=== PATIENT | male | born 1935 | race Caucasian/White ===

== ENCOUNTER 2016-07-16 10:51 | Inpatient (IN) | payer MEDICARE ==
[~2016-07-16] VITALS: Ht 177.8 cm; Wt 74.4 kg
[2016-07-16] MEDS ORDERED: DOCUSATE SODIUM 100 MG (COLACE) CAP PO PRN (12:00)
[2016-07-16 12:27] VITALS: BP 121/76
--- NOTE | 2016-07-16 13:11 | Physical Therapy Evaluation ---
PT Evaluation-General Medical Diagnosis Admission Date Jul 16, 2016 at 11:33 Medical Diagnosis: CVA Onset Date: Jul 11, 2016 Therapy Diagnosis Therapy Diagnosis: impaired mobility, strength, balance, endurance Referral Physician: Kar Reason for Referral: Evaluation/Treatment Medical History Pertinent Medical History: CAD, GERD, HTN, PVD, Smoking Additional Medical History high cholesterol, TIA, skin CA, CHF, chronic diarrhea, surg (cataract, dental, elbow, femoral bypass, colonoscopy) Current History Patient went to the ER with left arm/leg numbness and weakness Reviewed History: Yes Social History Home: Multilevel Current Living Status: Spouse Entry Into Home: Stairs With Railing PT Steps Into Home: 2 Patient states he does not have to go upstairs. Prior/Core FIM Prior Level of Function Functional [place] Measure 0=Not Assessed/NA 4=Minimal Assistance 1=Total Assistance 5=Supervision or Setup 2=Maximal Assistance 6=Modified [place] 3=Moderate Assistance 7=Complete [place] Bed Mobility: 7 Transfers (B,C,W/C) (FIM): 7 Gait: 7 PT Evaluation-Current Subjective Patient in car pre tx, just got here from [facility], will assist with car transfer. Patient has no complaints of pain. Pt/Family Goals to walk better and be able to take care of himself at home Objective Patient Orientation: Person, Place, Situation ROM/Strength ROM Lower Extremities WNL Strenght Lower Extremities left lower extremity hip flexion 3+/5, knee flexion 4/5, knee extension 4/5, dorsiflexion 4/5 Neuromuscular (Tone, Coordination, Reflexes) Patient has uncoordinated left lower extremity with ambulation, no grossly abnormal tone Sensory Hearing: Functional Sensation Right Lower Extremit: Intact Sensation Left Lower Extremity: Intact Sensation Lower Extremities Patient has intact light touch sensation in left lower extremity but states it is not normal, is dulled. Transfers Functional [place] Measure 0=Not Assessed/NA 4=Minimal Assistance 1=Total Assistance 5=Supervision or Setup 2=Maximal Assistance 6=Modified [place] 3=Moderate Assistance 7=Complete IndependenceIRFPAI Quality Coding Scale 6 Independent with activity with or without an assistive device 5 Patient requires set up or clean up by helper. Patient completes activity by themselves 4 Supervision or touching assist (CGA). [place] provide cues , steadying assist 3 The helper provides less than half the effort to complete the activity 2 The helper provides more than half the effort to complete the activity 1 Dependent. The helper does all the effort to complete an activity 7 Patient refused to complete or attempt activity 9 The patient did not perform the activity before the current illness or injury 88 Not attempted due to Medical conditions or safety concerns Transfers (B, C, W/C) (FIM): 4 Scootin Rollin Roll Left to Right (QC): 4 Supine to/from Sit: 4 Sit to/from Stand: 4 bed t/f WC(FIM only if WC use): 4 Sit to Lying (QC): 3 Lying to Sitting/Side of Bed(Q: 3 Sit to Stand (QC): 3 Chair/Drq-mw-Jbbmv Xfer(QC): 3 Car Transfer (QC): 3 Patient performs bed mobility with SBA except for supine <-> sit which needs min assist, transfers with min assist. Patient needs cues for safety and hand placement, constant cues to push up from arm rest. Patient leans to the left and has a lot of trouble turning to sit to the right. Gait Does the Patient Walk?: Yes Mode of Locomotion: Walk Anticipated Mode of Locomotion: Walk Gait (FIM): 1 Walk 10 feet (QC): 4 Walk 50 ft with 2 Turns(QC): 88 Walk 150 ft (QC): 88 Walking 10ft/uneven surface-QC: 88 Distance: 20'x2 Gait Level of Assist: 4 Gait Persons Needed: 1 Gait Assistive Device: Walker Ion Comments/Gait Description Patient can ambulate 20' with a ion walker with min assist for balance and weight shifting, uncoordinated movement of left leg. Wheelchair Training Does the Pt Use a Wheelchair?: Yes Wheelchair (FIM): 2 Distance: 50' Wheelchair Level of Assist: 5 Wheel 50 ft with 2 turns (QC): 4 Wheel 150 ft (QC): 88 Type of Wheelchair: Manual uses right arm and leg, cues for direction Stairs Stairs (FIM): 1 #of Steps: 1 Level of Assist: 3 1 Step (curb) (QC): 2 4 Steps (QC): 88 12 Steps (QC): 88 Patient can go up and down 1 step using a ion walker with mod assist for balance. Balance Sitting Static: Good Sitting Dynamic: Good Standing Static: Poor Standing Dynamic: Poor Picking up an Object (QC): 88 Assessment/Needs Patient has impaired mobility, strength (left ion), balance, endurance post CVA. 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 He is at high risk for a fall. Rehab Potential: Fair PT Short Term Goals Short Term Goals Time Frame: Jul 23, 2016 Transfers (B,C,W/C) (FIM): 4 Gait (FIM): 2 Gait Distance Comment: 50' Gait Level of Assist: 4 Gait Assistive Device: Cane Large Base Quad PT Brake Tester Goals Snf Goals PT Snf Goals Time Frame: Aug 06, 2016 Transfers (B,C,W/C) (FIM): 5 Sit to Lying (QC): 4 Lying-Sitting on Side/Bed(QC): 4 Sit to Stand (QC): 4 Rollin Roll Left to Right (QC): 4 Chair/Pai-zs-Skzvm Xfer(QC): 4 Car Transfer (QC): 4 Gait (FIM): 4 Distance: 150' Walk 10 feet (QC): 4 Walk 10ft-Uneven Surface(QC): 4 Walk 50ft with 2 Turns (QC): 4 Walk 150 ft (QC): 4 Gait Level of Assist: 4 Gait Assistive Device: Cane Large Base Quad Stairs (FIM): 2 # of Steps: 4 1 Step (curb) (QC): 4 4 Steps (QC): 4 12 Steps (QC): 88 Stairs Level Of Assist: 4 Picking up an Object (QC): 88 PT Plan Problem List Problem List: Activity Tolerance, Functional Strength, Safety, Balance, Gait, Transfer, Bed Mobility Treatment/Plan Treatment Plan: Continue Plan of Care Treatment Plan: Bed Mobility, Education, Functional Activity Pedro, Functional Strength, Group Therapy, Gait, Safety, Therapeutic Exercise, Transfers Treatment Duration: Aug 06, 2016 # of days/week 5-6 Visits Per Week: 10-11 Minutes/Day (M-F): 60-90 Minutes/Day (Sat/Etienne): 15-30 Pt/Family Agrees w/Plan: Yes Safety Risks/Education Patient Education: Gait Training, Transfer Techniques, Steps, Correct Positioning, W/C Management, Safety Issues Teaching Recipient: Patient Teaching Methods: Demonstration, Discussion Response to Teaching: Reinforcement Needed Discharge Recommendations Plan Patient will perform bed mobility and transfer training, balance and endurance training, functional strengthening, stair training, gait training, and education , to improve functional mobility and independence at home. Therapy D/C Recommendations: Home w/ Family Support Time/GCodes Time In: 1125 Time Out: 1225 Total Billed Treatment Time: 60 Total Billed Treatment 1 visit EV 15' GT 20' [facility] 10' FA 15' LATANYA FLYNN PT Jul 16, 2016 13:11
[2016-07-16] MEDS ORDERED: TR1C15 TP (13:25)
[2016-07-16] MEDS ORDERED: BENA20TA2 PO (13:25)
[2016-07-16] MEDS ORDERED: OMEP20TA33 PO (13:25)
[2016-07-16] MEDS ORDERED: ATOR20TA66 PO (13:25)
[2016-07-16] MEDS ORDERED: NIFE60TA64 PO (13:25)
[2016-07-16] MEDS ORDERED: MULT1TAB69 PO (13:25)
[2016-07-16] MEDS ORDERED: ASPI-983 PO (13:25)
[2016-07-16] MEDS ORDERED: DOCU100C37 PO (13:25)
--- NOTE | 2016-07-16 14:14 | Physical Therapy Daily Note ---
PT Daily Note-Current Subjective Patient in recliner pre tx, agrees to PT, patient pleasant and motivated. No complaints of pain. Appearance Patient in wheelchair post tx with OT in therapy gym. Mental Status Patient Orientation: Normal For Age Transfers Functional [place] Measure 0=Not Assessed/NA 4=Minimal Assistance 1=Total Assistance 5=Supervision or Setup 2=Maximal Assistance 6=Modified [place] 3=Moderate Assistance 7=Complete IndependenceIRFPAI Quality Coding Scale 6 Independent with activity with or without an assistive device 5 Patient requires set up or clean up by helper. Patient completes activity by themselves 4 Supervision or touching assist (CGA). [place] provide cues , steadying assist 3 The helper provides less than half the effort to complete the activity 2 The helper provides more than half the effort to complete the activity 1 Dependent. The helper does all the effort to complete an activity 7 Patient refused to complete or attempt activity 9 The patient did not perform the activity before the current illness or injury 88 Not attempted due to Medical conditions or safety concerns Transfers (B, C, W/C) (FIM): 4 Sit to/from Stand: 4 Bed to/from Chair: 4 Cues for safety and hand placement, leans to the left. Gait Training Gait (FIM): 1 Distance: 30'x4 Gait Level of Assist: 4 Gait Persons Needed: 1 Gait Assistive Device: Walker Ion Min assist to help with balance and weight shifting. Treatments transfers, ambulation Assessment Current Status: Fair Progress improved ambulation, endurance PT Short Term Goals Short Term Goals Time Frame: Jul 23, 2016 Transfers (B,C,W/C) (FIM): 4 Gait (FIM): 2 Gait Distance Comment: 50' Gait Level of Assist: 4 Gait Assistive Device: Cane Large Base Quad Wheelchair Distance: 50' PT Meter Record Clerk Goals Meter Record Clerk Goals PT Fdc Goals Time Frame: Aug 06, 2016 Transfers (B,C,W/C) (FIM): 5 Sit to Lying (QC): 4 Lying-Sitting on Side/Bed(QC): 4 Sit to Stand (QC): 4 Rollin Roll Left to Right (QC): 4 Chair/Ykt-xs-Qwuim Xfer(QC): 4 Car Transfer (QC): 4 Gait (FIM): 4 Distance: 150' Walk 10 feet (QC): 4 Walk 10ft-Uneven Surface(QC): 4 Walk 50ft with 2 Turns (QC): 4 Walk 150 ft (QC): 4 Gait Level of Assist: 4 Gait Assistive Device: Cane Large Base Quad Stairs (FIM): 2 # of Steps: 4 1 Step (curb) (QC): 4 4 Steps (QC): 4 12 Steps (QC): 88 Stairs Level Of Assist: 4 Picking up an Object (QC): 88 PT Plan Problem List Problem List: Activity Tolerance, Functional Strength, Safety, Balance, Gait, Transfer, Bed Mobility Treatment/Plan Treatment Plan: Continue Plan of Care Treatment Plan: Bed Mobility, Education, Functional Activity Pedro, Functional Strength, Group Therapy, Gait, Safety, Therapeutic Exercise, Transfers Treatment Duration: Aug 06, 2016 Visits Per Week: 10-11 Minutes/Day (M-F): 60-90 Minutes/Day (Sat/Etienne): 15-30 Safety Risks/Education Patient Education: Gait Training, Transfer Techniques, Correct Positioning, Safety Issues Teaching Recipient: Patient Teaching Methods: Demonstration, Discussion Response to Teaching: Reinforcement Needed Time/GCodes Time In: 1335 Time Out: 1405 Total Billed Treatment Time: 30 Total Billed Treatment 1 visit GT 30' LATANYA FLYNN PT Jul 16, 2016 14:14
--- NOTE | 2016-07-16 14:53 | Occupational Therapy Eval ---
OT Evaluation-General/PLF Medical Diagnosis Admission Date Jul 16, 2016 at 11:33 Medical Diagnosis: CVA Onset Date: Jul 11, 2016 Therapy Diagnosis Therapy Diagnosis: decr self care, decr funct use L UE, weakness, decr funct mobility Precautions Precautions/Isolations: Fall Prevention, Standard Precautions Referral Physician: Kar Referral Reason: Evaluation/Treatment Medical History Pertinent Medical History: CAD, GERD, HTN, PVD, Smoking Additional Medical History high cholesterol, TIA, skin CA, CHF, chronic diarrhea, surg (cataract, dental, elbow, femoral bypass, colonoscopy) Current History Patient went to the ER with left arm/leg numbness and weakness. Admitted from [facility] Reviewed History: Yes Social History Home: Multilevel Current Living Status: Spouse Entry Into Home: Stairs With Railing Steps Into Home: 2 ADL-Prior Level of Function ADL PLOF Comments Pt verbalized that he was able to manage all of his basic self care needs prior to admission. He did all the yard work for himself and for his son and still drove. 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 DME/Equipment: Bath Chair, Shower Hose Shaping Machine Tender, Tub DME/Equipment Comments Shower is upstairs OT Current Status Subjective Pt seen in room, agreeable to OT. Pain reported 0/10 Appearance Alert, cooperative Mental Status/Objective Patient Orientation: Person, Place, Time, Situation Current Glasses/Contacts: Yes Hearing Aids: No Dentures/Partials: Yes (top and bottom) Hand Dominance: Right Upper Extremity ROM R UE grossly WFL. L UE trace to poor- shoulder, trace elbow flex gravity eliminated, trace pron/sup, trace wrist, trace finger flexion Upper Extremity Coordination L impaired Upper Extremity Sensation Pt reported decreased sensation l UE. Also decr finger sensitivity R hand from smoking Upper Extremity Strength R UE grossly 4/5 Pt and reported no visual deficits from stroke. ADL-Treatment Functional [place] Measure 0=Not Assessed/NA 4=Minimal Assistance 1=Total Assistance 5=Supervision or Setup 2=Maximal Assistance 6=Modified [place] 3=Moderate Assistance 7=Complete IndependenceIRFPAI Quality Coding Scale 6 Independent with activity with or without an assistive device 5 Patient requires set up or clean up by helper. Patient completes activity by themselves 4 Supervision or touching assist (CGA). [place] provide cues , steadying assist 3 The helper provides less than half the effort to complete the activity 2 The helper provides more than half the effort to complete the activity 1 Dependent. The helper does all the effort to complete an activity 7 Patient refused to complete or attempt activity 9 The patient did not perform the activity before the current illness or injury 88 Not attempted due to Medical conditions or safety concerns Eating (FIM): 5 (Setup. Able to feed himself with R hand. No choking observed with flaked fish, refried beans or water. pt has full dentures and reported there are many foods he cannot eat without his teeth. ) Eating (QC): 5 Pt did not need to toilet but BSC brought to room. PT reported he transferred better to R side and this information shared with nursing. Pt left up in recliner, eating, present. All needs met. Education OT Patient Education: Modified ADL techniques, Purpose of tx/functional activities, Rehab process, Safety issues Teaching Recipient: Patient, Family Teaching Methods: Discussion Response to Teaching: Verbalize Understanding OT Short Term Goals Short Term Goals Time Frame: Jul 30, 2016 Bathing(FIM): 5 Upper Body Dressing(FIM): 5 Lower Body Dressing(FIM): 5 Toilet/Commode Transfer(FIM): 4 Additional Short Term Goals: 2-Verbalize Understanding, 3-ImproveStrength/Ped[place] 1=Demonstrate adherence to instructed precautions during ADL tasks. 2=Patient will verbalize/demonstrate understanding of assistive devices/ modifications for ADL. 3=Patient will improve strength/tolerance for activity to enable patient to perform ADL's. OT Skilled Nursing Goals Skilled Nursing Goals Time Frame: Aug 13, 2016 Eating (FIM): 6 Eating (QC): 6 Groomin Oral Hygiene (QC): 6 Bathing(FIM): 6 Shower/Bathe Self (QC): 6 Upper Body Dressing(FIM): 6 Upper Body Dressing (QC): 6 Lower Body Dressing(FIM): 6 Lower Body Dressing (QC): 6 On/Off Footwear (QC): 6 Toileting(FIM): 6 Toileting Hygiene (QC): 6 Toilet/Commode Transfer(FIM): 6 Toilet/Commode Transfer (QC): 6 Shower Transfer(FIM): 6 Additional Goals: 2-Verbalize Understanding, 3-ImproveStrength/Ped[place] 1=Demonstrate adherence to instructed precautions during ADL tasks. 2=Patient will verbalize/demonstrate understanding of assistive devices/ modifications for ADL. 3=Patient will improve strength/tolerance for activity to enable patient to perform ADL's. OT Education/Plan Problem List/Assessment Assessment: Decreased Activ Tolerance, Decreased UE Strength, Dependent Transfers, Impaired Funct Balance, Impaired Self-Care Skills, Restricted Funct UE ROM Pt would benefit from skilled OT to increase his independence in basic self care to allo whim to safely return home to love with his and to decrease caregiver burden. Discharge Recommendations Plan/Recommendations: Continue POC Treatment Plan/Plan of Care Treatment,Training & Education: Yes Patient would benefit from OT for education, treatment and training to promote independence in ADL's, mobility, safety and/or upper extremity function for ADL' s. Plan of Care: ADL Retraining, Functional Mobility, Group Exercise/Act as Ind ( education, exercise, activity tolerance, functional use UEs, funct activities), UE Funct Exercise/Act, UE Neuromus Re-Ed/Coord Treatment Duration: Aug 13, 2016 # of days/week 5-6 Visits Per Week: 10-12 Minutes/Day (M-F): 60-90 Minutes/Day (Sat/Etienne): PRN Agreement: Yes Rehab Potential: Fair Time/GCodes Start Time: 12:30 Stop Time: 13:00 Total Time Billed (hr/min): 30 Billed Treatment Time visit, eval high intensity 30 minutes LIZA BARCLAY OT Jul 16, 2016 14:53
--- NOTE | 2016-07-16 15:09 | Occupational Ther Daily Note ---
OT Current Status-Daily Note Subjective Pt finishing up with PT. OT took over care. Pt agreed to therapy. No c/o pain. present during therapy. Mental Status/Objective Patient Orientation: Person, Place, Time, Situation Functional [place] Measure 0=Not Assessed/NA 4=Minimal Assistance 1=Total Assistance 5=Supervision or Setup 2=Maximal Assistance 6=Modified [place] 3=Moderate Assistance 7=Complete [place] ADL-Treatment Functional [place] Measure 0=Not Assessed/NA 4=Minimal Assistance 1=Total Assistance 5=Supervision or Setup 2=Maximal Assistance 6=Modified [place] 3=Moderate Assistance 7=Complete IndependenceIRFPAI Quality Coding Scale 6 Independent with activity with or without an assistive device 5 Patient requires set up or clean up by helper. Patient completes activity by themselves 4 Supervision or touching assist (CGA). [place] provide cues , steadying assist 3 The helper provides less than half the effort to complete the activity 2 The helper provides more than half the effort to complete the activity 1 Dependent. The helper does all the effort to complete an activity 7 Patient refused to complete or attempt activity 9 The patient did not perform the activity before the current illness or injury 88 Not attempted due to Medical conditions or safety concerns Other Treatment Pt transferred from w/c to therapy mat toward R side with mod A, fatigued and did not pivot L foot well. Pt worked on L UE APROM. Pt demonstrated active movement with shldr elevation, shldr ext, bicep flex/ext, wrist flex and finger flex. Pt used compensatory movements to activate muscle groups. Wt bearing with L UE completed with assist to straighten L elbow. Min A to go from supine to sitting then transferred to w/c. Pt maneuvered w/c back to room with cues. Pt requires cues for safety. Pt transferred to L side with mod A. After therapy, pt's and physician in room. Call light/phone in reach. All needs met in room. OT Short Term Goals Short Term Goals Transfers (B,C,W/C) (FIM): 4 1=Demonstrate adherence to instructed precautions during ADL tasks. 2=Patient will verbalize/demonstrate understanding of assistive devices/ modifications for ADL. 3=Patient will improve strength/tolerance for activity to enable patient to perform ADL's. OT Marine Electrician Helper Goals [facility] Goals Eating (FIM): 6 Toileting(FIM): 6 1=Demonstrate adherence to instructed precautions during ADL tasks. 2=Patient will verbalize/demonstrate understanding of assistive devices/ modifications for ADL. 3=Patient will improve strength/tolerance for activity to enable patient to perform ADL's. OT Education/Plan Discharge Recommendations Plan/Recommendations: Continue POC Treatment Plan/Plan of Care Patient would benefit from OT for education, treatment and training to promote independence in ADL's, mobility, safety and/or upper extremity function for ADL' s. Treatment Duration: Aug 13, 2016 # of days/week 5-6 Visits Per Week: 10-12 Minutes/Day (M-F): 60-90 Minutes/Day (Sat/Etienne): PRN Rehab Potential: Fair Time/GCodes Start Time: 14:05 Stop Time: 14:50 Total Time Billed (hr/min): 45 Billed Treatment Time 1 visit-NM 3 (45 min) LIZA ATKINSON Jul 16, 2016 15:09
--- NOTE | 2016-07-16 15:13 | ST Cognitive Linguistic Eval ---
Speech Evaluation-General Medical Diagnosis CVA Onset Date: Jul 11, 2016 Therapy Diagnosis Therapy Diagnosis: Mild Dysarthria Precautions Precautions/Isolations: Fall Prevention, Standard Precautions Referral Referring Physician: Dr. Darren Lakhani Reason for Referral: Evaluation/Treatment Cognitive Evaluation Medical History Pertinent Medical History: CAD, GERD, HTN, PVD, Smoking Reviewed History: Yes Social History Current Living Status: Spouse Speech PLF-Current Status Prior Level of Function The patient denied prior challenges with speech, language, cognition, or swallowing. Subjective The patient was recently admitted to [facility] following a CVA. The patient (and , who was present at bedside) greeted the clinician appropriately and agreed to participate in the cognitive evaluation. The patient denied any difficulties with language or cognition following the CVA, however, the patient's stated he is demonstrating some slight "slurring." Language Eval: Auditory Comprehends Simple Yes/No Ques: Functional Indent/Objects Multiple Mehta: Functional Ident/Pics in Multiple Mehta: Functional Follows 1-Step Commands: Functional Follows Complex Directions: Functional Follows General Conversations: Functional Language Eval: Verbal Language Completes Spontaneous Greeting: Functional Produces Auto, Serial Info: Functional Imitates Simple Words/Phrases: Functional Word Finding: Functional Requests Basic Needs: Functional States Basic Personal Info: Functional Cognitive Patient Orientation The patient is oriented to self, date of , location, month, day of week, date, and year (independently). Objective Cognitive Domain Attention: WNL Memory: Mild Problem Solving: Functional Objective Oral Motor/Speech Production The patient demonstrated a minimal left facial/labial droop with lingual protrusion at midline. Minimal imprecise articulation was noted throughout the evaluation. Impression The patient demonstrated language and cognition grossly within normal limits. The patient is currently receiving a modified diet, therefore, swallowing will be re-evaluated by this facility on the subsequent date. Communication/Social Cognition Comprehension: 5 Expression: 5 Social Interaction: 6 Problem Solvin Memory: 5 Speech Patient Assess Expression of Ideas/Wants: Exhibits (3) Understanding [place] Content: Usually Understands (3) Brief Interview-Mental Status: Yes Repetition of Three Words: Three (3) Temporal Orientation: Year: Correct (3) Temporal Orientation: Month: Accurate within 5 days(2) Temporal Orientation: Day: Correct (1) Recall : Wear to say "Sock": Yes,after cueing (1) Recall : Color: Yes, no cue required (2) Recall : Bed: Yes, no cue required (2) Speech-Plan Treatment Plan Speech Therapy Treatment Plan: Discontinue ST Evaluation, only. Patient will be followed for dysphagia services. Rehab Potential: Fair Safety Risks/Education Teaching Recipient: Patient, Significant Other Teaching Methods: Discussion Response to Teaching: Verbalize Understanding Education Topics Provided: Plan of Care, Results, Recommendations Time Speech Therapy Time In: 14:50 Speech Therapy Time Out: 13:10 Total Billed Time: 20 Billed Treatment Time 1, JOSÉ MIGUEL VALVERDE Jul 16, 2016 15:13
--- NOTE | 2016-07-16 16:45 | HISTORY AND PHYSICAL ---
DATE OF SERVICE: 07/16/2016 CHIEF COMPLAINT: Difficulty walking. HISTORY OF PRESENT ILLNESS: The patient is a 80-year-old male who had been independent, living with his spouse in [place], [place], who presented to ED at [facility] in [place] on 07/11 with complaints of left arm and left leg weakness. CT of the head showed no acute intracranial abnormality. Neurology was consulted. The patient was not felt to be a candidate for TPA. The patient was admitted to [facility] for further evaluation and treatment. MRI of the brain on 07/12 revealed an acute infarct involving the right basal ganglia as well as chronic lacunar infarcts at the basal ganglia. No changes in medications were recommended. The patient was continued on Ecotrin, a statin and his antihypertensive medications. The patient was begun on therapy. It was felt he would be appropriate for inpatient rehabilitation and referred to [facility] inpatient rehabilitation unit.He is on a modified diet for dysphagia PAST MEDICAL HISTORY: Coronary artery disease, skin cancer right ear, congestive heart failure, chronic diarrhea, CVA, TIA, enlarged prostate, GERD, hypertension, hyperlipidemia, peripheral vascular disease, tobaccoism with 25 pack year history. PAST SURGICAL HISTORY: Femoral bypass 1987, elbow surgery, cataract extraction, dental surgery, coloscopy 01/10/2015. RADIOLOGY: Chest x-ray negative on 07/11/2016. An MRA on 07/12 revealed focal high grade stenosis estimated approximately 90% proximal left subclavian artery near the origin of the left vertebral artery. However, normal flow was seen distal to this within the left subclavian artery. ALLERGIES: TETANUS VACCINE AND TOXOID. FAMILY HISTORY: Noncontributory. SOCIAL HISTORY: Retired from [employer] in [place], [place]. 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 REVIEW OF SYSTEMS: A 10-point review of systems significant for left sided weakness, gait imbalance.Also swollowing difficulty MEDICATIONS: ASA 81 mg p.o. daily, Lotensin 20 mg daily, nifedipine 60 mg p.o. daily, multivitamin with minerals 1 tablet p.o. daily, Protonix 40 mg p.o. daily, Lipitor 20 mg p.o. each day at bedtime, Kenalog apply sparingly to affected area b.i.d., Colace 100 mg p.o. b.i.d. p.r.n. constipation. PHYSICAL EXAMINATION: GENERAL: A pleasant, elderly male appearing his stated age, sitting up in chair in no acute distress. His presents with him. VITAL SIGNS: He is afebrile. Pulse is 81 and regular, respirations 18, blood pressure 121/76, O2 sat 97% on room air. HEENT: Vision, speech, hearing grossly intact. No oral lesions noted. NECK: Supple without mass. HEART: Regular rate and rhythm. LUNGS: Clear. ABDOMEN: Soft, nontender, bowel sounds present. EXTREMITIES: No limb edema, no calf tenderness. MUSCULOSKELETAL: The patient has functional passive range of motion in all four extremities. NEUROLOGIC: The patient has a flaccid left upper limb. Strength left lower limb had hip flexion 3+/5, knee flexion 4/5, knee extension 4/5, dorsiflexion 4/5. Strength on the right within functional limits. Sensation grossly intact to touch. Cognition appears grossly intact.Dysphagia FUNCTIONAL STATUS: He is min assist for transfers. Ambulation short distances with a quad cane. He is fair for eating and grooming. He is right hand dominant. He is mod assist for upper body dressing, max assist for lower body dressing. Mod assist for toileting. He is reported to be continent of bowel and bladder. IMPRESSION: 1. Ambulatory dysfunction secondary to right basal ganglia infarct with left hemiparesis, currently on aspirin and statin. 2. Hypertension, controlled with medication. 3. Gastroesophageal reflux disease, on Protonix. 4. Tobaccoism, currently abstaining. 5. Peripheral vascular disease, status post femoral bypass 1987, remote. 6. Dysphagia on modified diet PLAN: The patient will have a comprehensive program of inpatient rehabilitation with goal of maximizing level of functional independence prior to discharge home. The patient will have PT/OT 90 minutes per day each discipline when not being seen by speech therapy, for gait, strengthening, conditioning, balance, ADLs, any patient family caregiver training as necessary, adaptive equipment training as necessary. Speech therapy will do swallow reassessment and treat as indicated 3 to 5 times a week 30 to 45 minutes a day and advance diet as tolerated. Rehabilitation nursing to assist with bowel, bladder, skin care, medication administration. Social service to assist with discharge planning, community reentry. We will consult Dr. Kuhn to assist with medical management. Routine admission labs. Therapy with cardiac and fall precautions. ESTIMATED LENGTH OF STAY: Three weeks. PROGNOSIS: Appears good with goal to discharge home with spouse, modified independent with supervision for ADLs and mobility skills. Patient reports they live in a 2-story home. DIET: Mechanically altered. CODE STATUS: Full code. Job ID: [id number] DocumentID: [id number] Dictated Date: 07/16/2016 15:00:17 Welder [employer]astic Date: 07/16/2016 16:28:17 Dictated By: KHALIDA FUNEZ MD [facility]
[2016-07-16 18:29] VITALS: BP 136/74
[2016-07-16] MEDS: TRIAMCINOLONE 0.1% CR (KENALOG) 15 GM TUBE TOP SCH (21:41)
[2016-07-16] MEDS: ATORVASTATIN 20 MG (LIPITOR) TABLET PO SCH (21:41)
[2016-07-17 05:14] VITALS: BP 149/76
[2016-07-17] MEDS: MULTIVIT W/MINERALS TAB (THERAGRAN M) PO SCH (06:16)
[2016-07-17] MEDS: PANTOPRAZOLE 40 MG (PROTONIX) TAB PO SCH (06:17)
[2016-07-17 06:58] LABS: BASOPHILS % (AUTO) 0 % (0-10); EOSINOPHILS # (AUTO) 0.1 10^3/uL (0.0-0.3); EOSINOPHILS % (AUTO) 2 % (0-10); LYMPHOCYTES # (AUTO) 1.6 X 10^3 (1.0-4.0); LYMPHOCYTES % (AUTO) 21 % (12-44); MEAN CORPUSCULAR HEMOGLOBIN 34 PG (25-34); MEAN CORPUSCULAR HGB CONC 35 G/DL (32-36); MEAN CORPUSCULAR VOLUME 99 FL (80-99); MEAN PLATELET VOLUME 9.6 FL (7.4-10.4); MONOCYTES # (AUTO) 1.1 X 10^3 (0.0-1.0); MONOCYTES % (AUTO) 14 % (0-12); NEUTROPHILS # (AUTO) 4.9 X 10^3 (1.8-7.8); NEUTROPHILS % (AUTO) 63 % (42-75); PLATELET COUNT 232 10^3/uL (130-400); RED BLOOD COUNT 4.29 10^6/uL (4.35-5.85); RED CELL DISTRIBUTION WIDTH 12.9 % (10.0-14.5); WHITE BLOOD COUNT 7.8 10^3/uL (4.3-11.0)
[2016-07-17 07:23] LABS: ALANINE AMINOTRANSFERASE 35 U/L (0-55); ANION GAP 9 MMOL/L (5-14); ASPARTATE AMINO TRANSFERASE 33 U/L (5-34); BILIRUBIN,TOTAL 1.2 MG/DL (0.1-1.0); BLOOD UREA NITROGEN 11 MG/DL (7-18); BUN/CREATININE RATIO 15; CALCIUM 9.2 MG/DL (8.5-10.1); CARBON DIOXIDE 23 MMOL/L (21-32); CHLORIDE 104 MMOL/L (98-107); CREATININE SERUM 0.73 MG/DL (0.60-1.30); GFR ESTIMATED > 60; GLUCOSE 104 MG/DL (70-105); POTASSIUM 3.9 MMOL/L (3.6-5.0); SODIUM 136 MMOL/L (135-145); TOTAL PROTEIN 7.1 G/DL (6.4-8.2)
[2016-07-17] MEDS: BENAZEPRIL 20 MG (LOTENSIN) TAB PO SCH (07:58)
[2016-07-17] MEDS: NIFEdipine ER 60 MG (PROCARDIA XL) TAB PO SCH (07:58)
[2016-07-17] MEDS: ASPIRIN E.C. 81 MG (ECOTRIN) TAB PO SCH (07:58)
[2016-07-17] MEDS: TRIAMCINOLONE 0.1% CR (KENALOG) 15 GM TUBE TOP SCH ×2 (07:59→20:34)
--- NOTE | 2016-07-17 08:39 | Consultation ---
History of Present Illness History of Present Illness Patient Consulted On(lima/time) 07/17/16 08:34 Date of Admission History of Present Illness history of CVA.. Left arm and left leg weakness. CT of head no abnormality. MRI acute infarct. Patient in hospital in [facility]. Patient put on active Viktor, statin and antihypertensive. Patient has CAD, skin cancer, CHF, CVA, TIA, GERD, and hypertension. Surgery femoral, right elbow, cataract, and fractured leg. Family history diabetes a little denies asthma TB heart disease lung disease cancer Allergies and Home Medications Allergies Coded Allergies: Tetanus Vaccines and Toxoid (Verified Allergy, Unknown, 07/16/16) Home Medications Aspirin 81 Mg Tablet.dr, 81 MG PO DAILY, (Reported) Atorvastatin Calcium 20 Mg Tablet, 20 MG PO HS, (Reported) Benazepril HCl 20 Mg Tablet, 20 MG PO DAILY, (Reported) Docusate Sodium 100 Mg Capsule, 100 MG PO BID PRN for CONSTIPATION-1ST LINE, ( Reported) Multivitamin 1 Each Tablet, 1 TAB PO DAILY, (Reported) Nifedipine 60 Mg Tab.er.24, 60 MG PO DAILY, (Reported) Omeprazole Magnesium 20 Mg Tablet.dr, 20 MG PO DAILY, (Reported) Triamcinolone Acet 15 Gm Cr, TP BID, (Reported) Past Dkoilhc-Lqvenf-Hyreqm Hx Patient Social History Smoking Status: Former Smoker Type Used: Cigarettes Recent Foreign Travel: No Contact w/Someone Who Travel: No Recent Infectious Disease Expo: No Immunizations Up To Date Date of Pneumonia Vaccine: June 28, 2015 Genitourinary Genitourinary Disorders: Prostate Problems Gastrointestinal Gastrointestinal Disorders: Gastroesophageal Reflux, Chronic Diarrhea HEENT HEENT Disorders: Cataract Cancer Cancer: Skin Review of Systems-General Time Seen by Provider: 08:39 Constitutional: weakness EENTM: no symptoms reported Respiratory: no symptoms reported Cardiovascular: no symptoms reported Gastrointestinal: no symptoms reported Genitourinary: no symptoms reported Physical Exam-General Problems Physical Exam Vital Signs Vital Sign - Last 12Hours 07/16/16 12:27 Temp 98.8 Pulse 81 Resp 18 B/P (MAP) 121/76 Pulse Ox 97 Capillary Refill : General Appearance: WD/WN, no apparent distress Eyes: Bilateral Eye Normal Inspection HEENT: normal ENT inspection Neck: non-tender, full range of motion Respiratory: chest non-tender, lungs clear, normal breath sounds, no respiratory distress, no accessory muscle use Cardiovascular: regular rate, rhythm, no murmur Gastrointestinal: non tender, soft Assessment/Plan Assessment/Plan Admission Diagnosis/Plan CVA on left. Hypertension. GERD. TIA history. CHF history Clinical Quality Measures DVT/VTE Risk/Contraindication: Risk Factor Score Per Nursin RFS Level Per Nursing on Admit: 4+=Very High DORA MOCK DO Jul 17, 2016 08:38
--- NOTE | 2016-07-17 08:56 | Occupational Ther Daily Note ---
OT Current Status-Daily Note Subjective Pt alert, sitting EOB finishing breakfast. assisted in setting up breakfast. Pt agreed to therapy. No c/o pain at this time. Mental Status/Objective Patient Orientation: Person, Place, Time, Situation Functional [place] Measure 0=Not Assessed/NA 4=Minimal Assistance 1=Total Assistance 5=Supervision or Setup 2=Maximal Assistance 6=Modified [place] 3=Moderate Assistance 7=Complete [place] ADL-Treatment Functional [place] Measure 0=Not Assessed/NA 4=Minimal Assistance 1=Total Assistance 5=Supervision or Setup 2=Maximal Assistance 6=Modified [place] 3=Moderate Assistance 7=Complete IndependenceIRFPAI Quality Coding Scale 6 Independent with activity with or without an assistive device 5 Patient requires set up or clean up by helper. Patient completes activity by themselves 4 Supervision or touching assist (CGA). [place] provide cues , steadying assist 3 The helper provides less than half the effort to complete the activity 2 The helper provides more than half the effort to complete the activity 1 Dependent. The helper does all the effort to complete an activity 7 Patient refused to complete or attempt activity 9 The patient did not perform the activity before the current illness or injury 88 Not attempted due to Medical conditions or safety concerns Eating (FIM): 5 ( sets up pt for feeding. Pt then uses regular utensil to feed self.) Eating (QC): 5 ( sets up pt for feeding. Pt then uses regular utensil to feed self.) Grooming (FIM): 3 (Pt is able to use electric razor to shave self. Set up and assist to brush dentures. Sitting in front of sink.) Oral Hygiene (QC): 2 (Set up and assist to brush dentures.) Bathing (FIM): 3 (Close SBA when sitting on shower bench. CGA when standing to cleanse buttocks/aida area. Using shower bench, grabbars and hand held shower. Pt able to bend over to cleanse feet while sitting without LOB. Assist to bathe R UE.) Bathing Location: L Arm, L Upper Leg, R Upper Leg, L Lower Leg (including foot) , R Lower Leg (including foot), Chest, Abdomen, Buttocks, Perineal Area Shower/Bathe Self (QC): 2 (Close SBA when sitting on shower bench. CGA when standing to cleanse buttocks/aida area. Using shower bench, grabbars and hand held shower. Pt able to bend over to cleanse feet while sitting without LOB. Assist to bathe R UE.) Upper Body (FIM): 3 (Pt requires assistance to thread L UE into sleeve and place over head then pulls down by self.) Upper Body Dressing (QC): 2 (Pt requires assistance to thread L UE into sleeve and place over head then pulls down by self.) Lower Body Dressing (FIM): 2 (Pt is able to thread feet into underwear/pants and pull up legs, assist to hike pants over hips. Pt attempted to complete while assist to balance in standing then used grabbar to stand while ALTMAN finished hiking pants over L hips. Assist to don/doff socks/shoes.) Lower Body Dressing (QC): 2 (Pt is able to thread feet into underwear/pants and pull up legs, assist to hike pants over hips. Pt attempted to complete while assist to balance in standing then used grabbar to stand while ALTMAN finished hiking pants over L hips. Assist to don/doff socks/shoes.) On/Off Footwear (QC): 2 (Assist to don/doff socks and shoes. Is able to cross leg over knee to attempt with donning.) Toileting (FIM): 2 (Assist needed to cleanse buttocks efficiently. Assist to stand while pt attempts to manipulate clothing then assist needed to hike pants over L hip.) Toileting Hygiene (QC): 2 (Assist needed to cleanse buttocks efficiently. Assist to stand while pt attempts to manipulate clothing then assist needed to hike pants over L hip.) Transfers (B, C, W/C) (FIM): 3 (Mod A with stand pivot transfer.) Toilet/Commode Transfer (FIM): 3 (Mod A with stand pivot transfer.) Toilet Transfer (QC): 2 (Mod A with stand pivot transfer.) Shower Transfer(FIM): 3 (Mod A with stand pivot transfer using grabbar, shower bench and pola walker.) After therapy, pt sitting in recliner with call light/phone in reach. All needs met in room. OT Short Term Goals Short Term Goals Time Frame: Jul 30, 2016 Bathing(FIM): 5 Upper Body Dressing(FIM): 5 Lower Body Dressing(FIM): 5 Toilet/Commode Transfer(FIM): 4 Additional Short Term Goals: 2-Verbalize Understanding, 3-ImproveStrength/Pedro 1=Demonstrate adherence to instructed precautions during ADL tasks. 2=Patient will verbalize/demonstrate understanding of assistive devices/ modifications for ADL. 3=Patient will improve strength/tolerance for activity to enable patient to perform ADL's. OT Hammer Adjuster Goals Hammer Adjuster Goals Time Frame: Aug 13, 2016 Eating (FIM): 6 Eating (QC): 6 Groomin Oral Hygiene (QC): 6 Bathing(FIM): 6 Shower/Bathe Self (QC): 6 Upper Body Dressing(FIM): 6 Upper Body Dressing (QC): 6 Lower Body Dressing(FIM): 6 Lower Body Dressing (QC): 6 On/Off Footwear (QC): 6 Toileting(FIM): 6 Toileting Hygiene (QC): 6 Toilet/Commode Transfer(FIM): 6 Toilet/Commode Transfer (QC): 6 Shower Transfer(FIM): 6 Additional Goals: 2-Verbalize Understanding, 3-ImproveStrength/Pedro 1=Demonstrate adherence to instructed precautions during ADL tasks. 2=Patient will verbalize/demonstrate understanding of assistive devices/ modifications for ADL. 3=Patient will improve strength/tolerance for activity to enable patient to perform ADL's. OT Education/Plan Problem List/Assessment Pt would benefit from skilled OT to increase his independence in basic self care to allo whim to safely return home to love with his and to decrease caregiver burden. Discharge Recommendations Plan/Recommendations: Continue POC Treatment Plan/Plan of Care Patient would benefit from OT for education, treatment and training to promote independence in ADL's, mobility, safety and/or upper extremity function for ADL' s. Plan of Care: ADL Retraining, Functional Mobility, Group Exercise/Act as Ind ( education, exercise, activity tolerance, functional use UEs, funct activities), UE Funct Exercise/Act, UE Neuromus Re-Ed/Coord Treatment Duration: Aug 13, 2016 Visits Per Week: 10-12 Minutes/Day (M-F): 60-90 Minutes/Day (Sat/Etienne): PRN Agreement: Yes Rehab Potential: Fair Time/GCodes Start Time: 07:00 Stop Time: 08:00 Total Time Billed (hr/min): 60 Billed Treatment Time 1 visit-ADL 4 (60 min) LIZA ATKINSON Jul 17, 2016 08:56
--- NOTE | 2016-07-17 09:04 | Physical Therapy Daily Note ---
PT Daily Note-Current Subjective Pt. agrees to Rx. very pleasant, makes conversation Pain Numeric Pain Scale: 0-No Pain Mental Status Patient Orientation: Normal For Age Transfers Functional [place] Measure 0=Not Assessed/NA 4=Minimal Assistance 1=Total Assistance 5=Supervision or Setup 2=Maximal Assistance 6=Modified [place] 3=Moderate Assistance 7=Complete IndependenceIRFPAI Quality Coding Scale 6 Independent with activity with or without an assistive device 5 Patient requires set up or clean up by helper. Patient completes activity by themselves 4 Supervision or touching assist (CGA). [place] provide cues , steadying assist 3 The helper provides less than half the effort to complete the activity 2 The helper provides more than half the effort to complete the activity 1 Dependent. The helper does all the effort to complete an activity 7 Patient refused to complete or attempt activity 9 The patient did not perform the activity before the current illness or injury 88 Not attempted due to Medical conditions or safety concerns Transfers (B, C, W/C) (FIM): 4 Scootin Rollin Supine to/from Sit: 4 Sit to/from Stand: 4 sit to stand utilized lift chair part way up to accomplish min assist. sup to sit required many cues and instruction to plan and carry out left LE into bed. Pt. with left ignoral. in flat bed pt. demonstrates ability to use rail and both legs and push self up in bed with instruction only Gait Training Does the Patient Walk?: Yes Gait (FIM): 1 Distance (FIM): 1=up to 49 ft (8ftx3) Gait Level of Assist: 3 Gait Persons Needed: 1 Gait Assistive Device: Walker Platform tempted gait x3 with pola walker, pt. requiring max assist and listing heavy to left. then initiated FWW with left platform, improved somewhat. Exercises Supine Ex: Bridging, Ankle pumps, Rolling, Heel Slides, Short Arc Quads, Scooting, Straight leg raise, Hip abd/add Supine Reps: 15 Seated Therapy Exercises: Ankle pumps, Sit to stand, Long arc quads, Hip flexion Seated Reps: 8 Assessment Current Status: Good Progress pt. with much difficulty walking today. heavy list left and poor coordination and awareness on left unless cues and instructed near constant. PT Short Term Goals Short Term Goals Time Frame: Jul 23, 2016 Gait (FIM): 2 Gait Distance Comment: 50' Gait Level of Assist: 4 Gait Assistive Device: Cane Large Base Quad Wheelchair Distance: 50' PT Broacher Goals Detention Goals PT Detention Goals Time Frame: Aug 06, 2016 Transfers (B,C,W/C) (FIM): 5 Sit to Lying (QC): 4 Lying-Sitting on Side/Bed(QC): 4 Sit to Stand (QC): 4 Rollin Roll Left to Right (QC): 4 Chair/Ufj-ei-Mfaua Xfer(QC): 4 Car Transfer (QC): 4 Gait (FIM): 4 Distance: 150' Walk 10 feet (QC): 4 Walk 10ft-Uneven Surface(QC): 4 Walk 50ft with 2 Turns (QC): 4 Walk 150 ft (QC): 4 Gait Level of Assist: 4 Gait Assistive Device: Cane Large Base Quad Stairs (FIM): 2 # of Steps: 4 1 Step (curb) (QC): 4 4 Steps (QC): 4 12 Steps (QC): 88 Stairs Level Of Assist: 4 Picking up an Object (QC): 88 PT Plan Treatment/Plan Treatment Plan: Continue Plan of Care Treatment Plan: Bed Mobility, Education, Functional Activity Pedro, Functional Strength, Group Therapy, Gait, Safety, Therapeutic Exercise, Transfers Treatment Duration: Aug 06, 2016 Visits Per Week: 10-11 Minutes/Day (M-F): 60-90 Minutes/Day (Sat/Etienne): 15-30 Safety Risks/Education Patient Education: Gait Training, Transfer Techniques, Correct Positioning, Disease Process, Safety Issues Teaching Recipient: Patient Teaching Methods: Demonstration, Discussion Response to Teaching: Unable to Return Demonstration, Reinforcement Needed explained and educated re: CVA and retaining of movement patterns and that he will take some time to improve Time/GCodes Time In: 800 Time Out: 900 Total Billed Treatment Time: 60 Total Billed Treatment 1,FA40m,EX20m G Codes Necessary: SANDRA Martinez CALL CENTER MANAGER Jul 17, 2016 09:04
--- NOTE | 2016-07-17 09:50 | Diagnostic Imaging Report ---
EXAMINATION: Left hand at 0841 hours. INDICATION: Hand pain. TECHNIQUE: Three views were obtained. COMPARISON: There are no prior studies available for comparison. FINDINGS: There is no fracture, dislocation, or acute bony abnormality evident. The osseous structures are demineralized. 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 There is also an amorphous soft tissue calcification along the lateral aspect of the triscaphe joint. This may be a sequela of prior trauma. In addition, there is narrowing of the radiocarpal joint and there is slight widening of the space between the lunate bone and scaphoid. IMPRESSION: 1. There is no evidence for an acute bony abnormality. 2. The osseous structures are demineralized and there are degenerative changes involving the hand and wrist with the triscaphe joint the most severely affected. Dictated by: Dictated on workstation # [id number]
--- NOTE | 2016-07-17 10:41 | PM&R Post Admission Assessment ---
Post Admission Physician Asses The preadmission screen agrees with the post admission assessment that the patient is a good candidate for inpatient rehabilitation. The patient will have a comprehensive program of inpatient rehabilitation with a goal of maximizing level of functional independence prior to discharge home with spouse. The patient will have PT/OT ninety minutes per day, each discipline, five days a week for gait, strengthening, conditioning, balance, ADLs, any patient/family/caregiver training necessary. Speech therapy to do cognitive assessment and treat as indicated. Rehabilitation nursing to assist with bowel, bladder, skin, medication administration, pain management. Artificial Breast Fabricator to assist with discharge planning, community reentry. SCD's for DVT prophylaxis. He appears to be well motivated to participate in three hours of therapy a day. He should be able to tolerate three hours of therapy a day from a medical standpoint. He should benefit from the three hours of therapy a day. He has a reasonable discharge plan, reasonable discharge rehabilitation goals and a supportive family. He has various comorbidities that need to be closely monitored with medications and treatments adjusted on a daily basis as needed. These include: painful left hand CHF HLP BPH HTN PVD tobaccoism Barriers to discharge for this patient who had been independent prior to this are for him to be modified independent to supervision for ADLs and mobility skills prior to discharge home with [family], so as to lessen the burden of the caregivers. Risks for this patient include: 1. Fall 2. Fracture 3. DVT 4. Pulmonary embolism 5. Poorly controlled HTN 6. Skin breakdown 7. Contractures 8. Poorly controlled pain 9. Urinary retention 10. UTI 11. Respiratory infection 12. Aspiration 13. Bout of CHF 14. Recurrent Cva Estimated Length of Stay: 21 days Prognosis: Rehab prognosis appears good for goal of discharge home with spouse modified independent to supervision for ADLs and mobility skills. KHALIDA FUNEZ MD Jul 17, 2016 10:41
--- NOTE | 2016-07-17 11:22 | ST Dysphagia Evaluation ---
Speech Evaluation-General Medical Diagnosis CVA Onset Date: Jul 11, 2016 Therapy Diagnosis Therapy Diagnosis: Mild Oropharyngeal Dysphagia Precautions Precautions/Isolations: Aspiration, Fall Prevention, Standard Precautions Referral Referring Physician: Dr. Darren Lakhani Reason for Referral: Evaluation/Treatment Clinical Bedside Swallowing Evaluation Medical History Pertinent Medical History: CAD, GERD, HTN, PVD, Smoking Reviewed History: Yes Social History Current Living Status: Spouse Speech PLF/Current-Dysphagia Prior Level of Function The patient denied challenges with swallowing prior to his recent CVA. At this time, the patient is receiving a soft diet with thin liquids. Subjective The patient was recently admitted to [facility] following a CVA. The patient was seated upright in recliner upon entrance and greeted the clinician appropriately. The patient was agreeable to participation in the dysphagia evaluation. The patient underwent a modified barium swallow evaluation at an outside facility two days prior. The swallow evaluation did not reveal aspiration with any consistency tested. Following the swallow evaluation, the patient was placed on a soft diet with thin liquids. Cognitive Status Patient Orientation: Person, Place, Time, Situation Oral Motor Skills Dentition: Edentalous Denture Type: Full- Upper & Lower Current Food Consistancy: Mechanical Soft, Thin Liquids Ability to Follow Directions: Excellent Oral Expression Ability: No Impairment Voice Voice Phonatory-Based Quality: Glottal Delgado Voice Pitch: Normal Voice Loudness: Mildly Soft/Quiet Face Facial Symmetry: Asymmetrical (Minimal left facial droop present.) Oral-Facial Assessment Oral-Facial Dentition: Normal Labial Seal Description: Droops Left (Weak) Smile: Droops Left Puff Cheeks: Reduced Strength (Left.) Lingual Protrusion: Normal Lingual ROM: Normal Lingual Strength: Normal Pharynx Velopharyngeal Move.: Normal Volitional Dry Swallow: Yes Voluntary Cough: Yes Can Clear Throat Volitionally: Yes Productive Cough: Yes Productive Throat Clear: Yes Dysphagia Evaluation Consistencies Presented: Regular, Thin Liquid, Pureed Oral Phase: Anterior Spillage, Oral Residue Minimal left anterior spillage was noted of thin liquid consistencies on one occasion (cup sip). Minimal lingual residue remained with solid consistencies following the swallow. Funct. Velo/Pharyngeal Symptom: Cough After Swallow - Thin Liquid (via cup sip): The patient demonstrated a delayed throat clear following one of ten swallows of thin liquid (via cup). When the throat clear was discussed, the patient reported he took "too large" of a drink, which was observed by his double swallow. With deliberate, focused small sips (as previously recommended), no signs/symptoms of aspiration were demonstrated. - Puree/ Solid Consistencies: No signs/symptoms of aspiration were demonstrated with multiple boluses of puree or solid consistencies tested. Dietary Recommendations: Regular Liquid Recommendations: Thin Swallowing Precautions: No Straw, Small Bites and Sips, Sitting 90 Degrees 30 Post Intake, Left Tongue Sweep - Crush medication and place in puree for administration. - Present food/liquid to strong, right labial side. Dysphagia Evaluation Summary Mild oropharyngeal dysphagia characterized by decreased labial and lingual strength. Speech Short Term Goals Short Term Goals Short Term Goals 1. The patient will independently demonstrate swallowing strategies with 90% accuracy. 2. The patient will demonstrate dysphagia exercises with 80% accuracy and mild clinician cueing. Time Frame-STG: One Week Speech Auto Service Mechanic Goals Shelter Goals 1. The patient will tolerate the least restrictive diet without signs/symptoms of aspiration or laryngeal penetration. Time Frame: Two Weeks Comprehension: 5 Expression: 6 Social Interaction: 6 Problem Solvin Memory: 5 Speech-Plan Treatment Plan Speech Therapy Treatment Plan: Continue Plan of Care Continue skilled speech pathology to target dysphagia strengthening exercises and diet tolerance. Treatment Duration: Jul 31, 2016 # of days/week Four to five. Visits Per Week: Four to five. Minutes/Day (M-F): 30 Rehab Potential: Good Safety Risks/Education Teaching Recipient: Patient Teaching Methods: Discussion Response to Teaching: Verbalize Understanding Education Topics Provided: Results, Recommendations, Swallowing Strategies, Signs/Symptoms of Aspiration Time Speech Therapy Time In: 09:15 Speech Therapy Time Out: 09:45 Total Billed Time: 30 Billed Treatment Time 1ANAM ELIZABETH ST Jul 17, 2016 11:22
--- NOTE | 2016-07-17 14:16 | PM & R (SOAP) Progress Note ---
Subjective Time Seen by Provider: 08:00 Subjective/Events-last exam Patient was seen in his room earlier today C/O left hand pain Discussed with DR Kuhn Xray negative will use Symptomatic relief Review of Systems Musculoskeletal: hand pain Objective Exam Last Set of Vital Signs Vital Signs Date Time Temp Pulse Resp B/P (MAP) Pulse Ox O2 Delivery O2 Flow Rate FiO2 07/17/16 09:00 93 07/17/16 05:14 98.6 81 18 149/76 Capillary Refill : I&O Bad tableGeneral: Alert, Oriented X3, Cooperative, No Acute Distress HEENT: Atraumatic, PERRLA, EOMI, Mucous Memb Moist/[place], Other (facial droop) Neck: Supple, No JVD Lungs: Clear to Auscultation Heart: Regular Rate Abdomen: Normal Bowel Sounds, Soft, No Tenderness Extremities: No Edema Neuro: Other (left HP) Results Lab Laboratory Tests 07/17/16 06:48: White Blood Count 7.8, Red Blood Count 4.29L, Hemoglobin 14.7, Hematocrit 43, Mean Corpuscular Volume 99, Mean Corpuscular Hemoglobin 34, Mean Corpuscular Hemoglobin Concent 35, Red Cell Distribution Width 12.9, Platelet Count 232, Mean Platelet Volume 9.6, Neutrophils (%) (Auto) 63, Lymphocytes (%) (Auto) 21, Monocytes (%) (Auto) 14H, Eosinophils (%) (Auto) 2, Basophils (%) (Auto) 0, Neutrophils # (Auto) 4.9, Lymphocytes # (Auto) 1.6, Monocytes # (Auto) 1.1H, Eosinophils # (Auto) 0.1, Basophils # (Auto) 0.0, Sodium Level 136, Potassium Level 3.9, Chloride Level 104, Carbon Dioxide Level 23, Anion Gap 9, Blood Urea Nitrogen 11, Creatinine 0.73, Estimat Glomerular Filtration Rate > 60, BUN/ Creatinine Ratio 15, Glucose Level 104, Calcium Level 9.2, Total Bilirubin 1.2H , Aspartate Amino Transf (AST/SGOT) 33, Alanine Aminotransferase (ALT/SGPT) 35, Alkaline Phosphatase 70, Total Protein 7.1, Albumin 4.0 Assessment/Plan Assessment 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
--- NOTE | 2016-07-17 15:10 | Therapy Group Daily Note ---
Therapy Daily Group Note Patient Education Topic Other List Below (education on exercises to complete in room.) Exercises LE Seated Exercise, UE Exercise Other/Notes Pt transported to OT/PT group using via w/c. Group consisted of introductions ( name, place living, favorite summer activity), ARU description/expectations, UE/ LE seat exercises, inspirational words/word of encouragement and education on bed exercises to complete between therapy sessions. Pt contributed to group discussions appropriately. Verbalized understanding of ARU. Completed UE/LE seated exercises using R UE to assist L UE. Pt ambulated with FWW back to room. After therapy, pt sitting in recliner with call light/phone in reach. All needs met in room. Start Time: 13:00 Stop Time: 14:10 Total Billed Treatment Time: 70 Total Billed Treatment 1-GRP LIZA ATKINSON Jul 17, 2016 15:10
[2016-07-17 18:06] VITALS: BP 105/61
[2016-07-17] MEDS: ATORVASTATIN 20 MG (LIPITOR) TABLET PO SCH (20:34)
[2016-07-18] MEDS: ACETAMINOPHEN 500 MG TAB (TYLENOL) PO PRN (00:09)
[2016-07-18 05:18] VITALS: BP 141/61
[2016-07-18] MEDS: PANTOPRAZOLE 40 MG (PROTONIX) TAB PO SCH (06:16)
[2016-07-18] MEDS: MULTIVIT W/MINERALS TAB (THERAGRAN M) PO SCH (06:16)
--- NOTE | 2016-07-18 07:17 | PM & R (SOAP) Progress Note ---
Subjective Time Seen by Provider: 07:10 Subjective/Events-last exam Patient was seen in his room this AM Patients spouse indicates that patient uses hypoallergenic soap due to patients salome Spouse has brought in soapbar Discussed with OT who will do Moring Bathing and grooming adls this AM Patient min assist for transfers. Review of Systems Neurological: Weakness Objective Exam Last Set of Vital Signs Vital Signs Date Time Temp Pulse Resp B/P (MAP) Pulse Ox O2 Delivery O2 Flow Rate FiO2 07/18/16 05:18 98.0 72 18 141/61 93 Capillary Refill : I&O Intake and Output 07/18/16 00:00 Intake Total 850 ml Output Total 1650 ml Balance -800 ml Intake Oral 850 ml Output Urine Total 1650 ml General: Alert, Oriented X3, Cooperative, No Acute Distress HEENT: Atraumatic, PERRLA, EOMI, Mucous Memb Moist/[place], Other (facial droop) Neck: Supple, No JVD Lungs: Clear to Auscultation Heart: Regular Rate Abdomen: Normal Bowel Sounds, Soft, No Tenderness Extremities: No Edema Neuro: Other (left HP) Results Lab Laboratory Tests 07/17/16 06:48: White Blood Count 7.8, Red Blood Count 4.29L, Hemoglobin 14.7, Hematocrit 43, Mean Corpuscular Volume 99, Mean Corpuscular Hemoglobin 34, Mean Corpuscular Hemoglobin Concent 35, Red Cell Distribution Width 12.9, Platelet Count 232, Mean Platelet Volume 9.6, Neutrophils (%) (Auto) 63, Lymphocytes (%) (Auto) 21, Monocytes (%) (Auto) 14H, Eosinophils (%) (Auto) 2, Basophils (%) (Auto) 0, Neutrophils # (Auto) 4.9, Lymphocytes # (Auto) 1.6, Monocytes # (Auto) 1.1H, Eosinophils # (Auto) 0.1, Basophils # (Auto) 0.0, Sodium Level 136, Potassium Level 3.9, Chloride Level 104, Carbon Dioxide Level 23, Anion Gap 9, Blood Urea Nitrogen 11, Creatinine 0.73, Estimat Glomerular Filtration Rate > 60, BUN/ Creatinine Ratio 15, Glucose Level 104, Calcium Level 9.2, Total Bilirubin 1.2H , Aspartate Amino Transf (AST/SGOT) 33, Alanine Aminotransferase (ALT/SGPT) 35, Alkaline Phosphatase 70, Total Protein 7.1, Albumin 4.0 Assessment/Plan Assessment 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
--- NOTE | 2016-07-18 08:03 | Progress Note (SOAP) ---
Subjective Time Seen by Provider: 08:00 Subjective/Events-last exam CVA. Left hand better. Patient does not know the shell mold bonder. Patient does know the year Objective Exam Vital Signs Date Time Temp Pulse Resp B/P (MAP) Pulse Ox O2 Delivery O2 Flow Rate FiO2 07/18/16 05:18 98.0 72 18 141/61 93 07/17/16 18:06 98.4 80 20 105/61 95 07/17/16 09:00 93 I & O 07/18/16 07:00 Intake Total 900 ml Output Total 1200 ml Balance -300 ml Capillary Refill : General Appearance: No Apparent Distress, WD/WN HEENT: Normal ENT Inspection Neck: Full Range of Motion, Normal Inspection Respiratory: Chest Non Tender, No Accessory Muscle Use, No Respiratory Distress Cardiovascular: Regular Rate, Rhythm, No Murmur Assessment/Plan Assessment/Plan Assess & Plan/Chief Complaint CVA on left. Hypertension. GERD. TIA history. CHF history. 07/18/16. 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 Hypertension. TIA. Patient's left hand doing better. Patient doesn't know the [place] Clinical Quality Measures DVT/VTE Risk/Contraindication: Risk Factor Score Per Nursin RFS Level Per Nursing on Admit: 4+=Very High DORA MOCK DO Jul 18, 2016 08:03
[2016-07-18] MEDS: BENAZEPRIL 20 MG (LOTENSIN) TAB PO SCH (08:18)
[2016-07-18] MEDS: NIFEdipine ER 60 MG (PROCARDIA XL) TAB PO SCH (08:18)
[2016-07-18] MEDS: ASPIRIN E.C. 81 MG (ECOTRIN) TAB PO SCH (08:18)
[2016-07-18] MEDS: TRIAMCINOLONE 0.1% CR (KENALOG) 15 GM TUBE TOP SCH ×2 (08:19→20:43)
--- NOTE | 2016-07-18 08:58 | Physical Therapy Daily Note ---
PT Daily Note-Current Subjective Patient in recliner pre tx, agrees to PT, no complaints of pain. Appearance Patient in recliner post tx with nurse call, phone, tray, all needs met. in the room. Mental Status Patient Orientation: Person, Place, Situation Transfers Functional [place] Measure 0=Not Assessed/NA 4=Minimal Assistance 1=Total Assistance 5=Supervision or Setup 2=Maximal Assistance 6=Modified [place] 3=Moderate Assistance 7=Complete IndependenceIRFPAI Quality Coding Scale 6 Independent with activity with or without an assistive device 5 Patient requires set up or clean up by helper. Patient completes activity by themselves 4 Supervision or touching assist (CGA). [place] provide cues , steadying assist 3 The helper provides less than half the effort to complete the activity 2 The helper provides more than half the effort to complete the activity 1 Dependent. The helper does all the effort to complete an activity 7 Patient refused to complete or attempt activity 9 The patient did not perform the activity before the current illness or injury 88 Not attempted due to Medical conditions or safety concerns Transfers (B, C, W/C) (FIM): 4 Sit to/from Stand: 4 Bed to/from Chair: 4 Min assist for transfers, he has a hard time turning to sit when the chair is on his left side. Cues for safety and hand placement. Gait Training Gait (FIM): 2 Distance: 75'x4 Gait Level of Assist: 4 Gait Persons Needed: 1 Gait Assistive Device: Cane Large Base Quad Min assist to help with balance and weight shifting. Exercises sit to consulting networking engineer parallel bars 3 sets of 5, toe taps on step x10 each side, standing in parallel bars practicing letting go with right hand and trying to keep balance NuStep Minutes: 10 NuStep Workload: 5 Treatments transfers, ambulation, functional strengthening, balance training Assessment Current Status: Fair Progress improving endurance PT Short Term Goals Short Term Goals Time Frame: Jul 23, 2016 Gait (FIM): 2 Gait Distance Comment: 50' Gait Level of Assist: 4 Gait Assistive Device: Cane Large Base Quad Wheelchair Distance: 50' PT Pier Master Goals Pier Master Goals PT Pier Master Goals Time Frame: Aug 06, 2016 Transfers (B,C,W/C) (FIM): 5 Sit to Lying (QC): 4 Lying-Sitting on Side/Bed(QC): 4 Sit to Stand (QC): 4 Rollin Roll Left to Right (QC): 4 Chair/Vlb-qz-Ievea Xfer(QC): 4 Car Transfer (QC): 4 Gait (FIM): 4 Distance: 150' Walk 10 feet (QC): 4 Walk 10ft-Uneven Surface(QC): 4 Walk 50ft with 2 Turns (QC): 4 Walk 150 ft (QC): 4 Gait Level of Assist: 4 Gait Assistive Device: Cane Large Base Quad Stairs (FIM): 2 # of Steps: 4 1 Step (curb) (QC): 4 4 Steps (QC): 4 12 Steps (QC): 88 Stairs Level Of Assist: 4 Picking up an Object (QC): 88 PT Plan Problem List Problem List: Activity Tolerance, Functional Strength, Safety, Balance, Gait, Transfer, Bed Mobility Treatment/Plan Treatment Plan: Continue Plan of Care Treatment Plan: Bed Mobility, Education, Functional Activity Pedro, Functional Strength, Group Therapy, Gait, Safety, Therapeutic Exercise, Transfers Treatment Duration: Aug 06, 2016 Visits Per Week: 10-11 Minutes/Day (M-F): 60-90 Minutes/Day (Sat/Etienne): 15-30 Safety Risks/Education Patient Education: Gait Training, Transfer Techniques, Correct Positioning, Safety Issues Teaching Recipient: Patient Teaching Methods: Demonstration, Discussion Response to Teaching: Reinforcement Needed Time/GCodes Time In: 800 Time Out: 900 Total Billed Treatment Time: 60 Total Billed Treatment 1 visit GT 30 min EX 15' NM 15' LATANYA FLYNN PT Jul 18, 2016 08:58
--- NOTE | 2016-07-18 10:20 | Speech Therapy Daily Note ---
Speech Daily Progress Note Subjective Date Seen by Provider: Jul 18, 2016 Time Seen by Provider: 09:00 The patient was seated upright in recliner upon entrance, with present at bedside. The patient greeted the clinician appropriately and was agreeable to dysphagia therapy on this date. Objective Dysphagia Strengthening Exercises: Dysphagia exercises (lingual, base of tongue , pharyngeal, and laryngeal elevation) were initiated, demonstrated, discussed, and reviewed on this date. The patient demonstrated high accuracy with all exercises following direct modeling and moderate clinician verbal prompting. Five repetitions of each exercise were performed. The patient was asked to complete dysphagia exercises (five to ten repetitions) one additional session throughout the day. The patient denied any questions or concerns at this time. Assessment Assessment Current Status: Excellent Progress Treatment Plan Continue Plan of Care Communication Comprehension: 5 Expression: 5 Social Cognition Social Interaction: 6 Problem Solvin Memory: 5 Speech Short Term Goals Short Term Goals Short Term Goals 1. The patient will independently demonstrate swallowing strategies with 90% accuracy. 2. The patient will demonstrate dysphagia exercises with 80% accuracy and mild clinician cueing. Time Frame-STG: One Week Speech Longterm Goals Special Education Para Professional Goals 1. The patient will tolerate the least restrictive diet without signs/symptoms of aspiration or laryngeal penetration. Time Frame: Two Weeks Comprehension: 5 Expression: 6 Social Interaction: 6 Problem Solvin Memory: 5 Speech-Plan Treatment Plan Speech Therapy Treatment Plan: Continue Plan of Care Continue skilled speech pathology to target dysphagia strengthening exercises and improved swallowing safety. Treatment Duration: Jul 31, 2016 # of days/week Four to five. Visits Per Week: Four to five. Minutes/Day (M-F): 30 Rehab Potential: Good Safety Risks/Education Teaching Recipient: Patient Teaching Methods: Demonstration, Handout, Discussion Response to Teaching: Verbalize Understanding, Return Demonstration Education Topics Provided: Dysphagia Exercises Time Speech Therapy Time In: 09:00 Speech Therapy Time Out: 09:30 Total Billed Time: 30 Billed Treatment Time PARMJIT Vazquez JOSÉ MIGUEL YBARRA Jul 18, 2016 10:20
--- NOTE | 2016-07-18 15:20 | Therapy Group Daily Note ---
Therapy Daily Group Note Exercises Fine Motor, UE Exercise Other/Notes Pt ambulated with CGA to OT/PT group. Group consisted of introductions (name, place, childhood memories), socialization, activities that promote skills for daily living skills (problem solving, memory, sequencing, UE reach/grasp, core strengthening and fine motor skills). Pt ambulated back to room with CGA. After therapy, lying in bed with call light in reach. All safety measures in place, needs met. Start Time: 13:00 Stop Time: 14:10 Total Billed Treatment Time: 70 Total Billed Treatment 1-GRP LIZA ATKINSON Jul 18, 2016 15:20
--- NOTE | 2016-07-18 15:44 | Occupational Ther Daily Note ---
OT Current Status-Daily Note Subjective Pt alert, sitting EOB eating breakfast. Pt agreed to therapy. No c/o pain. Pt 's brought in soap for pt's eczema. Mental Status/Objective Patient Orientation: Person, Place, Time, Situation Functional [place] Measure 0=Not Assessed/NA 4=Minimal Assistance 1=Total Assistance 5=Supervision or Setup 2=Maximal Assistance 6=Modified [place] 3=Moderate Assistance 7=Complete [place] ADL-Treatment Functional [place] Measure 0=Not Assessed/NA 4=Minimal Assistance 1=Total Assistance 5=Supervision or Setup 2=Maximal Assistance 6=Modified [place] 3=Moderate Assistance 7=Complete IndependenceIRFPAI Quality Coding Scale 6 Independent with activity with or without an assistive device 5 Patient requires set up or clean up by helper. Patient completes activity by themselves 4 Supervision or touching assist (CGA). [place] provide cues , steadying assist 3 The helper provides less than half the effort to complete the activity 2 The helper provides more than half the effort to complete the activity 1 Dependent. The helper does all the effort to complete an activity 7 Patient refused to complete or attempt activity 9 The patient did not perform the activity before the current illness or injury 88 Not attempted due to Medical conditions or safety concerns Other Treatment Pt declined shower though did sit at sink to complete grooming. Pt used suction denture brush to complete cleansing by self after set up. Pt able to use electric razor to shave self and assist to clean razor. Pt was transported to therapy gym via w/c. Completed L UE APROM with decreased resistance. Pt demonstrating movement in flexor patterns more than extensor patterns. Pt able to transfer to/from w/c with min A with a stand pivot transfer. After therapy, pt sitting in recliner with call light/phone in reach. All needs met in room. OT Short Term Goals Short Term Goals Time Frame: Jul 30, 2016 Bathing(FIM): 5 Upper Body Dressing(FIM): 5 Lower Body Dressing(FIM): 5 Toilet/Commode Transfer(FIM): 4 Additional Short Term Goals: 2-Verbalize Understanding, 3-ImproveStrength/[place] 1=Demonstrate adherence to instructed precautions during ADL tasks. 2=Patient will verbalize/demonstrate understanding of assistive devices/ modifications for ADL. 3=Patient will improve strength/tolerance for activity to enable patient to perform ADL's. OT Usp Goals Dental Biller Goals Time Frame: Aug 13, 2016 Eating (FIM): 6 Eating (QC): 6 Groomin Oral Hygiene (QC): 6 Bathing(FIM): 6 Shower/Bathe Self (QC): 6 Upper Body Dressing(FIM): 6 Upper Body Dressing (QC): 6 Lower Body Dressing(FIM): 6 Lower Body Dressing (QC): 6 On/Off Footwear (QC): 6 Toileting(FIM): 6 Toileting Hygiene (QC): 6 Toilet/Commode Transfer(FIM): 6 Toilet/Commode Transfer (QC): 6 Shower Transfer(FIM): 6 Comprehension(FIM): 5 Expression (FIM): 6 Social Interaction(FIM): 6 Problem Solving(FIM): 5 Memory(FIM): 5 Additional Goals: 2-Verbalize Understanding, 3-ImproveStrength/[place] 1=Demonstrate adherence to instructed precautions during ADL tasks. 2=Patient will verbalize/demonstrate understanding of assistive devices/ modifications for ADL. 3=Patient will improve strength/tolerance for activity to enable patient to perform ADL's. OT Education/Plan Problem List/Assessment Pt would benefit from skilled OT to increase his independence in basic self care to allo whim to safely return home to love with his and to decrease caregiver burden. Discharge Recommendations Plan/Recommendations: Continue POC Treatment Plan/Plan of Care Patient would benefit from OT for education, treatment and training to promote independence in ADL's, mobility, safety and/or upper extremity function for ADL' s. Plan of Care: ADL Retraining, Functional Mobility, Group Exercise/Act as Ind ( education, exercise, activity tolerance, functional use UEs, funct activities), UE Funct Exercise/Act, UE Neuromus Re-Ed/Coord Treatment Duration: Aug 13, 2016 Visits Per Week: 10-12 Minutes/Day (M-F): 60-90 Minutes/Day (Sat/Etienne): PRN Agreement: Yes Rehab Potential: Good Time/GCodes Start Time: 07:00 Stop Time: 08:00 Total Time Billed (hr/min): 60 Billed Treatment Time 1 visit-ADL 2 (30 min) NM 2 (30 min) LIZA ATKINSON Jul 18, 2016 15:43
[2016-07-18 18:58] VITALS: BP 134/68
[2016-07-18] MEDS: ATORVASTATIN 20 MG (LIPITOR) TABLET PO SCH (20:43)
[2016-07-19] MEDS: PANTOPRAZOLE 40 MG (PROTONIX) TAB PO SCH (06:07)
[2016-07-19] MEDS: MULTIVIT W/MINERALS TAB (THERAGRAN M) PO SCH (06:07)
[2016-07-19 06:13] VITALS: BP 151/73
[2016-07-19] MEDS: ASPIRIN E.C. 81 MG (ECOTRIN) TAB PO SCH (08:09)
[2016-07-19] MEDS: BENAZEPRIL 20 MG (LOTENSIN) TAB PO SCH (08:09)
[2016-07-19] MEDS: NIFEdipine ER 60 MG (PROCARDIA XL) TAB PO SCH (08:09)
[2016-07-19] MEDS: TRIAMCINOLONE 0.1% CR (KENALOG) 15 GM TUBE TOP SCH ×2 (08:10→21:22)
--- NOTE | 2016-07-19 08:38 | Progress Note (SOAP) ---
Subjective Time Seen by Provider: 08:35 Subjective/Events-last exam CVA Objective Exam Vital Signs Date Time Temp Pulse Resp B/P (MAP) Pulse Ox O2 Delivery O2 Flow Rate FiO2 07/19/16 06:13 97.3 62 20 151/73 96 07/18/16 18:58 98.5 71 16 134/68 95 07/18/16 09:00 93 I & O 07/19/16 07:00 Intake Total 1250 ml Output Total 1600 ml Balance -350 ml Capillary Refill : General Appearance: No Apparent Distress HEENT: Normal ENT Inspection Neck: Normal Inspection Respiratory: Chest Non Tender, No Accessory Muscle Use, No Respiratory Distress Assessment/Plan Assessment/Plan Assess & Plan/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 Hypertension. GERD. TIA history. CHF history. 07/18/16. 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 Hypertension. TIA. Patient's left hand doing better. Patient doesn't know the President. . 07/19/16. CVA on left Hypertension. Patient walked a longer distance today Clinical Quality Measures DVT/VTE Risk/Contraindication: Risk Factor Score Per Nursin RFS Level Per Nursing on Admit: 4+=Very High DORA MOCK DO Jul 19, 2016 08:38
--- NOTE | 2016-07-19 08:58 | Physical Therapy Daily Note ---
PT Daily Note-Current Subjective Patient in recliner pre tx, agrees to PT, no complaints of pain. Appearance Patient in recliner post tx with nurse call, phone, tray, all needs met. Mental Status Patient Orientation: Normal For Age Transfers Functional [place] Measure 0=Not Assessed/NA 4=Minimal Assistance 1=Total Assistance 5=Supervision or Setup 2=Maximal Assistance 6=Modified [place] 3=Moderate Assistance 7=Complete IndependenceIRFPAI Quality Coding Scale 6 Independent with activity with or without an assistive device 5 Patient requires set up or clean up by helper. Patient completes activity by themselves 4 Supervision or touching assist (CGA). [place] provide cues , steadying assist 3 The helper provides less than half the effort to complete the activity 2 The helper provides more than half the effort to complete the activity 1 Dependent. The helper does all the effort to complete an activity 7 Patient refused to complete or attempt activity 9 The patient did not perform the activity before the current illness or injury 88 Not attempted due to Medical conditions or safety concerns Transfers (B, C, W/C) (FIM): 4 Sit to/from Stand: 4 Min assist for sit to stand only for balance impairment. Cues for safety and hand placement, often forgets to reach for chair armrest. Gait Training Gait (FIM): 4 Distance: 150'x2 Gait Level of Assist: 4 Gait Persons Needed: 1 Gait Assistive Device: Cane Large Base Quad Patient needs min assist with balance and weight shifting. Cues to take larger steps with his left leg and increase speed of ambulation. Exercises sit to mink farmer parallel bars 3 sets of 5, standing in parallel bars without holding onto the bar NuStep Minutes: 12 NuStep Workload: 5 Treatments transfers, ambulation, functional strengthening, balance training Assessment Current Status: Fair Progress improving endurance and ambulation PT Short Term Goals Short Term Goals Time Frame: Jul 23, 2016 Gait (FIM): 2 Gait Distance Comment: 50' Gait Level of Assist: 4 Gait Assistive Device: Cane Large Base Quad Wheelchair Distance: 50' PT Mcfp Goals Child And Adolescent Therapist Goals PT Child And Adolescent Therapist Goals Time Frame: Aug 06, 2016 Transfers (B,C,W/C) (FIM): 5 Sit to Lying (QC): 4 Lying-Sitting on Side/Bed(QC): 4 Sit to Stand (QC): 4 Rollin Roll Left to Right (QC): 4 Chair/Rnk-uj-Mwuzs Xfer(QC): 4 Car Transfer (QC): 4 Gait (FIM): 4 Distance: 150' Walk 10 feet (QC): 4 Walk 10ft-Uneven Surface(QC): 4 Walk 50ft with 2 Turns (QC): 4 Walk 150 ft (QC): 4 Gait Level of Assist: 4 Gait Assistive Device: Cane Large Base Quad Stairs (FIM): 2 # of Steps: 4 1 Step (curb) (QC): 4 4 Steps (QC): 4 12 Steps (QC): 88 Stairs Level Of Assist: 4 Picking up an Object (QC): 88 PT Plan Problem List Problem List: Activity Tolerance, Functional Strength, Safety, Balance, Gait, Transfer, Bed Mobility Treatment/Plan Treatment Plan: Continue Plan of Care Treatment Plan: Bed Mobility, Education, Functional Activity Pedro, Functional Strength, Group Therapy, Gait, Safety, Therapeutic Exercise, Transfers Treatment Duration: Aug 06, 2016 Visits Per Week: 10-11 Minutes/Day (M-F): 60-90 Minutes/Day (Sat/Etienne): 15-30 Safety Risks/Education Patient Education: Gait Training, Transfer Techniques, Correct Positioning, Safety Issues Teaching Recipient: Patient Teaching Methods: Demonstration, Discussion Response to Teaching: Reinforcement Needed Time/GCodes Time In: 800 Time Out: 900 Total Billed Treatment Time: 60 Total Billed Treatment 1 visit GT 15' EX 12' FA 15' NM 18' LATANYA FLYNN PT Jul 19, 2016 08:58
--- NOTE | 2016-07-19 09:44 | PM & R (SOAP) Progress Note ---
Subjective Time Seen by Provider: 09:45 Subjective/Events-last exam Patient was seen in his room this AM Slept well with tylenol Pain and tenderness left hand improved Review of Systems Neurological: Weakness Objective Exam Last Set of Vital Signs Vital Signs Date Time Temp Pulse Resp B/P (MAP) Pulse Ox O2 Delivery O2 Flow Rate FiO2 07/19/16 06:13 97.3 62 20 151/73 96 Capillary Refill : I&O Intake and Output 07/19/16 00:00 Intake Total 1100 ml Output Total 1250 ml Balance -150 ml Intake Oral 1100 ml Output Urine Total 1250 ml # Bowel Movements 1 General: Alert, Oriented X3, Cooperative, No Acute Distress HEENT: Atraumatic, PERRLA, EOMI, Mucous Memb Moist/Elsa, Other (facial droop) Neck: Supple, No JVD Lungs: Clear to Auscultation Heart: Regular Rate Abdomen: Normal Bowel Sounds, Soft, No Tenderness Extremities: No Edema Neuro: Other ( left HP with flaccid Left limb) Results Lab Laboratory Tests 07/17/16 06:48: White Blood Count 7.8, Red Blood Count 4.29L, Hemoglobin 14.7, Hematocrit 43, Mean Corpuscular Volume 99, Mean Corpuscular Hemoglobin 34, Mean Corpuscular Hemoglobin Concent 35, Red Cell Distribution Width 12.9, Platelet Count 232, Mean Platelet Volume 9.6, Neutrophils (%) (Auto) 63, Lymphocytes (%) (Auto) 21, Monocytes (%) (Auto) 14H, Eosinophils (%) (Auto) 2, Basophils (%) (Auto) 0, Neutrophils # (Auto) 4.9, Lymphocytes # (Auto) 1.6, Monocytes # (Auto) 1.1H, Eosinophils # (Auto) 0.1, Basophils # (Auto) 0.0, Sodium Level 136, Potassium Level 3.9, Chloride Level 104, Carbon Dioxide Level 23, Anion Gap 9, Blood Urea Nitrogen 11, Creatinine 0.73, Estimat Glomerular Filtration Rate > 60, BUN/ Creatinine Ratio 15, Glucose Level 104, Calcium Level 9.2, Total Bilirubin 1.2H , Aspartate Amino Transf (AST/SGOT) 33, Alanine Aminotransferase (ALT/SGPT) 35, Alkaline Phosphatase 70, Total Protein 7.1, Albumin 4.0 Assessment/Plan Assessment 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
--- NOTE | 2016-07-19 09:48 | Individualized Plan of Care ---
Individualized Plan of Care Rehab Nursing IPOC Order Admission Date Jul 16, 2016 at 11:33 Current Orders Orders Patient Visit (07/18/16 ) Dysphagia Therapy (07/18/16 ) Patient Visit (07/18/16 ) Gait Training, Ea 15 Min (07/18/16 ) Exercise Therap, Ea 15 Min (07/18/16 ) Ex Neuromuscular, Ea 15 Min (07/18/16 ) Patient Visit (07/18/16 ) Rehab Nursing Orders: Diseage Management, Edu in Press Rel Techn, Hydration Management, Nutrition Management Toilet every (bladder): (hrs): 2 hours while awke prn PT IPOC Problem List: Activity Tolerance, Functional Strength, Safety, Balance, Gait, Transfer, Bed Mobility Treatment Plan: Continue Plan of Care Bed Mobility, Education, Functional Activity Pedro, Functional Strength, Group Therapy, Gait, Safety, Therapeutic Exercise, Transfers Treatment Duration: Aug 06, 2016 Visits Per Week: 10-11 Minutes/Day (M-F): 60-90 Minutes/Day (Sat/Etienne): 15-30 OT IPOC Problems: Decreased Activ Tolerance, Decreased UE Strength, Dependent Transfers , Impaired Funct Balance, Impaired Self-Care Skills, Restricted Funct UE ROM OT Problems Pt would benefit from skilled OT to increase his independence in basic self care to allo whim to safely return home to love with his and to decrease caregiver burden. Plan of Care: ADL Retraining, Functional Mobility, Group Exercise/Act as Ind ( education, exercise, activity tolerance, functional use UEs, funct activities), UE Funct Exercise/Act, UE Neuromus Re-Ed/Coord Treatment Duration: Aug 13, 2016 Visits Per Week: 10-12 Minutes/Day (M-F): 60-90 Minutes/Day (Sat/Etienne): PRN ST IPOC Speech Therapy Treatment Plan: Continue Plan of Care Treatment Duration: Jul 31, 2016 Visits Per Week: Four to five. Minutes/Day (M-F): 30 Physician IPOC Medical Issues being managed closely and that require the 24 hour availability of a physician:HTN arthritic pain left hand dysphagia Medical Issues: DVT Prophylaxis, Falls Precautions, Fluid/Electrolyte/ Nutrition Balance, Infection Protection, Pain Management, Other (List) (as per above) Brief Synthesis of Preadmission Screen, Post-Admission Evaluation, and Therapy Evaluations: 80 yo male with rt cva with resulting left HP with a flaccid Left upper limb who had been independent and living with family prior to this stroke Has hx HTN Medical Prognosis: Good Anticipated Length of Stay: 08/13/16 Rehab Goals Modified Independent to supervision for adls and mobility skills Anticipated discharge destinat: Home with spouse and [facility] KHALIDA FUNEZ MD Jul 19, 2016 09:48
--- NOTE | 2016-07-19 11:50 | Speech Therapy Daily Note ---
Speech Daily Progress Note Subjective Date Seen by Provider: Jul 19, 2016 Time Seen by Provider: 09:00 The patient was seated upright in recliner upon entrance, with present at bedside. The patient greeted the clinician appropriately and was agreeable to dysphagia therapy on this date. Objective Dysphagia Strengthening Exercises: Dysphagia exercises (lingual, base of tongue , pharyngeal, and laryngeal elevation) were continued, demonstrated, discussed, and reviewed on this date. The patient demonstrated high accuracy with all exercises following direct modeling and moderate clinician verbal prompting. Ten repetitions of each exercise were performed. The patient was asked to complete dysphagia exercises (five to ten repetitions) one additional session throughout the day. The patient denied any questions or concerns at this time. Assessment Assessment Current Status: Good Progress Treatment Plan Continue Plan of Care Communication Comprehension: 5 Expression: 5 Social Cognition Social Interaction: 6 Problem Solvin Memory: 5 Speech Short Term Goals Short Term Goals Short Term Goals 1. The patient will independently demonstrate swallowing strategies with 90% accuracy. 2. The patient will demonstrate dysphagia exercises with 80% accuracy and mild clinician cueing. Time Frame-STG: One Week Speech Care Home Goals Care Home Goals 1. The patient will tolerate the least restrictive diet without signs/symptoms of aspiration or laryngeal penetration. Time Frame: Two Weeks Comprehension: 5 Expression: 6 Social Interaction: 6 Problem Solvin Memory: 5 Speech-Plan Treatment Plan Speech Therapy Treatment Plan: Continue Plan of Care Continue skilled speech pathology to target swallowing safety and strengthening. Treatment Duration: Jul 31, 2016 # of days/week Four to five. Visits Per Week: Four to five. Minutes/Day (M-F): 30 Rehab Potential: Good Safety Risks/Education Teaching Recipient: Patient Teaching Methods: Demonstration, Handout, Discussion Response to Teaching: Verbalize Understanding, Return Demonstration Education Topics Provided: Dysphagia Exercises Time Speech Therapy Time In: 09:00 Speech Therapy Time Out: 09:30 Total Billed Time: 30 Billed Treatment Time PARMJIT Vazquez JOSÉ MIGUEL YBARRA Jul 19, 2016 11:49
--- NOTE | 2016-07-19 13:38 | Therapy Group Daily Note ---
Therapy Daily Group Note Patient Education Topic Home Safety, Energy Cons, ADL Other/Notes The patient was brought to ST/OT Group in Therapy Commons Area in wheelchair with assistance from , Caitlyn. The group consists of repeat introductions (as all members were present at previous group), socialization, and home safety problem solving and energy conversation methods while in the kitchen/cooking (stove safety, expiration date safety). The patient provided input throughout the session, discussing favorite meals and kitchen safety procedures. At the close of group, he is accompanied back to room via wheelchair by spouse. Start Time: 11:50 Stop Time: 13:00 Total Billed Treatment Time: 70 Total Billed Treatment 1, GRP JOSÉ MIGUEL YBARRA Jul 19, 2016 13:38
--- NOTE | 2016-07-19 14:28 | Occupational Ther Daily Note ---
OT Current Status-Daily Note Subjective Pt alert, sitting in recliner. Pt agreed to therapy. No c/o pain at this time. Mental Status/Objective Patient Orientation: Person, Place, Time, Situation Functional [place] Measure 0=Not Assessed/NA 4=Minimal Assistance 1=Total Assistance 5=Supervision or Setup 2=Maximal Assistance 6=Modified [place] 3=Moderate Assistance 7=Complete [place] ADL-Treatment Functional [place] Measure 0=Not Assessed/NA 4=Minimal Assistance 1=Total Assistance 5=Supervision or Setup 2=Maximal Assistance 6=Modified [place] 3=Moderate Assistance 7=Complete IndependenceIRFPAI Quality Coding Scale 6 Independent with activity with or without an assistive device 5 Patient requires set up or clean up by helper. Patient completes activity by themselves 4 Supervision or touching assist (CGA). [place] provide cues , steadying assist 3 The helper provides less than half the effort to complete the activity 2 The helper provides more than half the effort to complete the activity 1 Dependent. The helper does all the effort to complete an activity 7 Patient refused to complete or attempt activity 9 The patient did not perform the activity before the current illness or injury 88 Not attempted due to Medical conditions or safety concerns Grooming (FIM): 5 (Pt uses electric razor, assist to clean after. Uses AE to cleanse dentures, needs assist to set up.) Bathing (FIM): 4 (Using shower bench, grabbar and hand held shower pt is able to complete bathing all areas except buttocks and R UE. Pt pulls to stand with grabbars then holds onto grabbars to cleanse buttocks.) Bathing Location: L Arm, L Upper Leg, R Upper Leg, L Lower Leg (including foot) , R Lower Leg (including foot), Chest, Abdomen, Perineal Area Upper Body (FIM): 3 (Pt continues to work on using one-handed technique to don shirt. Is able to doff shirt by self.) Lower Body Dressing (FIM): 3 (With some verbal cues, pt is able to don underpants and pants over feet and pull up legs, assist to hike over hips in standing. Assist to don/doff socks and shoes.) Transfers (B, C, W/C) (FIM): 4 (Verbal cues to remember safety before transferring. Min A with stand pivot transfer.) Shower Transfer(FIM): 4 (Verbal cues to remember safety before transferring. Min A with shower transfer using grabbar, shower bench and hemicane.) Pt was educated in transfer into tub/shower using tub/transfer bench. Then maneuvered w/c to therapy gym. Pt was able to complete 2 step movement with L UE to lift arm from outer knee over knee and place on inner knee. Pt uses compensatory strategies to complete movements. After therapy, pt sitting in recliner in room with call light/phone in reach. Education OT Patient Education: Transfer techniques, Use of adapted equipment Teaching Recipient: Patient Teaching Methods: Discussion Response to Teaching: Verbalize Understanding, Reinforcement Needed OT Short Term Goals Short Term Goals Time Frame: Jul 30, 2016 Bathing(FIM): 5 Upper Body Dressing(FIM): 5 Lower Body Dressing(FIM): 5 Toilet/Commode Transfer(FIM): 4 Additional Short Term Goals: 2-Verbalize Understanding, 3-ImproveStrength/Pedro 1=Demonstrate adherence to instructed precautions during ADL tasks. 2=Patient will verbalize/demonstrate understanding of assistive devices/ modifications for ADL. 3=Patient will improve strength/tolerance for activity to enable patient to perform ADL's. OT Group Home Goals Cook Helper Fruit Goals Time Frame: Aug 13, 2016 Eating (FIM): 6 Eating (QC): 6 Groomin Oral Hygiene (QC): 6 Bathing(FIM): 6 Shower/Bathe Self (QC): 6 Upper Body Dressing(FIM): 6 Upper Body Dressing (QC): 6 Lower Body Dressing(FIM): 6 Lower Body Dressing (QC): 6 On/Off Footwear (QC): 6 Toileting(FIM): 6 Toileting Hygiene (QC): 6 Toilet/Commode Transfer(FIM): 6 Toilet/Commode Transfer (QC): 6 Shower Transfer(FIM): 6 Comprehension(FIM): 5 Expression (FIM): 6 Social Interaction(FIM): 6 Problem Solving(FIM): 5 Memory(FIM): 5 Additional Goals: 2-Verbalize Understanding, 3-ImproveStrength/Pedro 1=Demonstrate adherence to instructed precautions during ADL tasks. 2=Patient will verbalize/demonstrate understanding of assistive devices/ modifications for ADL. 3=Patient will improve strength/tolerance for activity to enable patient to perform ADL's. OT Education/Plan Problem List/Assessment Pt would benefit from skilled OT to increase his independence in basic self care to allo whim to safely return home to love with his and to decrease caregiver burden. Discharge Recommendations Plan/Recommendations: Continue POC Treatment Plan/Plan of Care Patient would benefit from OT for education, treatment and training to promote independence in ADL's, mobility, safety and/or upper extremity function for ADL' s. Plan of Care: ADL Retraining, Functional Mobility, Group Exercise/Act as Ind ( education, exercise, activity tolerance, functional use UEs, funct activities), UE Funct Exercise/Act, UE Neuromus Re-Ed/Coord Treatment Duration: Aug 13, 2016 Visits Per Week: 10-12 Minutes/Day (M-F): 60-90 Minutes/Day (Sat/Etienne): PRN Agreement: Yes Rehab Potential: Good Time/GCodes Start Time: 07:00 Stop Time: 08:00 Total Time Billed (hr/min): 60 Billed Treatment Time 1 visit-ADL 2 (30 min) NM 2 (30 min) LIZA ATKINSON Jul 19, 2016 14:28
[2016-07-19 18:38] VITALS: BP 126/66
[2016-07-19] MEDS: traZODone 50 MG (DESYREL) TAB PO SCH (21:20)
[2016-07-19] MEDS: ATORVASTATIN 20 MG (LIPITOR) TABLET PO SCH (21:20)
[2016-07-20 06:12] VITALS: BP 124/73
[2016-07-20] MEDS: PANTOPRAZOLE 40 MG (PROTONIX) TAB PO SCH (06:12)
[2016-07-20] MEDS: MULTIVIT W/MINERALS TAB (THERAGRAN M) PO SCH (06:12)
[2016-07-20] MEDS: TRIAMCINOLONE 0.1% CR (KENALOG) 15 GM TUBE TOP SCH ×2 (08:45→20:39)
[2016-07-20] MEDS: NIFEdipine ER 60 MG (PROCARDIA XL) TAB PO SCH (08:48)
[2016-07-20] MEDS: BENAZEPRIL 20 MG (LOTENSIN) TAB PO SCH (08:48)
[2016-07-20] MEDS: ASPIRIN E.C. 81 MG (ECOTRIN) TAB PO SCH (08:48)
--- NOTE | 2016-07-20 12:39 | Physical Therapy Daily Note ---
PT Daily Note-Current Subjective Pt. agrees to rx. present and supportive. Pt. c/o dizziness with stance and attempt at gait and had great difficulty with balance and motor planning. as well as this BILLET INSPECTOR note that his is much different than pts usual performance. feels this is possibly due to a sleeping med pt. took late last night. Pain Numeric Pain Scale: 0-No Pain Transfers Functional [place] Measure 0=Not Assessed/NA 4=Minimal Assistance 1=Total Assistance 5=Supervision or Setup 2=Maximal Assistance 6=Modified [place] 3=Moderate Assistance 7=Complete IndependenceIRFPAI Quality Coding Scale 6 Independent with activity with or without an assistive device 5 Patient requires set up or clean up by helper. Patient completes activity by themselves 4 Supervision or touching assist (CGA). [place] provide cues , steadying assist 3 The helper provides less than half the effort to complete the activity 2 The helper provides more than half the effort to complete the activity 1 Dependent. The helper does all the effort to complete an activity 7 Patient refused to complete or attempt activity 9 The patient did not perform the activity before the current illness or injury 88 Not attempted due to Medical conditions or safety concerns Transfers (B, C, W/C) (FIM): 4 Scootin Rollin Supine to/from Sit: 4 Sit to/from Stand: 4 Bed to/from Chair: 4 Gait Training Does the Patient Walk?: Yes Gait (FIM): 1 Distance (FIM): 1=up to 49 ft (10ftx4) Gait Level of Assist: 3 Gait Persons Needed: 1 (plus asssit for w/c f/u) Gait Assistive Device: FWW attempted Q cane with very poor control, heavy lean left . then attempted use of FWW with platform on left , pt. continued with heavy lean left as well as list to left Exercises Seated Therapy Exercises: Ankle pumps, Sit to stand, Long arc quads, Hip flexion, Hip abd/add Seated Reps: 15 Treatments attempted just standing with FWW. pt. still with heavy list left, then stood at parallel bars in gym and use of mirror for feedback, pt. continues with some improved response , added pre gait activities of sway and slight heel raise with pt. again having great difficulty with balance etc. Assessment Current Status: Fair Progress pt. possibly medicated with sleep meds and still influenced by this PT Short Term Goals Short Term Goals Time Frame: Jul 23, 2016 Gait (FIM): 2 Gait Distance Comment: 50' Gait Level of Assist: 4 Gait Assistive Device: Cane Large Base Quad Wheelchair Distance: 50' PT Caustic Pump Operator Goals Usp Goals PT Caustic Pump Operator Goals Time Frame: Aug 06, 2016 Transfers (B,C,W/C) (FIM): 5 Sit to Lying (QC): 4 Lying-Sitting on Side/Bed(QC): 4 Sit to Stand (QC): 4 Rollin Roll Left to Right (QC): 4 Chair/Hks-sd-Ygtpw Xfer(QC): 4 Car Transfer (QC): 4 Gait (FIM): 4 Distance: 150' Walk 10 feet (QC): 4 Walk 10ft-Uneven Surface(QC): 4 Walk 50ft with 2 Turns (QC): 4 Walk 150 ft (QC): 4 Gait Level of Assist: 4 Gait Assistive Device: Cane Large Base Quad Stairs (FIM): 2 # of Steps: 4 1 Step (curb) (QC): 4 4 Steps (QC): 4 12 Steps (QC): 88 Stairs Level Of Assist: 4 Picking up an Object (QC): 88 PT Plan Treatment/Plan Treatment Plan: Continue Plan of Care Treatment Plan: Bed Mobility, Education, Functional Activity Pedro, Functional Strength, Group Therapy, Gait, Safety, Therapeutic Exercise, Transfers Treatment Duration: Aug 06, 2016 Visits Per Week: 10-11 Minutes/Day (M-F): 60-90 Minutes/Day (Sat/Etienne): 15-30 Safety Risks/Education Patient Education: Gait Training, Transfer Techniques, Correct Positioning, Disease Process, Safety Issues Teaching Recipient: Patient Teaching Methods: Demonstration, Discussion Response to Teaching: Verbalize Understanding, Unable to Return Demonstration, Return Demonstration, Unable to Comprehend, Reinforcement Needed Time/GCodes Time In: 900 Time Out: 940 Total Billed Treatment Time: 40 Total Billed Treatment 1,GT25,FA15 G Codes Necessary: SANDRA Martinez BILLET INSPECTOR Jul 20, 2016 12:38
[2016-07-20 18:45] VITALS: BP 133/71
[2016-07-20] MEDS: traZODone 50 MG (DESYREL) TAB PO SCH (20:36)
[2016-07-20] MEDS: ATORVASTATIN 20 MG (LIPITOR) TABLET PO SCH (20:36)
[2016-07-21 05:43] VITALS: BP 137/73
[2016-07-21] MEDS: PANTOPRAZOLE 40 MG (PROTONIX) TAB PO SCH (06:29)
[2016-07-21] MEDS: MULTIVIT W/MINERALS TAB (THERAGRAN M) PO SCH (06:29)
[2016-07-21 08:51] VITALS: BP 146/71
[2016-07-21] MEDS: BENAZEPRIL 20 MG (LOTENSIN) TAB PO SCH (08:51)
[2016-07-21] MEDS: NIFEdipine ER 60 MG (PROCARDIA XL) TAB PO SCH (08:51)
[2016-07-21] MEDS: ASPIRIN E.C. 81 MG (ECOTRIN) TAB PO SCH (08:52)
[2016-07-21] MEDS: TRIAMCINOLONE 0.1% CR (KENALOG) 15 GM TUBE TOP SCH ×2 (08:56→20:16)
[2016-07-21 17:40] VITALS: BP 99/64
[2016-07-21] MEDS: ATORVASTATIN 20 MG (LIPITOR) TABLET PO SCH (20:15)
[2016-07-21] MEDS: MELATONIN 3 MG TABLET PO SCH (21:41)
[2016-07-22] MEDS: MULTIVIT W/MINERALS TAB (THERAGRAN M) PO SCH (06:20)
[2016-07-22] MEDS: PANTOPRAZOLE 40 MG (PROTONIX) TAB PO SCH (06:20)
[2016-07-22 06:21] VITALS: BP 133/84
--- NOTE | 2016-07-22 07:49 | Occupational Ther Daily Note ---
OT Current Status-Daily Note Subjective Pt alert, eating breakfast sitting on EOB. Pt agreed to therapy. No c/o pain. Mental Status/Objective Patient Orientation: Person, Place, Time, Situation Functional [place] Measure 0=Not Assessed/NA 4=Minimal Assistance 1=Total Assistance 5=Supervision or Setup 2=Maximal Assistance 6=Modified [place] 3=Moderate Assistance 7=Complete [place] ADL-Treatment Functional [place] Measure 0=Not Assessed/NA 4=Minimal Assistance 1=Total Assistance 5=Supervision or Setup 2=Maximal Assistance 6=Modified [place] 3=Moderate Assistance 7=Complete IndependenceIRFPAI Quality Coding Scale 6 Independent with activity with or without an assistive device 5 Patient requires set up or clean up by helper. Patient completes activity by themselves 4 Supervision or touching assist (CGA). [place] provide cues , steadying assist 3 The helper provides less than half the effort to complete the activity 2 The helper provides more than half the effort to complete the activity 1 Dependent. The helper does all the effort to complete an activity 7 Patient refused to complete or attempt activity 9 The patient did not perform the activity before the current illness or injury 88 Not attempted due to Medical conditions or safety concerns Eating (FIM): 5 (After set up, pt is able to use regular utensils to cut food and to feed self.) Grooming (FIM): 5 (Sitting at sink, pt is able to shave with electric razor. AE to brush dentures. Pt requires set up to open packages for cleansing dentures) Bathing (FIM): 4 (Using shower bench, grabbars and hand held shower pt is able to complete all bathing by self with supervision except to stand and cleanse buttocks. Pt is able to cleanse buttocks when assist is given to stabilize pt in standing.) Bathing Location: L Arm, R Arm, L Upper Leg, R Upper Leg, L Lower Leg ( including foot), R Lower Leg (including foot), Chest, Abdomen, Buttocks, Perineal Area Upper Body (FIM): 4 (Continues to work with one-handed tech with donning shirt. Pt is able to doff shirt by self. Pt requires assist to set up shirt for one handed technique then verbal cues to complete.) Lower Body Dressing (FIM): 4 (Pt is able to don/doff pants with assist in standing to hike pants over hips. Pt dons over feet by self. Reminders to keep feet apart for good base of support. Initiated sock aide to assist with donning socks. Uses long handle shoe horn to don shoes.) Transfers (B, C, W/C) (FIM): 4 (Safety cues for initial part of transfer then min a for transfer.) Shower Transfer(FIM): 4 (Using grabbar, quad cane and shower bench, pt is min A for shower transfer.) OT Short Term Goals Short Term Goals Time Frame: Jul 30, 2016 Bathing(FIM): 5 Upper Body Dressing(FIM): 5 Lower Body Dressing(FIM): 5 Toilet/Commode Transfer(FIM): 4 Additional Short Term Goals: 2-Verbalize Understanding, 3-ImproveStrength/Pedro 1=Demonstrate adherence to instructed precautions during ADL tasks. 2=Patient will verbalize/demonstrate understanding of assistive devices/ modifications for ADL. 3=Patient will improve strength/tolerance for activity to enable patient to perform ADL's. OT Longterm Goals Accounts Payable Analyst Goals Time Frame: Aug 13, 2016 Eating (FIM): 6 Eating (QC): 6 Groomin Oral Hygiene (QC): 6 Bathing(FIM): 6 Shower/Bathe Self (QC): 6 Upper Body Dressing(FIM): 6 Upper Body Dressing (QC): 6 Lower Body Dressing(FIM): 6 Lower Body Dressing (QC): 6 On/Off Footwear (QC): 6 Toileting(FIM): 6 Toileting Hygiene (QC): 6 Toilet/Commode Transfer(FIM): 6 Toilet/Commode Transfer (QC): 6 Shower Transfer(FIM): 6 Comprehension(FIM): 5 Expression (FIM): 6 Social Interaction(FIM): 6 Problem Solving(FIM): 5 Memory(FIM): 5 Additional Goals: 2-Verbalize Understanding, 3-ImproveStrength/Pedro 1=Demonstrate adherence to instructed precautions during ADL tasks. 2=Patient will verbalize/demonstrate understanding of assistive devices/ modifications for ADL. 3=Patient will improve strength/tolerance for activity to enable patient to perform ADL's. OT Education/Plan Problem List/Assessment Pt would benefit from skilled OT to increase his independence in basic self care to allo whim to safely return home to love with his and to decrease caregiver burden. Discharge Recommendations Plan/Recommendations: Continue POC Treatment Plan/Plan of Care Patient would benefit from OT for education, treatment and training to promote independence in ADL's, mobility, safety and/or upper extremity function for ADL' s. Plan of Care: ADL Retraining, Functional Mobility, Group Exercise/Act as Ind ( education, exercise, activity tolerance, functional use UEs, funct activities), UE Funct Exercise/Act, UE Neuromus Re-Ed/Coord Treatment Duration: Aug 13, 2016 Visits Per Week: 10-12 Minutes/Day (M-F): 60-90 Minutes/Day (Sat/Etienne): PRN Agreement: Yes Rehab Potential: Good Time/GCodes Start Time: 07:00 Stop Time: 08:00 Total Time Billed (hr/min): 60 Billed Treatment Time 1 visit-ADL 4 (60 min) LIZA ATKINSON Jul 22, 2016 07:49
[2016-07-22] MEDS: ASPIRIN E.C. 81 MG (ECOTRIN) TAB PO SCH (08:05)
[2016-07-22] MEDS: NIFEdipine ER 60 MG (PROCARDIA XL) TAB PO SCH (08:05)
[2016-07-22] MEDS: BENAZEPRIL 20 MG (LOTENSIN) TAB PO SCH (08:05)
[2016-07-22] MEDS: TRIAMCINOLONE 0.1% CR (KENALOG) 15 GM TUBE TOP SCH ×2 (08:05→20:48)
--- NOTE | 2016-07-22 08:59 | Physical Therapy Daily Note ---
PT Daily Note-Current Subjective Patient in bed pre tx, agrees to PT, no complaints of pain, states he is very tired because he could not sleep very well last night. Appearance Patient in recliner post tx with nurse call, phone, tray, in the room. Mental Status Patient Orientation: Person, Place, Situation Transfers Functional [place] Measure 0=Not Assessed/NA 4=Minimal Assistance 1=Total Assistance 5=Supervision or Setup 2=Maximal Assistance 6=Modified [place] 3=Moderate Assistance 7=Complete IndependenceIRFPAI Quality Coding Scale 6 Independent with activity with or without an assistive device 5 Patient requires set up or clean up by helper. Patient completes activity by themselves 4 Supervision or touching assist (CGA). [place] provide cues , steadying assist 3 The helper provides less than half the effort to complete the activity 2 The helper provides more than half the effort to complete the activity 1 Dependent. The helper does all the effort to complete an activity 7 Patient refused to complete or attempt activity 9 The patient did not perform the activity before the current illness or injury 88 Not attempted due to Medical conditions or safety concerns Transfers (B, C, W/C) (FIM): 4 Scootin Rollin Supine to/from Sit: 5 Sit to/from Stand: 4 CGA with sit to stand, cues for hand placement and safety Gait Training Gait (FIM): 4 Distance: 150', 75'x2 Gait Level of Assist: 4 Gait Persons Needed: 1 Gait Assistive Device: Cane Large Base Quad min assist for balance and weight shifting, cues to take bigger steps with his left leg and to increase speed of ambulation Exercises NuStep Minutes: 15 NuStep Workload: 5 Neuromuscular balance activity standing and placing cones without the use of an assistive device Assessment Current Status: Fair Progress improving balance and endurance PT Short Term Goals Short Term Goals Time Frame: Jul 23, 2016 Gait (FIM): 2 Gait Distance Comment: 50' Gait Level of Assist: 4 Gait Assistive Device: Cane Large Base Quad Wheelchair Distance: 50' PT Fdc Goals Fdc Goals PT Geological Survey Field Assistant Goals Time Frame: Aug 06, 2016 Transfers (B,C,W/C) (FIM): 5 Sit to Lying (QC): 4 Lying-Sitting on Side/Bed(QC): 4 Sit to Stand (QC): 4 Rollin Roll Left to Right (QC): 4 Chair/Rfb-kz-Ulecs Xfer(QC): 4 Car Transfer (QC): 4 Gait (FIM): 4 Distance: 150' Walk 10 feet (QC): 4 Walk 10ft-Uneven Surface(QC): 4 Walk 50ft with 2 Turns (QC): 4 Walk 150 ft (QC): 4 Gait Level of Assist: 4 Gait Assistive Device: Cane Large Base Quad Stairs (FIM): 2 # of Steps: 4 1 Step (curb) (QC): 4 4 Steps (QC): 4 12 Steps (QC): 88 Stairs Level Of Assist: 4 Picking up an Object (QC): 88 PT Plan Problem List Problem List: Activity Tolerance, Functional Strength, Safety, Balance, Gait, Transfer, Bed Mobility Treatment/Plan Treatment Plan: Continue Plan of Care Treatment Plan: Bed Mobility, Education, Functional Activity Pedro, Functional Strength, Group Therapy, Gait, Safety, Therapeutic Exercise, Transfers Treatment Duration: Aug 06, 2016 Visits Per Week: 10-11 Minutes/Day (M-F): 60-90 Minutes/Day (Sat/Etienne): 15-30 Safety Risks/Education Patient Education: Gait Training, Transfer Techniques, Correct Positioning, Safety Issues Teaching Recipient: Patient Teaching Methods: Demonstration, Discussion Response to Teaching: Reinforcement Needed Time/GCodes Time In: 800 Time Out: 900 Total Billed Treatment Time: 60 Total Billed Treatment 1 visit GT 30' EX 15' NM 15' LATANYA FLYNN PT Jul 22, 2016 08:59
--- NOTE | 2016-07-22 09:06 | Progress Note (SOAP) ---
Subjective Time Seen by Provider: 09:00 Subjective/Events-last exam CVA. 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 Hypertension. GERD. TIA history. CHF history. 07/18/16. 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 Hypertension. TIA. Patient's left hand doing better. Patient doesn't know the President. . 07/19/16. CVA on left Hypertension. Patient walked a longer distance today. . 07/22/16. 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 Left leg doing better. Left arm work in progress. Melatonin unable to sleep. Give trazodone half the dose Clinical Quality Measures DVT/VTE Risk/Contraindication: Risk Factor Score Per Nursin RFS Level Per Nursing on Admit: 4+=Very High DORA MOCK DO Jul 22, 2016 09:06
--- NOTE | 2016-07-22 10:22 | Speech Therapy Daily Note ---
Speech Daily Progress Note Subjective Date Seen by Provider: Jul 22, 2016 Time Seen by Provider: 09:00 The patient was seated upright in recliner upon entrance, with present at bedside. The patient greeted the clinician appropriately and was agreeable to dysphagia therapy on this date. To note: The patient (and patient's RN) stated the patient has been compliant with dysphagia exercise practice over the weekend. Objective Dysphagia Strengthening Exercises: Dysphagia exercises (lingual, base of tongue , pharyngeal, and laryngeal elevation) were continued, demonstrated, discussed, and reviewed on this date. The patient demonstrated high accuracy with all exercises following direct modeling and minimal clinician verbal prompting. Ten repetitions of each exercise were performed. The patient was asked to complete dysphagia exercises (five to ten repetitions) one additional session throughout the day. The patient denied any questions or concerns at this time. Assessment Assessment Current Status: Excellent Progress Treatment Plan Continue Plan of Care Communication Comprehension: 5 Expression: 5 Social Cognition Social Interaction: 6 Problem Solvin Memory: 5 Speech Short Term Goals Short Term Goals Short Term Goals 1. The patient will independently demonstrate swallowing strategies with 90% accuracy. 2. The patient will demonstrate dysphagia exercises with 80% accuracy and mild clinician cueing. Time Frame-STG: One Week Speech Custodial Goals Timber Watchman Goals 1. The patient will tolerate the least restrictive diet without signs/symptoms of aspiration or laryngeal penetration. Time Frame: Two Weeks Comprehension: 5 Expression: 6 Social Interaction: 6 Problem Solvin Memory: 5 Speech-Plan Treatment Plan Speech Therapy Treatment Plan: Continue Plan of Care Continue skilled speech pathology to target swallowing safety and dysphagia exercises. Treatment Duration: Jul 31, 2016 # of days/week Four to five. Visits Per Week: Four to five. Minutes/Day (M-F): 30 Rehab Potential: Good Safety Risks/Education Teaching Recipient: Patient Teaching Methods: Demonstration, Handout Response to Teaching: Return Demonstration Education Topics Provided: Dysphagia Exercises Time Speech Therapy Time In: 09:00 Speech Therapy Time Out: 09:30 Total Billed Time: 30 Billed Treatment Time PARMJIT Vazquez JOSÉ MIGUEL YBARRA Jul 22, 2016 10:22
--- NOTE | 2016-07-22 14:00 | Physical Therapy Daily Note ---
PT Daily Note-Current Subjective Agreeable to PT. No complaints. Transfers Functional [place] Measure 0=Not Assessed/NA 4=Minimal Assistance 1=Total Assistance 5=Supervision or Setup 2=Maximal Assistance 6=Modified [place] 3=Moderate Assistance 7=Complete IndependenceIRFPAI Quality Coding Scale 6 Independent with activity with or without an assistive device 5 Patient requires set up or clean up by helper. Patient completes activity by themselves 4 Supervision or touching assist (CGA). [place] provide cues , steadying assist 3 The helper provides less than half the effort to complete the activity 2 The helper provides more than half the effort to complete the activity 1 Dependent. The helper does all the effort to complete an activity 7 Patient refused to complete or attempt activity 9 The patient did not perform the activity before the current illness or injury 88 Not attempted due to Medical conditions or safety concerns Treatments Functional mobility training that encompassed sit to from stand with skilled cues for hand placement, sequencing and safety; up/down 4 steps with min assist and skilled cues for sequencing and gait training 75 ft x 2 with QC with min assist. Pt in chair post treatment with needs met. Assessment Current Status: Good Progress Difficulty with turning to sit in a chair and often falls to the left and needs skilled cues to reach back for the chair. Fatigued after treatment and near end of 75 ft of gait, leaning somewhat to the left. PT Short Term Goals Short Term Goals Time Frame: Jul 23, 2016 Gait (FIM): 2 Gait Distance Comment: 50' Gait Level of Assist: 4 Gait Assistive Device: Cane Large Base Quad Wheelchair Distance: 50' PT Emission Specialist Goals Half-Way Goals PT Half-Way Goals Time Frame: Aug 06, 2016 Transfers (B,C,W/C) (FIM): 5 Sit to Lying (QC): 4 Lying-Sitting on Side/Bed(QC): 4 Sit to Stand (QC): 4 Rollin Roll Left to Right (QC): 4 Chair/Aax-cz-Tntcm Xfer(QC): 4 Car Transfer (QC): 4 Gait (FIM): 4 Distance: 150' Walk 10 feet (QC): 4 Walk 10ft-Uneven Surface(QC): 4 Walk 50ft with 2 Turns (QC): 4 Walk 150 ft (QC): 4 Gait Level of Assist: 4 Gait Assistive Device: Cane Large Base Quad Stairs (FIM): 2 # of Steps: 4 1 Step (curb) (QC): 4 4 Steps (QC): 4 12 Steps (QC): 88 Stairs Level Of Assist: 4 Picking up an Object (QC): 88 PT Plan Problem List Problem List: Activity Tolerance, Functional Strength, Safety Treatment/Plan Treatment Plan: Continue Plan of Care Treatment Plan: Bed Mobility, Education, Functional Activity Pedro, Functional Strength, Group Therapy, Gait, Safety, Therapeutic Exercise, Transfers Treatment Duration: Aug 06, 2016 Visits Per Week: 10-11 Minutes/Day (M-F): 60-90 Minutes/Day (Sat/Etienne): 15-30 Safety Risks/Education Patient Education: Transfer Techniques, Safety Issues Teaching Recipient: Patient Teaching Methods: Demonstration, Discussion Response to Teaching: Reinforcement Needed Time/GCodes Time In: 1330 Time Out: 1400 Total Billed Treatment Time: 30 Total Billed Treatment visit GT 30 LIZA HUERTA PT Jul 22, 2016 14:00
--- NOTE | 2016-07-22 14:09 | Occupational Ther Daily Note ---
OT Current Status-Daily Note Subjective Pt alert, sitting EOB eating lunch. Pt agreed to therapy. No c/o pain. Mental Status/Objective Patient Orientation: Person, Place, Time, Situation Functional [place] Measure 0=Not Assessed/NA 4=Minimal Assistance 1=Total Assistance 5=Supervision or Setup 2=Maximal Assistance 6=Modified [place] 3=Moderate Assistance 7=Complete [place] ADL-Treatment Functional [place] Measure 0=Not Assessed/NA 4=Minimal Assistance 1=Total Assistance 5=Supervision or Setup 2=Maximal Assistance 6=Modified [place] 3=Moderate Assistance 7=Complete IndependenceIRFPAI Quality Coding Scale 6 Independent with activity with or without an assistive device 5 Patient requires set up or clean up by helper. Patient completes activity by themselves 4 Supervision or touching assist (CGA). [place] provide cues , steadying assist 3 The helper provides less than half the effort to complete the activity 2 The helper provides more than half the effort to complete the activity 1 Dependent. The helper does all the effort to complete an activity 7 Patient refused to complete or attempt activity 9 The patient did not perform the activity before the current illness or injury 88 Not attempted due to Medical conditions or safety concerns Other Treatment Pt ambulated with quadcane from room to [facility]. Pt then maneuvered w/ c from [facility] to therapy gym. Transferred from w/c to therapy mat with min A. Pt complete wt bearing activities to incorporate activating appropriate muscles to decrease compensatory movements. Pt was able to activate bicep/ tricep while lifting arm to place on leg, muscle facilitation (tapping) needed. Pt fatigues quickly, 5 reps per muscle used. After therapy, pt left in care of PT in therapy gym. OT Short Term Goals Short Term Goals Time Frame: Jul 30, 2016 Bathing(FIM): 5 Upper Body Dressing(FIM): 5 Lower Body Dressing(FIM): 5 Toilet/Commode Transfer(FIM): 4 Additional Short Term Goals: 2-Verbalize Understanding, 3-ImproveStrength/Pedro 1=Demonstrate adherence to instructed precautions during ADL tasks. 2=Patient will verbalize/demonstrate understanding of assistive devices/ modifications for ADL. 3=Patient will improve strength/tolerance for activity to enable patient to perform ADL's. OT Snf Goals Retail Marketing Specialist Goals Time Frame: Aug 13, 2016 Eating (FIM): 6 Eating (QC): 6 Groomin Oral Hygiene (QC): 6 Bathing(FIM): 6 Shower/Bathe Self (QC): 6 Upper Body Dressing(FIM): 6 Upper Body Dressing (QC): 6 Lower Body Dressing(FIM): 6 Lower Body Dressing (QC): 6 On/Off Footwear (QC): 6 Toileting(FIM): 6 Toileting Hygiene (QC): 6 Toilet/Commode Transfer(FIM): 6 Toilet/Commode Transfer (QC): 6 Shower Transfer(FIM): 6 Comprehension(FIM): 5 Expression (FIM): 6 Social Interaction(FIM): 6 Problem Solving(FIM): 5 Memory(FIM): 5 Additional Goals: 2-Verbalize Understanding, 3-ImproveStrength/Pedro 1=Demonstrate adherence to instructed precautions during ADL tasks. 2=Patient will verbalize/demonstrate understanding of assistive devices/ modifications for ADL. 3=Patient will improve strength/tolerance for activity to enable patient to perform ADL's. OT Education/Plan Problem List/Assessment Pt would benefit from skilled OT to increase his independence in basic self care to allo whim to safely return home to [place] with his and to decrease caregiver burden. Discharge Recommendations Plan/Recommendations: Continue POC Treatment Plan/Plan of Care Patient would benefit from OT for education, treatment and training to promote independence in ADL's, mobility, safety and/or upper extremity function for ADL' s. Plan of Care: ADL Retraining, Functional Mobility, Group Exercise/Act as Ind ( education, exercise, activity tolerance, functional use UEs, funct activities), UE Funct Exercise/Act, UE Neuromus Re-Ed/Coord Treatment Duration: Aug 13, 2016 Visits Per Week: 10-12 Minutes/Day (M-F): 60-90 Minutes/Day (Sat/Etienne): PRN Agreement: Yes Rehab Potential: Good Time/GCodes Start Time: 13:00 Stop Time: 13:30 Total Time Billed (hr/min): 30 Billed Treatment Time 1 visit-NM 2 (30 min) LIZA ATKINSON Jul 22, 2016 14:09
[2016-07-22 18:02] VITALS: BP 115/67
--- NOTE | 2016-07-22 19:42 | PM & R (SOAP) Progress Note ---
Subjective Time Seen by Provider: 19:00 Subjective/Events-last exam Patient was seen in his room this evening Called over weekend by Nursing re issue with Trazodone Meds adjusted Christina Ho notes and orders.Patient min assist for transfers Review of Systems General: Other (insomnia) Neurological: Weakness Objective Exam Last Set of Vital Signs Vital Signs Date Time Temp Pulse Resp B/P (MAP) Pulse Ox O2 Delivery O2 Flow Rate FiO2 07/22/16 18:02 99.1 76 20 115/67 94 Room Air Capillary Refill : I&O Intake and Output 07/22/16 00:00 Intake Total 1090 ml Output Total 1700 ml Balance -610 ml Intake Oral 1090 ml Output Urine Total 1700 ml # Bowel Movements 1 General: Alert, Oriented X3, Cooperative, No Acute Distress HEENT: Atraumatic, PERRLA, EOMI, Mucous Memb Moist/[place], Other (facial droop) Neck: Supple, No JVD Lungs: Clear to Auscultation Heart: Regular Rate Abdomen: Normal Bowel Sounds, Soft, No Tenderness Extremities: No Edema Neuro: Other ( left HP with flaccid Left limb) Assessment/Plan Assessment 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
[2016-07-22] MEDS: MELATONIN 3 MG TABLET PO SCH (20:47)
[2016-07-22] MEDS: ATORVASTATIN 20 MG (LIPITOR) TABLET PO SCH (20:47)
[2016-07-22] MEDS: traZODone 50 MG (DESYREL) TAB PO SCH (20:47)
[2016-07-23 05:51] VITALS: BP 127/58
[2016-07-23] MEDS: MULTIVIT W/MINERALS TAB (THERAGRAN M) PO SCH (06:31)
[2016-07-23] MEDS: PANTOPRAZOLE 40 MG (PROTONIX) TAB PO SCH (06:31)
--- NOTE | 2016-07-23 08:16 | Progress Note (SOAP) ---
Subjective Time Seen by Provider: 08:12 Subjective/Events-last exam CVA. Patient one-person assist. Patient getting stronger.. Patient doing better. Objective Exam Vital Signs Date Time Temp Pulse Resp B/P (MAP) Pulse Ox O2 Delivery O2 Flow Rate FiO2 07/23/16 05:51 99.4 70 18 127/58 93 Room Air 07/22/16 20:30 Room Air 07/22/16 18:02 99.1 76 20 115/67 94 Room Air 07/22/16 09:17 Room Air I & O 07/23/16 07:00 Intake Total 1050 ml Output Total 1375 ml Balance -325 ml Capillary Refill : General Appearance: No Apparent Distress, WD/WN HEENT: Normal ENT Inspection Neck: Full Range of Motion, Normal Inspection Respiratory: Chest Non Tender, No Accessory Muscle Use, No Respiratory Distress Cardiovascular: Regular Rate, Rhythm, No Murmur Assessment/Plan Assessment/Plan Assess & Plan/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 Hypertension. GERD. TIA history. CHF history. 07/18/16. 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 Hypertension. TIA. Patient's left hand doing better. Patient doesn't know the President. . 07/19/16. CVA on left Hypertension. Patient walked a longer distance today. . 07/22/16. 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 Left leg doing better. Left arm work in progress. Melatonin unable to sleep. Give trazodone half the dose. . 07/23/16. 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 Patient getting around better. Patient improving Clinical Quality Measures DVT/VTE Risk/Contraindication: Risk Factor Score Per Nursin RFS Level Per Nursing on Admit: 4+=Very High DORA MOCK DO Jul 23, 2016 08:16
[2016-07-23] MEDS: NIFEdipine ER 60 MG (PROCARDIA XL) TAB PO SCH (08:52)
[2016-07-23] MEDS: ASPIRIN E.C. 81 MG (ECOTRIN) TAB PO SCH (08:52)
[2016-07-23] MEDS: BENAZEPRIL 20 MG (LOTENSIN) TAB PO SCH (08:52)
[2016-07-23] MEDS: TRIAMCINOLONE 0.1% CR (KENALOG) 15 GM TUBE TOP SCH ×2 (08:53→19:39)
--- NOTE | 2016-07-23 08:57 | Physical Therapy Daily Note ---
PT Daily Note-Current Subjective Patient sitting EOB pre tx, agrees to PT, no complaints of pain. Appearance Patient in recliner post tx with nurse call, phone, tray, all needs met, in room. Mental Status Patient Orientation: Normal For Age Transfers Functional [place] Measure 0=Not Assessed/NA 4=Minimal Assistance 1=Total Assistance 5=Supervision or Setup 2=Maximal Assistance 6=Modified [place] 3=Moderate Assistance 7=Complete IndependenceIRFPAI Quality Coding Scale 6 Independent with activity with or without an assistive device 5 Patient requires set up or clean up by helper. Patient completes activity by themselves 4 Supervision or touching assist (CGA). [place] provide cues , steadying assist 3 The helper provides less than half the effort to complete the activity 2 The helper provides more than half the effort to complete the activity 1 Dependent. The helper does all the effort to complete an activity 7 Patient refused to complete or attempt activity 9 The patient did not perform the activity before the current illness or injury 88 Not attempted due to Medical conditions or safety concerns Transfers (B, C, W/C) (FIM): 4 Sit to/from Stand: 4 min assist for sit to stand and turning, especially when turning to the right. Cues for safety and hand placement. Gait Training Gait (FIM): 4 Distance: 150'x2 Gait Level of Assist: 4 Gait Persons Needed: 1 Gait Assistive Device: Cane Large Base Quad Min assist to help with weight shifting and balance, cues for step placement and sequencing. Exercises Standing: Heel/toe raises, Mini squats, Step-ups Standing Reps: 15 LAQ alternating for 5 min, exercises performed to improve function and strength in left leg, improve balance and functional mobility NuStep Minutes: 15 NuStep Workload: 5 Treatments transfers, ambulation, functional strengthening Assessment Current Status: Fair Progress improving balance and endurance PT Short Term Goals Short Term Goals Time Frame: Jul 23, 2016 Gait (FIM): 2 Gait Distance Comment: 50' Gait Level of Assist: 4 Gait Assistive Device: Cane Large Base Quad Wheelchair Distance: 50' PT Solder [employer]er [employer] Goals Fdc Goals PT S[employer] Goals Time Frame: Aug 06, 2016 Transfers (B,C,W/C) (FIM): 5 Sit to Lying (QC): 4 Lying-Sitting on Side/Bed(QC): 4 Sit to Stand (QC): 4 Rollin Roll Left to Right (QC): 4 Chair/Szo-rh-[place] Xfer(QC): 4 Car Transfer (QC): 4 Gait (FIM): 4 Distance: 150' Walk 10 feet (QC): 4 Walk 10ft-Uneven Surface(QC): 4 Walk 50ft with 2 Turns (QC): 4 Walk 150 ft (QC): 4 Gait Level of Assist: 4 Gait Assistive Device: Cane Large Base Quad Stairs (FIM): 2 # of Steps: 4 1 Step (curb) (QC): 4 4 Steps (QC): 4 12 Steps (QC): 88 Stairs Level Of Assist: 4 Picking up an Object (QC): 88 PT Plan Problem List Problem List: Activity Tolerance, Functional Strength, Safety, Balance, Gait, Transfer, Bed Mobility Treatment/Plan Treatment Plan: Continue Plan of Care Treatment Plan: Bed Mobility, Education, Functional Activity Pedro, Functional Strength, Group Therapy, Gait, Safety, Therapeutic Exercise, Transfers Treatment Duration: Aug 06, 2016 Visits Per Week: 10-11 Minutes/Day (M-F): 60-90 Minutes/Day (Sat/Etienne): 15-30 Safety Risks/Education Patient Education: Gait Training, Transfer Techniques, Correct Positioning, Safety Issues Teaching Recipient: Patient Teaching Methods: Demonstration, Discussion Response to Teaching: Reinforcement Needed Time/GCodes Time In: 800 Time Out: 900 Total Billed Treatment Time: 60 Total Billed Treatment 1 visit GT 30' EX 30' LATANYA FLYNN PT Jul 23, 2016 08:57
--- NOTE | 2016-07-23 11:02 | Speech Therapy Daily Note ---
Speech Daily Progress Note Subjective Date Seen by Provider: Jul 23, 2016 Time Seen by Provider: 09:00 The patient was seated upright in recliner upon entrance, with present at bedside. The patient greeted the clinician appropriately and was agreeable to dysphagia therapy on this date. Objective Dysphagia Strengthening Exercises: Dysphagia exercises (lingual, base of tongue , pharyngeal, and laryngeal elevation) were continued, demonstrated, discussed, and reviewed on this date. The patient demonstrated high accuracy with all exercises following direct modeling and minimal clinician verbal prompting. Ten repetitions of each exercise were performed. The patient was asked to complete dysphagia exercises (five to ten repetitions) one additional session throughout the day. The patient denied any questions or concerns at this time. Assessment Assessment Current Status: Good Progress Treatment Plan Continue Plan of Care Communication Comprehension: 5 Expression: 5 Social Cognition Social Interaction: 6 Problem Solvin Memory: 5 Speech Short Term Goals Short Term Goals Short Term Goals 1. The patient will independently demonstrate swallowing strategies with 90% accuracy. 2. The patient will demonstrate dysphagia exercises with 80% accuracy and mild clinician cueing. Time Frame-STG: One Week Speech Prison Goals Prison Goals 1. The patient will tolerate the least restrictive diet without signs/symptoms of aspiration or laryngeal penetration. Time Frame: Two Weeks Comprehension: 5 Expression: 6 Social Interaction: 6 Problem Solvin Memory: 5 Speech-Plan Treatment Plan Speech Therapy Treatment Plan: Continue Plan of Care Continue skilled speech pathology to target improved swallowing safety. Treatment Duration: Jul 31, 2016 # of days/week Four to five. Visits Per Week: Four to five. Minutes/Day (M-F): 30 Rehab Potential: Good Safety Risks/Education Teaching Recipient: Patient Teaching Methods: Demonstration, Handout, Discussion Response to Teaching: Verbalize Understanding, Return Demonstration Education Topics Provided: Dysphagia Exercises Time Speech Therapy Time In: 09:00 Speech Therapy Time Out: 09:30 Total Billed Time: 30 Billed Treatment Time PARMJIT Vazquez JOSÉ MIGUEL YBARRA Jul 23, 2016 11:02
--- NOTE | 2016-07-23 13:11 | PM & R (SOAP) Progress Note ---
Subjective Time Seen by Provider: 08:15 Subjective/Events-last exam Patient was seen in his room this AM Patient Min assist for transfers and gait with [facility]QC.Slept better with adjustment in meds yesterday Objective Exam Last Set of Vital Signs Vital Signs Date Time Temp Pulse Resp B/P (MAP) Pulse Ox O2 Delivery O2 Flow Rate FiO2 07/23/16 09:00 93 Room Air 07/23/16 05:51 99.4 70 18 127/58 Capillary Refill : I&O Intake and Output 07/23/16 00:00 Intake Total 1000 ml Output Total 350 ml Balance 650 ml Intake Oral 1000 ml Output Urine Total 350 ml # Voids 3 General: Alert, Oriented X3, Cooperative, No Acute Distress HEENT: Atraumatic, PERRLA, EOMI, Mucous Memb Moist/[place], Other (facial droop) Neck: Supple, No JVD Lungs: Clear to Auscultation Heart: Regular Rate Abdomen: Normal Bowel Sounds, Soft, No Tenderness Extremities: No Edema Neuro: Other ( left HP with flaccid Left limb) Assessment/Plan Assessment 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
--- NOTE | 2016-07-23 14:30 | Physical Therapy Daily Note ---
PT Daily Note-Current Subjective Patient in recliner pre tx, agrees to PT, no complaints of pain. Appearance Patient in recliner post tx with nurse call, phone, tray, all needs met. Mental Status Patient Orientation: Normal For Age Transfers Functional [place] Measure 0=Not Assessed/NA 4=Minimal Assistance 1=Total Assistance 5=Supervision or Setup 2=Maximal Assistance 6=Modified [place] 3=Moderate Assistance 7=Complete IndependenceIRFPAI Quality Coding Scale 6 Independent with activity with or without an assistive device 5 Patient requires set up or clean up by helper. Patient completes activity by themselves 4 Supervision or touching assist (CGA). [place] provide cues , steadying assist 3 The helper provides less than half the effort to complete the activity 2 The helper provides more than half the effort to complete the activity 1 Dependent. The helper does all the effort to complete an activity 7 Patient refused to complete or attempt activity 9 The patient did not perform the activity before the current illness or injury 88 Not attempted due to Medical conditions or safety concerns Transfers (B, C, W/C) (FIM): 4 Sit to/from Stand: 4 min assist, patient very unsteady immediately upon standing Gait Training Gait (FIM): 4 Distance: 200', 100'x3 Gait Level of Assist: 4 Gait Persons Needed: 1 Gait Assistive Device: Cane Large Base Quad min assist for weight shifting and balance, patient was very fatigued after ambulating 200', has a lot of trouble turning to the right side Treatments transfers, ambulation Assessment Current Status: Fair Progress improving endurance and ambulation PT Short Term Goals Short Term Goals Time Frame: Jul 23, 2016 Gait (FIM): 2 Gait Distance Comment: 50' Gait Level of Assist: 4 Gait Assistive Device: Cane Large Base Quad Wheelchair Distance: 50' PT Prison Goals Prison Goals PT Prison Goals Time Frame: Aug 06, 2016 Transfers (B,C,W/C) (FIM): 5 Sit to Lying (QC): 4 Lying-Sitting on Side/Bed(QC): 4 Sit to Stand (QC): 4 Rollin Roll Left to Right (QC): 4 Chair/Xxp-zc-Fbrrd Xfer(QC): 4 Car Transfer (QC): 4 Gait (FIM): 4 Distance: 150' Walk 10 feet (QC): 4 Walk 10ft-Uneven Surface(QC): 4 Walk 50ft with 2 Turns (QC): 4 Walk 150 ft (QC): 4 Gait Level of Assist: 4 Gait Assistive Device: Cane Large Base Quad Stairs (FIM): 2 # of Steps: 4 1 Step (curb) (QC): 4 4 Steps (QC): 4 12 Steps (QC): 88 Stairs Level Of Assist: 4 Picking up an Object (QC): 88 PT Plan Problem List Problem List: Activity Tolerance, Functional Strength, Safety, Balance, Gait, Transfer, Bed Mobility Treatment/Plan Treatment Plan: Continue Plan of Care Treatment Plan: Bed Mobility, Education, Functional Activity Pedro, Functional Strength, Group Therapy, Gait, Safety, Therapeutic Exercise, Transfers Treatment Duration: Aug 06, 2016 Visits Per Week: 10-11 Minutes/Day (M-F): 60-90 Minutes/Day (Sat/Etienne): 15-30 Safety Risks/Education Patient Education: Gait Training, Transfer Techniques, Correct Positioning, Safety Issues Teaching Recipient: Patient Teaching Methods: Demonstration, Discussion Response to Teaching: Reinforcement Needed Time/GCodes Time In: 1400 Time Out: 1430 Total Billed Treatment Time: 30 Total Billed Treatment 1 visit GT 30' LATANYA FLYNN PT Jul 23, 2016 14:30
--- NOTE | 2016-07-23 14:35 | Occupational Ther Daily Note ---
OT Current Status-Daily Note Subjective Pt alert, sitting in recliner. Pt agreed to therapy. No c/o pain only fatigue. Mental Status/Objective Patient Orientation: Person, Place, Time, Situation Functional [place] Measure 0=Not Assessed/NA 4=Minimal Assistance 1=Total Assistance 5=Supervision or Setup 2=Maximal Assistance 6=Modified [place] 3=Moderate Assistance 7=Complete [place] ADL-Treatment After set up, pt completed dressing. Pt was able to doff shirt by self then assist to go from sit to stand and to balance in standing while pt doffed pants over hips. Pt was able to doff sock/shoes by self. Pt donned shirt using one- handed technique after set up with min A. Pt able to don underpants/pants over feet by self then assist to stand while pt hiked over hips. Pt able to don shoes though takes increased time to complete. Pt does need recovery breaks after donning each article of clothing. Functional [place] Measure 0=Not Assessed/NA 4=Minimal Assistance 1=Total Assistance 5=Supervision or Setup 2=Maximal Assistance 6=Modified [place] 3=Moderate Assistance 7=Complete IndependenceIRFPAI Quality Coding Scale 6 Independent with activity with or without an assistive device 5 Patient requires set up or clean up by helper. Patient completes activity by themselves 4 Supervision or touching assist (CGA). [place] provide cues , steadying assist 3 The helper provides less than half the effort to complete the activity 2 The helper provides more than half the effort to complete the activity 1 Dependent. The helper does all the effort to complete an activity 7 Patient refused to complete or attempt activity 9 The patient did not perform the activity before the current illness or injury 88 Not attempted due to Medical conditions or safety concerns Upper Body (FIM): 4 Lower Body Dressing (FIM): 3 Other Treatment Arm bike completed-B UE (L hand wrapped onto handle) rotating forward 3 min at 5 thompson resistance, L UE rotating forward 1 min at 5 thompson resistance, B UE rotating backward 3 min, L UE rotating backward 1 min to promote active movement in L UE and to strengthen B UE for daily functional tasks. Pt then completed wt bearing with L UE for proprioceptive awareness of L UE to promote active movement. Pt demonstrated trace movement in thumb flexion and finger extension. Pt was able to flex fingers slightly. Pt continues to use compensatory strategies to move L UE, inhibiting movement attempted and pt fights against it. Pt maneuvered w/c back to room with 1 directional cue to find room. Pt transferred from w/c to recliner with CGA. After therapy, pt sitting in recliner with in room. Call light/phone in reach. All needs met in room. OT Short Term Goals Short Term Goals Time Frame: Jul 30, 2016 Bathing(FIM): 5 Upper Body Dressing(FIM): 5 Lower Body Dressing(FIM): 5 Toilet/Commode Transfer(FIM): 4 Additional Short Term Goals: 2-Verbalize Understanding, 3-ImproveStrength/Ped[place] 1=Demonstrate adherence to instructed precautions during ADL tasks. 2=Patient will verbalize/demonstrate understanding of assistive devices/ modifications for ADL. 3=Patient will improve strength/tolerance for activity to enable patient to perform ADL's. OT Fpc Goals [employer] D[employer] Specialist Goals Time Frame: Aug 13, 2016 Eating (FIM): 6 Eating (QC): 6 Groomin Oral Hygiene (QC): 6 Bathing(FIM): 6 Shower/Bathe Self (QC): 6 Upper Body Dressing(FIM): 6 Upper Body Dressing (QC): 6 Lower Body Dressing(FIM): 6 Lower Body Dressing (QC): 6 On/Off Footwear (QC): 6 Toileting(FIM): 6 Toileting Hygiene (QC): 6 Toilet/Commode Transfer(FIM): 6 Toilet/Commode Transfer (QC): 6 Shower Transfer(FIM): 6 Comprehension(FIM): 5 Expression (FIM): 6 Social Interaction(FIM): 6 Problem Solving(FIM): 5 Memory(FIM): 5 Additional Goals: 2-Verbalize Understanding, 3-ImproveStrength/[place] 1=Demonstrate adherence to instructed precautions during ADL tasks. 2=Patient will verbalize/demonstrate understanding of assistive devices/ modifications for ADL. 3=Patient will improve strength/tolerance for activity to enable patient to perform ADL's. OT Education/Plan Problem List/Assessment Pt would benefit from skilled OT to increase his independence in basic self care to allo whim to safely return home to love with his and to decrease caregiver burden. Discharge Recommendations Plan/Recommendations: Continue POC Treatment Plan/Plan of Care Patient would benefit from OT for education, treatment and training to promote independence in ADL's, mobility, safety and/or upper extremity function for ADL' s. Plan of Care: ADL Retraining, Functional Mobility, Group Exercise/Act as Ind ( education, exercise, activity tolerance, functional use UEs, funct activities), UE Funct Exercise/Act, UE Neuromus Re-Ed/Coord Treatment Duration: Aug 13, 2016 Visits Per Week: 10-12 Minutes/Day (M-F): 60-90 Minutes/Day (Sat/Etienne): PRN Agreement: Yes Rehab Potential: Good Time/GCodes Start Time: 09:30 Stop Time: 10:45 Total Time Billed (hr/min): 75 Billed Treatment Time 1 visit-FA 2 (30 min) NM 3 (45 min) LIZA ATKINSON Jul 23, 2016 14:35
[2016-07-23 18:13] VITALS: BP 113/62
[2016-07-23] MEDS: MELATONIN 3 MG TABLET PO SCH (19:39)
[2016-07-23] MEDS: ATORVASTATIN 20 MG (LIPITOR) TABLET PO SCH (20:22)
[2016-07-23] MEDS: traZODone 50 MG (DESYREL) TAB PO SCH (20:23)
[2016-07-24 04:53] VITALS: BP 123/63
[2016-07-24] MEDS: MULTIVIT W/MINERALS TAB (THERAGRAN M) PO SCH (06:31)
[2016-07-24] MEDS: PANTOPRAZOLE 40 MG (PROTONIX) TAB PO SCH (06:31)
--- NOTE | 2016-07-24 08:35 | Progress Note (SOAP) ---
Subjective Time Seen by Provider: 08:31 Subjective/Events-last exam CVA. Patient has unsteady gait.. Patient working hard this morning Objective Exam Vital Signs Date Time Temp Pulse Resp B/P (MAP) Pulse Ox O2 Delivery O2 Flow Rate FiO2 07/24/16 04:53 99.6 74 18 123/63 92 Room Air 07/23/16 20:30 Room Air 07/23/16 18:13 99.8 85 18 113/62 95 07/23/16 09:00 93 Room Air I & O 07/24/16 07:00 Intake Total 1250 ml Output Total 1100 ml Balance 150 ml Capillary Refill : General Appearance: No Apparent Distress, Thin HEENT: Normal ENT Inspection Respiratory: No Accessory Muscle Use, No Respiratory Distress Assessment/Plan Assessment/Plan Assess & Plan/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 Hypertension. GERD. TIA history. CHF history. 07/18/16. 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 Hypertension. TIA. Patient's left hand doing better. Patient doesn't know the President. . 07/19/16. CVA on left Hypertension. Patient walked a longer distance today. . 07/22/16. 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 Left leg doing better. Left arm work in progress. Melatonin unable to sleep. Give trazodone half the dose. . 07/23/16. 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 Patient getting around better. Patient improving. . 07/24/16. 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 Hypertension. TIA history. Patient working hard this morning area Patient has unsteady gait Clinical Quality Measures DVT/VTE Risk/Contraindication: Risk Factor Score Per Nursin RFS Level Per Nursing on Admit: 4+=Very High DORA MOCK DO Jul 24, 2016 08:35
--- NOTE | 2016-07-24 08:55 | Physical Therapy Daily Note ---
PT Daily Note-Current Subjective Patient in bed pre tx, agrees to PT, has to use the urinal before starting. No complaints of pain. Appearance Patient in recliner post tx with nurse call, phone, tray, all needs met, in room. Mental Status Patient Orientation: Normal For Age Transfers Functional [place] Measure 0=Not Assessed/NA 4=Minimal Assistance 1=Total Assistance 5=Supervision or Setup 2=Maximal Assistance 6=Modified [place] 3=Moderate Assistance 7=Complete IndependenceIRFPAI Quality Coding Scale 6 Independent with activity with or without an assistive device 5 Patient requires set up or clean up by helper. Patient completes activity by themselves 4 Supervision or touching assist (CGA). [place] provide cues , steadying assist 3 The helper provides less than half the effort to complete the activity 2 The helper provides more than half the effort to complete the activity 1 Dependent. The helper does all the effort to complete an activity 7 Patient refused to complete or attempt activity 9 The patient did not perform the activity before the current illness or injury 88 Not attempted due to Medical conditions or safety concerns Transfers (B, C, W/C) (FIM): 4 Sit to/from Stand: 4 min assist due to balance impairments Gait Training Gait (FIM): 4 Distance: 150'x2 Gait Level of Assist: 4 Gait Persons Needed: 1 Gait Assistive Device: Cane Large Base Quad Patient needs min assist for balance and weight shifting, leans to the left. Patient started gait training with the LiteGait weight supported gait system. Went 150'x2 working on balance and weight shifting on his own. Treatments transfers, ambulation Assessment Current Status: Fair Progress slowly improving ambulation PT Short Term Goals Short Term Goals Time Frame: Jul 23, 2016 Gait (FIM): 2 Gait Distance Comment: 50' Gait Level of Assist: 4 Gait Assistive Device: Cane Large Base Quad Wheelchair Distance: 50' PT Residential Goals [employer] Goals PT Residential Goals Time Frame: Aug 06, 2016 Transfers (B,C,W/C) (FIM): 5 Sit to Lying (QC): 4 Lying-Sitting on Side/Bed(QC): 4 Sit to Stand (QC): 4 Rollin Roll Left to Right (QC): 4 Chair/Blh-fl-Hgvuv Xfer(QC): 4 Car Transfer (QC): 4 Gait (FIM): 4 Distance: 150' Walk 10 feet (QC): 4 Walk 10ft-Uneven Surface(QC): 4 Walk 50ft with 2 Turns (QC): 4 Walk 150 ft (QC): 4 Gait Level of Assist: 4 Gait Assistive Device: Cane Large Base Quad Stairs (FIM): 2 # of Steps: 4 1 Step (curb) (QC): 4 4 Steps (QC): 4 12 Steps (QC): 88 Stairs Level Of Assist: 4 Picking up an Object (QC): 88 PT Plan Problem List Problem List: Activity Tolerance, Functional Strength, Safety, Balance, Gait, Transfer, Bed Mobility Treatment/Plan Treatment Plan: Continue Plan of Care Treatment Plan: Bed Mobility, Education, Functional Activity Pedro, Functional Strength, Group Therapy, Gait, Safety, Therapeutic Exercise, Transfers Treatment Duration: Aug 06, 2016 Visits Per Week: 10-11 Minutes/Day (M-F): 60-90 Minutes/Day (Sat/Etienne): 15-30 Safety Risks/Education Patient Education: Gait Training, Transfer Techniques, Correct Positioning, Safety Issues Teaching Recipient: Patient Teaching Methods: Demonstration, Discussion Response to Teaching: Reinforcement Needed Time/GCodes Time In: 800 Time Out: 900 Total Billed Treatment Time: 60 Total Billed Treatment 1 visit FA 15' GT 45' LATANYA FLYNN PT Jul 24, 2016 08:55
[2016-07-24] MEDS: ASPIRIN E.C. 81 MG (ECOTRIN) TAB PO SCH (09:38)
[2016-07-24] MEDS: NIFEdipine ER 60 MG (PROCARDIA XL) TAB PO SCH (09:38)
[2016-07-24] MEDS: BENAZEPRIL 20 MG (LOTENSIN) TAB PO SCH (09:39)
[2016-07-24] MEDS: TRIAMCINOLONE 0.1% CR (KENALOG) 15 GM TUBE TOP SCH ×2 (09:40→20:08)
--- NOTE | 2016-07-24 10:29 | Speech Therapy Daily Note ---
Speech Daily Progress Note Subjective Date Seen by Provider: Jul 24, 2016 Time Seen by Provider: 09:00 The patient was seated upright in recliner upon entrance, with present at bedside. The patient greeted the clinician appropriately and was agreeable to dysphagia therapy on this date. Objective Dysphagia Strengthening Exercises: Dysphagia exercises (lingual, base of tongue , pharyngeal, and laryngeal elevation) were continued, demonstrated, discussed, and reviewed on this date. The patient demonstrated high accuracy with all exercises following direct modeling and minimal clinician verbal prompting. Ten repetitions of each exercise were performed. The patient was asked to complete dysphagia exercises (five to ten repetitions) one additional session throughout the day. The patient denied any questions or concerns at this time. - The patient denied any recent demonstration of signs/symptoms of aspiration throughout meals or snacks. Assessment Assessment Current Status: Good Progress Treatment Plan Continue Plan of Care Communication Comprehension: 5 Expression: 5 Social Cognition Social Interaction: 6 Problem Solvin Memory: 5 Speech Short Term Goals Short Term Goals Short Term Goals 1. The patient will independently demonstrate swallowing strategies with 90% accuracy. 2. The patient will demonstrate dysphagia exercises with 80% accuracy and mild clinician cueing. Time Frame-STG: One Week Speech Kinesiotherapist Goals Assisted Goals 1. The patient will tolerate the least restrictive diet without signs/symptoms of aspiration or laryngeal penetration. Time Frame: Two Weeks Comprehension: 5 Expression: 6 Social Interaction: 6 Problem Solvin Memory: 5 Speech-Plan Treatment Plan Speech Therapy Treatment Plan: Continue Plan of Care Continue skilled speech pathology to target improved swallowing safety and dysphagia strengthening exercises. Treatment Duration: Jul 31, 2016 # of days/week Four to five. Visits Per Week: Four to five. Minutes/Day (M-F): 30 Rehab Potential: Good Safety Risks/Education Teaching Recipient: Patient, Significant Other Teaching Methods: Demonstration, Handout, Discussion Response to Teaching: Verbalize Understanding, Return Demonstration Education Topics Provided: Dysphagia Exercises Time Speech Therapy Time In: 09:00 Speech Therapy Time Out: 09:30 Total Billed Time: 30 Billed Treatment Time PARMJIT Vazquez JOSÉ MIGUEL YBARRA Jul 24, 2016 10:29
--- NOTE | 2016-07-24 11:04 | Occupational Ther Daily Note ---
OT Current Status-Daily Note Subjective Pt alert, sitting in recliner. present in room. Pt stated that he was exhausted from PT today. Pt did agree to therapy. Mental Status/Objective Patient Orientation: Person, Place, Time, Situation Functional [place] Measure 0=Not Assessed/NA 4=Minimal Assistance 1=Total Assistance 5=Supervision or Setup 2=Maximal Assistance 6=Modified [place] 3=Moderate Assistance 7=Complete [place] ADL-Treatment Pt agreed to complete a shower today. Pt shaved self with electric razor sitting at sink. Pt transferred into shower from w/c with min A. Pt had difficulty with balance during transfer and sitting on shower bench. Pt LOB toward L side during bathing when cleansing L upper leg. Pt stood holding onto grabbars while OT cleansed buttocks. Pt required increased assistance today due to fatigue. Min A with donning shirt, independent with doffing shirt. Mod A for donning lower body clothing. Pt took increased time to complete ADLs due to frequent recovery breaks. Pt then maneuvered w/c throughout hospital through doors and corners with assist to keep w/c in straight line. Recovery breaks needed throughout due to leg fatigue. Pt continues to need directional cues to find room and cues for safety sequence when transferring. After therapy , pt sitting in recliner with call light/phone in reach. All needs met in room. Functional [place] Measure 0=Not Assessed/NA 4=Minimal Assistance 1=Total Assistance 5=Supervision or Setup 2=Maximal Assistance 6=Modified [place] 3=Moderate Assistance 7=Complete IndependenceIRFPAI Quality Coding Scale 6 Independent with activity with or without an assistive device 5 Patient requires set up or clean up by helper. Patient completes activity by themselves 4 Supervision or touching assist (CGA). [place] provide cues , steadying assist 3 The helper provides less than half the effort to complete the activity 2 The helper provides more than half the effort to complete the activity 1 Dependent. The helper does all the effort to complete an activity 7 Patient refused to complete or attempt activity 9 The patient did not perform the activity before the current illness or injury 88 Not attempted due to Medical conditions or safety concerns Grooming (FIM): 5 Bathing (FIM): 4 Upper Body (FIM): 4 Lower Body Dressing (FIM): 3 Transfers (B, C, W/C) (FIM): 3 Shower Transfer(FIM): 3 OT Short Term Goals Short Term Goals Time Frame: Jul 30, 2016 Bathing(FIM): 5 Upper Body Dressing(FIM): 5 Lower Body Dressing(FIM): 5 Toilet/Commode Transfer(FIM): 4 Additional Short Term Goals: 2-Verbalize Understanding, 3-ImproveStrength/Pedro 1=Demonstrate adherence to instructed precautions during ADL tasks. 2=Patient will verbalize/demonstrate understanding of assistive devices/ modifications for ADL. 3=Patient will improve strength/tolerance for activity to enable patient to perform ADL's. OT Snf Goals Grocery Sacker Goals Time Frame: Aug 13, 2016 Eating (FIM): 6 Eating (QC): 6 Groomin Oral Hygiene (QC): 6 Bathing(FIM): 6 Shower/Bathe Self (QC): 6 Upper Body Dressing(FIM): 6 Upper Body Dressing (QC): 6 Lower Body Dressing(FIM): 6 Lower Body Dressing (QC): 6 On/Off Footwear (QC): 6 Toileting(FIM): 6 Toileting Hygiene (QC): 6 Toilet/Commode Transfer(FIM): 6 Toilet/Commode Transfer (QC): 6 Shower Transfer(FIM): 6 Comprehension(FIM): 5 Expression (FIM): 6 Social Interaction(FIM): 6 Problem Solving(FIM): 5 Memory(FIM): 5 Additional Goals: 2-Verbalize Understanding, 3-ImproveStrength/Pedro 1=Demonstrate adherence to instructed precautions during ADL tasks. 2=Patient will verbalize/demonstrate understanding of assistive devices/ modifications for ADL. 3=Patient will improve strength/tolerance for activity to enable patient to perform ADL's. OT Education/Plan Problem List/Assessment Pt would benefit from skilled OT to increase his independence in basic self care to allo whim to safely return home to love with his and to decrease caregiver burden. Discharge Recommendations Plan/Recommendations: Continue POC Treatment Plan/Plan of Care Patient would benefit from OT for education, treatment and training to promote independence in ADL's, mobility, safety and/or upper extremity function for ADL' s. Plan of Care: ADL Retraining, Functional Mobility, Group Exercise/Act as Ind ( education, exercise, activity tolerance, functional use UEs, funct activities), UE Funct Exercise/Act, UE Neuromus Re-Ed/Coord Treatment Duration: Aug 13, 2016 Visits Per Week: 10-12 Minutes/Day (M-F): 60-90 Minutes/Day (Sat/Etienne): PRN Agreement: Yes Rehab Potential: Good Time/GCodes Start Time: 09:30 Stop Time: 10:45 Total Time Billed (hr/min): 75 Billed Treatment Time 1 visit-ADL 3 (45 min) NM 2 (30 min) LIZA ATKINSON Jul 24, 2016 11:04
--- NOTE | 2016-07-24 15:34 | Physical Therapy Daily Note ---
PT Daily Note-Current Subjective Patient in recliner pre tx, agrees to PT, no complaints of pain. Appearance Patient in recliner post tx with nurse call, phone, tray, all needs met. Mental Status Patient Orientation: Person, Place, Situation Transfers Functional [place] Measure 0=Not Assessed/NA 4=Minimal Assistance 1=Total Assistance 5=Supervision or Setup 2=Maximal Assistance 6=Modified [place] 3=Moderate Assistance 7=Complete IndependenceIRFPAI Quality Coding Scale 6 Independent with activity with or without an assistive device 5 Patient requires set up or clean up by helper. Patient completes activity by themselves 4 Supervision or touching assist (CGA). [place] provide cues , steadying assist 3 The helper provides less than half the effort to complete the activity 2 The helper provides more than half the effort to complete the activity 1 Dependent. The helper does all the effort to complete an activity 7 Patient refused to complete or attempt activity 9 The patient did not perform the activity before the current illness or injury 88 Not attempted due to Medical conditions or safety concerns Transfers (B, C, W/C) (FIM): 4 Sit to/from Stand: 4 Min assist for transfers, harder transferring when turning to the right side. Gait Training Gait (FIM): 4 Distance: 150'x2 Gait Level of Assist: 4 Gait Persons Needed: 1 Gait Assistive Device: Cane Large Base Quad Min assist for balance and weight shifting. Better stepping with left leg. Exercises NuStep Minutes: 15 (functional strengthening in left leg to promote improved functional mobility) NuStep Workload: 5 Treatments transfers, ambulation, functional strengthening Assessment Current Status: Fair Progress improving ambulation PT Short Term Goals Short Term Goals Time Frame: Jul 23, 2016 Gait (FIM): 2 Gait Distance Comment: 50' Gait Level of Assist: 4 Gait Assistive Device: Cane Large Base Quad Wheelchair Distance: 50' PT Entry Level Account Representative Goals Mcfp Goals PT Mcfp Goals Time Frame: Aug 06, 2016 Transfers (B,C,W/C) (FIM): 5 Sit to Lying (QC): 4 Lying-Sitting on Side/Bed(QC): 4 Sit to Stand (QC): 4 Rollin Roll Left to Right (QC): 4 Chair/Cst-sq-Lhoqo Xfer(QC): 4 Car Transfer (QC): 4 Gait (FIM): 4 Distance: 150' Walk 10 feet (QC): 4 Walk 10ft-Uneven Surface(QC): 4 Walk 50ft with 2 Turns (QC): 4 Walk 150 ft (QC): 4 Gait Level of Assist: 4 Gait Assistive Device: Cane Large Base Quad Stairs (FIM): 2 # of Steps: 4 1 Step (curb) (QC): 4 4 Steps (QC): 4 12 Steps (QC): 88 Stairs Level Of Assist: 4 Picking up an Object (QC): 88 PT Plan Problem List Problem List: Activity Tolerance, Functional Strength, Safety, Balance, Gait, Transfer, Bed Mobility Treatment/Plan Treatment Plan: Continue Plan of Care Treatment Plan: Bed Mobility, Education, Functional Activity Pedro, Functional Strength, Group Therapy, Gait, Safety, Therapeutic Exercise, Transfers Treatment Duration: Aug 06, 2016 Visits Per Week: 10-11 Minutes/Day (M-F): 60-90 Minutes/Day (Sat/Etienne): 15-30 Safety Risks/Education Patient Education: Gait Training, Transfer Techniques, Correct Positioning, Safety Issues Teaching Recipient: Patient Teaching Methods: Demonstration, Discussion Response to Teaching: Reinforcement Needed Time/GCodes Time In: 1500 Time Out: 1530 Total Billed Treatment Time: 30 Total Billed Treatment 1 visit EX 15' GT 15' LATANYA FLYNN PT Jul 24, 2016 15:34
[2016-07-24 18:00] VITALS: BP 124/70
--- NOTE | 2016-07-24 18:43 | PM & R (SOAP) Progress Note ---
Subjective Time Seen by Provider: 07:30 Subjective/Events-last exam Patient was seen in his room earlier this AM Progressing well with therapies Patient Min assist for transfers and gait Review of Systems Neurological: Weakness Objective Exam Last Set of Vital Signs Vital Signs Date Time Temp Pulse Resp B/P (MAP) Pulse Ox O2 Delivery O2 Flow Rate FiO2 07/24/16 18:00 97.9 79 18 124/70 94 Room Air Capillary Refill : I&O Intake and Output 07/24/16 00:00 Intake Total 1200 ml Output Total 1875 ml Balance -675 ml Intake Oral 1200 ml Output Urine Total 1875 ml # Voids 1 # Bowel Movements 1 General: Alert, Oriented X3, Cooperative, No Acute Distress HEENT: Atraumatic, PERRLA, EOMI, Mucous Memb Moist/[place], Other (facial droop) Neck: Supple, No JVD Lungs: Clear to Auscultation Heart: Regular Rate Abdomen: Normal Bowel Sounds, Soft, No Tenderness Extremities: No Edema Neuro: Other ( left HP with flaccid Left limb) Assessment/Plan Assessment 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
[2016-07-24] MEDS: MELATONIN 3 MG TABLET PO SCH (19:31)
[2016-07-24] MEDS: traZODone 50 MG (DESYREL) TAB PO SCH (20:07)
[2016-07-24] MEDS: ATORVASTATIN 20 MG (LIPITOR) TABLET PO SCH (20:07)
[2016-07-25 05:15] VITALS: BP 142/65
[2016-07-25] MEDS: MULTIVIT W/MINERALS TAB (THERAGRAN M) PO SCH (06:29)
[2016-07-25] MEDS: PANTOPRAZOLE 40 MG (PROTONIX) TAB PO SCH (06:29)
[2016-07-25] MEDS: ASPIRIN E.C. 81 MG (ECOTRIN) TAB PO SCH (07:59)
[2016-07-25] MEDS: BENAZEPRIL 20 MG (LOTENSIN) TAB PO SCH (07:59)
[2016-07-25] MEDS: NIFEdipine ER 60 MG (PROCARDIA XL) TAB PO SCH (07:59)
[2016-07-25] MEDS: TRIAMCINOLONE 0.1% CR (KENALOG) 15 GM TUBE TOP SCH ×2 (08:00→20:09)
--- NOTE | 2016-07-25 08:00 | Progress Note (SOAP) ---
Subjective Time Seen by Provider: 07:45 Subjective/Events-last exam CVA. Patient doing better slowly. sees the improvement Objective Exam Vital Signs Date Time Temp Pulse Resp B/P (MAP) Pulse Ox O2 Delivery O2 Flow Rate FiO2 07/25/16 05:15 99.1 72 18 142/65 91 Room Air 07/24/16 20:20 Room Air 07/24/16 18:00 97.9 79 18 124/70 94 Room Air 07/24/16 09:00 Room Air I & O 07/25/16 07:00 Intake Total 1000 ml Output Total 1200 ml Balance -200 ml Capillary Refill : General Appearance: No Apparent Distress, Thin HEENT: Normal ENT Inspection Assessment/Plan Assessment/Plan Assess & Plan/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 Hypertension. GERD. TIA history. CHF history. 07/18/16. 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 Hypertension. TIA. Patient's left hand doing better. Patient doesn't know the President. . 07/19/16. CVA on left Hypertension. Patient walked a longer distance today. . 07/22/16. 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 Left leg doing better. Left arm work in progress. Melatonin unable to sleep. Give trazodone half the dose. . 07/23/16. 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 Patient getting around better. Patient improving. . 07/24/16. 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 Hypertension. TIA history. Patient working hard this morning area Patient has unsteady gait. . 07/25/16. CVA. Hypertension. GERD. TIA history. Patient improving Clinical Quality Measures DVT/VTE Risk/Contraindication: Risk Factor Score Per Nursin RFS Level Per Nursing on Admit: 4+=Very High DORA MOCK DO Jul 25, 2016 08:00
--- NOTE | 2016-07-25 08:15 | PM & R (SOAP) Progress Note ---
Subjective Time Seen by Provider: 07:30 Subjective/Events-last exam Patient was seen in his room this AM progressing well with therapies Patients spouse very supportive and spending nights in room with patient Patient min assist for transfers and gait Slept well last night Objective Exam Last Set of Vital Signs Vital Signs Date Time Temp Pulse Resp B/P (MAP) Pulse Ox O2 Delivery O2 Flow Rate FiO2 07/25/16 05:15 99.1 72 18 142/65 91 Room Air Capillary Refill : I&O Intake and Output 07/25/16 00:00 Intake Total 850 ml Output Total 600 ml Balance 250 ml Intake Oral 850 ml Output Urine Total 600 ml # Voids 3 General: Alert, Oriented X3, Cooperative, No Acute Distress HEENT: Atraumatic, PERRLA, EOMI, Mucous Memb Moist/[place], Other (facial droop) Neck: Supple, No JVD Lungs: Clear to Auscultation Heart: Regular Rate Abdomen: Normal Bowel Sounds, Soft, No Tenderness Extremities: No Edema Neuro: Other ( left HP with flaccid Left limb) Assessment/Plan Assessment 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
--- NOTE | 2016-07-25 08:59 | Physical Therapy Daily Note ---
PT Daily Note-Current Subjective Patient in bed pre tx, agrees to PT, no complaints of pain. Appearance Patient in recliner post tx with nurse call, phone, tray, in room. Mental Status Patient Orientation: Normal For Age Transfers Functional [place] Measure 0=Not Assessed/NA 4=Minimal Assistance 1=Total Assistance 5=Supervision or Setup 2=Maximal Assistance 6=Modified [place] 3=Moderate Assistance 7=Complete IndependenceIRFPAI Quality Coding Scale 6 Independent with activity with or without an assistive device 5 Patient requires set up or clean up by helper. Patient completes activity by themselves 4 Supervision or touching assist (CGA). [place] provide cues , steadying assist 3 The helper provides less than half the effort to complete the activity 2 The helper provides more than half the effort to complete the activity 1 Dependent. The helper does all the effort to complete an activity 7 Patient refused to complete or attempt activity 9 The patient did not perform the activity before the current illness or injury 88 Not attempted due to Medical conditions or safety concerns Transfers (B, C, W/C) (FIM): 4 Sit to/from Stand: 4 min assist for balance Gait Training Gait (FIM): 4 Distance: 150'x4 Gait Level of Assist: 4 Gait Persons Needed: 1 Gait Assistive Device: Cane Large Base Quad Min assist for balance and weight shifting, much better advancement of left leg and better balance today. Patient also performed LiteGait training 100'x2 Exercises LAQ left leg for 5 min Treatments gait and balance training, transfers training, functional strengthening, patient was toileted once for a BM Assessment Current Status: Fair Progress slowly improving balance and endurance PT Short Term Goals Short Term Goals Time Frame: Jul 23, 2016 Gait (FIM): 2 Gait Distance Comment: 50' Gait Level of Assist: 4 Gait Assistive Device: Cane Large Base Quad Wheelchair Distance: 50' PT Retirement Goals Retirement Goals PT Retirement Goals Time Frame: Aug 06, 2016 Transfers (B,C,W/C) (FIM): 5 Sit to Lying (QC): 4 Lying-Sitting on Side/Bed(QC): 4 Sit to Stand (QC): 4 Rollin Roll Left to Right (QC): 4 Chair/Plq-as-Bncrp Xfer(QC): 4 Car Transfer (QC): 4 Gait (FIM): 4 Distance: 150' Walk 10 feet (QC): 4 Walk 10ft-Uneven Surface(QC): 4 Walk 50ft with 2 Turns (QC): 4 Walk 150 ft (QC): 4 Gait Level of Assist: 4 Gait Assistive Device: Cane Large Base Quad Stairs (FIM): 2 # of Steps: 4 1 Step (curb) (QC): 4 4 Steps (QC): 4 12 Steps (QC): 88 Stairs Level Of Assist: 4 Picking up an Object (QC): 88 PT Plan Problem List Problem List: Activity Tolerance, Functional Strength, Safety, Balance, Gait, Transfer, Bed Mobility Treatment/Plan Treatment Plan: Continue Plan of Care Treatment Plan: Bed Mobility, Education, Functional Activity Pedro, Functional Strength, Group Therapy, Gait, Safety, Therapeutic Exercise, Transfers Treatment Duration: Aug 06, 2016 Visits Per Week: 10-11 Minutes/Day (M-F): 60-90 Minutes/Day (Sat/Etienne): 15-30 Safety Risks/Education Patient Education: Gait Training, Transfer Techniques, Correct Positioning, Safety Issues Teaching Recipient: Patient Teaching Methods: Demonstration, Discussion Response to Teaching: Reinforcement Needed Time/GCodes Time In: 800 Time Out: 900 Total Billed Treatment Time: 60 Total Billed Treatment 1 visit FA 15' GT 45' LATANYA FLYNN PT Jul 25, 2016 08:59
--- NOTE | 2016-07-25 10:55 | Speech Therapy Daily Note ---
Speech Daily Progress Note Subjective Date Seen by Provider: Jul 25, 2016 Time Seen by Provider: 09:00 The patient was seated upright in recliner upon entrance, with present at bedside. The patient greeted the clinician appropriately and was agreeable to dysphagia therapy on this date. Objective Dysphagia Strengthening Exercises: Dysphagia exercises (lingual, base of tongue , pharyngeal, and laryngeal elevation) were continued, demonstrated, discussed, and reviewed on this date. The patient demonstrated high accuracy with all exercises following direct modeling and minimal clinician verbal prompting. Ten repetitions of each exercise were performed. The patient was asked to complete dysphagia exercises (five to ten repetitions) one additional session throughout the day. The patient denied any questions or concerns at this time. - The patient denied any recent demonstration of signs/symptoms of aspiration throughout meals or snacks. Assessment Assessment Current Status: Excellent Progress Treatment Plan Continue Plan of Care Communication Comprehension: 5 Expression: 5 Social Cognition Social Interaction: 6 Problem Solvin Memory: 5 Speech Short Term Goals Short Term Goals Short Term Goals 1. The patient will independently demonstrate swallowing strategies with 90% accuracy. 2. The patient will demonstrate dysphagia exercises with 80% accuracy and mild clinician cueing. Time Frame-STG: One Week Speech Fdc Goals Fdc Goals 1. The patient will tolerate the least restrictive diet without signs/symptoms of aspiration or laryngeal penetration. Time Frame: Two Weeks Comprehension: 5 Expression: 6 Social Interaction: 6 Problem Solvin Memory: 5 Speech-Plan Treatment Plan Speech Therapy Treatment Plan: Continue Plan of Care The patient will continue skilled speech pathology to strengthen musculature involved in swallowing. Treatment Duration: Jul 31, 2016 # of days/week Four to five. Visits Per Week: Four to five. Minutes/Day (M-F): 30 Rehab Potential: Good Safety Risks/Education Teaching Recipient: Patient, Significant Other Teaching Methods: Handout, Discussion Response to Teaching: Return Demonstration Education Topics Provided: Dysphagia Exercises Time Speech Therapy Time In: 09:00 Speech Therapy Time Out: 09:30 Total Billed Time: 30 Billed Treatment Time PARMJIT Vazquez JOSÉ MIGUEL YBARRA Jul 25, 2016 10:55
--- NOTE | 2016-07-25 11:09 | Occupational Ther Daily Note ---
OT Current Status-Daily Note Subjective Pt alert, sitting in recliner. Pt agreed to therapy. No c/o pain. Mental Status/Objective Patient Orientation: Person, Place, Time, Situation Functional [place] Measure 0=Not Assessed/NA 4=Minimal Assistance 1=Total Assistance 5=Supervision or Setup 2=Maximal Assistance 6=Modified [place] 3=Moderate Assistance 7=Complete [place] ADL-Treatment Functional [place] Measure 0=Not Assessed/NA 4=Minimal Assistance 1=Total Assistance 5=Supervision or Setup 2=Maximal Assistance 6=Modified [place] 3=Moderate Assistance 7=Complete IndependenceIRFPAI Quality Coding Scale 6 Independent with activity with or without an assistive device 5 Patient requires set up or clean up by helper. Patient completes activity by themselves 4 Supervision or touching assist (CGA). [place] provide cues , steadying assist 3 The helper provides less than half the effort to complete the activity 2 The helper provides more than half the effort to complete the activity 1 Dependent. The helper does all the effort to complete an activity 7 Patient refused to complete or attempt activity 9 The patient did not perform the activity before the current illness or injury 88 Not attempted due to Medical conditions or safety concerns Grooming (FIM): 6 (Sitting in w/c, pt was able to complete shaving and oral care by self.) Other Treatment Pt declined completing a shower today. Pt transferred from chair to w/c with min A to go from sit to stand from low surface then CGA with stand pivot transfer. Pt used w/c to get to therapy gym. Pt transferred to therapy mat with CGA. PROM and stretching to L UE, pt tolerated well and no pain with movements. Then sat on side of mat and worked on sitting balance by leaning toward front and both sides, no LOB. Pt then transferred to w/c with CGA and complete arm bike. Duration 15 min with L hand wrapped around handle at 15 thompson resistance to increase strength, activity tolerance and AROM (L UE) for daily functional tasks. Pt then worked on table level with no resistance to be able to actively move arms in horizontal plane. Pt demonstrated fair finger flexion and no finger extension. After therapy, pt lying in bed with call light /phone in reach. All needs met in room. OT Short Term Goals Short Term Goals Time Frame: Jul 30, 2016 Bathing(FIM): 5 Upper Body Dressing(FIM): 5 Lower Body Dressing(FIM): 5 Toilet/Commode Transfer(FIM): 4 Additional Short Term Goals: 2-Verbalize Understanding, 3-ImproveStrength/Pedro 1=Demonstrate adherence to instructed precautions during ADL tasks. 2=Patient will verbalize/demonstrate understanding of assistive devices/ modifications for ADL. 3=Patient will improve strength/tolerance for activity to enable patient to perform ADL's. OT Used Building Materials Yard Worker Goals Used Building Materials Yard Worker Goals Time Frame: Aug 13, 2016 Eating (FIM): 6 Eating (QC): 6 Groomin Oral Hygiene (QC): 6 Bathing(FIM): 6 Shower/Bathe Self (QC): 6 Upper Body Dressing(FIM): 6 Upper Body Dressing (QC): 6 Lower Body Dressing(FIM): 6 Lower Body Dressing (QC): 6 On/Off Footwear (QC): 6 Toileting(FIM): 6 Toileting Hygiene (QC): 6 Toilet/Commode Transfer(FIM): 6 Toilet/Commode Transfer (QC): 6 Shower Transfer(FIM): 6 Comprehension(FIM): 5 Expression (FIM): 6 Social Interaction(FIM): 6 Problem Solving(FIM): 5 Memory(FIM): 5 Additional Goals: 2-Verbalize Understanding, 3-ImproveStrength/Pedro 1=Demonstrate adherence to instructed precautions during ADL tasks. 2=Patient will verbalize/demonstrate understanding of assistive devices/ modifications for ADL. 3=Patient will improve strength/tolerance for activity to enable patient to perform ADL's. OT Education/Plan Problem List/Assessment Pt would benefit from skilled OT to increase his independence in basic self care to allo whim to safely return home to love with his and to decrease caregiver burden. Discharge Recommendations Plan/Recommendations: Continue POC Treatment Plan/Plan of Care Patient would benefit from OT for education, treatment and training to promote independence in ADL's, mobility, safety and/or upper extremity function for ADL' s. Plan of Care: ADL Retraining, Functional Mobility, Group Exercise/Act as Ind ( education, exercise, activity tolerance, functional use UEs, funct activities), UE Funct Exercise/Act, UE Neuromus Re-Ed/Coord Treatment Duration: Aug 13, 2016 Visits Per Week: 10-12 Minutes/Day (M-F): 60-90 Minutes/Day (Sat/Etienne): PRN Agreement: Yes Rehab Potential: Good Time/GCodes Start Time: 09:30 Stop Time: 10:45 Total Time Billed (hr/min): 75 Billed Treatment Time 1 visit-FA 2 (30 min) NM 3 (45 min) LIZA ATKINSON Jul 25, 2016 11:09
--- NOTE | 2016-07-25 13:39 | Physical Therapy Daily Note ---
PT Daily Note-Current Subjective Agrees to PT. No complaints. Reports he is tired this pm. Pain Numeric Pain Scale: 0-No Pain Location: No Pain Reported Mental Status Patient Orientation: Person, Place, Time, Situation Transfers Functional [place] Measure 0=Not Assessed/NA 4=Minimal Assistance 1=Total Assistance 5=Supervision or Setup 2=Maximal Assistance 6=Modified [place] 3=Moderate Assistance 7=Complete IndependenceIRFPAI Quality Coding Scale 6 Independent with activity with or without an assistive device 5 Patient requires set up or clean up by helper. Patient completes activity by themselves 4 Supervision or touching assist (CGA). [place] provide cues , steadying assist 3 The helper provides less than half the effort to complete the activity 2 The helper provides more than half the effort to complete the activity 1 Dependent. The helper does all the effort to complete an activity 7 Patient refused to complete or attempt activity 9 The patient did not perform the activity before the current illness or injury 88 Not attempted due to Medical conditions or safety concerns Treatments GAit training with QC with min assist 150 ft x 2 with occas rigid assist to maintain balance, specifically with turning. Worked on sit to stand transfers with cues for hand placement and safety. Nu step x 10 minutes for LE strength and functional activity tolerance training. Pt in bed post treatment with needs met. Assessment Current Status: Good Progress Tired this afternoon. Pt does have some difficulty with turning with LOB episodes. PT Short Term Goals Short Term Goals Time Frame: Jul 23, 2016 Gait (FIM): 2 Gait Distance Comment: 50' Gait Level of Assist: 4 Gait Assistive Device: Cane Large Base Quad Wheelchair Distance: 50' PT Mcc Goals Newspaper Illustrator Goals PT Newspaper Illustrator Goals Time Frame: Aug 06, 2016 Transfers (B,C,W/C) (FIM): 5 Sit to Lying (QC): 4 Lying-Sitting on Side/Bed(QC): 4 Sit to Stand (QC): 4 Rollin Roll Left to Right (QC): 4 Chair/Hfw-gl-Rkwqf Xfer(QC): 4 Car Transfer (QC): 4 Gait (FIM): 4 Distance: 150' Walk 10 feet (QC): 4 Walk 10ft-Uneven Surface(QC): 4 Walk 50ft with 2 Turns (QC): 4 Walk 150 ft (QC): 4 Gait Level of Assist: 4 Gait Assistive Device: Cane Large Base Quad Stairs (FIM): 2 # of Steps: 4 1 Step (curb) (QC): 4 4 Steps (QC): 4 12 Steps (QC): 88 Stairs Level Of Assist: 4 Picking up an Object (QC): 88 PT Plan Problem List Problem List: Activity Tolerance, Functional Strength Treatment/Plan Treatment Plan: Continue Plan of Care Treatment Plan: Bed Mobility, Education, Functional Activity Pedro, Functional Strength, Group Therapy, Gait, Safety, Therapeutic Exercise, Transfers Treatment Duration: Aug 06, 2016 Visits Per Week: 10-11 Minutes/Day (M-F): 60-90 Minutes/Day (Sat/Etienne): 15-30 Safety Risks/Education Patient Education: Transfer Techniques, Safety Issues Teaching Recipient: Patient Teaching Methods: Demonstration, Discussion Response to Teaching: Reinforcement Needed Time/GCodes Time In: 1230 Time Out: 1300 Total Billed Treatment Time: 30 Total Billed Treatment visit GT 20 EX 10 LIZA HUERTA PT Jul 25, 2016 13:38
[2016-07-25 18:36] VITALS: BP 128/69
[2016-07-25] MEDS: ATORVASTATIN 20 MG (LIPITOR) TABLET PO SCH (20:09)
[2016-07-25] MEDS: traZODone 50 MG (DESYREL) TAB PO SCH (20:09)
[2016-07-25] MEDS: MELATONIN 3 MG TABLET PO SCH (20:09)
[2016-07-26 06:20] VITALS: BP 130/72
[2016-07-26] MEDS: PANTOPRAZOLE 40 MG (PROTONIX) TAB PO SCH (06:24)
[2016-07-26] MEDS: MULTIVIT W/MINERALS TAB (THERAGRAN M) PO SCH (06:24)
--- NOTE | 2016-07-26 07:26 | Progress Note (SOAP) ---
Subjective Time Seen by Provider: 07:05 Subjective/Events-last exam CVA. Patient is progressing. Patient is working progress. Patient using a cane now. Patient voices no complaints Objective Exam Vital Signs Date Time Temp Pulse Resp B/P (MAP) Pulse Ox O2 Delivery O2 Flow Rate FiO2 07/26/16 06:20 97.1 67 18 130/72 95 Room Air 07/25/16 20:10 Room Air 07/25/16 18:36 98.9 84 20 128/69 95 Room Air 07/25/16 09:00 Room Air I & O 07/26/16 07:00 Intake Total 850 ml Output Total 1200 ml Balance -350 ml Capillary Refill : General Appearance: No Apparent Distress, Thin HEENT: Normal ENT Inspection Neck: Normal Inspection Respiratory: Chest Non Tender, No Accessory Muscle Use, No Respiratory Distress , Decreased Breath Sounds Cardiovascular: Regular Rate, Rhythm, No Murmur Assessment/Plan Assessment/Plan Assess & Plan/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 Hypertension. GERD. TIA history. CHF history. 07/18/16. 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 Hypertension. TIA. Patient's left hand doing better. Patient doesn't know the President. . 07/19/16. CVA on left Hypertension. Patient walked a longer distance today. . 07/22/16. 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 Left leg doing better. Left arm work in progress. Melatonin unable to sleep. Give trazodone half the dose. . 07/23/16. 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 Patient getting around better. Patient improving. . 07/24/16. 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 Hypertension. TIA history. Patient working hard this morning area Patient has unsteady gait. . 07/25/16. CVA. Hypertension. GERD. TIA history. Patient improving. . 07/26/16. CVA. Hypertension. GERD. Patient using a cane today. Patient improving Clinical Quality Measures DVT/VTE Risk/Contraindication: Risk Factor Score Per Nursin RFS Level Per Nursing on Admit: 4+=Very High DORA MOCK DO Jul 26, 2016 07:26
[2016-07-26] MEDS: BENAZEPRIL 20 MG (LOTENSIN) TAB PO SCH (07:51)
[2016-07-26] MEDS: NIFEdipine ER 60 MG (PROCARDIA XL) TAB PO SCH (07:51)
[2016-07-26] MEDS: ASPIRIN E.C. 81 MG (ECOTRIN) TAB PO SCH (07:51)
[2016-07-26 07:54] VITALS: BP 123/72
[2016-07-26] MEDS: TRIAMCINOLONE 0.1% CR (KENALOG) 15 GM TUBE TOP SCH ×2 (07:55→20:01)
--- NOTE | 2016-07-26 08:15 | PM & R (SOAP) Progress Note ---
Subjective Time Seen by Provider: 07:45 Subjective/Events-last exam Patient was seen in his room this AM Progressing well with therapies Patient Min assist for gait with Quad cane Objective Exam Last Set of Vital Signs Vital Signs Date Time Temp Pulse Resp B/P (MAP) Pulse Ox O2 Delivery O2 Flow Rate FiO2 07/26/16 07:54 90 123/72 07/26/16 06:20 97.1 18 95 Room Air Capillary Refill : I&O Intake and Output 07/26/16 00:00 Intake Total 1100 ml Output Total 2100 ml Balance -1000 ml Intake Oral 1100 ml Output Urine Total 2100 ml # Bowel Movements 1 General: Alert, Oriented X3, Cooperative, No Acute Distress HEENT: Atraumatic, PERRLA, EOMI, Mucous Memb Moist/Stevens, Other (facial droop) Neck: Supple, No JVD Lungs: Clear to Auscultation Heart: Regular Rate Abdomen: Normal Bowel Sounds, Soft, No Tenderness Extremities: No Edema Neuro: Other ( left HP with flaccid Left limb) Assessment/Plan Assessment 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
--- NOTE | 2016-07-26 09:03 | Physical Therapy Daily Note ---
PT Daily Note-Current Subjective Patient in bed pre tx, agrees to PT, no complaints of pain. Appearance Patient in recliner post tx, has nurse call, phone, tray, all needs met. Mental Status Patient Orientation: Normal For Age Transfers Functional [place] Measure 0=Not Assessed/NA 4=Minimal Assistance 1=Total Assistance 5=Supervision or Setup 2=Maximal Assistance 6=Modified [place] 3=Moderate Assistance 7=Complete IndependenceIRFPAI Quality Coding Scale 6 Independent with activity with or without an assistive device 5 Patient requires set up or clean up by helper. Patient completes activity by themselves 4 Supervision or touching assist (CGA). [place] provide cues , steadying assist 3 The helper provides less than half the effort to complete the activity 2 The helper provides more than half the effort to complete the activity 1 Dependent. The helper does all the effort to complete an activity 7 Patient refused to complete or attempt activity 9 The patient did not perform the activity before the current illness or injury 88 Not attempted due to Medical conditions or safety concerns Transfers (B, C, W/C) (FIM): 4 Scootin Rollin Supine to/from Sit: 5 Sit to/from Stand: 4 CGA for sit to stand. Patient also practiced modified stand pivot transfers to the left side x10 Gait Training Gait (FIM): 4 Distance: 150'x2 Gait Level of Assist: 4 Gait Persons Needed: 1 Gait Assistive Device: Cane Large Base Quad Patient needs min assist for balance but it has improved and he probably only required CGA about 50% of the time. Much better weight shifting and advancement of left leg. Stair Training Stair Training: Handrails/: 1 handrail Stairs (FIM): 2 #of Steps: 8 1 Step (curb) (QC): 3 4 Steps (QC): 3 Stairs: Pattern: Step to Level of Assist: 4 Patient can go up and down 8 steps using 1 handrail with min A. Treatments bed mobility and transfers, ambulation, stair training Assessment Current Status: Fair Progress improving balance, ambulation, transfers PT Short Term Goals Short Term Goals Time Frame: Jul 23, 2016 Gait (FIM): 2 Gait Distance Comment: 50' Gait Level of Assist: 4 Gait Assistive Device: Cane Large Base Quad Wheelchair Distance: 50' PT Prison Goals Prison Goals PT Prison Goals Time Frame: Aug 06, 2016 Transfers (B,C,W/C) (FIM): 5 Sit to Lying (QC): 4 Lying-Sitting on Side/Bed(QC): 4 Sit to Stand (QC): 4 Rollin Roll Left to Right (QC): 4 Chair/Gxd-ai-Tavuy Xfer(QC): 4 Car Transfer (QC): 4 Gait (FIM): 4 Distance: 150' Walk 10 feet (QC): 4 Walk 10ft-Uneven Surface(QC): 4 Walk 50ft with 2 Turns (QC): 4 Walk 150 ft (QC): 4 Gait Level of Assist: 4 Gait Assistive Device: Cane Large Base Quad Stairs (FIM): 2 # of Steps: 4 1 Step (curb) (QC): 4 4 Steps (QC): 4 12 Steps (QC): 88 Stairs Level Of Assist: 4 Picking up an Object (QC): 88 PT Plan Problem List Problem List: Activity Tolerance, Functional Strength, Safety, Balance, Gait, Transfer, Bed Mobility Treatment/Plan Treatment Plan: Continue Plan of Care Treatment Plan: Bed Mobility, Education, Functional Activity Pedro, Functional Strength, Group Therapy, Gait, Safety, Therapeutic Exercise, Transfers Treatment Duration: Aug 06, 2016 Visits Per Week: 10-11 Minutes/Day (M-F): 60-90 Minutes/Day (Sat/Etienne): 15-30 Safety Risks/Education Patient Education: Gait Training, Transfer Techniques, Steps, Correct Positioning, Safety Issues Teaching Recipient: Patient Teaching Methods: Demonstration, Discussion Response to Teaching: Reinforcement Needed Time/GCodes Time In: 815 Time Out: 900 Total Billed Treatment Time: 45 Total Billed Treatment 1 visit GT 20' FA 25' LATANYA FLYNN PT Jul 26, 2016 09:03
--- NOTE | 2016-07-26 10:40 | Occupational Ther Daily Note ---
OT Current Status-Daily Note Subjective Pt alert, sitting in recliner. Pt agreed to therapy. No c/o pain. Mental Status/Objective Patient Orientation: Person, Place, Time, Situation Functional [place] Measure 0=Not Assessed/NA 4=Minimal Assistance 1=Total Assistance 5=Supervision or Setup 2=Maximal Assistance 6=Modified [place] 3=Moderate Assistance 7=Complete [place] ADL-Treatment Pt ambulated to bathroom with quadcane then transferred into shower with CGA. Using grabbar, hand held shower and shower bench pt is able to complete all areas by self except buttocks. Pt stands with grabbar while assist to effectively cleanse buttocks. Pt then transfers from shower to w/c with CGA. After set up, pt is able to don/doff pants/underpants over feet by self. Pt then holds onto grabbar to steady self while assist to hike pants over hips. Pt requires assist to get socks over toes then is able to don from there then dons shoes by self. Pt worked on maneuvering w/c and problem solving how to find specified areas then return to room without cues to promote independence with mobility in w/c for home use. Pt then transferred to bed with SBA. Pt demonstrated ability to move L elbow flex/ext, wrist flex/ext, shldr add. After therapy, pt lying in bed with call light/phone in reach. All needs met in room. Functional [place] Measure 0=Not Assessed/NA 4=Minimal Assistance 1=Total Assistance 5=Supervision or Setup 2=Maximal Assistance 6=Modified [place] 3=Moderate Assistance 7=Complete IndependenceIRFPAI Quality Coding Scale 6 Independent with activity with or without an assistive device 5 Patient requires set up or clean up by helper. Patient completes activity by themselves 4 Supervision or touching assist (CGA). [place] provide cues , steadying assist 3 The helper provides less than half the effort to complete the activity 2 The helper provides more than half the effort to complete the activity 1 Dependent. The helper does all the effort to complete an activity 7 Patient refused to complete or attempt activity 9 The patient did not perform the activity before the current illness or injury 88 Not attempted due to Medical conditions or safety concerns Bathing (FIM): 4 Upper Body (FIM): 4 (Min A for sequencing one handed dressing tech.) Lower Body Dressing (FIM): 4 Transfers (B, C, W/C) (FIM): 4 Shower Transfer(FIM): 4 OT Short Term Goals Short Term Goals Time Frame: Jul 30, 2016 Bathing(FIM): 5 Upper Body Dressing(FIM): 5 Lower Body Dressing(FIM): 5 Toilet/Commode Transfer(FIM): 4 Additional Short Term Goals: 2-Verbalize Understanding, 3-ImproveStrength/Pedro 1=Demonstrate adherence to instructed precautions during ADL tasks. 2=Patient will verbalize/demonstrate understanding of assistive devices/ modifications for ADL. 3=Patient will improve strength/tolerance for activity to enable patient to perform ADL's. OT Prison Goals Prison Goals Time Frame: Aug 13, 2016 Eating (FIM): 6 Eating (QC): 6 Groomin Oral Hygiene (QC): 6 Bathing(FIM): 6 Shower/Bathe Self (QC): 6 Upper Body Dressing(FIM): 6 Upper Body Dressing (QC): 6 Lower Body Dressing(FIM): 6 Lower Body Dressing (QC): 6 On/Off Footwear (QC): 6 Toileting(FIM): 6 Toileting Hygiene (QC): 6 Toilet/Commode Transfer(FIM): 6 Toilet/Commode Transfer (QC): 6 Shower Transfer(FIM): 6 Comprehension(FIM): 5 Expression (FIM): 6 Social Interaction(FIM): 6 Problem Solving(FIM): 5 Memory(FIM): 5 Additional Goals: 2-Verbalize Understanding, 3-ImproveStrength/Pedro 1=Demonstrate adherence to instructed precautions during ADL tasks. 2=Patient will verbalize/demonstrate understanding of assistive devices/ modifications for ADL. 3=Patient will improve strength/tolerance for activity to enable patient to perform ADL's. OT Education/Plan Problem List/Assessment Pt would benefit from skilled OT to increase his independence in basic self care to allo whim to safely return home to love with his and to decrease caregiver burden. Discharge Recommendations Plan/Recommendations: Continue POC Treatment Plan/Plan of Care Patient would benefit from OT for education, treatment and training to promote independence in ADL's, mobility, safety and/or upper extremity function for ADL' s. Plan of Care: ADL Retraining, Functional Mobility, Group Exercise/Act as Ind ( education, exercise, activity tolerance, functional use UEs, funct activities), UE Funct Exercise/Act, UE Neuromus Re-Ed/Coord Treatment Duration: Aug 13, 2016 Visits Per Week: 10-12 Minutes/Day (M-F): 60-90 Minutes/Day (Sat/Etienne): PRN Agreement: Yes Rehab Potential: Good Time/GCodes Start Time: 09:30 Stop Time: 10:30 Total Time Billed (hr/min): 60 Billed Treatment Time 1 visit-ADL 2 (30 min) FA 1 (15 min) NM 1 (15 min) LIZA ATKINSON Jul 26, 2016 10:40
--- NOTE | 2016-07-26 11:38 | Speech Therapy Daily Note ---
Speech Daily Progress Note Subjective Date Seen by Provider: Jul 26, 2016 Time Seen by Provider: 09:00 The patient was seated upright in recliner upon entrance, with present at bedside. The patient greeted the clinician appropriately and was agreeable to dysphagia therapy on this date. Objective Dysphagia Strengthening Exercises: Dysphagia exercises (lingual, base of tongue , pharyngeal, and laryngeal elevation) were continued, demonstrated, discussed, and reviewed on this date. The patient demonstrated high accuracy with all exercises following direct modeling and minimal clinician verbal prompting. Ten repetitions of each exercise were performed. The patient was asked to complete dysphagia exercises (five to ten repetitions) one additional session throughout the day. The patient denied any questions or concerns at this time. - The patient denied any recent demonstration of signs/symptoms of aspiration throughout meals or snacks. Assessment Assessment Current Status: Good Progress Treatment Plan Continue Plan of Care Communication Comprehension: 5 Expression: 5 Social Cognition Social Interaction: 6 Problem Solvin Memory: 5 Speech Short Term Goals Short Term Goals Short Term Goals 1. The patient will independently demonstrate swallowing strategies with 90% accuracy. 2. The patient will demonstrate dysphagia exercises with 80% accuracy and mild clinician cueing. Time Frame-STG: One Week Speech Fabric Finisher Goals Shelter Goals 1. The patient will tolerate the least restrictive diet without signs/symptoms of aspiration or laryngeal penetration. Time Frame: Two Weeks Comprehension: 5 Expression: 6 Social Interaction: 6 Problem Solvin Memory: 5 Speech-Plan Treatment Plan Speech Therapy Treatment Plan: Continue Plan of Care Continue skilled speech pathology to target swallowing safety. Treatment Duration: Jul 31, 2016 Visits Per Week: Four to five. Minutes/Day (M-F): 30 Rehab Potential: Good Safety Risks/Education Teaching Recipient: Patient, Significant Other Teaching Methods: Demonstration, Handout, Discussion Response to Teaching: Return Demonstration Education Topics Provided: Dysphagia Exercises Time Speech Therapy Time In: 09:00 Speech Therapy Time Out: 09:30 Total Billed Time: 30 Billed Treatment Time PARMJIT Vazquez JOSÉ MIGUEL YBARRA Jul 26, 2016 11:38
--- NOTE | 2016-07-26 14:18 | Therapy Group Daily Note ---
Therapy Daily Group Note Patient Education Topic Other List Below (importance of memory, memory strategies) Exercises LE Seated Exercise Other/Notes Pt. attended group session via w/c, wheeling self slowly. Pt. is very social, introduced self and shared funny family story. Pt. participated in memory activity of matching images as well as seated LE exercises. Pt. to room after via w/c. [place] at hand, needs met Start Time: 13:00 Stop Time: 14:10 Total Billed Treatment Time: 70 Total Billed Treatment 1,GRP SANDRA HUNT LICENSED MASSAGE PRACTITIONER Jul 26, 2016 14:18
[2016-07-26 17:26] VITALS: BP 114/66
[2016-07-26] MEDS: ATORVASTATIN 20 MG (LIPITOR) TABLET PO SCH (20:01)
[2016-07-26] MEDS: traZODone 50 MG (DESYREL) TAB PO SCH (20:01)
[2016-07-26] MEDS: MELATONIN 3 MG TABLET PO SCH (20:01)
[2016-07-27 06:16] VITALS: BP 122/65
[2016-07-27] MEDS: PANTOPRAZOLE 40 MG (PROTONIX) TAB PO SCH (06:20)
[2016-07-27] MEDS: MULTIVIT W/MINERALS TAB (THERAGRAN M) PO SCH (06:20)
[2016-07-27] MEDS: TRIAMCINOLONE 0.1% CR (KENALOG) 15 GM TUBE TOP SCH ×2 (08:22→20:55)
[2016-07-27] MEDS: ASPIRIN E.C. 81 MG (ECOTRIN) TAB PO SCH (08:22)
[2016-07-27] MEDS: BENAZEPRIL 20 MG (LOTENSIN) TAB PO SCH (08:22)
[2016-07-27] MEDS: NIFEdipine ER 60 MG (PROCARDIA XL) TAB PO SCH (08:22)
--- NOTE | 2016-07-27 12:18 | Physical Therapy Daily Note ---
PT Daily Note-Current Subjective Pt. asleep at first attempt. Second attempt pt. agrees to rx. Pain Numeric Pain Scale: 0-No Pain Mental Status Patient Orientation: Normal For Age Transfers Functional [place] Measure 0=Not Assessed/NA 4=Minimal Assistance 1=Total Assistance 5=Supervision or Setup 2=Maximal Assistance 6=Modified [place] 3=Moderate Assistance 7=Complete IndependenceIRFPAI Quality Coding Scale 6 Independent with activity with or without an assistive device 5 Patient requires set up or clean up by helper. Patient completes activity by themselves 4 Supervision or touching assist (CGA). [place] provide cues , steadying assist 3 The helper provides less than half the effort to complete the activity 2 The helper provides more than half the effort to complete the activity 1 Dependent. The helper does all the effort to complete an activity 7 Patient refused to complete or attempt activity 9 The patient did not perform the activity before the current illness or injury 88 Not attempted due to Medical conditions or safety concerns Transfers (B, C, W/C) (FIM): 5 Scootin Rollin Supine to/from Sit: 5 Sit to/from Stand: 5 Gait Training Does the Patient Walk?: Yes Gait (FIM): 2 Distance (FIM): 3=515-21 ft (100x4) Gait Level of Assist: 3 Gait Persons Needed: 1 Gait Assistive Device: Cane Large Base Quad pt. had significant LOB with turns, practiced this left and right many times, fatigued quickly today Exercises Seated Therapy Exercises: Ankle pumps, Sit to stand, Long arc quads, Hip flexion Seated Reps: 12 Assessment Current Status: Good Progress PT Short Term Goals Short Term Goals Time Frame: Jul 23, 2016 Gait (FIM): 2 Gait Distance Comment: 50' Gait Level of Assist: 4 Gait Assistive Device: Cane Large Base Quad Wheelchair Distance: 50' PT Senior Care Goals Senior Care Goals PT Animal Care Attendant Goals Time Frame: Aug 06, 2016 Transfers (B,C,W/C) (FIM): 5 Sit to Lying (QC): 4 Lying-Sitting on Side/Bed(QC): 4 Sit to Stand (QC): 4 Rollin Roll Left to Right (QC): 4 Chair/Wei-tg-Rmmfo Xfer(QC): 4 Car Transfer (QC): 4 Gait (FIM): 4 Distance: 150' Walk 10 feet (QC): 4 Walk 10ft-Uneven Surface(QC): 4 Walk 50ft with 2 Turns (QC): 4 Walk 150 ft (QC): 4 Gait Level of Assist: 4 Gait Assistive Device: Cane Large Base Quad Stairs (FIM): 2 # of Steps: 4 1 Step (curb) (QC): 4 4 Steps (QC): 4 12 Steps (QC): 88 Stairs Level Of Assist: 4 Picking up an Object (QC): 88 PT Plan Treatment/Plan Treatment Plan: Continue Plan of Care Treatment Plan: Bed Mobility, Education, Functional Activity Pedro, Functional Strength, Group Therapy, Gait, Safety, Therapeutic Exercise, Transfers Treatment Duration: Aug 06, 2016 Visits Per Week: 10-11 Minutes/Day (M-F): 60-90 Minutes/Day (Sat/Etienne): 15-30 Safety Risks/Education Patient Education: Gait Training, Transfer Techniques, Correct Positioning, Safety Issues Teaching Recipient: Patient Teaching Methods: Demonstration, Discussion Response to Teaching: Verbalize Understanding, Return Demonstration, Reinforcement Needed gait and turns , balance Time/GCodes Time In: 1120 Time Out: 1135 Total Billed Treatment Time: 15 Total Billed Treatment 1,GT15m G Codes Necessary: SANDRA Martinez CURING FINISHER Jul 27, 2016 12:18
[2016-07-27 17:42] VITALS: BP 116/68
[2016-07-27] MEDS: traZODone 50 MG (DESYREL) TAB PO SCH (20:55)
[2016-07-27] MEDS: MELATONIN 3 MG TABLET PO SCH (20:55)
[2016-07-27] MEDS: ATORVASTATIN 20 MG (LIPITOR) TABLET PO SCH (20:55)
[2016-07-28] MEDS: MULTIVIT W/MINERALS TAB (THERAGRAN M) PO SCH (05:58)
[2016-07-28] MEDS: PANTOPRAZOLE 40 MG (PROTONIX) TAB PO SCH (05:58)
[2016-07-28 06:06] VITALS: BP 144/65
[2016-07-28] MEDS: NIFEdipine ER 60 MG (PROCARDIA XL) TAB PO SCH (08:55)
[2016-07-28] MEDS: TRIAMCINOLONE 0.1% CR (KENALOG) 15 GM TUBE TOP SCH ×2 (08:55→20:56)
[2016-07-28] MEDS: BENAZEPRIL 20 MG (LOTENSIN) TAB PO SCH (08:55)
[2016-07-28] MEDS: ASPIRIN E.C. 81 MG (ECOTRIN) TAB PO SCH (08:55)
[2016-07-28 17:44] VITALS: BP 129/71
[2016-07-28] MEDS: traZODone 50 MG (DESYREL) TAB PO SCH (20:55)
[2016-07-28] MEDS: ACETAMINOPHEN 500 MG TAB (TYLENOL) PO PRN (20:55)
[2016-07-28] MEDS: ATORVASTATIN 20 MG (LIPITOR) TABLET PO SCH (20:56)
[2016-07-28] MEDS: MELATONIN 3 MG TABLET PO SCH (20:56)
[2016-07-29] MEDS: ACETAMINOPHEN 500 MG TAB (TYLENOL) PO PRN ×2 (03:19→15:11)
[2016-07-29 05:57] VITALS: BP 115/57
[2016-07-29] MEDS: MULTIVIT W/MINERALS TAB (THERAGRAN M) PO SCH (06:25)
[2016-07-29] MEDS: PANTOPRAZOLE 40 MG (PROTONIX) TAB PO SCH (06:25)
[2016-07-29] MEDS: NIFEdipine ER 60 MG (PROCARDIA XL) TAB PO SCH (07:35)
[2016-07-29] MEDS: ASPIRIN E.C. 81 MG (ECOTRIN) TAB PO SCH (07:35)
[2016-07-29] MEDS: BENAZEPRIL 20 MG (LOTENSIN) TAB PO SCH (07:35)
[2016-07-29] MEDS: TRIAMCINOLONE 0.1% CR (KENALOG) 15 GM TUBE TOP SCH ×2 (07:37→20:04)
--- NOTE | 2016-07-29 07:57 | Progress Note (SOAP) ---
Subjective Time Seen by Provider: 07:50 Subjective/Events-last exam pain in the left ankle. X-ray left ankle.. feels is improving each day. CVA Objective Exam Vital Signs Date Time Temp Pulse Resp B/P (MAP) Pulse Ox O2 Delivery O2 Flow Rate FiO2 07/29/16 05:57 98.9 72 18 115/57 91 Room Air 07/28/16 20:00 Room Air 07/28/16 17:44 98.2 89 18 129/71 97 Room Air 07/28/16 09:00 Room Air I & O 07/29/16 07:00 Intake Total 950 ml Output Total 600 ml Balance 350 ml Capillary Refill : General Appearance: No Apparent Distress, WD/WN HEENT: Normal ENT Inspection Neck: Full Range of Motion, Normal Inspection Respiratory: Chest Non Tender, No Accessory Muscle Use, No Respiratory Distress Cardiovascular: Regular Rate, Rhythm, No Murmur Assessment/Plan Assessment/Plan Assess & Plan/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 Hypertension. GERD. TIA history. CHF history. 07/18/16. 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 Hypertension. TIA. Patient's left hand doing better. Patient doesn't know the President. . 07/19/16. CVA on left Hypertension. Patient walked a longer distance today. . 07/22/16. 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 Left leg doing better. Left arm work in progress. Melatonin unable to sleep. Give trazodone half the dose. . 07/23/16. 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 Patient getting around better. Patient improving. . 07/24/16. 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 Hypertension. TIA history. Patient working hard this morning area Patient has unsteady gait. . 07/25/16. CVA. Hypertension. GERD. TIA history. Patient improving. . 07/26/16. CVA. Hypertension. GERD. Patient using a cane today. Patient improving. . . CVA. Hypertension. Left lateral ankle pain. Patient work in progress Clinical Quality Measures DVT/VTE Risk/Contraindication: Risk Factor Score Per Nursin RFS Level Per Nursing on Admit: 4+=Very High DORA MOCK DO Jul 29, 2016 07:57
--- NOTE | 2016-07-29 08:43 | Physical Therapy Daily Note ---
PT Daily Note-Current Subjective Patient in bed pre tx, agrees to PT, no complaints of pain. He states he is already worn out because he was pretty active during the weekend, he says a family member, who is a PT, "walked with me all over the place". Appearance Patient sitting EOB post tx with nurse call, phone, tray, in room. Mental Status Patient Orientation: Normal For Age Transfers Functional [place] Measure 0=Not Assessed/NA 4=Minimal Assistance 1=Total Assistance 5=Supervision or Setup 2=Maximal Assistance 6=Modified [place] 3=Moderate Assistance 7=Complete IndependenceIRFPAI Quality Coding Scale 6 Independent with activity with or without an assistive device 5 Patient requires set up or clean up by helper. Patient completes activity by themselves 4 Supervision or touching assist (CGA). [place] provide cues , steadying assist 3 The helper provides less than half the effort to complete the activity 2 The helper provides more than half the effort to complete the activity 1 Dependent. The helper does all the effort to complete an activity 7 Patient refused to complete or attempt activity 9 The patient did not perform the activity before the current illness or injury 88 Not attempted due to Medical conditions or safety concerns Transfers (B, C, W/C) (FIM): 4 Scootin Rollin Supine to/from Sit: 5 Sit to/from Stand: 4 Gait Training Gait (FIM): 4 Distance: 150', 75'x2 Gait Level of Assist: 4 Gait Persons Needed: 1 Gait Assistive Device: Cane Large Base Quad Patient was very tired and had to break one of his walks into two. His balance is improving though and he is almost CGA but he did have one loss of balance requiring therapist assist. Stair Training Stair Training: Handrails/: 1 handrail Stairs (FIM): 2 #of Steps: 8 Stairs: Pattern: Step to Level of Assist: 4 min assist for balance, cues for foot placement Exercises NuStep Minutes: 15 (LE strengthening to improve ambulation a) NuStep Workload: 5 Treatments bed mobility, transfers, ambulation, stair training, functional strengthening Assessment Current Status: Fair Progress improving balance PT Short Term Goals Short Term Goals Time Frame: Jul 23, 2016 Gait (FIM): 2 Gait Distance Comment: 50' Gait Level of Assist: 4 Gait Assistive Device: Cane Large Base Quad Wheelchair Distance: 50' PT Jail Goals Jail Goals PT Jail Goals Time Frame: Aug 06, 2016 Transfers (B,C,W/C) (FIM): 5 Sit to Lying (QC): 4 Lying-Sitting on Side/Bed(QC): 4 Sit to Stand (QC): 4 Rollin Roll Left to Right (QC): 4 Chair/Tvo-ef-Bexcb Xfer(QC): 4 Car Transfer (QC): 4 Gait (FIM): 4 Distance: 150' Walk 10 feet (QC): 4 Walk 10ft-Uneven Surface(QC): 4 Walk 50ft with 2 Turns (QC): 4 Walk 150 ft (QC): 4 Gait Level of Assist: 4 Gait Assistive Device: Cane Large Base Quad Stairs (FIM): 2 # of Steps: 4 1 Step (curb) (QC): 4 4 Steps (QC): 4 12 Steps (QC): 88 Stairs Level Of Assist: 4 Picking up an Object (QC): 88 PT Plan Problem List Problem List: Activity Tolerance, Functional Strength, Safety, Balance, Gait, Transfer, Bed Mobility Treatment/Plan Treatment Plan: Continue Plan of Care Treatment Plan: Bed Mobility, Education, Functional Activity Pedro, Functional Strength, Group Therapy, Gait, Safety, Therapeutic Exercise, Transfers Treatment Duration: Aug 06, 2016 Visits Per Week: 10-11 Minutes/Day (M-F): 60-90 Minutes/Day (Sat/Etienne): 15-30 Safety Risks/Education Patient Education: Gait Training, Transfer Techniques, Steps, Correct Positioning, Safety Issues Teaching Recipient: Patient Teaching Methods: Demonstration, Discussion Response to Teaching: Reinforcement Needed Time/GCodes Time In: 800 Time Out: 845 Total Billed Treatment Time: 45 Total Billed Treatment 1 visit EX 15' GT 30' LATANYA FLYNN PT Jul 29, 2016 08:43
--- NOTE | 2016-07-29 10:31 | Occupational Ther Daily Note ---
OT Current Status-Daily Note Subjective Pt alert, sitting on EOB. Pt agreed to therapy. No c/o pain. Mental Status/Objective Patient Orientation: Person, Place, Time, Situation Functional [place] Measure 0=Not Assessed/NA 4=Minimal Assistance 1=Total Assistance 5=Supervision or Setup 2=Maximal Assistance 6=Modified [place] 3=Moderate Assistance 7=Complete [place] ADL-Treatment Pt ambulated into bathroom with quad cane to hairspring staker front of sink. Pt sat in w/c in front of sink and complete grooming, mod I. Pt then maneuvered w/c to shower, required cues for safety (locking breaks and positioning w/c) then transferred with CGA using grabbars and shower bench. Using grabbars, hand held shower and shower bench pt is able to complete with min A, assist to stand while cleansing buttocks/aida area. Pt dries self except for buttocks. In sitting using grabbars to stand, pt is able to don pants/underpants over feet and pull up legs then assist with hiking pants over hips. Min A for donning shirt, cues for one-handed technique, assist to initiate over L hand. Assist to doff socks, pt is able to attempt but then loses balance toward L side then doffs pants with min A to stand while pt pulls pants down. Assist to don socks , pt dons shoes by self. Pt is transferring with CGA. Functional [place] Measure 0=Not Assessed/NA 4=Minimal Assistance 1=Total Assistance 5=Supervision or Setup 2=Maximal Assistance 6=Modified [place] 3=Moderate Assistance 7=Complete IndependenceIRFPAI Quality Coding Scale 6 Independent with activity with or without an assistive device 5 Patient requires set up or clean up by helper. Patient completes activity by themselves 4 Supervision or touching assist (CGA). [place] provide cues , steadying assist 3 The helper provides less than half the effort to complete the activity 2 The helper provides more than half the effort to complete the activity 1 Dependent. The helper does all the effort to complete an activity 7 Patient refused to complete or attempt activity 9 The patient did not perform the activity before the current illness or injury 88 Not attempted due to Medical conditions or safety concerns Grooming (FIM): 6 Bathing (FIM): 4 Upper Body (FIM): 4 Lower Body Dressing (FIM): 3 Transfers (B, C, W/C) (FIM): 4 Shower Transfer(FIM): 4 Other Treatment Arm bike completed duration 9 min at 20 thompson resistance, (L hand wrapped onto L handle), to increase strength and AROM of L UE for daily functional tasks. Pt required 3 rest breaks during 9 min. Radiology came to take pt in for x- ray. Will continue treatment when pt gets back. OT Short Term Goals Short Term Goals Time Frame: Jul 30, 2016 Bathing(FIM): 5 Upper Body Dressing(FIM): 5 Lower Body Dressing(FIM): 5 Toilet/Commode Transfer(FIM): 4 Additional Short Term Goals: 2-Verbalize Understanding, 3-ImproveStrength/Pedro 1=Demonstrate adherence to instructed precautions during ADL tasks. 2=Patient will verbalize/demonstrate understanding of assistive devices/ modifications for ADL. 3=Patient will improve strength/tolerance for activity to enable patient to perform ADL's. OT Mcc Goals Mycology Teacher Goals Time Frame: Aug 13, 2016 Eating (FIM): 6 Eating (QC): 6 Groomin Oral Hygiene (QC): 6 Bathing(FIM): 6 Shower/Bathe Self (QC): 6 Upper Body Dressing(FIM): 6 Upper Body Dressing (QC): 6 Lower Body Dressing(FIM): 6 Lower Body Dressing (QC): 6 On/Off Footwear (QC): 6 Toileting(FIM): 6 Toileting Hygiene (QC): 6 Toilet/Commode Transfer(FIM): 6 Toilet/Commode Transfer (QC): 6 Shower Transfer(FIM): 6 Comprehension(FIM): 5 Expression (FIM): 6 Social Interaction(FIM): 6 Problem Solving(FIM): 5 Memory(FIM): 5 Additional Goals: 2-Verbalize Understanding, 3-ImproveStrength/Pedro 1=Demonstrate adherence to instructed precautions during ADL tasks. 2=Patient will verbalize/demonstrate understanding of assistive devices/ modifications for ADL. 3=Patient will improve strength/tolerance for activity to enable patient to perform ADL's. OT Education/Plan Problem List/Assessment Pt would benefit from skilled OT to increase his independence in basic self care to allo whim to safely return home to love with his and to decrease caregiver burden. Discharge Recommendations Plan/Recommendations: Continue POC Treatment Plan/Plan of Care Patient would benefit from OT for education, treatment and training to promote independence in ADL's, mobility, safety and/or upper extremity function for ADL' s. Plan of Care: ADL Retraining, Functional Mobility, Group Exercise/Act as Ind ( education, exercise, activity tolerance, functional use UEs, funct activities), UE Funct Exercise/Act, UE Neuromus Re-Ed/Coord Treatment Duration: Aug 13, 2016 Visits Per Week: 10-12 Minutes/Day (M-F): 60-90 Minutes/Day (Sat/Etienne): PRN Agreement: Yes Rehab Potential: Good Time/GCodes Start Time: 09:30 Stop Time: 10:25 Total Time Billed (hr/min): 55 Billed Treatment Time 1 visit-ADL 3 (40 min) EX 1 (15 min) LIZA ATKINSON Jul 29, 2016 10:31
--- NOTE | 2016-07-29 11:03 | Diagnostic Imaging Report ---
EXAMINATION: Three views of the left ankle. INDICATION: Left ankle pain. FINDINGS: No fracture, dislocation, or radiopaque foreign body is seen. The ankle mortise is normal in configuration. A corticated ossified fragment at the undersurface of the medial malleolus is seen, likely related to an old injury. A calcaneal spur is also seen. IMPRESSION: No acute process. Dictated by: Dictated on workstation # [id number]
--- NOTE | 2016-07-29 11:11 | Occupational Ther Daily Note ---
OT Current Status-Daily Note Subjective Pt returned from radiology. Mental Status/Objective Functional [place] Measure 0=Not Assessed/NA 4=Minimal Assistance 1=Total Assistance 5=Supervision or Setup 2=Maximal Assistance 6=Modified [place] 3=Moderate Assistance 7=Complete [place] ADL-Treatment Functional [place] Measure 0=Not Assessed/NA 4=Minimal Assistance 1=Total Assistance 5=Supervision or Setup 2=Maximal Assistance 6=Modified [place] 3=Moderate Assistance 7=Complete IndependenceIRFPAI Quality Coding Scale 6 Independent with activity with or without an assistive device 5 Patient requires set up or clean up by helper. Patient completes activity by themselves 4 Supervision or touching assist (CGA). [place] provide cues , steadying assist 3 The helper provides less than half the effort to complete the activity 2 The helper provides more than half the effort to complete the activity 1 Dependent. The helper does all the effort to complete an activity 7 Patient refused to complete or attempt activity 9 The patient did not perform the activity before the current illness or injury 88 Not attempted due to Medical conditions or safety concerns Other Treatment Pt maneuvered w/c and locked brakes for transfer with 1 cue for reminder to move foot rest and lock L brake. CGA for stand pivot transfer. Pt was able to complete bed mobility with mod I using bed rails. APROM exercises with L UE completed. Pt demonstrated active movement in L shldr abduction, wrist extension. Pt only able to flex fingers, no extension. After therapy, pt lying in bed with call light/phone in reach. present in room. All needs met in room. OT Short Term Goals Short Term Goals Time Frame: Jul 30, 2016 Bathing(FIM): 5 Upper Body Dressing(FIM): 5 Lower Body Dressing(FIM): 5 Toilet/Commode Transfer(FIM): 4 Additional Short Term Goals: 2-Verbalize Understanding, 3-ImproveStrength/Pedro 1=Demonstrate adherence to instructed precautions during ADL tasks. 2=Patient will verbalize/demonstrate understanding of assistive devices/ modifications for ADL. 3=Patient will improve strength/tolerance for activity to enable patient to perform ADL's. OT Senior Living Goals Livestock Farmers Goals Time Frame: Aug 13, 2016 Eating (FIM): 6 Eating (QC): 6 Groomin Oral Hygiene (QC): 6 Bathing(FIM): 6 Shower/Bathe Self (QC): 6 Upper Body Dressing(FIM): 6 Upper Body Dressing (QC): 6 Lower Body Dressing(FIM): 6 Lower Body Dressing (QC): 6 On/Off Footwear (QC): 6 Toileting(FIM): 6 Toileting Hygiene (QC): 6 Toilet/Commode Transfer(FIM): 6 Toilet/Commode Transfer (QC): 6 Shower Transfer(FIM): 6 Comprehension(FIM): 5 Expression (FIM): 6 Social Interaction(FIM): 6 Problem Solving(FIM): 5 Memory(FIM): 5 Additional Goals: 2-Verbalize Understanding, 3-ImproveStrength/Pedro 1=Demonstrate adherence to instructed precautions during ADL tasks. 2=Patient will verbalize/demonstrate understanding of assistive devices/ modifications for ADL. 3=Patient will improve strength/tolerance for activity to enable patient to perform ADL's. OT Education/Plan Problem List/Assessment Pt would benefit from skilled OT to increase his independence in basic self care to allo whim to safely return home to love with his and to decrease caregiver burden. Discharge Recommendations Plan/Recommendations: Continue POC Treatment Plan/Plan of Care Patient would benefit from OT for education, treatment and training to promote independence in ADL's, mobility, safety and/or upper extremity function for ADL' s. Plan of Care: ADL Retraining, Functional Mobility, Group Exercise/Act as Ind ( education, exercise, activity tolerance, functional use UEs, funct activities), UE Funct Exercise/Act, UE Neuromus Re-Ed/Coord Treatment Duration: Aug 13, 2016 Visits Per Week: 10-12 Minutes/Day (M-F): 60-90 Minutes/Day (Sat/Etienne): PRN Agreement: Yes Rehab Potential: Good Time/GCodes Start Time: 10:35 Stop Time: 10:55 Total Time Billed (hr/min): 20 Billed Treatment Time 1 visit-NM 1 (20 min) LIZA ATKINSON Jul 29, 2016 11:11
--- NOTE | 2016-07-29 13:57 | Physical Therapy Daily Note ---
PT Daily Note-Current Subjective Agreeable to PT. Mental Status Patient Orientation: Person, Place, Time, Situation Transfers Functional [place] Measure 0=Not Assessed/NA 4=Minimal Assistance 1=Total Assistance 5=Supervision or Setup 2=Maximal Assistance 6=Modified [place] 3=Moderate Assistance 7=Complete IndependenceIRFPAI Quality Coding Scale 6 Independent with activity with or without an assistive device 5 Patient requires set up or clean up by helper. Patient completes activity by themselves 4 Supervision or touching assist (CGA). [place] provide cues , steadying assist 3 The helper provides less than half the effort to complete the activity 2 The helper provides more than half the effort to complete the activity 1 Dependent. The helper does all the effort to complete an activity 7 Patient refused to complete or attempt activity 9 The patient did not perform the activity before the current illness or injury 88 Not attempted due to Medical conditions or safety concerns Transfers (B, C, W/C) (FIM): 4 Supine to/from Sit: 5 Sit to/from Stand: 4 (CGA for safety and skillee cues for hand placement. ) 1 LOB episode with turning to sit in chair, feet became entangled and he lost his balance and with rigid assist sat in the chair. Reviewed importance of turning slowly and safely and sitting in a controlled manner. Upon return to his room, he performed a turn and sit on EOB without LOB and did so safely and with good use of his hands. Sit to stand x 10 reps with repetition with focus on pushing up with hands and sitting in a controlled descent. Gait Training Gait training 150 ft x 3 with QC with CGA. Tends to lean forward a bit but maintains balance. Stair Training UP/down 8 steps with handrail using R UE with close CGA. Did not need cues for safety or sequencing. Assessment Current Status: Good Progress Functional gait has improved since last seen by this therapist. Pt making functional gains and improving. PT Short Term Goals Short Term Goals Time Frame: Jul 23, 2016 Gait (FIM): 2 (met) Gait Distance Comment: 50' Gait Level of Assist: 4 Gait Assistive Device: Cane Large Base Quad Wheelchair Distance: 50' PT Casting Coordinator Goals Alf Goals PT Alf Goals Time Frame: Aug 06, 2016 Transfers (B,C,W/C) (FIM): 5 Sit to Lying (QC): 4 Lying-Sitting on Side/Bed(QC): 4 Sit to Stand (QC): 4 Rollin Roll Left to Right (QC): 4 Chair/Kso-so-Rlthu Xfer(QC): 4 Car Transfer (QC): 4 Gait (FIM): 4 Distance: 150' Walk 10 feet (QC): 4 Walk 10ft-Uneven Surface(QC): 4 Walk 50ft with 2 Turns (QC): 4 Walk 150 ft (QC): 4 Gait Level of Assist: 4 Gait Assistive Device: Cane Large Base Quad Stairs (FIM): 2 # of Steps: 4 1 Step (curb) (QC): 4 4 Steps (QC): 4 12 Steps (QC): 88 Stairs Level Of Assist: 4 Picking up an Object (QC): 88 PT Plan Problem List Problem List: Activity Tolerance, Functional Strength, Safety, Balance, Gait, Transfer Treatment/Plan Treatment Plan: Continue Plan of Care Treatment Plan: Bed Mobility, Education, Functional Activity Pedro, Functional Strength, Group Therapy, Gait, Safety, Therapeutic Exercise, Transfers Treatment Duration: Aug 06, 2016 Visits Per Week: 10-11 Minutes/Day (M-F): 60-90 Minutes/Day (Sat/Etienne): 15-30 Safety Risks/Education Patient Education: Transfer Techniques, Safety Issues Teaching Recipient: Patient Teaching Methods: Demonstration, Discussion Response to Teaching: Reinforcement Needed Discharge Recommendations Therapy D/C Recommendations: Physical Therapy Home Care Time/GCodes Time In: 1315 Time Out: 1345 Total Billed Treatment Time: 30 Total Billed Treatment visit GT 15 FA 15 LIZA HUERTA PT Jul 29, 2016 13:57
--- NOTE | 2016-07-29 14:23 | Speech Therapy Daily Note ---
Speech Daily Progress Note Subjective Date Seen by Provider: Jul 29, 2016 Time Seen by Provider: 09:00 The patient was seated upright in recliner upon entrance, with present at bedside. The patient greeted the clinician appropriately and was agreeable to dysphagia therapy on this date. Objective Dysphagia Strengthening Exercises: Dysphagia exercises (lingual, base of tongue , pharyngeal, and laryngeal elevation) were continued, demonstrated, discussed, and reviewed on this date. The patient demonstrated high accuracy with all exercises following direct modeling and minimal clinician verbal prompting. Ten repetitions of each exercise were performed. The patient was asked to complete dysphagia exercises (five to ten repetitions) one additional session throughout the day. The patient denied any questions or concerns at this time. - The patient denied any recent demonstration of signs/symptoms of aspiration throughout meals or snacks. Due to the patient's high accuracy, one-on-one therapy will be discontinued at this time. Assessment Assessment Current Status: Excellent Progress Treatment Plan Discontinue ST, Goals Met Communication Comprehension: 5 Expression: 5 Social Cognition Social Interaction: 6 Problem Solvin Memory: 5 Speech Short Term Goals Short Term Goals Short Term Goals 1. The patient will independently demonstrate swallowing strategies with 90% accuracy. MET 2. The patient will demonstrate dysphagia exercises with 80% accuracy and mild clinician cueing. MET Time Frame-STG: One Week Speech Coffee Urn Attendant Goals Detention Goals 1. The patient will tolerate the least restrictive diet without signs/symptoms of aspiration or laryngeal penetration. Time Frame: Two Weeks Comprehension: 5 Expression: 6 Social Interaction: 6 Problem Solvin Memory: 5 Speech-Plan Treatment Plan Speech Therapy Treatment Plan: Discontinue ST, Goals Met As the patient demonstrates high accuracy with dysphagia exercises, skilled speech pathology will sign-off at this time. Treatment Duration: Jul 31, 2016 # of days/week Four to five. Visits Per Week: Four to five. Minutes/Day (M-F): 30 Rehab Potential: Good Safety Risks/Education Teaching Recipient: Patient, Significant Other Teaching Methods: Demonstration, Handout, Discussion Response to Teaching: Verbalize Understanding, Return Demonstration Education Topics Provided: Dysphagia Exercises Time Speech Therapy Time In: 09:00 Speech Therapy Time Out: 09:30 Total Billed Time: 30 Billed Treatment Time PARMJIT Vazquez ELIZABETH Jul 29, 2016 14:23
--- NOTE | 2016-07-29 14:27 | Therapy Team Discharge Summary ---
Therapy Discharge Summary Discharge Recommendations Date of Discharge Therapy D/C Recommendations: Physical Therapy Home Care Speech-Language Pathology The patient was recently admitted to [facility] with a diagnosis of CVA. Upon admission, the patient was receiving a regular diet with thin liquids. Skilled speech pathology intervention focused on swallowing strategies and laryngeal elevation/pharyngeal contraction/and base of tongue retraction exercises. The patient demonstrates high accuracy with all exercises , independently. The patient does not demonstrate signs/symptoms of aspiration with any consistency he currently consumes. At this time, the patient will be discharged from skilled speech pathology services. PT Package Dye Stand Loader Goals Package Dye Stand Loader Goals PT Care Home Goals Time Frame: Aug 06, 2016 Transfers (B,C,W/C) (FIM): 5 Roll Left to Right (QC): 4 Sit to Lying (QC): 4 Lying-Sitting on Side/Bed(QC): 4 Sit to Stand (QC): 4 Chair/Vrq-wf-Nqnvw Xfer(QC): 4 Car Transfer (QC): 4 Gait (FIM): 4 Distance: 150' Walk 10 feet (QC): 4 Walk 10ft-Uneven Surface(QC): 4 Walk 50ft with 2 Turns (QC): 4 Walk 150 ft (QC): 4 Gait Level of Assist: 4 Gait Assistive Device: Cane Large Base Quad Stairs (FIM): 2 # of Steps: 4 1 Step (curb) (QC): 4 4 Steps (QC): 4 12 Steps (QC): 88 Stairs Level Of Assist: 4 Picking up an Object (QC): 88 OT Care Home Goals Package Dye Stand Loader Goals Time Frame: Aug 13, 2016 Eating (FIM): 6 Eating (QC): 6 Oral Hygiene (QC): 6 Grooming(FIM): 6 Bathing(FIM): 6 Shower/Bathe Self (QC): 6 Upper Body Dressing(FIM): 6 Upper Body Dressing (QC): 6 Lower Body Dressing(FIM): 6 Lower Body Dressing (QC): 6 On/Off Footwear (QC): 6 Toileting(FIM): 6 Toileting Hygiene (QC): 6 Toilet/Commode Transfer(FIM): 6 Toilet/Commode Transfer (QC): 6 Shower Transfer(FIM): 6 Comprehension(FIM): 5 Expression (FIM): 6 Social Interaction(FIM): 6 Problem Solving(FIM): 5 Memory(FIM): 5 Additional Goals: 2-Verbalize Understanding, 3-ImproveStrength/Pedro 1=Demonstrate adherence to instructed precautions during ADL tasks. 2=Patient will verbalize/demonstrate understanding of assistive devices/ modifications for ADL. 3=Patient will improve strength/tolerance for activity to enable patient to perform ADL's. Speech Care Home Goals Package Dye Stand Loader Goals 1. The patient will tolerate the least restrictive diet without signs/symptoms of aspiration or laryngeal penetration. Time Frame: Two Weeks Comprehension: 5 (MET) Expression: 6 (MET) Social Interaction: 6 (MET) Problem Solvin (MET) Memory: 5 (MET) JOSÉ MIGUEL YBARRA Jul 29, 2016 14:27
--- NOTE | 2016-07-29 15:11 | PM & R (SOAP) Progress Note ---
Subjective Time Seen by Provider: 11:45 Subjective/Events-last exam Patient was seen in his room this AM Patient min assist for transfers Patient well motivated and has a very supprotive spouse Sleeping well and eating well.Current labs and notes reviewed Patient c/o left ankle pain Xray reveals cacaneal spur.Symptomatic relief Objective Exam Last Set of Vital Signs Vital Signs Date Time Temp Pulse Resp B/P (MAP) Pulse Ox O2 Delivery O2 Flow Rate FiO2 07/29/16 09:00 Room Air 07/29/16 05:57 98.9 72 18 115/57 91 Capillary Refill : I&O Intake and Output 07/29/16 00:00 Intake Total 1000 ml Balance 1000 ml Intake Oral 1000 ml # Voids 5 # Bowel Movements 1 General: Alert, Oriented X3, Cooperative, No Acute Distress HEENT: Atraumatic, PERRLA, EOMI, Mucous Memb Moist/[place], Other (facial droop) Neck: Supple, No JVD Lungs: Clear to Auscultation Heart: Regular Rate Abdomen: Normal Bowel Sounds, Soft, No Tenderness Extremities: No Edema, Other (Mild left ankle tenderness) Neuro: Other ( left HP with flaccid Left limb) Assessment/Plan Assessment 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
[2016-07-29] MEDS: DICLOFENAC 1% GEL 100 GM (VOLTAREN) TUBE TOP SCH ×2 (17:00→20:03)
[2016-07-29 18:36] VITALS: BP 117/67
[2016-07-29] MEDS: traZODone 50 MG (DESYREL) TAB PO SCH (20:04)
[2016-07-29] MEDS: ATORVASTATIN 20 MG (LIPITOR) TABLET PO SCH (20:04)
[2016-07-30] MEDS: MULTIVIT W/MINERALS TAB (THERAGRAN M) PO SCH (05:59)
[2016-07-30] MEDS: PANTOPRAZOLE 40 MG (PROTONIX) TAB PO SCH (05:59)
[2016-07-30 06:23] VITALS: BP 137/69
[2016-07-30] MEDS: BENAZEPRIL 20 MG (LOTENSIN) TAB PO SCH (08:09)
[2016-07-30] MEDS: NIFEdipine ER 60 MG (PROCARDIA XL) TAB PO SCH (08:09)
[2016-07-30] MEDS: ASPIRIN E.C. 81 MG (ECOTRIN) TAB PO SCH (08:09)
--- NOTE | 2016-07-30 08:25 | PM & R (SOAP) Progress Note ---
Subjective Time Seen by Provider: 07:40 Subjective/Events-last exam Patient was seen in his room with his spouse this AM Informed patient that Xray left foor shows only heel spur-no frx Pain resolved with Voltaran gel.Patient CGA for gait with quad cane. Objective Exam Last Set of Vital Signs Vital Signs Date Time Temp Pulse Resp B/P (MAP) Pulse Ox O2 Delivery O2 Flow Rate FiO2 07/30/16 06:23 99.3 71 18 137/69 93 Room Air Capillary Refill : I&O Intake and Output 07/30/16 00:00 Intake Total 900 ml Output Total 600 ml Balance 300 ml Intake Oral 900 ml Output Urine Total 600 ml # Voids 3 General: Alert, Oriented X3, Cooperative, No Acute Distress HEENT: Atraumatic, PERRLA, EOMI, Mucous Memb Moist/[place], Other (facial droop) Neck: Supple, No JVD Lungs: Clear to Auscultation Heart: Regular Rate Abdomen: Normal Bowel Sounds, Soft, No Tenderness Extremities: No Edema, Other (left foot non tender) Neuro: Other ( left HP with flaccid Left limb) Assessment/Plan Assessment 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
--- NOTE | 2016-07-30 08:39 | Progress Note (SOAP) ---
Subjective Time Seen by Provider: 08:32 Subjective/Events-last exam CVA. Patient's balance is improving but needs to be better. Patient falls to the right Objective Exam Vital Signs Date Time Temp Pulse Resp B/P (MAP) Pulse Ox O2 Delivery O2 Flow Rate FiO2 07/30/16 06:23 99.3 71 18 137/69 93 Room Air 07/29/16 20:10 Room Air 07/29/16 18:36 97.0 78 20 117/67 95 Room Air 07/29/16 09:00 Room Air I & O 07/30/16 07:00 Intake Total 950 ml Output Total 600 ml Balance 350 ml Capillary Refill : General Appearance: No Apparent Distress HEENT: Normal ENT Inspection Neck: Normal Inspection Respiratory: No Accessory Muscle Use, No Respiratory Distress Cardiovascular: Regular Rate, Rhythm Gastrointestinal: non tender, soft Assessment/Plan Assessment/Plan Assess & Plan/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 Hypertension. GERD. TIA history. CHF history. 07/18/16. 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 Hypertension. TIA. Patient's left hand doing better. Patient doesn't know the President. . 07/19/16. CVA on left Hypertension. Patient walked a longer distance today. . 07/22/16. 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 Left leg doing better. Left arm work in progress. Melatonin unable to sleep. Give trazodone half the dose. . 07/23/16. 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 Patient getting around better. Patient improving. . 07/24/16. 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 Hypertension. TIA history. Patient working hard this morning area Patient has unsteady gait. . 07/25/16. CVA. Hypertension. GERD. TIA history. Patient improving. . 07/26/16. CVA. Hypertension. GERD. Patient using a cane today. Patient improving. . . CVA. Hypertension. Left lateral ankle pain. Patient work in progress. . 07/30/16. CVA. Hypertension Patient moving around better Clinical Quality Measures DVT/VTE Risk/Contraindication: Risk Factor Score Per Nursin RFS Level Per Nursing on Admit: 4+=Very High DORA MOCK DO Jul 30, 2016 08:39
--- NOTE | 2016-07-30 08:56 | Physical Therapy Daily Note ---
PT Daily Note-Current Subjective Patient in bed pre tx, agrees to PT, no complaints of pain. Appearance Patient in recliner post tx with nurse call, phone, tray, all needs met. in the room. Mental Status Patient Orientation: Normal For Age Transfers Functional [place] Measure 0=Not Assessed/NA 4=Minimal Assistance 1=Total Assistance 5=Supervision or Setup 2=Maximal Assistance 6=Modified [place] 3=Moderate Assistance 7=Complete IndependenceIRFPAI Quality Coding Scale 6 Independent with activity with or without an assistive device 5 Patient requires set up or clean up by helper. Patient completes activity by themselves 4 Supervision or touching assist (CGA). [place] provide cues , steadying assist 3 The helper provides less than half the effort to complete the activity 2 The helper provides more than half the effort to complete the activity 1 Dependent. The helper does all the effort to complete an activity 7 Patient refused to complete or attempt activity 9 The patient did not perform the activity before the current illness or injury 88 Not attempted due to Medical conditions or safety concerns Transfers (B, C, W/C) (FIM): 4 Scootin Rollin Supine to/from Sit: 5 Sit to/from Stand: 4 sit to stand min assist for occasional assist with balance Gait Training Gait (FIM): 4 Distance: 150'x2 Gait Level of Assist: 4 Gait Persons Needed: 1 Gait Assistive Device: Cane Large Base Quad min assist with balance, leans occasionally to the left and will occasionally lose balance to the left Exercises NuStep Minutes: 15 NuStep Workload: 5 Neuromuscular Patient ambulated 400' in the LiteGait weight supported gait system working on balance, speed, and endurance Treatments bed mobility and transfers, ambulation, functional strengthening, balance Assessment Current Status: Fair Progress improving balance PT Short Term Goals Short Term Goals Time Frame: Jul 23, 2016 Gait (FIM): 2 (met) Gait Distance Comment: 50' Gait Level of Assist: 4 Gait Assistive Device: Cane Large Base Quad Wheelchair Distance: 50' PT Slabbing Machine Operator Goals Senior Living Goals PT Senior Living Goals Time Frame: Aug 06, 2016 Transfers (B,C,W/C) (FIM): 5 Sit to Lying (QC): 4 Lying-Sitting on Side/Bed(QC): 4 Sit to Stand (QC): 4 Rollin Roll Left to Right (QC): 4 Chair/Qyu-zm-Zwndq Xfer(QC): 4 Car Transfer (QC): 4 Gait (FIM): 4 Distance: 150' Walk 10 feet (QC): 4 Walk 10ft-Uneven Surface(QC): 4 Walk 50ft with 2 Turns (QC): 4 Walk 150 ft (QC): 4 Gait Level of Assist: 4 Gait Assistive Device: Cane Large Base Quad Stairs (FIM): 2 # of Steps: 4 1 Step (curb) (QC): 4 4 Steps (QC): 4 12 Steps (QC): 88 Stairs Level Of Assist: 4 Picking up an Object (QC): 88 PT Plan Problem List Problem List: Activity Tolerance, Functional Strength, Safety, Balance, Gait, Transfer, Bed Mobility Treatment/Plan Treatment Plan: Continue Plan of Care Treatment Plan: Bed Mobility, Education, Functional Activity Pedro, Functional Strength, Group Therapy, Gait, Safety, Therapeutic Exercise, Transfers Treatment Duration: Aug 06, 2016 Visits Per Week: 10-11 Minutes/Day (M-F): 60-90 Minutes/Day (Sat/Etienne): 15-30 Safety Risks/Education Patient Education: Gait Training, Transfer Techniques, Correct Positioning, Safety Issues Teaching Recipient: Patient Teaching Methods: Demonstration, Discussion Response to Teaching: Reinforcement Needed Time/GCodes Time In: 800 Time Out: 900 Total Billed Treatment Time: 60 Total Billed Treatment 1 visit EX 15' GT 15' NM 30' LATANYA FLYNN PT Jul 30, 2016 08:56
[2016-07-30] MEDS: TRIAMCINOLONE 0.1% CR (KENALOG) 15 GM TUBE TOP SCH ×2 (09:00→20:25)
[2016-07-30] MEDS: DICLOFENAC 1% GEL 100 GM (VOLTAREN) TUBE TOP SCH ×4 (11:33→20:26)
--- NOTE | 2016-07-30 12:39 | Occupational Ther Daily Note ---
OT Current Status-Daily Note Subjective Pt alert, sitting in recliner. Pt agreed to therapy. No c/o pain at this time. Mental Status/Objective Patient Orientation: Person, Place, Time, Situation Functional [place] Measure 0=Not Assessed/NA 4=Minimal Assistance 1=Total Assistance 5=Supervision or Setup 2=Maximal Assistance 6=Modified [place] 3=Moderate Assistance 7=Complete [place] ADL-Treatment Pt declined taking a shower or changing clothing. Functional [place] Measure 0=Not Assessed/NA 4=Minimal Assistance 1=Total Assistance 5=Supervision or Setup 2=Maximal Assistance 6=Modified [place] 3=Moderate Assistance 7=Complete IndependenceIRFPAI Quality Coding Scale 6 Independent with activity with or without an assistive device 5 Patient requires set up or clean up by helper. Patient completes activity by themselves 4 Supervision or touching assist (CGA). [place] provide cues , steadying assist 3 The helper provides less than half the effort to complete the activity 2 The helper provides more than half the effort to complete the activity 1 Dependent. The helper does all the effort to complete an activity 7 Patient refused to complete or attempt activity 9 The patient did not perform the activity before the current illness or injury 88 Not attempted due to Medical conditions or safety concerns Other Treatment Pt was able to maneuver w/c around hospital and manipulate doors and elevator by self. Pt fatigues quickly when moving w/c around with L UE and L LE. Pt then maneuvered into therapy gym and transferred onto therapy mat with CGA. Pt then worked on dynamic sitting balance to all sides. Pt was able to stand and product picker cones then place in designated area with CGA. Pt stayed in a squat position while completing task instead of standing up between grasping each cone. Pt maneuvered w/c back to room, positioned and locked brakes then transferred with CGA. After therapy, pt sitting in recliner with call light/ phone in reach. All needs met in room. OT Short Term Goals Short Term Goals Time Frame: Jul 30, 2016 Bathing(FIM): 5 Upper Body Dressing(FIM): 5 Lower Body Dressing(FIM): 5 Toilet/Commode Transfer(FIM): 4 Additional Short Term Goals: 2-Verbalize Understanding, 3-ImproveStrength/[place] 1=Demonstrate adherence to instructed precautions during ADL tasks. 2=Patient will verbalize/demonstrate understanding of assistive devices/ modifications for ADL. 3=Patient will improve strength/tolerance for activity to enable patient to perform ADL's. OT Correction Goals Correction Goals Time Frame: Aug 13, 2016 Eating (FIM): 6 Eating (QC): 6 Groomin Oral Hygiene (QC): 6 Bathing(FIM): 6 Shower/Bathe Self (QC): 6 Upper Body Dressing(FIM): 6 Upper Body Dressing (QC): 6 Lower Body Dressing(FIM): 6 Lower Body Dressing (QC): 6 On/Off Footwear (QC): 6 Toileting(FIM): 6 Toileting Hygiene (QC): 6 Toilet/Commode Transfer(FIM): 6 Toilet/Commode Transfer (QC): 6 Shower Transfer(FIM): 6 Comprehension(FIM): 5 (MET) Expression (FIM): 6 (MET) Social Interaction(FIM): 6 (MET) Problem Solving(FIM): 5 (MET) Memory(FIM): 5 (MET) Additional Goals: 2-Verbalize Understanding, 3-ImproveStrength/[place] 1=Demonstrate adherence to instructed precautions during ADL tasks. 2=Patient will verbalize/demonstrate understanding of assistive devices/ modifications for ADL. 3=Patient will improve strength/tolerance for activity to enable patient to perform ADL's. OT Education/Plan Problem List/Assessment Pt would benefit from skilled OT to increase his independence in basic self care to allo whim to safely return home to [place] with his and to decrease caregiver burden. Discharge Recommendations Plan/Recommendations: Continue POC Treatment Plan/Plan of Care Patient would benefit from OT for education, treatment and training to promote independence in ADL's, mobility, safety and/or upper extremity function for ADL' s. Plan of Care: ADL Retraining, Functional Mobility, Group Exercise/Act as Ind ( education, exercise, activity tolerance, functional use UEs, funct activities), UE Funct Exercise/Act, UE Neuromus Re-Ed/Coord Treatment Duration: Aug 13, 2016 Visits Per Week: 10-12 Minutes/Day (M-F): 60-90 Minutes/Day (Sat/Etienne): PRN Agreement: Yes Rehab Potential: Good Time/GCodes Start Time: 09:00 Stop Time: 10:00 Total Time Billed (hr/min): 60 Billed Treatment Time 1 visit-FA 2 (30 min) NM 2 (30 min) LIZA ATKINSON Jul 30, 2016 12:39
--- NOTE | 2016-07-30 13:49 | Occupational Ther Daily Note ---
OT Current Status-Daily Note Subjective Pt sitting on EOB in room. Pt agreed to therapy. No c/o pain. Mental Status/Objective Patient Orientation: Person, Place, Time, Situation Functional [place] Measure 0=Not Assessed/NA 4=Minimal Assistance 1=Total Assistance 5=Supervision or Setup 2=Maximal Assistance 6=Modified [place] 3=Moderate Assistance 7=Complete [place] ADL-Treatment Functional [place] Measure 0=Not Assessed/NA 4=Minimal Assistance 1=Total Assistance 5=Supervision or Setup 2=Maximal Assistance 6=Modified [place] 3=Moderate Assistance 7=Complete IndependenceIRFPAI Quality Coding Scale 6 Independent with activity with or without an assistive device 5 Patient requires set up or clean up by helper. Patient completes activity by themselves 4 Supervision or touching assist (CGA). [place] provide cues , steadying assist 3 The helper provides less than half the effort to complete the activity 2 The helper provides more than half the effort to complete the activity 1 Dependent. The helper does all the effort to complete an activity 7 Patient refused to complete or attempt activity 9 The patient did not perform the activity before the current illness or injury 88 Not attempted due to Medical conditions or safety concerns Other Treatment In supine, pt completed UE dowel michi exercises. Assist to keep grasp with L hand and guide L UE with shldr flex/ext and bicep flex/ext, 2 sets 10 reps. Pt is demonstrating increase muscle movements throughout L UE except finger extension. After therapy, pt lying in bed with call light/phone in reach. All needs met in room. OT Short Term Goals Short Term Goals Time Frame: Jul 30, 2016 Bathing(FIM): 5 Upper Body Dressing(FIM): 5 Lower Body Dressing(FIM): 5 Toilet/Commode Transfer(FIM): 4 Additional Short Term Goals: 2-Verbalize Understanding, 3-ImproveStrength/[place] 1=Demonstrate adherence to instructed precautions during ADL tasks. 2=Patient will verbalize/demonstrate understanding of assistive devices/ modifications for ADL. 3=Patient will improve strength/tolerance for activity to enable patient to perform ADL's. OT [facility]it[facility] Goals Boot And Shoe Repairman Goals Time Frame: Aug 13, 2016 Eating (FIM): 6 Eating (QC): 6 Groomin Oral Hygiene (QC): 6 Bathing(FIM): 6 Shower/Bathe Self (QC): 6 Upper Body Dressing(FIM): 6 Upper Body Dressing (QC): 6 Lower Body Dressing(FIM): 6 Lower Body Dressing (QC): 6 On/Off Footwear (QC): 6 Toileting(FIM): 6 Toileting Hygiene (QC): 6 Toilet/Commode Transfer(FIM): 6 Toilet/Commode Transfer (QC): 6 Shower Transfer(FIM): 6 Comprehension(FIM): 5 (MET) Expression (FIM): 6 (MET) Social Interaction(FIM): 6 (MET) Problem Solving(FIM): 5 (MET) Memory(FIM): 5 (MET) Additional Goals: 2-Verbalize Understanding, 3-ImproveStrength/[place] 1=Demonstrate adherence to instructed precautions during ADL tasks. 2=Patient will verbalize/demonstrate understanding of assistive devices/ modifications for ADL. 3=Patient will improve strength/tolerance for activity to enable patient to perform ADL's. OT Education/Plan Problem List/Assessment Pt would benefit from skilled OT to increase his independence in basic self care to allo whim to safely return home to [place] with his and to decrease caregiver burden. Discharge Recommendations Plan/Recommendations: Continue POC Treatment Plan/Plan of Care Patient would benefit from OT for education, treatment and training to promote independence in ADL's, mobility, safety and/or upper extremity function for ADL' s. Plan of Care: ADL Retraining, Functional Mobility, Group Exercise/Act as Ind ( education, exercise, activity tolerance, functional use UEs, funct activities), UE Funct Exercise/Act, UE Neuromus Re-Ed/Coord Treatment Duration: Aug 13, 2016 Visits Per Week: 10-12 Minutes/Day (M-F): 60-90 Minutes/Day (Sat/Etienne): PRN Agreement: Yes Rehab Potential: Good Time/GCodes Start Time: 13:00 Stop Time: 13:30 Total Time Billed (hr/min): 30 Billed Treatment Time 1 visit-LIZ 2 (30 min) LIZA ATKINSON Jul 30, 2016 13:49
--- NOTE | 2016-07-30 13:59 | Physical Therapy Daily Note ---
PT Daily Note-Current Subjective Patient sitting EOB pre tx, agrees to PT, no complaints of pain. Patient states he is pretty tired this afternoon. Appearance Patient sitting EOB post tx with nurse call, phone, tray, in room. Mental Status Patient Orientation: Normal For Age Transfers Functional [place] Measure 0=Not Assessed/NA 4=Minimal Assistance 1=Total Assistance 5=Supervision or Setup 2=Maximal Assistance 6=Modified [place] 3=Moderate Assistance 7=Complete IndependenceIRFPAI Quality Coding Scale 6 Independent with activity with or without an assistive device 5 Patient requires set up or clean up by helper. Patient completes activity by themselves 4 Supervision or touching assist (CGA). [place] provide cues , steadying assist 3 The helper provides less than half the effort to complete the activity 2 The helper provides more than half the effort to complete the activity 1 Dependent. The helper does all the effort to complete an activity 7 Patient refused to complete or attempt activity 9 The patient did not perform the activity before the current illness or injury 88 Not attempted due to Medical conditions or safety concerns Transfers (B, C, W/C) (FIM): 4 Sit to/from Stand: 4 CGA, occasional cues for safety and hand placement Gait Training Gait (FIM): 4 Distance: 150'x2 Gait Level of Assist: 4 Gait Persons Needed: 1 Gait Assistive Device: Cane Large Base Quad CGA, occasional cues to stand straiter Exercises Standing: Hip Abduction, Heel/toe raises, Mini squats Standing Reps: 20 step-ups x10 each side Treatments transfers, ambulation, functional strengthening Assessment Current Status: Fair Progress balance was a little worse due to fatigue but no LOB PT Short Term Goals Short Term Goals Time Frame: Jul 23, 2016 Gait (FIM): 2 (met) Gait Distance Comment: 50' Gait Level of Assist: 4 Gait Assistive Device: Cane Large Base Quad Wheelchair Distance: 50' PT Custodial Goals Custodial Goals PT Custodial Goals Time Frame: Aug 06, 2016 Transfers (B,C,W/C) (FIM): 5 Sit to Lying (QC): 4 Lying-Sitting on Side/Bed(QC): 4 Sit to Stand (QC): 4 Rollin Roll Left to Right (QC): 4 Chair/Erj-ek-Dzvvd Xfer(QC): 4 Car Transfer (QC): 4 Gait (FIM): 4 Distance: 150' Walk 10 feet (QC): 4 Walk 10ft-Uneven Surface(QC): 4 Walk 50ft with 2 Turns (QC): 4 Walk 150 ft (QC): 4 Gait Level of Assist: 4 Gait Assistive Device: Cane Large Base Quad Stairs (FIM): 2 # of Steps: 4 1 Step (curb) (QC): 4 4 Steps (QC): 4 12 Steps (QC): 88 Stairs Level Of Assist: 4 Picking up an Object (QC): 88 PT Plan Problem List Problem List: Activity Tolerance, Functional Strength, Safety, Balance, Gait, Transfer, Bed Mobility Treatment/Plan Treatment Plan: Continue Plan of Care Treatment Plan: Bed Mobility, Education, Functional Activity Pedro, Functional Strength, Group Therapy, Gait, Safety, Therapeutic Exercise, Transfers Treatment Duration: Aug 06, 2016 Visits Per Week: 10-11 Minutes/Day (M-F): 60-90 Minutes/Day (Sat/Etienne): 15-30 Safety Risks/Education Patient Education: Gait Training, Transfer Techniques, Correct Positioning, Safety Issues Teaching Recipient: Patient Teaching Methods: Demonstration, Discussion Response to Teaching: Reinforcement Needed Time/GCodes Time In: 1330 Time Out: 1400 Total Billed Treatment Time: 30 Total Billed Treatment 1 visit GT 15' EX 15' LATANYA FLYNN PT Jul 30, 2016 13:59
[2016-07-30 18:00] VITALS: BP 118/68
[2016-07-30] MEDS: ATORVASTATIN 20 MG (LIPITOR) TABLET PO SCH (20:25)
[2016-07-30] MEDS: traZODone 50 MG (DESYREL) TAB PO SCH (20:25)
[2016-07-31 06:20] VITALS: BP 120/55
[2016-07-31] MEDS: MULTIVIT W/MINERALS TAB (THERAGRAN M) PO SCH (06:22)
[2016-07-31] MEDS: PANTOPRAZOLE 40 MG (PROTONIX) TAB PO SCH (06:22)
--- NOTE | 2016-07-31 07:30 | PM & R (SOAP) Progress Note ---
Subjective Time Seen by Provider: 07:15 Subjective/Events-last exam Patient was seen in his room this AM Progressing well with therapies Patient min assist for transfers. Objective Exam Last Set of Vital Signs Vital Signs Date Time Temp Pulse Resp B/P (MAP) Pulse Ox O2 Delivery O2 Flow Rate FiO2 07/31/16 06:20 96.9 69 18 120/55 94 Room Air Capillary Refill : I&O Intake and Output 07/31/16 00:00 Intake Total 1210 ml Output Total 600 ml Balance 610 ml Intake Oral 1210 ml Output Urine Total 600 ml # Voids 5 # Bowel Movements 1 General: Alert, Oriented X3, Cooperative, No Acute Distress HEENT: Atraumatic, PERRLA, EOMI, Mucous Memb Moist/[place], Other (facial droop) Neck: Supple, No JVD Lungs: Clear to Auscultation Heart: Regular Rate Abdomen: Normal Bowel Sounds, Soft, No Tenderness Extremities: No Edema, Other (left foot non tender) Neuro: Other ( left HP with flaccid Left limb) Assessment/Plan Assessment 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
[2016-07-31] MEDS: DICLOFENAC 1% GEL 100 GM (VOLTAREN) TUBE TOP SCH ×4 (07:39→21:02)
[2016-07-31] MEDS: ASPIRIN E.C. 81 MG (ECOTRIN) TAB PO SCH (07:39)
[2016-07-31] MEDS: TRIAMCINOLONE 0.1% CR (KENALOG) 15 GM TUBE TOP SCH ×2 (07:39→21:02)
[2016-07-31] MEDS: BENAZEPRIL 20 MG (LOTENSIN) TAB PO SCH (07:39)
[2016-07-31] MEDS: NIFEdipine ER 60 MG (PROCARDIA XL) TAB PO SCH (07:39)
--- NOTE | 2016-07-31 08:20 | Progress Note (SOAP) ---
Subjective Time Seen by Provider: 08:15 Subjective/Events-last exam CVA. Patient leans to the left. Patient improving. Patient positive. here this morning Objective Exam Vital Signs Date Time Temp Pulse Resp B/P (MAP) Pulse Ox O2 Delivery O2 Flow Rate FiO2 07/31/16 06:20 96.9 69 18 120/55 94 Room Air 07/30/16 20:38 Room Air 07/30/16 18:00 99.0 86 20 118/68 95 Room Air 07/30/16 09:00 Room Air I & O 07/31/16 07:00 Intake Total 1210 ml Output Total 900 ml Balance 310 ml Capillary Refill : General Appearance: No Apparent Distress, WD/WN HEENT: Normal ENT Inspection Neck: Full Range of Motion, Normal Inspection Assessment/Plan Assessment/Plan Assess & Plan/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 Hypertension. GERD. TIA history. CHF history. 07/18/16. 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 Hypertension. TIA. Patient's left hand doing better. Patient doesn't know the President. . 07/19/16. CVA on left Hypertension. Patient walked a longer distance today. . 07/22/16. 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 Left leg doing better. Left arm work in progress. Melatonin unable to sleep. Give trazodone half the dose. . 07/23/16. 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 Patient getting around better. Patient improving. . 07/24/16. 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 Hypertension. TIA history. Patient working hard this morning area Patient has unsteady gait. . 07/25/16. CVA. Hypertension. GERD. TIA history. Patient improving. . 07/26/16. CVA. Hypertension. GERD. Patient using a cane today. Patient improving. . . CVA. Hypertension. Left lateral ankle pain. Patient work in progress. . 07/30/16. CVA. Hypertension Patient moving around better. . 07/31/16. 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 Hypertension. GERD. Patient improving Clinical Quality Measures DVT/VTE Risk/Contraindication: Risk Factor Score Per Nursin RFS Level Per Nursing on Admit: 4+=Very High DORA MOCK DO Jul 31, 2016 08:20
--- NOTE | 2016-07-31 08:59 | Physical Therapy Daily Note ---
PT Daily Note-Current Subjective Patient in bed pre tx, agrees to PT, no complaints of pain. Appearance Patient in recliner post tx with nurse call, phone, tray, all needs met. Mental Status Patient Orientation: Normal For Age Transfers Functional [place] Measure 0=Not Assessed/NA 4=Minimal Assistance 1=Total Assistance 5=Supervision or Setup 2=Maximal Assistance 6=Modified [place] 3=Moderate Assistance 7=Complete IndependenceIRFPAI Quality Coding Scale 6 Independent with activity with or without an assistive device 5 Patient requires set up or clean up by helper. Patient completes activity by themselves 4 Supervision or touching assist (CGA). [place] provide cues , steadying assist 3 The helper provides less than half the effort to complete the activity 2 The helper provides more than half the effort to complete the activity 1 Dependent. The helper does all the effort to complete an activity 7 Patient refused to complete or attempt activity 9 The patient did not perform the activity before the current illness or injury 88 Not attempted due to Medical conditions or safety concerns Transfers (B, C, W/C) (FIM): 4 Scootin Rollin Supine to/from Sit: 6 Sit to/from Stand: 4 CGA sit to stand Gait Training Gait (FIM): 4 Distance: 150'x2 Gait Level of Assist: 4 Gait Persons Needed: 1 Gait Assistive Device: Cane Large Base Quad min assist with occasional help for balance, cues for bigger steps on the left side, leans some to his left side, worse with fatigue Exercises LAQ left side for 5 min NuStep Minutes: 15 NuStep Workload: 5 Neuromuscular Patient performed an activity where he had to stand from a chair, ambulated to a step, step onto and over the step, ambulated to another chair, turn to the right, and sit. He did this 8 times. Worked on balance and turning to the right, which he has trouble with. Treatments bed mobility, transfers, ambulation, functional strengthening Assessment Current Status: Fair Progress improving balance PT Short Term Goals Short Term Goals Time Frame: Jul 23, 2016 Gait (FIM): 2 (met) Gait Distance Comment: 50' Gait Level of Assist: 4 Gait Assistive Device: Cane Large Base Quad Wheelchair Distance: 50' PT Retail Pos Specialist Goals Retail Pos Specialist Goals PT Retail Pos Specialist Goals Time Frame: Aug 06, 2016 Transfers (B,C,W/C) (FIM): 5 Sit to Lying (QC): 4 Lying-Sitting on Side/Bed(QC): 4 Sit to Stand (QC): 4 Rollin Roll Left to Right (QC): 4 Chair/Fdi-hz-Ssygv Xfer(QC): 4 Car Transfer (QC): 4 Gait (FIM): 4 Distance: 150' Walk 10 feet (QC): 4 Walk 10ft-Uneven Surface(QC): 4 Walk 50ft with 2 Turns (QC): 4 Walk 150 ft (QC): 4 Gait Level of Assist: 4 Gait Assistive Device: Cane Large Base Quad Stairs (FIM): 2 # of Steps: 4 1 Step (curb) (QC): 4 4 Steps (QC): 4 12 Steps (QC): 88 Stairs Level Of Assist: 4 Picking up an Object (QC): 88 PT Plan Problem List Problem List: Activity Tolerance, Functional Strength, Safety, Balance, Gait, Transfer, Bed Mobility Treatment/Plan Treatment Plan: Continue Plan of Care Treatment Plan: Bed Mobility, Education, Functional Activity Pedro, Functional Strength, Group Therapy, Gait, Safety, Therapeutic Exercise, Transfers Treatment Duration: Aug 06, 2016 Visits Per Week: 10-11 Minutes/Day (M-F): 60-90 Minutes/Day (Sat/Etienne): 15-30 Safety Risks/Education Patient Education: Gait Training, Transfer Techniques, Correct Positioning, Safety Issues Teaching Recipient: Patient Teaching Methods: Demonstration, Discussion Response to Teaching: Reinforcement Needed Time/GCodes Time In: 800 Time Out: 900 Total Billed Treatment Time: 60 Total Billed Treatment 1 visit EX 20' GT 15' NM 25' LATANYA FLYNN PT Jul 31, 2016 08:59
--- NOTE | 2016-07-31 10:46 | Occupational Ther Daily Note ---
OT Current Status-Daily Note Subjective Pt alert, sitting in recliner. Pt agreed to therapy. No c/o pain. Mental Status/Objective Patient Orientation: Person, Place, Time, Situation Functional [place] Measure 0=Not Assessed/NA 4=Minimal Assistance 1=Total Assistance 5=Supervision or Setup 2=Maximal Assistance 6=Modified [place] 3=Moderate Assistance 7=Complete [place] ADL-Treatment Functional [place] Measure 0=Not Assessed/NA 4=Minimal Assistance 1=Total Assistance 5=Supervision or Setup 2=Maximal Assistance 6=Modified [place] 3=Moderate Assistance 7=Complete IndependenceIRFPAI Quality Coding Scale 6 Independent with activity with or without an assistive device 5 Patient requires set up or clean up by helper. Patient completes activity by themselves 4 Supervision or touching assist (CGA). [place] provide cues , steadying assist 3 The helper provides less than half the effort to complete the activity 2 The helper provides more than half the effort to complete the activity 1 Dependent. The helper does all the effort to complete an activity 7 Patient refused to complete or attempt activity 9 The patient did not perform the activity before the current illness or injury 88 Not attempted due to Medical conditions or safety concerns Grooming (FIM): 6 (Sitting in w/c, pt is able to set own self up and use/clean electric razor and suction cup denture brush to complete by self.) Bathing (FIM): 4 (Using grabbars, shower bench and hand held shower pt is able to cleanse all areas except R UE then with CGA in standing while pt cleanses buttocks.) Bathing Location: L Arm, L Upper Leg, R Upper Leg, L Lower Leg (including foot) , R Lower Leg (including foot), Chest, Abdomen, Buttocks, Perineal Area Upper Body (FIM): 5 (After set up, pt takes increased time to complete but is able to complete.) Lower Body Dressing (FIM): 4 (After set up, pt is able to don pants/underwear over feet then needs CGA to stand and assist to hike over L hip. Pt doffs socks in chair with arms then assist to don socks. Pt able to don/doff shoes by self.) Toileting (FIM): 4 (CGA to manipulate clothing over hips and pt is able to cleanse self.) Transfers (B, C, W/C) (FIM): 4 (CGA for transfers.) Toilet/Commode Transfer (FIM): 4 (CGA for transfers using grabbars.) Shower Transfer(FIM): 4 (Using grabbar and shower bench, pt is able to complete with CGA.) Other Treatment Pt then worked on L UE AROM while in supine. Pt was able to complete UE dowel michi exercises 3 sets of 10 by self with 3# wt on R wrist. L elbow flexion/ extension, abd/add, tricep ext/flexion. Pt demonstrates finger flexion though finger extension is not there. Pt then completed dynamic sitting by leaning left then right touching each elbow 3 sets 5 reps. Arm bike completed duration 15 min at 20 thompson resistance with multiple breaks to increase strength, AROM and activity tolerance for daily functional tasks. After therapy, pt sitting in recliner with call light/phone in reach. All needs met in room. OT Short Term Goals Short Term Goals Time Frame: Jul 30, 2016 Bathing(FIM): 5 Upper Body Dressing(FIM): 5 Lower Body Dressing(FIM): 5 Toilet/Commode Transfer(FIM): 4 Additional Short Term Goals: 2-Verbalize Understanding, 3-ImproveStrength/Pedro 1=Demonstrate adherence to instructed precautions during ADL tasks. 2=Patient will verbalize/demonstrate understanding of assistive devices/ modifications for ADL. 3=Patient will improve strength/tolerance for activity to enable patient to perform ADL's. OT Anesthesiology Crna Goals Correction Goals Time Frame: Aug 13, 2016 Eating (FIM): 6 Eating (QC): 6 Groomin Oral Hygiene (QC): 6 Bathing(FIM): 6 Shower/Bathe Self (QC): 6 Upper Body Dressing(FIM): 6 Upper Body Dressing (QC): 6 Lower Body Dressing(FIM): 6 Lower Body Dressing (QC): 6 On/Off Footwear (QC): 6 Toileting(FIM): 6 Toileting Hygiene (QC): 6 Toilet/Commode Transfer(FIM): 6 Toilet/Commode Transfer (QC): 6 Shower Transfer(FIM): 6 Comprehension(FIM): 5 (MET) Expression (FIM): 6 (MET) Social Interaction(FIM): 6 (MET) Problem Solving(FIM): 5 (MET) Memory(FIM): 5 (MET) Additional Goals: 2-Verbalize Understanding, 3-ImproveStrength/Pedro 1=Demonstrate adherence to instructed precautions during ADL tasks. 2=Patient will verbalize/demonstrate understanding of assistive devices/ modifications for ADL. 3=Patient will improve strength/tolerance for activity to enable patient to perform ADL's. OT Education/Plan Problem List/Assessment Pt would benefit from skilled OT to increase his independence in basic self care to allo whim to safely return home to love with his and to decrease caregiver burden. Discharge Recommendations Plan/Recommendations: Continue POC Treatment Plan/Plan of Care Patient would benefit from OT for education, treatment and training to promote independence in ADL's, mobility, safety and/or upper extremity function for ADL' s. Plan of Care: ADL Retraining, Functional Mobility, Group Exercise/Act as Ind ( education, exercise, activity tolerance, functional use UEs, funct activities), UE Funct Exercise/Act, UE Neuromus Re-Ed/Coord Treatment Duration: Aug 13, 2016 Visits Per Week: 10-12 Minutes/Day (M-F): 60-90 Minutes/Day (Sat/Etienne): PRN Agreement: Yes Rehab Potential: Good Time/GCodes Start Time: 09:00 Stop Time: 10:30 Total Time Billed (hr/min): 90 Billed Treatment Time 1 visit-ADL 2 (30 min) EX 2 (23 min) NM 2 (37 min) LIZA ATKINSON Jul 31, 2016 10:45
--- NOTE | 2016-07-31 16:46 | Physical Therapy Daily Note ---
PT Daily Note-Current Subjective Pt sitting in recliner upon arrival. Pt agrees to PT. Mental Status Patient Orientation: Person, Place, Time, Situation Transfers Functional [place] Measure 0=Not Assessed/NA 4=Minimal Assistance 1=Total Assistance 5=Supervision or Setup 2=Maximal Assistance 6=Modified [place] 3=Moderate Assistance 7=Complete IndependenceIRFPAI Quality Coding Scale 6 Independent with activity with or without an assistive device 5 Patient requires set up or clean up by helper. Patient completes activity by themselves 4 Supervision or touching assist (CGA). [place] provide cues , steadying assist 3 The helper provides less than half the effort to complete the activity 2 The helper provides more than half the effort to complete the activity 1 Dependent. The helper does all the effort to complete an activity 7 Patient refused to complete or attempt activity 9 The patient did not perform the activity before the current illness or injury 88 Not attempted due to Medical conditions or safety concerns Scootin Sit to/from Stand: 5 Sit to Stand (QC): 5 Weight Bearing Weight Bearing Restriction: Full Weight Bearing Location Restriction: LE Bilateral Gait Training Does the Patient Walk?: Yes Distance (FIM): 3=150 ft Distance: 150' Walk 10 feet (QC): 4 Walk 50 ft with 2 Turns(QC): 4 Walk 150 ft (QC): 4 Gait Level of Assist: 4 Gait Persons Needed: 1 Gait Assistive Device: Cane Small Base Quad Pt walks with slight unbalance/wobble so Pt is CGA-Min A. Wheelchair Training Does the Pt Use a Wheelchair?: No Exercises Standing: Hip Abduction, Heel/toe raises, Marching, Step-ups Standing Reps: 15 Treatments Pt transferred from recliner to standing using Cane at SBA. Pt ambulated in hallway using Cane at CGA-Min A. Pt completed Standing Ex at //bars before ambulating back to room to rest. Pt sits in recliner to rest at end of tx with all needs met. Assessment Current Status: Fair Progress Pt takes rest breaks as needed due to fatigue but has improved with strengthening, activity tolerance and balance with upright activity. PT Short Term Goals Short Term Goals Time Frame: Jul 23, 2016 Gait (FIM): 2 (met) Gait Distance Comment: 50' Gait Level of Assist: 4 Gait Assistive Device: Cane Large Base Quad Wheelchair Distance: 50' PT Intermediate Goals Intermediate Goals PT Intermediate Goals Time Frame: Aug 06, 2016 Transfers (B,C,W/C) (FIM): 5 Sit to Lying (QC): 4 Lying-Sitting on Side/Bed(QC): 4 Sit to Stand (QC): 4 Rollin Roll Left to Right (QC): 4 Chair/Clk-ct-Bxyjo Xfer(QC): 4 Car Transfer (QC): 4 Gait (FIM): 4 Distance: 150' Walk 10 feet (QC): 4 Walk 10ft-Uneven Surface(QC): 4 Walk 50ft with 2 Turns (QC): 4 Walk 150 ft (QC): 4 Gait Level of Assist: 4 Gait Assistive Device: Cane Large Base Quad Stairs (FIM): 2 # of Steps: 4 1 Step (curb) (QC): 4 4 Steps (QC): 4 12 Steps (QC): 88 Stairs Level Of Assist: 4 Picking up an Object (QC): 88 PT Plan Problem List Problem List: Activity Tolerance, Functional Strength, Safety, Balance, Gait, Transfer Treatment/Plan Treatment Plan: Continue Plan of Care Treatment Plan: Bed Mobility, Education, Functional Activity Pedro, Functional Strength, Group Therapy, Gait, Safety, Therapeutic Exercise, Transfers Treatment Duration: Aug 06, 2016 Visits Per Week: 10-11 Minutes/Day (M-F): 60-90 Minutes/Day (Sat/Etienne): 15-30 Safety Risks/Education Patient Education: Gait Training, Transfer Techniques, Correct Positioning, Safety Issues Teaching Recipient: Patient Teaching Methods: Discussion Response to Teaching: Verbalize Understanding Time/GCodes Time In: 1440 Time Out: 1510 Total Billed Treatment Time: 30 Total Billed Treatment visit, GT (15m) & EX (15m) KATYA VAIL SECURITY COMPLIANCE SPECIALIST Jul 31, 2016 16:46
[2016-07-31 16:53] VITALS: BP 104/47
[2016-07-31] MEDS: traZODone 50 MG (DESYREL) TAB PO SCH (21:03)
[2016-07-31] MEDS: ATORVASTATIN 20 MG (LIPITOR) TABLET PO SCH (21:03)
[2016-08-01 05:40] VITALS: BP 126/70
[2016-08-01] MEDS: PANTOPRAZOLE 40 MG (PROTONIX) TAB PO SCH (06:04)
[2016-08-01] MEDS: MULTIVIT W/MINERALS TAB (THERAGRAN M) PO SCH (06:04)
[2016-08-01] MEDS: BENAZEPRIL 20 MG (LOTENSIN) TAB PO SCH (08:02)
[2016-08-01] MEDS: NIFEdipine ER 60 MG (PROCARDIA XL) TAB PO SCH (08:02)
[2016-08-01] MEDS: DICLOFENAC 1% GEL 100 GM (VOLTAREN) TUBE TOP SCH ×4 (08:03→20:27)
[2016-08-01] MEDS: ASPIRIN E.C. 81 MG (ECOTRIN) TAB PO SCH (08:03)
[2016-08-01] MEDS: TRIAMCINOLONE 0.1% CR (KENALOG) 15 GM TUBE TOP SCH ×2 (08:03→20:27)
[2016-08-01 08:06] VITALS: BP 143/61
--- NOTE | 2016-08-01 08:41 | Progress Note (SOAP) ---
Subjective Time Seen by Provider: 08:40 Subjective/Events-last exam CVA. Patient work and progress slowly.. Patient improving. Objective Exam Vital Signs Date Time Temp Pulse Resp B/P (MAP) Pulse Ox O2 Delivery O2 Flow Rate FiO2 08/01/16 08:06 85 143/61 08/01/16 05:40 97.1 77 16 126/70 94 Room Air 07/31/16 20:45 Room Air 07/31/16 16:53 98.7 86 18 104/47 97 Room Air 07/31/16 09:03 Room Air I & O 08/01/16 07:00 Intake Total 1210 ml Output Total 900 ml Balance 310 ml Capillary Refill : General Appearance: No Apparent Distress, WD/WN HEENT: Normal ENT Inspection Neck: Full Range of Motion, Normal Inspection Respiratory: Chest Non Tender, No Accessory Muscle Use, No Respiratory Distress , Other (cough) Cardiovascular: Regular Rate, Rhythm, No Murmur Assessment/Plan Assessment/Plan Assess & Plan/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 Hypertension. GERD. TIA history. CHF history. 07/18/16. 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 Hypertension. TIA. Patient's left hand doing better. Patient doesn't know the President. . 07/19/16. CVA on left Hypertension. Patient walked a longer distance today. . 07/22/16. 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 Left leg doing better. Left arm work in progress. Melatonin unable to sleep. Give trazodone half the dose. . 07/23/16. 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 Patient getting around better. Patient improving. . 07/24/16. 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 Hypertension. TIA history. Patient working hard this morning area Patient has unsteady gait. . 07/25/16. CVA. Hypertension. GERD. TIA history. Patient improving. . 07/26/16. CVA. Hypertension. GERD. Patient using a cane today. Patient improving. . . CVA. Hypertension. Left lateral ankle pain. Patient work in progress. . 07/30/16. CVA. Hypertension Patient moving around better. . 07/31/16. 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 Hypertension. GERD. Patient improving. . 08/01/16. 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 Hypertension. TIA history. Patient work in progress and is improving Clinical Quality Measures DVT/VTE Risk/Contraindication: Risk Factor Score Per Nursin RFS Level Per Nursing on Admit: 4+=Very High DORA MOCK DO Aug 01, 2016 08:41
--- NOTE | 2016-08-01 09:20 | Physical Therapy Daily Note ---
PT Daily Note-Current Subjective Patient in bed pre tx, agrees to PT, no complaints of pain. Appearance Patient sitting in recliner post tx with nurse call, phone, tray, all needs met. Mental Status Patient Orientation: Normal For Age Transfers Functional [place] Measure 0=Not Assessed/NA 4=Minimal Assistance 1=Total Assistance 5=Supervision or Setup 2=Maximal Assistance 6=Modified [place] 3=Moderate Assistance 7=Complete IndependenceIRFPAI Quality Coding Scale 6 Independent with activity with or without an assistive device 5 Patient requires set up or clean up by helper. Patient completes activity by themselves 4 Supervision or touching assist (CGA). [place] provide cues , steadying assist 3 The helper provides less than half the effort to complete the activity 2 The helper provides more than half the effort to complete the activity 1 Dependent. The helper does all the effort to complete an activity 7 Patient refused to complete or attempt activity 9 The patient did not perform the activity before the current illness or injury 88 Not attempted due to Medical conditions or safety concerns Transfers (B, C, W/C) (FIM): 4 Sit to/from Stand: 4 still occasional cues for hand placement and safety Gait Training Gait (FIM): 4 Distance: 200', 150'x2 Gait Level of Assist: 4 Gait Persons Needed: 1 Gait Assistive Device: Cane Large Base Quad improving with balance but still needs occasional assist Stair Training Stair Training: Handrails/: 1 handrail Stairs (FIM): 4 #of Steps: 12 Stairs: Pattern: Step to Level of Assist: 4 min assist for balance Exercises LAQ left side for 5 min NuStep Minutes: 15 NuStep Workload: 5 Treatments transfers, ambulation, functional strengthening, stair training Assessment Current Status: Fair Progress improving endurance PT Short Term Goals Short Term Goals Time Frame: Jul 23, 2016 Gait (FIM): 2 (met) Gait Distance Comment: 50' Gait Level of Assist: 4 Gait Assistive Device: Cane Large Base Quad Wheelchair Distance: 50' PT Group Home Goals Group Home Goals PT Numerical Control Router Operator Goals Time Frame: Aug 06, 2016 Transfers (B,C,W/C) (FIM): 5 Sit to Lying (QC): 4 Lying-Sitting on Side/Bed(QC): 4 Sit to Stand (QC): 4 Rollin Roll Left to Right (QC): 4 Chair/Lzq-ta-Ycrla Xfer(QC): 4 Car Transfer (QC): 4 Gait (FIM): 4 Distance: 150' Walk 10 feet (QC): 4 Walk 10ft-Uneven Surface(QC): 4 Walk 50ft with 2 Turns (QC): 4 Walk 150 ft (QC): 4 Gait Level of Assist: 4 Gait Assistive Device: Cane Large Base Quad Stairs (FIM): 2 # of Steps: 4 1 Step (curb) (QC): 4 4 Steps (QC): 4 12 Steps (QC): 88 Stairs Level Of Assist: 4 Picking up an Object (QC): 88 PT Plan Problem List Problem List: Activity Tolerance, Functional Strength, Safety, Balance, Gait, Transfer, Bed Mobility Treatment/Plan Treatment Plan: Continue Plan of Care Treatment Plan: Bed Mobility, Education, Functional Activity Pedro, Functional Strength, Group Therapy, Gait, Safety, Therapeutic Exercise, Transfers Treatment Duration: Aug 06, 2016 Visits Per Week: 10-11 Minutes/Day (M-F): 60-90 Minutes/Day (Sat/Etienne): 15-30 Safety Risks/Education Patient Education: Gait Training, Transfer Techniques, Steps Teaching Recipient: Patient Teaching Methods: Demonstration, Discussion Response to Teaching: Reinforcement Needed Time/GCodes Time In: 800 Time Out: 900 Total Billed Treatment Time: 60 Total Billed Treatment 1 visit EX 20' GT 40' LATANYA FLYNN PT Aug 01, 2016 09:20
--- NOTE | 2016-08-01 10:08 | Occupational Ther Daily Note ---
OT Current Status-Daily Note Subjective Pt alert, sitting in recliner. present in room. Pt agreed to therapy. No c/o pain. Mental Status/Objective Patient Orientation: Person, Place, Time, Situation Functional [place] Measure 0=Not Assessed/NA 4=Minimal Assistance 1=Total Assistance 5=Supervision or Setup 2=Maximal Assistance 6=Modified [place] 3=Moderate Assistance 7=Complete [place] ADL-Treatment Functional [place] Measure 0=Not Assessed/NA 4=Minimal Assistance 1=Total Assistance 5=Supervision or Setup 2=Maximal Assistance 6=Modified [place] 3=Moderate Assistance 7=Complete IndependenceIRFPAI Quality Coding Scale 6 Independent with activity with or without an assistive device 5 Patient requires set up or clean up by helper. Patient completes activity by themselves 4 Supervision or touching assist (CGA). [place] provide cues , steadying assist 3 The helper provides less than half the effort to complete the activity 2 The helper provides more than half the effort to complete the activity 1 Dependent. The helper does all the effort to complete an activity 7 Patient refused to complete or attempt activity 9 The patient did not perform the activity before the current illness or injury 88 Not attempted due to Medical conditions or safety concerns Other Treatment Pt declined any ADLs for today. Pt was transported to therapy gym via w/c. Pt completed active UE ROM activities with dowel michi for shldr flex/ext and elbow flex/ext. Pt had loose grasp on dowel michi but was able to keep hold with fingers, 3 sets 5 reps. Pt the worked on moving cones with L UE, pushing forward then toward L side. Pt uses compensatory movements to move L UE. Pt tends to think that he can't complete the movements even though he has demonstrated ability to move even slightly with UE except finger extension. Pt doesn't allow L UE to attempt movement before he uses R UE to move L UE. [place] continues to remind pt to allow L UE to attempt to move. Pt maneuvered w/c without w/c arms to room to work on dynamic sitting balance. Pt then transferred into recliner with SBA using cane. Pt then was able to doff socks by self without any LOB toward L side. After therapy, pt sitting in recliner with call light/phone in reach. All needs met in room. OT Short Term Goals Short Term Goals Time Frame: Jul 30, 2016 Bathing(FIM): 5 Upper Body Dressing(FIM): 5 Lower Body Dressing(FIM): 5 Toilet/Commode Transfer(FIM): 4 Additional Short Term Goals: 2-Verbalize Understanding, 3-ImproveStrength/Pedro 1=Demonstrate adherence to instructed precautions during ADL tasks. 2=Patient will verbalize/demonstrate understanding of assistive devices/ modifications for ADL. 3=Patient will improve strength/tolerance for activity to enable patient to perform ADL's. OT Custodial Goals Film Historian Goals Time Frame: Aug 13, 2016 Eating (FIM): 6 Eating (QC): 6 Groomin Oral Hygiene (QC): 6 Bathing(FIM): 6 Shower/Bathe Self (QC): 6 Upper Body Dressing(FIM): 6 Upper Body Dressing (QC): 6 Lower Body Dressing(FIM): 6 Lower Body Dressing (QC): 6 On/Off Footwear (QC): 6 Toileting(FIM): 6 Toileting Hygiene (QC): 6 Toilet/Commode Transfer(FIM): 6 Toilet/Commode Transfer (QC): 6 Shower Transfer(FIM): 6 Comprehension(FIM): 5 (MET) Expression (FIM): 6 (MET) Social Interaction(FIM): 6 (MET) Problem Solving(FIM): 5 (MET) Memory(FIM): 5 (MET) Additional Goals: 2-Verbalize Understanding, 3-ImproveStrength/Pedro 1=Demonstrate adherence to instructed precautions during ADL tasks. 2=Patient will verbalize/demonstrate understanding of assistive devices/ modifications for ADL. 3=Patient will improve strength/tolerance for activity to enable patient to perform ADL's. OT Education/Plan Problem List/Assessment Pt would benefit from skilled OT to increase his independence in basic self care to allo whim to safely return home to love with his and to decrease caregiver burden. Discharge Recommendations Plan/Recommendations: Continue POC Treatment Plan/Plan of Care Patient would benefit from OT for education, treatment and training to promote independence in ADL's, mobility, safety and/or upper extremity function for ADL' s. Plan of Care: ADL Retraining, Functional Mobility, Group Exercise/Act as Ind ( education, exercise, activity tolerance, functional use UEs, funct activities), UE Funct Exercise/Act, UE Neuromus Re-Ed/Coord Treatment Duration: Aug 13, 2016 Visits Per Week: 10-12 Minutes/Day (M-F): 60-90 Minutes/Day (Sat/Etienne): PRN Agreement: Yes Rehab Potential: Good Time/GCodes Start Time: 09:00 Stop Time: 10:00 Total Time Billed (hr/min): 60 Billed Treatment Time 1 visit-NM 3 (50 min) FA 1 (10 min) LIZA ATKINSON Aug 01, 2016 10:08
--- NOTE | 2016-08-01 10:46 | PM & R (SOAP) Progress Note ---
Subjective Time Seen by Provider: 08:00 Subjective/Events-last exam Patient was seen in his room this AM Patient min assist for transfers.Progressing well with therapies Objective Exam Last Set of Vital Signs Vital Signs Date Time Temp Pulse Resp B/P (MAP) Pulse Ox O2 Delivery O2 Flow Rate FiO2 08/01/16 09:19 Room Air 08/01/16 08:06 85 143/61 08/01/16 05:40 97.1 16 94 Capillary Refill : I&O Intake and Output 08/01/16 00:00 Intake Total 1210 ml Output Total 900 ml Balance 310 ml Intake Oral 1210 ml Output Urine Total 900 ml # Voids 5 General: Alert, Oriented X3, Cooperative, No Acute Distress HEENT: Atraumatic, PERRLA, EOMI, Mucous Memb Moist/Dana, Other (facial droop) Neck: Supple, No JVD Lungs: Clear to Auscultation Heart: Regular Rate Abdomen: Normal Bowel Sounds, Soft, No Tenderness Extremities: No Edema, Other (left foot non tender) Neuro: Other ( left HP with flaccid Left limb) Assessment/Plan Assessment 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
--- NOTE | 2016-08-01 14:25 | Occupational Ther Daily Note ---
OT Current Status-Daily Note Subjective Pt sitting EOB. Pt agreed to therapy. No c/o pain. Mental Status/Objective Functional [place] Measure 0=Not Assessed/NA 4=Minimal Assistance 1=Total Assistance 5=Supervision or Setup 2=Maximal Assistance 6=Modified [place] 3=Moderate Assistance 7=Complete [place] ADL-Treatment Functional [place] Measure 0=Not Assessed/NA 4=Minimal Assistance 1=Total Assistance 5=Supervision or Setup 2=Maximal Assistance 6=Modified [place] 3=Moderate Assistance 7=Complete IndependenceIRFPAI Quality Coding Scale 6 Independent with activity with or without an assistive device 5 Patient requires set up or clean up by helper. Patient completes activity by themselves 4 Supervision or touching assist (CGA). [place] provide cues , steadying assist 3 The helper provides less than half the effort to complete the activity 2 The helper provides more than half the effort to complete the activity 1 Dependent. The helper does all the effort to complete an activity 7 Patient refused to complete or attempt activity 9 The patient did not perform the activity before the current illness or injury 88 Not attempted due to Medical conditions or safety concerns Other Treatment Pt ambulated with min A to CGA using quadcane. Cues for standing up straight and to slow walking. Pt ambulated to [facility] and sat at a table. Pt completed activities that worked on R hand dexterity. R hand has decreased thumb opposition due to arthritis. Pt was able to coal picker small smooth objects with increased time and place in designated areas. 2# wt applied to wrist for 5 min then taken off due to fatigue of R UE. Pt then worked on problem solving , social interaction and sequencing with fine motor activity. Pt demonstrated good skills in these areas. PT took over care of pt. All needs met. OT Short Term Goals Short Term Goals Time Frame: Jul 30, 2016 Bathing(FIM): 5 Upper Body Dressing(FIM): 5 Lower Body Dressing(FIM): 5 Toilet/Commode Transfer(FIM): 4 Additional Short Term Goals: 2-Verbalize Understanding, 3-ImproveStrength/Pedro 1=Demonstrate adherence to instructed precautions during ADL tasks. 2=Patient will verbalize/demonstrate understanding of assistive devices/ modifications for ADL. 3=Patient will improve strength/tolerance for activity to enable patient to perform ADL's. OT Production Wood Craftsman Goals Residential Goals Time Frame: Aug 13, 2016 Eating (FIM): 6 Eating (QC): 6 Groomin Oral Hygiene (QC): 6 Bathing(FIM): 6 Shower/Bathe Self (QC): 6 Upper Body Dressing(FIM): 6 Upper Body Dressing (QC): 6 Lower Body Dressing(FIM): 6 Lower Body Dressing (QC): 6 On/Off Footwear (QC): 6 Toileting(FIM): 6 Toileting Hygiene (QC): 6 Toilet/Commode Transfer(FIM): 6 Toilet/Commode Transfer (QC): 6 Shower Transfer(FIM): 6 Comprehension(FIM): 5 (MET) Expression (FIM): 6 (MET) Social Interaction(FIM): 6 (MET) Problem Solving(FIM): 5 (MET) Memory(FIM): 5 (MET) Additional Goals: 2-Verbalize Understanding, 3-ImproveStrength/Pedro 1=Demonstrate adherence to instructed precautions during ADL tasks. 2=Patient will verbalize/demonstrate understanding of assistive devices/ modifications for ADL. 3=Patient will improve strength/tolerance for activity to enable patient to perform ADL's. OT Education/Plan Problem List/Assessment Pt would benefit from skilled OT to increase his independence in basic self care to allo whim to safely return home to love with his and to decrease caregiver burden. Discharge Recommendations Plan/Recommendations: Continue POC Treatment Plan/Plan of Care Patient would benefit from OT for education, treatment and training to promote independence in ADL's, mobility, safety and/or upper extremity function for ADL' s. Plan of Care: ADL Retraining, Functional Mobility, Group Exercise/Act as Ind ( education, exercise, activity tolerance, functional use UEs, funct activities), UE Funct Exercise/Act, UE Neuromus Re-Ed/Coord Treatment Duration: Aug 13, 2016 Visits Per Week: 10-12 Minutes/Day (M-F): 60-90 Minutes/Day (Sat/Etienne): PRN Agreement: Yes Rehab Potential: Good Time/GCodes Start Time: 13:00 Stop Time: 13:30 Total Time Billed (hr/min): 30 Billed Treatment Time 1 visit-EX 2 (30 min) LIZA ATKINSON Aug 01, 2016 14:25
--- NOTE | 2016-08-01 15:23 | Physical Therapy Daily Note ---
PT Daily Note-Current Subjective Pt sitting in chair at table in Therapy [facility] upon arrival. Pt agrees to PT. Mental Status Patient Orientation: Person, Place, Situation Transfers Functional [place] Measure 0=Not Assessed/NA 4=Minimal Assistance 1=Total Assistance 5=Supervision or Setup 2=Maximal Assistance 6=Modified [place] 3=Moderate Assistance 7=Complete IndependenceIRFPAI Quality Coding Scale 6 Independent with activity with or without an assistive device 5 Patient requires set up or clean up by helper. Patient completes activity by themselves 4 Supervision or touching assist ([facility]). [place] provide cues , steadying assist 3 The helper provides less than half the effort to complete the activity 2 The helper provides more than half the effort to complete the activity 1 Dependent. The helper does all the effort to complete an activity 7 Patient refused to complete or attempt activity 9 The patient did not perform the activity before the current illness or injury 88 Not attempted due to Medical conditions or safety concerns Scootin Sit to/from Stand: 4 Sit to Stand (QC): 4 Weight Bearing Weight Bearing Restriction: Full Weight Bearing Location Restriction: LE Bilateral Gait Training Does the Patient Walk?: Yes Distance (FIM): 3=150 ft Distance: 150' Walk 10 feet (QC): 4 Walk 50 ft with 2 Turns(QC): 4 Walk 150 ft (QC): 3 Gait Level of Assist: 3 Gait Persons Needed: 1 Gait Assistive Device: Cane Small Base Quad Pt fatigued quicker this afternoon. Pt had LOB in which PT had to help support pt to assist from LOB. Wheelchair Training Does the Pt Use a Wheelchair?: No Exercises Seated Therapy Exercises: Ankle pumps, Long arc quads, Hip flexion, Kicking activity Seated Reps: 20 Treatments Pt transferred from chair in [place] to standing at [facility] using Cane. Pt ambulated using Cane at Min-Mod A. Pt needed to use restroom so returned to room. Pt then returned to recliner to rest then completed Seated Ex in recliner. Pt rests in recliner at end of tx with all needs met. Assessment Current Status: Fair Progress Pt needed more assistance during ambulation due to fatigue. Pt had LOB but PT assisted pt to regain. PT Short Term Goals Short Term Goals Time Frame: Jul 23, 2016 Gait (FIM): 2 (met) Gait Distance Comment: 50' Gait Level of Assist: 4 Gait Assistive Device: Cane Large Base Quad Wheelchair Distance: 50' PT It Business Analyst Goals It Business Analyst Goals PT Usp Goals Time Frame: Aug 06, 2016 Transfers (B,C,W/C) (FIM): 5 Sit to Lying (QC): 4 Lying-Sitting on Side/Bed(QC): 4 Sit to Stand (QC): 4 Rollin Roll Left to Right (QC): 4 Chair/Zck-uf-Getol Xfer(QC): 4 Car Transfer (QC): 4 Gait (FIM): 4 Distance: 150' Walk 10 feet (QC): 4 Walk 10ft-Uneven Surface(QC): 4 Walk 50ft with 2 Turns (QC): 4 Walk 150 ft (QC): 4 Gait Level of Assist: 4 Gait Assistive Device: Cane Large Base Quad Stairs (FIM): 2 # of Steps: 4 1 Step (curb) (QC): 4 4 Steps (QC): 4 12 Steps (QC): 88 Stairs Level Of Assist: 4 Picking up an Object (QC): 88 PT Plan Problem List Problem List: Activity Tolerance, Functional Strength, Safety, Balance, Gait, Transfer Treatment/Plan Treatment Plan: Continue Plan of Care Treatment Plan: Bed Mobility, Education, Functional Activity Pedro, Functional Strength, Group Therapy, Gait, Safety, Therapeutic Exercise, Transfers Treatment Duration: Aug 06, 2016 Visits Per Week: 10-11 Minutes/Day (M-F): 60-90 Minutes/Day (Sat/Etienne): 15-30 Safety Risks/Education Patient Education: Gait Training, Transfer Techniques, Correct Positioning, Safety Issues Teaching Recipient: Patient Teaching Methods: Discussion Response to Teaching: Verbalize Understanding Time/GCodes Time In: 1330 Time Out: 1400 Total Billed Treatment Time: 30 Total Billed Treatment visit, GT (15m) & Ex (15m) KATYA VAIL PTA Aug 01, 2016 15:23
[2016-08-01 17:37] VITALS: BP 116/66
[2016-08-01] MEDS: traZODone 50 MG (DESYREL) TAB PO SCH (20:25)
[2016-08-01] MEDS: ATORVASTATIN 20 MG (LIPITOR) TABLET PO SCH (20:25)
[2016-08-02 06:30] VITALS: BP 133/61
[2016-08-02] MEDS: PANTOPRAZOLE 40 MG (PROTONIX) TAB PO SCH (06:34)
[2016-08-02] MEDS: MULTIVIT W/MINERALS TAB (THERAGRAN M) PO SCH (06:34)
--- NOTE | 2016-08-02 07:55 | PM & R (SOAP) Progress Note ---
Subjective Time Seen by Provider: 07:45 Subjective/Events-last exam Patient was seen in his room this AM Patient and spouse requesta a day pass for this weekend.Therapy to work on car transfers Objective Exam Last Set of Vital Signs Vital Signs Date Time Temp Pulse Resp B/P (MAP) Pulse Ox O2 Delivery O2 Flow Rate FiO2 08/02/16 06:30 98.7 71 18 133/61 95 Room Air Capillary Refill : I&O Intake and Output 08/02/16 00:00 Intake Total 1330 ml Output Total 1300 ml Balance 30 ml Intake Oral 1330 ml Output Urine Total 1300 ml # Voids 1 # Bowel Movements 1 General: Alert, Oriented X3, Cooperative, No Acute Distress HEENT: Atraumatic, PERRLA, EOMI, Mucous Memb Moist/[place], Other (facial droop) Neck: Supple, No JVD Lungs: Clear to Auscultation Heart: Regular Rate Abdomen: Normal Bowel Sounds, Soft, No Tenderness Extremities: No Edema, Other (left foot non tender) Neuro: Other ( left HP with flaccid Left limb) Assessment/Plan Assessment 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 KHALIDA FUNEZ MD Aug 02, 2016 07:55
--- NOTE | 2016-08-02 08:02 | Progress Note (SOAP) ---
Subjective Time Seen by Provider: 07:59 Subjective/Events-last exam CVA. Patient feels more comfortable with himself. Patient improving with his steadiness. Patient having progress Objective Exam Vital Signs Date Time Temp Pulse Resp B/P (MAP) Pulse Ox O2 Delivery O2 Flow Rate FiO2 08/02/16 06:30 98.7 71 18 133/61 95 Room Air 08/01/16 20:30 Room Air 08/01/16 17:37 98.1 72 18 116/66 97 Room Air 08/01/16 09:19 Room Air 08/01/16 08:06 85 143/61 I & O 08/02/16 07:00 Intake Total 1580 ml Output Total 1100 ml Balance 480 ml Capillary Refill : General Appearance: No Apparent Distress, WD/WN HEENT: Normal ENT Inspection Neck: Full Range of Motion, Normal Inspection Respiratory: Chest Non Tender, No Accessory Muscle Use, No Respiratory Distress Cardiovascular: Regular Rate, Rhythm, Normal Peripheral Pulses Assessment/Plan Assessment/Plan Assess & Plan/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 Hypertension. GERD. TIA history. CHF history. 07/18/16. 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 Hypertension. TIA. Patient's left hand doing better. Patient doesn't know the President. . 07/19/16. CVA on left Hypertension. Patient walked a longer distance today. . 07/22/16. 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 Left leg doing better. Left arm work in progress. Melatonin unable to sleep. Give trazodone half the dose. . 07/23/16. 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 Patient getting around better. Patient improving. . 07/24/16. 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 Hypertension. TIA history. Patient working hard this morning area Patient has unsteady gait. . 07/25/16. CVA. Hypertension. GERD. TIA history. Patient improving. . 07/26/16. CVA. Hypertension. GERD. Patient using a cane today. Patient improving. . . CVA. Hypertension. Left lateral ankle pain. Patient work in progress. . 07/30/16. CVA. Hypertension Patient moving around better. . 07/31/16. 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 Hypertension. GERD. Patient improving. . 08/01/16. 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 Hypertension. TIA history. Patient work in progress and is improving. . 08/01/16. 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 Hypertension.. Patient is improving slowly with his gait. . 08/02/16. 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 Hypertension. Patient improving area Patient voicing no complaints Clinical Quality Measures DVT/VTE Risk/Contraindication: Risk Factor Score Per Nursin RFS Level Per Nursing on Admit: 4+=Very High DORA MOCK DO Aug 02, 2016 08:02
[2016-08-02] MEDS: BENAZEPRIL 20 MG (LOTENSIN) TAB PO SCH (08:29)
[2016-08-02] MEDS: ASPIRIN E.C. 81 MG (ECOTRIN) TAB PO SCH (08:29)
[2016-08-02] MEDS: DICLOFENAC 1% GEL 100 GM (VOLTAREN) TUBE TOP SCH ×4 (08:29→20:48)
[2016-08-02] MEDS: NIFEdipine ER 60 MG (PROCARDIA XL) TAB PO SCH (08:29)
[2016-08-02] MEDS: TRIAMCINOLONE 0.1% CR (KENALOG) 15 GM TUBE TOP SCH ×2 (08:29→20:48)
--- NOTE | 2016-08-02 10:52 | Occupational Ther Daily Note ---
OT Current Status-Daily Note Subjective Pt sitting EOB, alert. Pt agreed to therapy. No c/o pain. Pt's present and stated that she wanted to work with her and complete ADLs with him. Mental Status/Objective Patient Orientation: Person, Place, Time, Situation Functional [place] Measure 0=Not Assessed/NA 4=Minimal Assistance 1=Total Assistance 5=Supervision or Setup 2=Maximal Assistance 6=Modified [place] 3=Moderate Assistance 7=Complete [place] ADL-Treatment was able to transfer pt from EOB to w/c with SBA of ALTMAN. Pt then maneuvered w/c to bathroom to complete own grooming. stated that their bathroom at home was not wide enough for a w/c and pt would have to ambulate with cane into bathroom. ALTMAN had pt wheel out of bathroom to be able to ambulate into bathroom with . ambulated with pt on L side and ALTMAN on R side with CGA using quadcane. Pt transferred into shower using grabbar, shower bench and quadcane with CGA. Pt's assisted pt in doffing pants over hips while pt stood and held onto grabbars. Pt bathed self sitting on shower bench, 1 LOB toward L side when cleansing L lower leg. Pt stood with close SBA using grabbars while pt's cleansed buttocks. Pt's rinsed and dried pt after bathing. Assist to don pt's socks, pt able to doff sock in a supported seated position. Pt donned pants over feet and pull up legs then stood with quadcane while hike pants over hips. Pt donned shoes by self. assisted pt with shirt. Then pt maneuvered w/c to large shower room to work on stepping into tub. Min A for balance while pt held onto grabbar to step into tub. Pt was able to lift each legs over tub by self, no LOB during transfer. Pt's stated that they will only have room for a tub seat and will use a cabinet positioned over the faucet in the tub. After therapy, pt sitting in recliner with call light/phone in reach. All needs met in room. Functional [place] Measure 0=Not Assessed/NA 4=Minimal Assistance 1=Total Assistance 5=Supervision or Setup 2=Maximal Assistance 6=Modified [place] 3=Moderate Assistance 7=Complete IndependenceIRFPAI Quality Coding Scale 6 Independent with activity with or without an assistive device 5 Patient requires set up or clean up by helper. Patient completes activity by themselves 4 Supervision or touching assist (CGA). [place] provide cues , steadying assist 3 The helper provides less than half the effort to complete the activity 2 The helper provides more than half the effort to complete the activity 1 Dependent. The helper does all the effort to complete an activity 7 Patient refused to complete or attempt activity 9 The patient did not perform the activity before the current illness or injury 88 Not attempted due to Medical conditions or safety concerns OT Short Term Goals Short Term Goals Time Frame: Jul 30, 2016 Bathing(FIM): 5 Upper Body Dressing(FIM): 5 Lower Body Dressing(FIM): 5 Toilet/Commode Transfer(FIM): 4 Additional Short Term Goals: 2-Verbalize Understanding, 3-ImproveStrength/Pedro 1=Demonstrate adherence to instructed precautions during ADL tasks. 2=Patient will verbalize/demonstrate understanding of assistive devices/ modifications for ADL. 3=Patient will improve strength/tolerance for activity to enable patient to perform ADL's. OT Assembly Manager Goals Residential Goals Time Frame: Aug 13, 2016 Eating (FIM): 6 Eating (QC): 6 Groomin Oral Hygiene (QC): 6 Bathing(FIM): 6 Shower/Bathe Self (QC): 6 Upper Body Dressing(FIM): 6 Upper Body Dressing (QC): 6 Lower Body Dressing(FIM): 6 Lower Body Dressing (QC): 6 On/Off Footwear (QC): 6 Toileting(FIM): 6 Toileting Hygiene (QC): 6 Toilet/Commode Transfer(FIM): 6 Toilet/Commode Transfer (QC): 6 Shower Transfer(FIM): 6 Comprehension(FIM): 5 (MET) Expression (FIM): 6 (MET) Social Interaction(FIM): 6 (MET) Problem Solving(FIM): 5 (MET) Memory(FIM): 5 (MET) Additional Goals: 2-Verbalize Understanding, 3-ImproveStrength/Pedro 1=Demonstrate adherence to instructed precautions during ADL tasks. 2=Patient will verbalize/demonstrate understanding of assistive devices/ modifications for ADL. 3=Patient will improve strength/tolerance for activity to enable patient to perform ADL's. OT Education/Plan Problem List/Assessment Pt would benefit from skilled OT to increase his independence in basic self care to allo whim to safely return home to love with his and to decrease caregiver burden. Discharge Recommendations Plan/Recommendations: Continue POC Treatment Plan/Plan of Care Patient would benefit from OT for education, treatment and training to promote independence in ADL's, mobility, safety and/or upper extremity function for ADL' s. Plan of Care: ADL Retraining, Functional Mobility, Group Exercise/Act as Ind ( education, exercise, activity tolerance, functional use UEs, funct activities), UE Funct Exercise/Act, UE Neuromus Re-Ed/Coord Treatment Duration: Aug 13, 2016 Visits Per Week: 10-12 Minutes/Day (M-F): 60-90 Minutes/Day (Sat/Etienne): PRN Agreement: Yes Rehab Potential: Good Time/GCodes Start Time: 08:00 Stop Time: 09:00 Total Time Billed (hr/min): 60 Billed Treatment Time 1 visit-ADL 3 (40 min) FA 1 (20 min) LIZA ATKINSON Aug 02, 2016 10:52
--- NOTE | 2016-08-02 11:30 | Physical Therapy Daily Note ---
PT Daily Note-Current Subjective Patient in recliner pre tx, agrees to PT, no complaints of pain. His states that he will probably have to go down the stairs from their home backwards and would like for him to try that today. Appearance Patient sitting EOB post tx with nurse call, phone, tray, in room. Mental Status Patient Orientation: Normal For Age Transfers Functional [place] Measure 0=Not Assessed/NA 4=Minimal Assistance 1=Total Assistance 5=Supervision or Setup 2=Maximal Assistance 6=Modified [place] 3=Moderate Assistance 7=Complete IndependenceIRFPAI Quality Coding Scale 6 Independent with activity with or without an assistive device 5 Patient requires set up or clean up by helper. Patient completes activity by themselves 4 Supervision or touching assist (CGA). [place] provide cues , steadying assist 3 The helper provides less than half the effort to complete the activity 2 The helper provides more than half the effort to complete the activity 1 Dependent. The helper does all the effort to complete an activity 7 Patient refused to complete or attempt activity 9 The patient did not perform the activity before the current illness or injury 88 Not attempted due to Medical conditions or safety concerns Transfers (B, C, W/C) (FIM): 4 Sit to/from Stand: 4 CGA for sit to stand, occasional cues for hand placement and safety Gait Training Gait (FIM): 4 Distance: 200', 150'x2 Gait Level of Assist: 4 Gait Persons Needed: 1 Gait Assistive Device: Cane Large Base Quad Patient has made progress with balance but is still min A with ambulation for balance, but barely, he is almost CGA. Stair Training Stair Training: Handrails/: 1 handrail Stairs (FIM): 2 Stairs: Pattern: Step to Level of Assist: 4 min A for balance, went down the steps backwards, cues for safety and foot placement, to stand up strait Exercises LAQ left side for 5 min NuStep Minutes: 15 NuStep Workload: 5 Treatments transfers, ambulation, functional strengthening (to strengthen left leg to improve mobility), stair training Assessment Current Status: Fair Progress improving balance and mobility, patient still fatigues fairly quickly and needs frequent rest breaks PT Short Term Goals Short Term Goals Time Frame: Jul 23, 2016 Gait (FIM): 2 (met) Gait Distance Comment: 50' Gait Level of Assist: 4 Gait Assistive Device: Cane Large Base Quad Wheelchair Distance: 50' PT Nursing Home Goals Nursing Home Goals PT Nursing Home Goals Time Frame: Aug 06, 2016 Transfers (B,C,W/C) (FIM): 5 Sit to Lying (QC): 4 Lying-Sitting on Side/Bed(QC): 4 Sit to Stand (QC): 4 Rollin Roll Left to Right (QC): 4 Chair/Bbs-pe-Idhph Xfer(QC): 4 Car Transfer (QC): 4 Gait (FIM): 4 Distance: 150' Walk 10 feet (QC): 4 Walk 10ft-Uneven Surface(QC): 4 Walk 50ft with 2 Turns (QC): 4 Walk 150 ft (QC): 4 Gait Level of Assist: 4 Gait Assistive Device: Cane Large Base Quad Stairs (FIM): 2 # of Steps: 4 1 Step (curb) (QC): 4 4 Steps (QC): 4 12 Steps (QC): 88 Stairs Level Of Assist: 4 Picking up an Object (QC): 88 PT Plan Problem List Problem List: Activity Tolerance, Functional Strength, Safety, Balance, Gait, Transfer, Bed Mobility Treatment/Plan Treatment Plan: Continue Plan of Care Treatment Plan: Bed Mobility, Education, Functional Activity Pedro, Functional Strength, Group Therapy, Gait, Safety, Therapeutic Exercise, Transfers Treatment Duration: Aug 06, 2016 Visits Per Week: 10-11 Minutes/Day (M-F): 60-90 Minutes/Day (Sat/Etienne): 15-30 Safety Risks/Education Patient Education: Gait Training, Transfer Techniques, Steps, Correct Positioning, Safety Issues Teaching Recipient: Patient Teaching Methods: Demonstration, Discussion Response to Teaching: Reinforcement Needed Time/GCodes Time In: 1030 Time Out: 1130 Total Billed Treatment Time: 60 Total Billed Treatment 1 visit EX 20' FA 10' GT 30' LATANYA FLYNN PT Aug 02, 2016 11:30
--- NOTE | 2016-08-02 14:16 | Therapy Group Daily Note ---
Therapy Daily Group Note Patient Education Topic Home Safety Exercises LE Seated Exercise, UE Exercise Other/Notes Patient participated in group therapy in the common area of rehab. Each patient ambulated or was transported to the common area of rehab and patients sat in a [place]. Each patient then had to introduce themselves, state where they were from and recall a specific memory from the past. Patient's had active participation in a discussion about home safety. Each patient participated and interjected ideas and answers. Interspersed throughout the discussion were upper and lower extremity exercises. Afterward, patients ambulated or were transported back to their rooms and placed in bed or chair with nurse call, phone, tray, all needs met. Start Time: 13:00 Stop Time: 14:00 Total Billed Treatment Time: 60 Total Billed Treatment 1 visit GRP [id number] YE PT Aug 02, 2016 14:16
[2016-08-02 18:10] VITALS: BP 128/73
[2016-08-02] MEDS: traZODone 50 MG (DESYREL) TAB PO SCH (20:48)
[2016-08-02] MEDS: ATORVASTATIN 20 MG (LIPITOR) TABLET PO SCH (20:48)
[2016-08-03] MEDS: MULTIVIT W/MINERALS TAB (THERAGRAN M) PO SCH (05:56)
[2016-08-03] MEDS: PANTOPRAZOLE 40 MG (PROTONIX) TAB PO SCH (05:56)
[2016-08-03 05:58] VITALS: BP 130/65
[2016-08-03] MEDS: NIFEdipine ER 60 MG (PROCARDIA XL) TAB PO SCH (08:08)
[2016-08-03] MEDS: DICLOFENAC 1% GEL 100 GM (VOLTAREN) TUBE TOP SCH ×4 (08:08→20:42)
[2016-08-03] MEDS: TRIAMCINOLONE 0.1% CR (KENALOG) 15 GM TUBE TOP SCH ×2 (08:08→20:42)
[2016-08-03] MEDS: ASPIRIN E.C. 81 MG (ECOTRIN) TAB PO SCH (08:08)
[2016-08-03] MEDS: BENAZEPRIL 20 MG (LOTENSIN) TAB PO SCH (08:08)
--- NOTE | 2016-08-03 12:16 | Physical Therapy Daily Note ---
PT Daily Note-Current Subjective Pt agreeable to therapy. Reports he is going on a home pass tomorrow. Mental Status Patient Orientation: Normal For Age Transfers Functional [place] Measure 0=Not Assessed/NA 4=Minimal Assistance 1=Total Assistance 5=Supervision or Setup 2=Maximal Assistance 6=Modified [place] 3=Moderate Assistance 7=Complete IndependenceIRFPAI Quality Coding Scale 6 Independent with activity with or without an assistive device 5 Patient requires set up or clean up by helper. Patient completes activity by themselves 4 Supervision or touching assist (CGA). [place] provide cues , steadying assist 3 The helper provides less than half the effort to complete the activity 2 The helper provides more than half the effort to complete the activity 1 Dependent. The helper does all the effort to complete an activity 7 Patient refused to complete or attempt activity 9 The patient did not perform the activity before the current illness or injury 88 Not attempted due to Medical conditions or safety concerns Gait Training Gait (FIM): 4 Distance (FIM): 3=150 ft Distance: 150 Gait Level of Assist: 4 Gait Persons Needed: 1 Gait Assistive Device: Cane Large Base Quad Education on gait safety including position awareness, slowed noel, and forward planning for transfers and advanced surfaces. Pt amb 150ft x 2 trials with a quad cane. Instruction on turning safely to approach chair and slowing down in order to make safe decisions. Assessment Pt had one loss of balance during gait requiring Min assist to correct. He takes instruction well. Pt's was instructed to make sure he takes his time during his home visit tomorrow. PT Short Term Goals Short Term Goals Time Frame: Jul 23, 2016 Gait (FIM): 2 (met) Gait Distance Comment: 50' Gait Level of Assist: 4 Gait Assistive Device: Cane Large Base Quad Wheelchair Distance: 50' PT Fci Goals Fci Goals PT Fci Goals Time Frame: Aug 06, 2016 Transfers (B,C,W/C) (FIM): 5 Sit to Lying (QC): 4 Lying-Sitting on Side/Bed(QC): 4 Sit to Stand (QC): 4 Rollin Roll Left to Right (QC): 4 Chair/Eza-xt-Yzfau Xfer(QC): 4 Car Transfer (QC): 4 Gait (FIM): 4 Distance: 150' Walk 10 feet (QC): 4 Walk 10ft-Uneven Surface(QC): 4 Walk 50ft with 2 Turns (QC): 4 Walk 150 ft (QC): 4 Gait Level of Assist: 4 Gait Assistive Device: Cane Large Base Quad Stairs (FIM): 2 # of Steps: 4 1 Step (curb) (QC): 4 4 Steps (QC): 4 12 Steps (QC): 88 Stairs Level Of Assist: 4 Picking up an Object (QC): 88 PT Plan Problem List Problem List: Safety, Balance, Gait, Transfer Treatment/Plan Treatment Plan: Continue Plan of Care Treatment Plan: Bed Mobility, Education, Functional Activity Pedro, Functional Strength, Group Therapy, Gait, Safety, Therapeutic Exercise, Transfers Treatment Duration: Aug 06, 2016 Visits Per Week: 10-11 Minutes/Day (M-F): 60-90 Minutes/Day (Sat/Etienne): 15-30 Safety Risks/Education Patient Education: Gait Training Response to Teaching: Verbalize Understanding Time/GCodes Time In: 1030 Time Out: 1050 Total Billed Treatment Time: 20 Total Billed Treatment visit, gait 20 min KADEN OROSCO PT Aug 03, 2016 12:16
[2016-08-03 17:21] VITALS: BP 114/61
[2016-08-03] MEDS: traZODone 50 MG (DESYREL) TAB PO SCH (20:36)
[2016-08-03] MEDS: ATORVASTATIN 20 MG (LIPITOR) TABLET PO SCH (20:36)
[2016-08-04] MEDS: PANTOPRAZOLE 40 MG (PROTONIX) TAB PO SCH (05:38)
[2016-08-04] MEDS: MULTIVIT W/MINERALS TAB (THERAGRAN M) PO SCH (05:38)
[2016-08-04 05:59] VITALS: BP 135/80
[2016-08-04 08:59] VITALS: BP 158/77
[2016-08-04] MEDS: BENAZEPRIL 20 MG (LOTENSIN) TAB PO SCH (08:59)
[2016-08-04] MEDS: ASPIRIN E.C. 81 MG (ECOTRIN) TAB PO SCH (08:59)
[2016-08-04] MEDS: NIFEdipine ER 60 MG (PROCARDIA XL) TAB PO SCH (08:59)
[2016-08-04] MEDS: TRIAMCINOLONE 0.1% CR (KENALOG) 15 GM TUBE TOP SCH ×2 (09:00→20:44)
[2016-08-04] MEDS: DICLOFENAC 1% GEL 100 GM (VOLTAREN) TUBE TOP SCH ×4 (09:00→20:45)
[2016-08-04 18:49] VITALS: BP 123/70
[2016-08-04] MEDS: traZODone 50 MG (DESYREL) TAB PO SCH (20:44)
[2016-08-04] MEDS: ATORVASTATIN 20 MG (LIPITOR) TABLET PO SCH (20:44)
[2016-08-05] MEDS: ACETAMINOPHEN 500 MG TAB (TYLENOL) PO PRN ×2 (02:57→20:22)
[2016-08-05 04:46] VITALS: BP 124/62
[2016-08-05] MEDS: MULTIVIT W/MINERALS TAB (THERAGRAN M) PO SCH (06:29)
[2016-08-05] MEDS: PANTOPRAZOLE 40 MG (PROTONIX) TAB PO SCH (06:29)
[2016-08-05] MEDS: TRIAMCINOLONE 0.1% CR (KENALOG) 15 GM TUBE TOP SCH ×2 (08:04→21:00)
[2016-08-05] MEDS: BENAZEPRIL 20 MG (LOTENSIN) TAB PO SCH (08:04)
[2016-08-05] MEDS: ASPIRIN E.C. 81 MG (ECOTRIN) TAB PO SCH (08:04)
[2016-08-05] MEDS: NIFEdipine ER 60 MG (PROCARDIA XL) TAB PO SCH (08:04)
[2016-08-05] MEDS: DICLOFENAC 1% GEL 100 GM (VOLTAREN) TUBE TOP SCH ×4 (08:04→21:00)
--- NOTE | 2016-08-05 08:16 | Progress Note (SOAP) ---
Subjective Time Seen by Provider: 08:14 Subjective/Events-last exam CVA. Patient is improving. Patient less chance for fall Objective Exam Vital Signs Date Time Temp Pulse Resp B/P (MAP) Pulse Ox O2 Delivery O2 Flow Rate FiO2 08/05/16 04:46 98.6 69 18 124/62 96 Room Air 08/04/16 20:10 Room Air 08/04/16 18:49 98.5 84 16 123/70 95 08/04/16 09:59 Room Air 08/04/16 08:59 85 158/77 I & O 08/05/16 07:00 Intake Total 640 ml Output Total 900 ml Balance -260 ml Capillary Refill : General Appearance: No Apparent Distress, Thin HEENT: Normal ENT Inspection Neck: Normal Inspection Respiratory: No Accessory Muscle Use, No Respiratory Distress Cardiovascular: Regular Rate, Rhythm Assessment/Plan Assessment/Plan Assess & Plan/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 Hypertension. GERD. TIA history. CHF history. 07/18/16. 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 Hypertension. TIA. Patient's left hand doing better. Patient doesn't know the President. . 07/19/16. CVA on left Hypertension. Patient walked a longer distance today. . 07/22/16. 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 Left leg doing better. Left arm work in progress. Melatonin unable to sleep. Give trazodone half the dose. . 07/23/16. 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 Patient getting around better. Patient improving. . 07/24/16. 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 Hypertension. TIA history. Patient working hard this morning area Patient has unsteady gait. . 07/25/16. CVA. Hypertension. GERD. TIA history. Patient improving. . 07/26/16. CVA. Hypertension. GERD. Patient using a cane today. Patient improving. . . CVA. Hypertension. Left lateral ankle pain. Patient work in progress. . 07/30/16. CVA. Hypertension Patient moving around better. . 07/31/16. 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 Hypertension. GERD. Patient improving. . 08/01/16. 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 Hypertension. TIA history. Patient work in progress and is improving. . 08/01/16. 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 Hypertension.. Patient is improving slowly with his gait. . 08/02/16. 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 Hypertension. Patient improving area Patient voicing no complaints. . 08/05/16. 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 Hypertension. Patient left hand hurt last night but now . Patient has more steady gait Clinical Quality Measures DVT/VTE Risk/Contraindication: Risk Factor Score Per Nursin RFS Level Per Nursing on Admit: 4+=Very High DORA MOCK DO Aug 05, 2016 08:16
--- NOTE | 2016-08-05 10:57 | Physical Therapy Daily Note ---
PT Daily Note-Current Subjective Patient in recliner pre tx, agrees to PT, no complaints of pain. Patient was toileted for a BM, had to go back to his room for this. Appearance Patient in recliner post tx with nurse call, luh, in room. Mental Status Patient Orientation: Normal For Age Transfers Functional [place] Measure 0=Not Assessed/NA 4=Minimal Assistance 1=Total Assistance 5=Supervision or Setup 2=Maximal Assistance 6=Modified [place] 3=Moderate Assistance 7=Complete IndependenceIRFPAI Quality Coding Scale 6 Independent with activity with or without an assistive device 5 Patient requires set up or clean up by helper. Patient completes activity by themselves 4 Supervision or touching assist (CGA). [place] provide cues , steadying assist 3 The helper provides less than half the effort to complete the activity 2 The helper provides more than half the effort to complete the activity 1 Dependent. The helper does all the effort to complete an activity 7 Patient refused to complete or attempt activity 9 The patient did not perform the activity before the current illness or injury 88 Not attempted due to Medical conditions or safety concerns Transfers (B, C, W/C) (FIM): 4 Sit to/from Stand: 4 CGA, patient did not need any assist with balance when going sit to stand but he did need an occasional cue for hand placement Gait Training Gait (FIM): 4 Distance: 150'x4 Gait Level of Assist: 4 Gait Persons Needed: 1 Gait Assistive Device: Cane Large Base Quad min assist (barely for balance), leans a little to the left but is improving with this Stair Training Stair Training: Handrails/: 1 handrail Stairs (FIM): 4 #of Steps: 12 Stairs: Pattern: Step to Level of Assist: 4 min assist for balance, was aware of correct step sequence Exercises LAQ for 5 min left side with 2# ankle weight NuStep Minutes: 15 NuStep Workload: 6 Treatments transfers, ambulation, functional strengthening, stair training, patient was toileted once Assessment Current Status: Fair Progress slowly improving balance, patient was pretty fatigued after tx due to more walking PT Short Term Goals Short Term Goals Time Frame: Jul 23, 2016 Gait (FIM): 2 (met) Gait Distance Comment: 50' Gait Level of Assist: 4 Gait Assistive Device: Cane Large Base Quad Wheelchair Distance: 50' PT Senior Living Goals Senior Living Goals PT Senior Living Goals Time Frame: Aug 06, 2016 Transfers (B,C,W/C) (FIM): 5 Sit to Lying (QC): 4 Lying-Sitting on Side/Bed(QC): 4 Sit to Stand (QC): 4 Rollin Roll Left to Right (QC): 4 Chair/Jao-eo-Dfxva Xfer(QC): 4 Car Transfer (QC): 4 Gait (FIM): 4 Distance: 150' Walk 10 feet (QC): 4 Walk 10ft-Uneven Surface(QC): 4 Walk 50ft with 2 Turns (QC): 4 Walk 150 ft (QC): 4 Gait Level of Assist: 4 Gait Assistive Device: Cane Large Base Quad Stairs (FIM): 2 # of Steps: 4 1 Step (curb) (QC): 4 4 Steps (QC): 4 12 Steps (QC): 88 Stairs Level Of Assist: 4 Picking up an Object (QC): 88 PT Plan Problem List Problem List: Activity Tolerance, Functional Strength, Safety, Balance, Gait, Transfer, Bed Mobility, ROM Treatment/Plan Treatment Plan: Continue Plan of Care Treatment Plan: Bed Mobility, Education, Functional Activity Pedro, Functional Strength, Group Therapy, Gait, Safety, Therapeutic Exercise, Transfers Treatment Duration: Aug 06, 2016 Visits Per Week: 10-11 Minutes/Day (M-F): 60-90 Minutes/Day (Sat/Etienne): 15-30 Safety Risks/Education Patient Education: Gait Training, Transfer Techniques, Steps, Correct Positioning, Safety Issues Teaching Recipient: Patient Teaching Methods: Demonstration, Discussion Response to Teaching: Reinforcement Needed Time/GCodes Time In: 1000 Time Out: 1100 Total Billed Treatment Time: 60 Total Billed Treatment 1 visit GT 30' EX 20' FA 10' LATANYA FLYNN PT Aug 05, 2016 10:56
--- NOTE | 2016-08-05 11:27 | Occupational Ther Daily Note ---
OT Current Status-Daily Note Subjective Pt sleeping in bed. Pt's and nrsg in room. Pt agreed to therapy. No c/o pain at this time did state that L hand and thumb did ache during the night. Mental Status/Objective Patient Orientation: Person, Place, Time, Situation Functional [place] Measure 0=Not Assessed/NA 4=Minimal Assistance 1=Total Assistance 5=Supervision or Setup 2=Maximal Assistance 6=Modified [place] 3=Moderate Assistance 7=Complete [place] ADL-Treatment Functional [place] Measure 0=Not Assessed/NA 4=Minimal Assistance 1=Total Assistance 5=Supervision or Setup 2=Maximal Assistance 6=Modified [place] 3=Moderate Assistance 7=Complete IndependenceIRFPAI Quality Coding Scale 6 Independent with activity with or without an assistive device 5 Patient requires set up or clean up by helper. Patient completes activity by themselves 4 Supervision or touching assist (CGA). [place] provide cues , steadying assist 3 The helper provides less than half the effort to complete the activity 2 The helper provides more than half the effort to complete the activity 1 Dependent. The helper does all the effort to complete an activity 7 Patient refused to complete or attempt activity 9 The patient did not perform the activity before the current illness or injury 88 Not attempted due to Medical conditions or safety concerns Bathing (FIM): 4 (Using shower bench, grabbar and hand held shower pt is able to bathe self then using grabbars to steady self pt requires assistance to cleanse buttocks.) Shower/Bathe Self (QC): 3 Upper Body (FIM): 4 (Assist to initiate L UE into shirt sleeve then is able to complete. Doffs by self.) Upper Body Dressing (QC): 3 Lower Body Dressing (FIM): 3 (Pt is able to don/doff pants over feet. Pt requires assist to hike over hips and to don socks. Pt is able to doff socks and dons/doffs shoes by self.) Lower Body Dressing (QC): 3 On/Off Footwear (QC): 3 Transfers (B, C, W/C) (FIM): 5 (Pt able to stand pivot transfer from surface to surface with SBA using quad cane.) Shower Transfer(FIM): 5 (Using quadcane, grabbars and shower seat pt is able to complete with SBA.) Pt still will lose balance toward L side at times. Pt continues to work on balance and keeping balance during dynamic standing tasks. Pt does demonstrate when there is resistance during a sitting or standing balance task then will be more likely to use LOB. Other Treatment Pt completed arm bike duration 6 min at 10 thompson resistance working on keeping L hand fiber machine tender while rotating handles. Pt is able to sustain a grasp though will allow the R UE to rotate the handles quickly and L UE is unable to function that quickly and will lose fiber machine tender. Pt ambulated back to room with quad cane from therapy gym. After therapy, pt sitting in recliner with call light/phone in reach. All needs met in room. OT Short Term Goals Short Term Goals Time Frame: Jul 30, 2016 Bathing(FIM): 5 Upper Body Dressing(FIM): 5 Lower Body Dressing(FIM): 5 Toilet/Commode Transfer(FIM): 4 Additional Short Term Goals: 2-Verbalize Understanding, 3-ImproveStrength/[place] 1=Demonstrate adherence to instructed precautions during ADL tasks. 2=Patient will verbalize/demonstrate understanding of assistive devices/ modifications for ADL. 3=Patient will improve strength/tolerance for activity to enable patient to perform ADL's. OT Mcc Goals [place] [employer] Goals Time Frame: Aug 13, 2016 Eating (FIM): 6 Eating (QC): 6 Groomin Oral Hygiene (QC): 6 Bathing(FIM): 6 Shower/Bathe Self (QC): 6 Upper Body Dressing(FIM): 6 Upper Body Dressing (QC): 6 Lower Body Dressing(FIM): 6 Lower Body Dressing (QC): 6 On/Off Footwear (QC): 6 Toileting(FIM): 6 Toileting Hygiene (QC): 6 Toilet/Commode Transfer(FIM): 6 Toilet/Commode Transfer (QC): 6 Shower Transfer(FIM): 6 Comprehension(FIM): 5 (MET) Expression (FIM): 6 (MET) Social Interaction(FIM): 6 (MET) Problem Solving(FIM): 5 (MET) Memory(FIM): 5 (MET) Additional Goals: 2-Verbalize Understanding, 3-ImproveStrength/Ped[place] 1=Demonstrate adherence to instructed precautions during ADL tasks. 2=Patient will verbalize/demonstrate understanding of assistive devices/ modifications for ADL. 3=Patient will improve strength/tolerance for activity to enable patient to perform ADL's. OT Education/Plan Problem List/Assessment Pt would benefit from skilled OT to increase his independence in basic self care to allo whim to safely return home to love with his and to decrease caregiver burden. Discharge Recommendations Plan/Recommendations: Continue POC Treatment Plan/Plan of Care Patient would benefit from OT for education, treatment and training to promote independence in ADL's, mobility, safety and/or upper extremity function for ADL' s. Plan of Care: ADL Retraining, Functional Mobility, Group Exercise/Act as Ind ( education, exercise, activity tolerance, functional use UEs, funct activities), UE Funct Exercise/Act, UE Neuromus Re-Ed/Coord Treatment Duration: Aug 13, 2016 Visits Per Week: 10-12 Minutes/Day (M-F): 60-90 Minutes/Day (Sat/Etienne): PRN Agreement: Yes Rehab Potential: Good Time/GCodes Start Time: 08:00 Stop Time: 09:00 Total Time Billed (hr/min): 60 Billed Treatment Time 1 visit-ADL 2 (30 min) FA 1 (20 min) EX 1 (10 min) LIZA ATKINSON Aug 05, 2016 11:27
--- NOTE | 2016-08-05 15:13 | Therapy Group Daily Note ---
Therapy Daily Group Note Patient Education Topic Home Safety Exercises LE Seated Exercise, UE Exercise Other/Notes Pt transported via to OT/PT group with SBA using FWW. OT/PT group consisted of introductions (name, place living, first $ earned), socialization, UE/LE seated exercises, home safety, adaptive equipment, and problem solving photos of unsafe situations around the home. Pt was able to introduce self appropriately. Pt contributed to each discussion and verbalized understanding of home safety and the use of adaptive equipment. Pt was able to participate fulling in UE/LE seated exercises using one handed technique. Pt transported to room via w/c back to room. After group, pt lying in bed with call light/ phone in reach. All needs met in room. Start Time: 13:00 Stop Time: 14:15 Total Billed Treatment Time: 75 Total Billed Treatment 1-GRP LIZA ATKINSON Aug 05, 2016 15:13
[2016-08-05 18:17] VITALS: BP 130/52
[2016-08-05] MEDS: traZODone 50 MG (DESYREL) TAB PO SCH (20:22)
[2016-08-05] MEDS: ATORVASTATIN 20 MG (LIPITOR) TABLET PO SCH (20:22)
--- NOTE | 2016-08-05 21:13 | PM & R (SOAP) Progress Note ---
Subjective Time Seen by Provider: 20:20 Subjective/Events-last exam Patient was seen in his room this evening States his day pass this weekend went well.Patient having good return in left leg but very little left arm Review of Systems Neurological: Weakness Objective Exam Last Set of Vital Signs Vital Signs Date Time Temp Pulse Resp B/P (MAP) Pulse Ox O2 Delivery O2 Flow Rate FiO2 08/05/16 18:17 99.1 80 18 130/52 94 Room Air Capillary Refill : I&O Intake and Output 08/05/16 00:00 Intake Total 790 ml Output Total 850 ml Balance -60 ml Intake Oral 790 ml Output Urine Total 850 ml General: Alert, Oriented X3, Cooperative, No Acute Distress HEENT: Atraumatic, PERRLA, EOMI, Mucous Memb Moist/[place], Other (facial droop) Neck: Supple, No JVD Lungs: Clear to Auscultation Heart: Regular Rate Abdomen: Normal Bowel Sounds, Soft, No Tenderness Extremities: No Edema, Other (left foot non tender) Neuro: Other ( left HP with flaccid Left limb) Assessment/Plan Assessment 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 KHALIDA FUNEZ MD Aug 05, 2016 21:13
[2016-08-06 06:00] VITALS: BP 144/66
[2016-08-06] MEDS: MULTIVIT W/MINERALS TAB (THERAGRAN M) PO SCH (06:41)
[2016-08-06] MEDS: PANTOPRAZOLE 40 MG (PROTONIX) TAB PO SCH (06:41)
--- NOTE | 2016-08-06 08:00 | PM & R (SOAP) Progress Note ---
Subjective Time Seen by Provider: 07:35 Subjective/Events-last exam Patient was seen in his room this AM Patient min assist for transfera and gait.Eating well and sleeping well Objective Exam Last Set of Vital Signs Vital Signs Date Time Temp Pulse Resp B/P (MAP) Pulse Ox O2 Delivery O2 Flow Rate FiO2 08/06/16 06:00 98.2 66 16 144/66 93 Room Air Capillary Refill : I&O Intake and Output 08/06/16 00:00 Intake Total 1000 ml Output Total 950 ml Balance 50 ml Intake Oral 1000 ml Output Urine Total 950 ml # Bowel Movements 1 General: Alert, Oriented X3, Cooperative, No Acute Distress HEENT: Atraumatic, PERRLA, EOMI, Mucous Memb Moist/[place], Other (facial droop) Neck: Supple, No JVD Lungs: Clear to Auscultation Heart: Regular Rate Abdomen: Normal Bowel Sounds, Soft, No Tenderness Extremities: No Edema, Other (left foot non tender) Neuro: Other ( left HP with flaccid Left limb) Assessment/Plan Assessment 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 HTN-controlled GERD Dysphagia improving Diet advanced Eczema-hypoallergenic soap Insomnia meds adjusted-improved Left ankle pain/calcaneal spur-improved Plan Continue PT/OT/ST Patient progressing with therapies DJD of hand Xray negative for frx left hand Pain and tenderness better with tylen Insomnia improved with adjustment in meds Symptomatic relief left ankle pain-done improved Team Conference held See report for full functional update and POC and ELOS Discharge remains set for 08/09/16 to home with spouse Day pass for this past weekend went well Next Team Conference tomorrow 08/07/16 Patient has very supportive . KHALIDA FUNEZ MD Aug 06, 2016 08:00
--- NOTE | 2016-08-06 08:14 | Progress Note (SOAP) ---
Subjective Time Seen by Provider: 08:10 Subjective/Events-last exam CVA. Patient still work in progress. 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 Hypertension. GERD. TIA history. CHF history. 07/18/16. 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 Hypertension. TIA. Patient's left hand doing better. Patient doesn't know the President. . 07/19/16. CVA on left Hypertension. Patient walked a longer distance today. . 07/22/16. 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 Left leg doing better. Left arm work in progress. Melatonin unable to sleep. Give trazodone half the dose. . 07/23/16. 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 Patient getting around better. Patient improving. . 07/24/16. 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 Hypertension. TIA history. Patient working hard this morning area Patient has unsteady gait. . 07/25/16. CVA. Hypertension. GERD. TIA history. Patient improving. . 07/26/16. CVA. Hypertension. GERD. Patient using a cane today. Patient improving. . . CVA. Hypertension. Left lateral ankle pain. Patient work in progress. . 07/30/16. CVA. Hypertension Patient moving around better. . 07/31/16. 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 Hypertension. GERD. Patient improving. . 08/01/16. 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 Hypertension. TIA history. Patient work in progress and is improving. . 08/01/16. 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 Hypertension.. Patient is improving slowly with his gait. . 08/02/16. 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 Hypertension. Patient improving area Patient voicing no complaints. . 08/05/16. 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 Hypertension. Patient left hand hurt last night but now . Patient has more steady gait.. . 08/06/16. 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 Hypertension.. Patient improving Clinical Quality Measures DVT/VTE Risk/Contraindication: Risk Factor Score Per Nursin RFS Level Per Nursing on Admit: 4+=Very High DORA MOCK DO Aug 06, 2016 08:14
[2016-08-06] MEDS: TRIAMCINOLONE 0.1% CR (KENALOG) 15 GM TUBE TOP SCH ×2 (08:35→19:48)
[2016-08-06] MEDS: ASPIRIN E.C. 81 MG (ECOTRIN) TAB PO SCH (08:35)
[2016-08-06] MEDS: NIFEdipine ER 60 MG (PROCARDIA XL) TAB PO SCH (08:35)
[2016-08-06] MEDS: BENAZEPRIL 20 MG (LOTENSIN) TAB PO SCH (08:35)
[2016-08-06] MEDS: DICLOFENAC 1% GEL 100 GM (VOLTAREN) TUBE TOP SCH ×4 (08:35→19:48)
--- NOTE | 2016-08-06 08:55 | Occupational Ther Daily Note ---
OT Current Status-Daily Note Subjective Pt alert, lying in bed. Pt agreed to therapy. No c/o pain at this time. Mental Status/Objective Patient Orientation: Person, Place, Time, Situation Functional [place] Measure 0=Not Assessed/NA 4=Minimal Assistance 1=Total Assistance 5=Supervision or Setup 2=Maximal Assistance 6=Modified [place] 3=Moderate Assistance 7=Complete [place] ADL-Treatment Pt's retrieved clothing for pt. Pt transferred from bed to w/c with SBA. Pt then maneuvered w/c to bathroom to sit in front of sink to complete grooming. Pt then sat in w/c to complete dressing. Pt is able to doff shirt by self then donned shirt with one-arm technique by self. Pt is able to doff pants with min A to hike down over hips and socks/shoes by self. Pt dons pants over feet and up legs by self then min A to hike over hips. Pt is inconsistent in dressing and bathing to keep balance in standing. Functional [place] Measure 0=Not Assessed/NA 4=Minimal Assistance 1=Total Assistance 5=Supervision or Setup 2=Maximal Assistance 6=Modified [place] 3=Moderate Assistance 7=Complete IndependenceIRFPAI Quality Coding Scale 6 Independent with activity with or without an assistive device 5 Patient requires set up or clean up by helper. Patient completes activity by themselves 4 Supervision or touching assist (CGA). [place] provide cues , steadying assist 3 The helper provides less than half the effort to complete the activity 2 The helper provides more than half the effort to complete the activity 1 Dependent. The helper does all the effort to complete an activity 7 Patient refused to complete or attempt activity 9 The patient did not perform the activity before the current illness or injury 88 Not attempted due to Medical conditions or safety concerns Grooming (FIM): 6 Upper Body (FIM): 5 Lower Body Dressing (FIM): 4 Other Treatment Pt worked on AROM exercises with L UE without gravity. Pt demonstrated movement in L UE except finger and wrist extension. Pt does have difficulty with shldr abduction and shldr protraction. Pt also worked on wt bearing through elbow in room sitting in recliner. Pt advised to work on these moves and wt bearing throughout the day. After therapy, pt sitting in recliner with call light/phone in reach. All needs met in room. OT Short Term Goals Short Term Goals Time Frame: Jul 30, 2016 Bathing(FIM): 5 Upper Body Dressing(FIM): 5 Lower Body Dressing(FIM): 5 Toilet/Commode Transfer(FIM): 4 Additional Short Term Goals: 2-Verbalize Understanding, 3-ImproveStrength/Pedro 1=Demonstrate adherence to instructed precautions during ADL tasks. 2=Patient will verbalize/demonstrate understanding of assistive devices/ modifications for ADL. 3=Patient will improve strength/tolerance for activity to enable patient to perform ADL's. OT Lottery Manager Goals Mcc Goals Time Frame: Aug 13, 2016 Eating (FIM): 6 Eating (QC): 6 Groomin Oral Hygiene (QC): 6 Bathing(FIM): 6 Shower/Bathe Self (QC): 6 Upper Body Dressing(FIM): 6 Upper Body Dressing (QC): 6 Lower Body Dressing(FIM): 6 Lower Body Dressing (QC): 6 On/Off Footwear (QC): 6 Toileting(FIM): 6 Toileting Hygiene (QC): 6 Toilet/Commode Transfer(FIM): 6 Toilet/Commode Transfer (QC): 6 Shower Transfer(FIM): 6 Comprehension(FIM): 5 (MET) Expression (FIM): 6 (MET) Social Interaction(FIM): 6 (MET) Problem Solving(FIM): 5 (MET) Memory(FIM): 5 (MET) Additional Goals: 2-Verbalize Understanding, 3-ImproveStrength/Pedro 1=Demonstrate adherence to instructed precautions during ADL tasks. 2=Patient will verbalize/demonstrate understanding of assistive devices/ modifications for ADL. 3=Patient will improve strength/tolerance for activity to enable patient to perform ADL's. OT Education/Plan Problem List/Assessment Pt would benefit from skilled OT to increase his independence in basic self care to allo whim to safely return home to love with his and to decrease caregiver burden. Discharge Recommendations Plan/Recommendations: Continue POC Treatment Plan/Plan of Care Patient would benefit from OT for education, treatment and training to promote independence in ADL's, mobility, safety and/or upper extremity function for ADL' s. Plan of Care: ADL Retraining, Functional Mobility, Group Exercise/Act as Ind ( education, exercise, activity tolerance, functional use UEs, funct activities), UE Funct Exercise/Act, UE Neuromus Re-Ed/Coord Treatment Duration: Aug 13, 2016 Visits Per Week: 10-12 Minutes/Day (M-F): 60-90 Minutes/Day (Sat/Etienne): PRN Agreement: Yes Rehab Potential: Good Time/GCodes Start Time: 08:00 Stop Time: 09:00 Total Time Billed (hr/min): 60 Billed Treatment Time 1 visit-ADL 2 (30 min) NM 2 (30 min) LIZA ATKINSON Aug 06, 2016 08:55
--- NOTE | 2016-08-06 10:16 | Physical Therapy Daily Note ---
PT Daily Note-Current Subjective Patient in recliner pre tx, agrees to PT, no complaints of pain. Appearance Patient in wheelchair post tx, has stroke club after [place]. Mental Status Patient Orientation: Normal For Age Transfers Functional [place] Measure 0=Not Assessed/NA 4=Minimal Assistance 1=Total Assistance 5=Supervision or Setup 2=Maximal Assistance 6=Modified [place] 3=Moderate Assistance 7=Complete IndependenceIRFPAI Quality Coding Scale 6 Independent with activity with or without an assistive device 5 Patient requires set up or clean up by helper. Patient completes activity by themselves 4 Supervision or touching assist (CGA). [place] provide cues , steadying assist 3 The helper provides less than half the effort to complete the activity 2 The helper provides more than half the effort to complete the activity 1 Dependent. The helper does all the effort to complete an activity 7 Patient refused to complete or attempt activity 9 The patient did not perform the activity before the current illness or injury 88 Not attempted due to Medical conditions or safety concerns Transfers (B, C, W/C) (FIM): 4 Scootin Rollin Supine to/from Sit: 6 Sit to/from Stand: 4 cues for safety and hand placement for sit to stand Gait Training Gait (FIM): 4 Distance: 150'x2 Gait Level of Assist: 4 Gait Persons Needed: 1 Gait Assistive Device: Cane Large Base Quad min assist for balance, leans to the left slightly Exercises Supine Ex: Bridging, Ankle pumps, Quad Set, Glut sets, Heel Slides, Straight leg raise, Hip abd/add Supine Reps: 20 SAQ left side with 2# ankle weight for 5 min, exercises performed to strengthen left leg to improve overall functional mobility NuStep Minutes: 15 NuStep Workload: 5 Treatments bed mobility, transfers, ambulation, functional strengthening Assessment Current Status: Fair Progress improving strength in left leg PT Short Term Goals Short Term Goals Time Frame: Jul 23, 2016 Gait (FIM): 2 (met) Gait Distance Comment: 50' Gait Level of Assist: 4 Gait Assistive Device: Cane Large Base Quad Wheelchair Distance: 50' PT Theoretical Physicist Goals Correction Goals PT Correction Goals Time Frame: Aug 06, 2016 Transfers (B,C,W/C) (FIM): 5 Sit to Lying (QC): 4 Lying-Sitting on Side/Bed(QC): 4 Sit to Stand (QC): 4 Rollin Roll Left to Right (QC): 4 Chair/Pei-vr-Mfxlh Xfer(QC): 4 Car Transfer (QC): 4 Gait (FIM): 4 Distance: 150' Walk 10 feet (QC): 4 Walk 10ft-Uneven Surface(QC): 4 Walk 50ft with 2 Turns (QC): 4 Walk 150 ft (QC): 4 Gait Level of Assist: 4 Gait Assistive Device: Cane Large Base Quad Stairs (FIM): 2 # of Steps: 4 1 Step (curb) (QC): 4 4 Steps (QC): 4 12 Steps (QC): 88 Stairs Level Of Assist: 4 Picking up an Object (QC): 88 PT Plan Problem List Problem List: Activity Tolerance, Functional Strength, Safety, Balance, Gait, Transfer, Bed Mobility Treatment/Plan Treatment Plan: Continue Plan of Care Treatment Plan: Bed Mobility, Education, Functional Activity Pedro, Functional Strength, Group Therapy, Gait, Safety, Therapeutic Exercise, Transfers Treatment Duration: Aug 06, 2016 Visits Per Week: 10-11 Minutes/Day (M-F): 60-90 Minutes/Day (Sat/Etienne): 15-30 Safety Risks/Education Patient Education: Gait Training, Transfer Techniques, Correct Positioning, Safety Issues Teaching Recipient: Patient Teaching Methods: Demonstration, Discussion Response to Teaching: Reinforcement Needed Time/GCodes Time In: 900 Time Out: 1000 Total Billed Treatment Time: 60 Total Billed Treatment 1 visit GT 20' EX 40' LATANYA FLYNN PT Aug 06, 2016 10:16
--- NOTE | 2016-08-06 13:57 | Occupational Ther Daily Note ---
OT Current Status-Daily Note Subjective Pt alert, sitting in recliner. Pt agreed to therapy. No c/o pain. Mental Status/Objective Patient Orientation: Person, Place, Time, Situation Functional [place] Measure 0=Not Assessed/NA 4=Minimal Assistance 1=Total Assistance 5=Supervision or Setup 2=Maximal Assistance 6=Modified [place] 3=Moderate Assistance 7=Complete [place] ADL-Treatment Functional [place] Measure 0=Not Assessed/NA 4=Minimal Assistance 1=Total Assistance 5=Supervision or Setup 2=Maximal Assistance 6=Modified [place] 3=Moderate Assistance 7=Complete IndependenceIRFPAI Quality Coding Scale 6 Independent with activity with or without an assistive device 5 Patient requires set up or clean up by helper. Patient completes activity by themselves 4 Supervision or touching assist (CGA). [place] provide cues , steadying assist 3 The helper provides less than half the effort to complete the activity 2 The helper provides more than half the effort to complete the activity 1 Dependent. The helper does all the effort to complete an activity 7 Patient refused to complete or attempt activity 9 The patient did not perform the activity before the current illness or injury 88 Not attempted due to Medical conditions or safety concerns Toilet/Commode Transfer (FIM): 5 (Using grabbar and w/c pt is able to complete transfer with SBA.) Other Treatment Pt able to maneuver w/c to large shower room. Pt was able to step into tub using horizontal grabbar and quadcane with CGA. No LOB noted during transfer. Pt then maneuvered w/c to therapy gym and worked on dynamic standing balance by picking up wts from 2#-4# off of floor. After therapy, pt lying in bed with call light/phone in reach. All needs met in room. OT Short Term Goals Short Term Goals Time Frame: Jul 30, 2016 Bathing(FIM): 5 Upper Body Dressing(FIM): 5 Lower Body Dressing(FIM): 5 Toilet/Commode Transfer(FIM): 4 Additional Short Term Goals: 2-Verbalize Understanding, 3-ImproveStrength/Pedro 1=Demonstrate adherence to instructed precautions during ADL tasks. 2=Patient will verbalize/demonstrate understanding of assistive devices/ modifications for ADL. 3=Patient will improve strength/tolerance for activity to enable patient to perform ADL's. OT Half-Way Goals Respiratory Therapy Director Goals Time Frame: Aug 13, 2016 Eating (FIM): 6 Eating (QC): 6 Groomin Oral Hygiene (QC): 6 Bathing(FIM): 6 Shower/Bathe Self (QC): 6 Upper Body Dressing(FIM): 6 Upper Body Dressing (QC): 6 Lower Body Dressing(FIM): 6 Lower Body Dressing (QC): 6 On/Off Footwear (QC): 6 Toileting(FIM): 6 Toileting Hygiene (QC): 6 Toilet/Commode Transfer(FIM): 6 Toilet/Commode Transfer (QC): 6 Shower Transfer(FIM): 6 Comprehension(FIM): 5 (MET) Expression (FIM): 6 (MET) Social Interaction(FIM): 6 (MET) Problem Solving(FIM): 5 (MET) Memory(FIM): 5 (MET) Additional Goals: 2-Verbalize Understanding, 3-ImproveStrength/Pedro 1=Demonstrate adherence to instructed precautions during ADL tasks. 2=Patient will verbalize/demonstrate understanding of assistive devices/ modifications for ADL. 3=Patient will improve strength/tolerance for activity to enable patient to perform ADL's. OT Education/Plan Problem List/Assessment Pt would benefit from skilled OT to increase his independence in basic self care to allo whim to safely return home to [place] with his and to decrease caregiver burden. Discharge Recommendations Plan/Recommendations: Continue POC Treatment Plan/Plan of Care Patient would benefit from OT for education, treatment and training to promote independence in ADL's, mobility, safety and/or upper extremity function for ADL' s. Plan of Care: ADL Retraining, Functional Mobility, Group Exercise/Act as Ind ( education, exercise, activity tolerance, functional use UEs, funct activities), UE Funct Exercise/Act, UE Neuromus Re-Ed/Coord Treatment Duration: Aug 13, 2016 Visits Per Week: 10-12 Minutes/Day (M-F): 60-90 Minutes/Day (Sat/Etienne): PRN Agreement: Yes Rehab Potential: Good Time/GCodes Start Time: 13:30 Stop Time: 14:00 Total Time Billed (hr/min): 30 Billed Treatment Time 1 visit-FA 1 (20 min) EX 1 (10 min) LIZA ATKINSON Aug 06, 2016 13:57
--- NOTE | 2016-08-06 15:55 | Physical Therapy Daily Note ---
PT Daily Note-Current Subjective Patient in bed pre tx, agrees to PT, no complaints of pain. Appearance Patient in recliner post tx with nurse call, phone, tray, all needs met. Mental Status Patient Orientation: Normal For Age Transfers Functional [place] Measure 0=Not Assessed/NA 4=Minimal Assistance 1=Total Assistance 5=Supervision or Setup 2=Maximal Assistance 6=Modified [place] 3=Moderate Assistance 7=Complete IndependenceIRFPAI Quality Coding Scale 6 Independent with activity with or without an assistive device 5 Patient requires set up or clean up by helper. Patient completes activity by themselves 4 Supervision or touching assist (CGA). [place] provide cues , steadying assist 3 The helper provides less than half the effort to complete the activity 2 The helper provides more than half the effort to complete the activity 1 Dependent. The helper does all the effort to complete an activity 7 Patient refused to complete or attempt activity 9 The patient did not perform the activity before the current illness or injury 88 Not attempted due to Medical conditions or safety concerns Transfers (B, C, W/C) (FIM): 4 Scootin Rollin Supine to/from Sit: 6 Sit to/from Stand: 4 CGA for sit to stand, cues for safety and hand placement Gait Training Gait (FIM): 4 Distance: 150'x2, 200' Gait Level of Assist: 4 Gait Persons Needed: 1 Gait Assistive Device: Cane Large Base Quad Patient min assist for help with balance, but just barely. He is almost just CGA. Stair Training Stair Training: Handrails/: 1 handrail Stairs (FIM): 4 #of Steps: 12 Stairs: Pattern: Step to Level of Assist: 4 Min assist for balance, he was able to perform correct step sequence Treatments bed mobility and transfers, ambulation, stair training Assessment Current Status: Fair Progress slowly improving balance but still barely needs min assist PT Short Term Goals Short Term Goals Time Frame: Jul 23, 2016 Gait (FIM): 2 (met) Gait Distance Comment: 50' Gait Level of Assist: 4 Gait Assistive Device: Cane Large Base Quad Wheelchair Distance: 50' PT Care Home Goals Care Home Goals PT Dental Billing Specialist Goals Time Frame: Aug 06, 2016 Transfers (B,C,W/C) (FIM): 5 Sit to Lying (QC): 4 Lying-Sitting on Side/Bed(QC): 4 Sit to Stand (QC): 4 Rollin Roll Left to Right (QC): 4 Chair/Dcb-ev-Ovqtj Xfer(QC): 4 Car Transfer (QC): 4 Gait (FIM): 4 Distance: 150' Walk 10 feet (QC): 4 Walk 10ft-Uneven Surface(QC): 4 Walk 50ft with 2 Turns (QC): 4 Walk 150 ft (QC): 4 Gait Level of Assist: 4 Gait Assistive Device: Cane Large Base Quad Stairs (FIM): 2 # of Steps: 4 1 Step (curb) (QC): 4 4 Steps (QC): 4 12 Steps (QC): 88 Stairs Level Of Assist: 4 Picking up an Object (QC): 88 PT Plan Problem List Problem List: Activity Tolerance, Functional Strength, Safety, Balance, Gait, Transfer, Bed Mobility Treatment/Plan Treatment Plan: Continue Plan of Care Treatment Plan: Bed Mobility, Education, Functional Activity Pedro, Functional Strength, Group Therapy, Gait, Safety, Therapeutic Exercise, Transfers Treatment Duration: Aug 06, 2016 Visits Per Week: 10-11 Minutes/Day (M-F): 60-90 Minutes/Day (Sat/Etienne): 15-30 Safety Risks/Education Patient Education: Gait Training, Transfer Techniques, Steps, Correct Positioning, Safety Issues Teaching Recipient: Patient Teaching Methods: Demonstration, Discussion Response to Teaching: Reinforcement Needed Time/GCodes Time In: 1525 Time Out: 1555 Total Billed Treatment Time: 30 Total Billed Treatment 1 visit GT 30' LATANYA FLYNN PT Aug 06, 2016 15:55
[2016-08-06 18:58] VITALS: BP 120/69
[2016-08-06] MEDS: ATORVASTATIN 20 MG (LIPITOR) TABLET PO SCH (20:07)
[2016-08-06] MEDS: traZODone 50 MG (DESYREL) TAB PO SCH (20:07)
[2016-08-06] MEDS: ACETAMINOPHEN 500 MG TAB (TYLENOL) PO PRN (23:20)
[2016-08-07] MEDS: HYDROcodone/APAP 5 MG/325 MG (LORTAB) TAB PO PRN ×2 (02:49→20:14)
[2016-08-07 05:38] VITALS: BP 135/76
[2016-08-07] MEDS: PANTOPRAZOLE 40 MG (PROTONIX) TAB PO SCH (06:22)
[2016-08-07] MEDS: MULTIVIT W/MINERALS TAB (THERAGRAN M) PO SCH (06:22)
[2016-08-07] MEDS: DICLOFENAC 1% GEL 100 GM (VOLTAREN) TUBE TOP SCH ×4 (07:39→20:15)
[2016-08-07] MEDS: NIFEdipine ER 60 MG (PROCARDIA XL) TAB PO SCH (07:39)
[2016-08-07] MEDS: ASPIRIN E.C. 81 MG (ECOTRIN) TAB PO SCH (07:39)
[2016-08-07] MEDS: BENAZEPRIL 20 MG (LOTENSIN) TAB PO SCH (07:39)
[2016-08-07] MEDS: TRIAMCINOLONE 0.1% CR (KENALOG) 15 GM TUBE TOP SCH ×2 (07:43→19:28)
--- NOTE | 2016-08-07 07:48 | PM & R (SOAP) Progress Note ---
Subjective Time Seen by Provider: 07:40 Subjective/Events-last exam Patient was seen in his room earlier today C/O neuropathic type pain left hand relieved by Hydrocodone somewhat.Patient min assist for transfers Objective Exam Last Set of Vital Signs Vital Signs Date Time Temp Pulse Resp B/P (MAP) Pulse Ox O2 Delivery O2 Flow Rate FiO2 08/07/16 05:38 98.8 74 16 135/76 93 Room Air Capillary Refill : I&O Intake and Output 08/07/16 00:00 Intake Total 1150 ml Output Total 700 ml Balance 450 ml Intake Oral 1150 ml Output Urine Total 700 ml # Voids 1 General: Alert, Oriented X3, Cooperative, No Acute Distress HEENT: Atraumatic, PERRLA, EOMI, Mucous Memb Moist/[place], Other (facial droop) Neck: Supple, No JVD Lungs: Clear to Auscultation Heart: Regular Rate Abdomen: Normal Bowel Sounds, Soft, No Tenderness Extremities: No Edema, Other (left foot non tender) Neuro: Other ( left HP with flaccid Left upper limb) Assessment/Plan Assessment 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 HTN-controlled GERD Dysphagia improving Diet advanced Eczema-hypoallergenic soap Insomnia meds adjusted-improved Left ankle pain/calcaneal spur-improved Left hand pain appears to be neuropathic Plan Continue PT/OT/ST Patient progressing with therapies DJD of hand Xray negative for frx left hand with recurrent pain-trial of gabapentin see orders Insomnia improved with adjustment in meds Symptomatic relief left ankle pain-done improved Team Conference to be held later today See report for full functional update and POC and ELOS Discharge remains set for 08/09/16 to home with spouse Day pass for this past weekend went well Patient has very supportive . KHALIDA FUNEZ MD Aug 07, 2016 07:48
--- NOTE | 2016-08-07 08:22 | Progress Note (SOAP) ---
Subjective Time Seen by Provider: 08:20 Subjective/Events-last exam CVA. Patient had pain in the left hand.. Could be related patient sleeps. To monitor. Patient progressing with physical therapy and occupational therapy Objective Exam Vital Signs Date Time Temp Pulse Resp B/P (MAP) Pulse Ox O2 Delivery O2 Flow Rate FiO2 08/07/16 05:38 98.8 74 16 135/76 93 Room Air 08/06/16 20:23 Room Air 08/06/16 18:58 97.6 84 16 120/69 94 Room Air 08/06/16 09:00 Room Air I & O 08/07/16 07:00 Intake Total 1000 ml Output Total 700 ml Balance 300 ml Capillary Refill : General Appearance: No Apparent Distress, Thin HEENT: Normal ENT Inspection Neck: Full Range of Motion, Normal Inspection Respiratory: No Accessory Muscle Use, No Respiratory Distress Assessment/Plan Assessment/Plan Assess & Plan/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 Hypertension. GERD. TIA history. CHF history. 07/18/16. 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 Hypertension. TIA. Patient's left hand doing better. Patient doesn't know the President. . 07/19/16. CVA on left Hypertension. Patient walked a longer distance today. . 07/22/16. 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 Left leg doing better. Left arm work in progress. Melatonin unable to sleep. Give trazodone half the dose. . 07/23/16. 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 Patient getting around better. Patient improving. . 07/24/16. 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 Hypertension. TIA history. Patient working hard this morning area Patient has unsteady gait. . 07/25/16. CVA. Hypertension. GERD. TIA history. Patient improving. . 07/26/16. CVA. Hypertension. GERD. Patient using a cane today. Patient improving. . . CVA. Hypertension. Left lateral ankle pain. Patient work in progress. . 07/30/16. CVA. Hypertension Patient moving around better. . 07/31/16. 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 Hypertension. GERD. Patient improving. . 08/01/16. 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 Hypertension. TIA history. Patient work in progress and is improving. . 08/01/16. 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 Hypertension.. Patient is improving slowly with his gait. . 08/02/16. 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 Hypertension. Patient improving area Patient voicing no complaints. . 08/05/16. 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 Hypertension. Patient left hand hurt last night but now . Patient has more steady gait.. . 08/06/16. 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 Hypertension.. Patient improving. . 08/07/16. 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 Hypertension. GERD. Patient having pain in left hand. Could be the way he sleeps. Patient improving. Patient working progress Clinical Quality Measures DVT/VTE Risk/Contraindication: Risk Factor Score Per Nursin RFS Level Per Nursing on Admit: 4+=Very High DORA MOCK DO Aug 07, 2016 08:22
--- NOTE | 2016-08-07 08:57 | Physical Therapy Daily Note ---
PT Daily Note-Current Subjective Patient in bed pre tx, agrees to PT reluctantly. Apparently he did not sleep well due to left hand pain (burning). Doctor is aware and he has been getting some pain meds for it. Patient is just very tired and he rates pain at 10/10 in his left hand. Appearance Patient in wheelchair post tx in his room, in room. Has nurse call, luh. Has OT right after PT. Mental Status Patient Orientation: Normal For Age Transfers Functional [place] Measure 0=Not Assessed/NA 4=Minimal Assistance 1=Total Assistance 5=Supervision or Setup 2=Maximal Assistance 6=Modified [place] 3=Moderate Assistance 7=Complete IndependenceIRFPAI Quality Coding Scale 6 Independent with activity with or without an assistive device 5 Patient requires set up or clean up by helper. Patient completes activity by themselves 4 Supervision or touching assist (CGA). [place] provide cues , steadying assist 3 The helper provides less than half the effort to complete the activity 2 The helper provides more than half the effort to complete the activity 1 Dependent. The helper does all the effort to complete an activity 7 Patient refused to complete or attempt activity 9 The patient did not perform the activity before the current illness or injury 88 Not attempted due to Medical conditions or safety concerns Transfers (B, C, W/C) (FIM): 4 Scootin Rollin Supine to/from Sit: 5 Sit to/from Stand: 4 Gait Training Gait (FIM): 4 Distance: 200', 150' Gait Level of Assist: 4 Gait Persons Needed: 1 Gait Assistive Device: Cane Large Base Quad Min assist for balance, leans slightly to the left Exercises step-ups x15 with only left leg support, single leg stance left leg, LAQ left side for 5 min NuStep Minutes: 15 NuStep Workload: 5 Treatments bed mobility and transfers, ambulation, functional strengthening Assessment Current Status: Fair Progress patient is making slow progress but he was very fatigued today, needed extra rest breaks, slower PT Short Term Goals Short Term Goals Time Frame: Jul 23, 2016 Gait (FIM): 2 (met) Gait Distance Comment: 50' Gait Level of Assist: 4 Gait Assistive Device: Cane Large Base Quad Wheelchair Distance: 50' PT Fpc Goals Fpc Goals PT Fpc Goals Time Frame: Aug 06, 2016 Transfers (B,C,W/C) (FIM): 5 Sit to Lying (QC): 4 Lying-Sitting on Side/Bed(QC): 4 Sit to Stand (QC): 4 Rollin Roll Left to Right (QC): 4 Chair/[id number] Xfer(QC): 4 Car Transfer (QC): 4 Gait (FIM): 4 Distance: 150' Walk 10 feet (QC): 4 Walk 10ft-Uneven Surface(QC): 4 Walk 50ft with 2 Turns (QC): 4 Walk 150 ft (QC): 4 Gait Level of Assist: 4 Gait Assistive Device: Cane Large Base Quad Stairs (FIM): 2 # of Steps: 4 1 Step (curb) (QC): 4 4 Steps (QC): 4 12 Steps (QC): 88 Stairs Level Of Assist: 4 Picking up an Object (QC): 88 PT Plan Problem List Problem List: Activity Tolerance, Functional Strength, Safety, Balance, Gait, Transfer, Bed Mobility Treatment/Plan Treatment Plan: Continue Plan of Care Treatment Plan: Bed Mobility, Education, Functional Activity Pedro, Functional Strength, Group Therapy, Gait, Safety, Therapeutic Exercise, Transfers Treatment Duration: Aug 06, 2016 Visits Per Week: 10-11 Minutes/Day (M-F): 60-90 Minutes/Day (Sat/Etienne): 15-30 Safety Risks/Education Patient Education: Gait Training, Transfer Techniques, Correct Positioning, Safety Issues Teaching Recipient: Patient Teaching Methods: Demonstration, Discussion Response to Teaching: Reinforcement Needed Time/GCodes Time In: 800 Time Out: 900 Total Billed Treatment Time: 60 Total Billed Treatment 1 visit EX 30' FA 10' GT 20' LATANYA FLYNN PT Aug 07, 2016 08:57
[2016-08-07] MEDS: GABAPENTIN 100 MG (NEURONTIN) CAP PO SCH ×2 (10:05→20:14)
--- NOTE | 2016-08-07 11:11 | Occupational Ther Daily Note ---
OT Current Status-Daily Note Subjective Pt alert, sitting in recliner. Pt has c/o pain with L wrist/hand. Nrsg reported that meds had already given for pain. Pt agreed to therapy. Mental Status/Objective Functional [place] Measure 0=Not Assessed/NA 4=Minimal Assistance 1=Total Assistance 5=Supervision or Setup 2=Maximal Assistance 6=Modified [place] 3=Moderate Assistance 7=Complete [place] ADL-Treatment Functional [place] Measure 0=Not Assessed/NA 4=Minimal Assistance 1=Total Assistance 5=Supervision or Setup 2=Maximal Assistance 6=Modified [place] 3=Moderate Assistance 7=Complete IndependenceIRFPAI Quality Coding Scale 6 Independent with activity with or without an assistive device 5 Patient requires set up or clean up by helper. Patient completes activity by themselves 4 Supervision or touching assist (CGA). [place] provide cues , steadying assist 3 The helper provides less than half the effort to complete the activity 2 The helper provides more than half the effort to complete the activity 1 Dependent. The helper does all the effort to complete an activity 7 Patient refused to complete or attempt activity 9 The patient did not perform the activity before the current illness or injury 88 Not attempted due to Medical conditions or safety concerns Other Treatment Pt close SBA with stand pivot transfer from recliner to w/c. Pt maneuvered w/c to therapy gym. Hot moist pack to L hand and wrist to decrease pain and increase ROM. Pt maneuvered w/c from therapy gym to room then positioned and locks breaks of w/c for transfer. Close SBA for stand pivot transfer from w/c to recliner. Massage to L hand and wrist then PROM to hand and wrist. Pt demonstrates tenderness in middle dorsum of L wrist and radial side of wrist. Swelling in both areas as well. Distraction to L wrist appeared to relieve pain of wrist at the time. After therapy, pt sitting in recliner with call light/phone in reach. present in room. All needs met in room. OT Short Term Goals Short Term Goals Time Frame: Jul 30, 2016 Bathing(FIM): 5 Upper Body Dressing(FIM): 5 Lower Body Dressing(FIM): 5 Toilet/Commode Transfer(FIM): 4 Additional Short Term Goals: 2-Verbalize Understanding, 3-ImproveStrength/Pedro 1=Demonstrate adherence to instructed precautions during ADL tasks. 2=Patient will verbalize/demonstrate understanding of assistive devices/ modifications for ADL. 3=Patient will improve strength/tolerance for activity to enable patient to perform ADL's. OT Spirits Model Goals Fdc Goals Time Frame: Aug 13, 2016 Eating (FIM): 6 Eating (QC): 6 Groomin Oral Hygiene (QC): 6 Bathing(FIM): 6 Shower/Bathe Self (QC): 6 Upper Body Dressing(FIM): 6 Upper Body Dressing (QC): 6 Lower Body Dressing(FIM): 6 Lower Body Dressing (QC): 6 On/Off Footwear (QC): 6 Toileting(FIM): 6 Toileting Hygiene (QC): 6 Toilet/Commode Transfer(FIM): 6 Toilet/Commode Transfer (QC): 6 Shower Transfer(FIM): 6 Comprehension(FIM): 5 (MET) Expression (FIM): 6 (MET) Social Interaction(FIM): 6 (MET) Problem Solving(FIM): 5 (MET) Memory(FIM): 5 (MET) Additional Goals: 2-Verbalize Understanding, 3-ImproveStrength/Pedro 1=Demonstrate adherence to instructed precautions during ADL tasks. 2=Patient will verbalize/demonstrate understanding of assistive devices/ modifications for ADL. 3=Patient will improve strength/tolerance for activity to enable patient to perform ADL's. OT Education/Plan Problem List/Assessment Pt would benefit from skilled OT to increase his independence in basic self care to allo whim to safely return home to love with his and to decrease caregiver burden. Discharge Recommendations Plan/Recommendations: Continue POC Treatment Plan/Plan of Care Patient would benefit from OT for education, treatment and training to promote independence in ADL's, mobility, safety and/or upper extremity function for ADL' s. Plan of Care: ADL Retraining, Functional Mobility, Group Exercise/Act as Ind ( education, exercise, activity tolerance, functional use UEs, funct activities), UE Funct Exercise/Act, UE Neuromus Re-Ed/Coord Treatment Duration: Aug 13, 2016 Visits Per Week: 10-12 Minutes/Day (M-F): 60-90 Minutes/Day (Sat/Etienne): PRN Agreement: Yes Rehab Potential: Good Time/GCodes Start Time: 09:30 Stop Time: 10:30 Total Time Billed (hr/min): 60 Billed Treatment Time 1 visit-NM 4 (60 min) LIZA ATKINSON Aug 07, 2016 11:11
--- NOTE | 2016-08-07 15:08 | Therapy Group Daily Note ---
Therapy Daily Group Note Patient Education Topic Other List Below (Memory Strategies) Exercises LE Seated Exercise, UE Exercise Other/Notes Pt maneuvered w/c to OT/PT group. Group consisted of introductions (name, place living, favorite summer activity), socialization, education on memory strategies, memory tasks (remembering each group members summer activity and three words-tub seat, gait belt, walker), seated UE/LE exercises and memory activity. Pt appropriately was able to introduce self and answer questions. Pt contributed to discussions. Actively involved in tasks and activities. Pt verbalized understanding of memory strategies and was able to give own example of a strategy. After therapy, pt maneuver w/c back to room with FWW and sat in recliner. Call light/phone in reach. All needs met in room. Start Time: 13:00 Stop Time: 14:15 Total Billed Treatment Time: 75 Total Billed Treatment 1-GRP LIZA ATKINSON Aug 07, 2016 15:08
[2016-08-07 18:00] VITALS: BP 121/66
[2016-08-07] MEDS: traZODone 50 MG (DESYREL) TAB PO SCH (20:14)
[2016-08-07] MEDS: ATORVASTATIN 20 MG (LIPITOR) TABLET PO SCH (20:14)
[2016-08-08] MEDS: HYDROcodone/APAP 5 MG/325 MG (LORTAB) TAB PO PRN (04:48)
[2016-08-08] MEDS: MULTIVIT W/MINERALS TAB (THERAGRAN M) PO SCH (06:22)
[2016-08-08] MEDS: PANTOPRAZOLE 40 MG (PROTONIX) TAB PO SCH (06:22)
[2016-08-08 06:24] VITALS: BP 148/75
[2016-08-08] MEDS: GABAPENTIN 100 MG (NEURONTIN) CAP PO SCH ×2 (07:58→20:06)
[2016-08-08] MEDS: TRIAMCINOLONE 0.1% CR (KENALOG) 15 GM TUBE TOP SCH ×2 (07:58→19:44)
[2016-08-08] MEDS: NIFEdipine ER 60 MG (PROCARDIA XL) TAB PO SCH (07:58)
[2016-08-08] MEDS: BENAZEPRIL 20 MG (LOTENSIN) TAB PO SCH (07:58)
[2016-08-08] MEDS: ASPIRIN E.C. 81 MG (ECOTRIN) TAB PO SCH (07:58)
[2016-08-08] MEDS: DICLOFENAC 1% GEL 100 GM (VOLTAREN) TUBE TOP SCH ×4 (07:59→20:07)
--- NOTE | 2016-08-08 08:07 | Progress Note (SOAP) ---
Subjective Time Seen by Provider: 08:00 Subjective/Events-last exam patient complains of pain in the left wrist. To re-x-ray the left wrist. CVA. Patient have no other complaints Objective Exam Vital Signs Date Time Temp Pulse Resp B/P (MAP) Pulse Ox O2 Delivery O2 Flow Rate FiO2 08/08/16 06:24 99.5 71 18 148/75 97 Room Air 08/07/16 21:33 Room Air 08/07/16 18:00 98.9 76 20 121/66 95 Room Air 08/07/16 09:00 Room Air I & O 08/08/16 07:00 Intake Total 1290 ml Output Total 1150 ml Balance 140 ml Capillary Refill : General Appearance: No Apparent Distress, Thin HEENT: Normal ENT Inspection Neck: Full Range of Motion, Normal Inspection Respiratory: Chest Non Tender, Lungs Clear, No Accessory Muscle Use, No Respiratory Distress Cardiovascular: Regular Rate, Rhythm, No Murmur Assessment/Plan Assessment/Plan Assess & Plan/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 Hypertension. GERD. TIA history. CHF history. 07/18/16. 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 Hypertension. TIA. Patient's left hand doing better. Patient doesn't know the President. . 07/19/16. CVA on left Hypertension. Patient walked a longer distance today. . 07/22/16. 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 Left leg doing better. Left arm work in progress. Melatonin unable to sleep. Give trazodone half the dose. . 07/23/16. 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 Patient getting around better. Patient improving. . 07/24/16. 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 Hypertension. TIA history. Patient working hard this morning area Patient has unsteady gait. . 07/25/16. CVA. Hypertension. GERD. TIA history. Patient improving. . 07/26/16. CVA. Hypertension. GERD. Patient using a cane today. Patient improving. . . CVA. Hypertension. Left lateral ankle pain. Patient work in progress. . 07/30/16. CVA. Hypertension Patient moving around better. . 07/31/16. 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 Hypertension. GERD. Patient improving. . 08/01/16. 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 Hypertension. TIA history. Patient work in progress and is improving. . 08/01/16. 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 Hypertension.. Patient is improving slowly with his gait. . 08/02/16. 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 Hypertension. Patient improving area Patient voicing no complaints. . 08/05/16. 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 Hypertension. Patient left hand hurt last night but now . Patient has more steady gait.. . 08/06/16. 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 Hypertension.. Patient improving. . 08/07/16. 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 Hypertension. GERD. Patient having pain in left hand. Could be the way he sleeps. Patient improving. Patient working progress . 08/08/16. 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 Hypertension. Patient still having pain in the left wrist to re-x-ray today. Clinical Quality Measures DVT/VTE Risk/Contraindication: Risk Factor Score Per Nursin RFS Level Per Nursing on Admit: 4+=Very High DORA MOCK DO Aug 08, 2016 08:07
--- NOTE | 2016-08-08 08:50 | Occupational Ther Daily Note ---
OT Current Status-Daily Note Subjective Pt alert, sitting on EOB. Physician and nrsg in room. Pt c/o L wrist and back of hand hurting. Physician ordered x-ray of L hand. Pt agreed to therapy. Mental Status/Objective Patient Orientation: Person, Place, Time, Situation Functional [place] Measure 0=Not Assessed/NA 4=Minimal Assistance 1=Total Assistance 5=Supervision or Setup 2=Maximal Assistance 6=Modified [place] 3=Moderate Assistance 7=Complete [place] ADL-Treatment Pt's L dorsum of hand increased swelling and pain this morning, no heat or redness in area. Ulnar side of wrist continued to be swollen, no increase or decrease in swelling since yesterday. Ice pack placed on L wrist, nrsg notified. Functional [place] Measure 0=Not Assessed/NA 4=Minimal Assistance 1=Total Assistance 5=Supervision or Setup 2=Maximal Assistance 6=Modified [place] 3=Moderate Assistance 7=Complete IndependenceIRFPAI Quality Coding Scale 6 Independent with activity with or without an assistive device 5 Patient requires set up or clean up by helper. Patient completes activity by themselves 4 Supervision or touching assist (CGA). [place] provide cues , steadying assist 3 The helper provides less than half the effort to complete the activity 2 The helper provides more than half the effort to complete the activity 1 Dependent. The helper does all the effort to complete an activity 7 Patient refused to complete or attempt activity 9 The patient did not perform the activity before the current illness or injury 88 Not attempted due to Medical conditions or safety concerns Eating (FIM): 5 ( sets up pt's food. Pt is able to use utensils to cut food and feed self.) Eating (QC): 5 ( sets up pt's food. Pt is able to use utensils to cut food and feed self.) Grooming (FIM): 6 (Sitting in front of sink, pt uses suction cup denture brush to brush dentures. Pt uses electric razor and cleans razor after use.) Oral Hygiene (QC): 6 (Sitting in front of sink, pt uses suction cup denture brush to brush dentures.) Bathing (FIM): 4 (Using shower bench, hand held shower and grabbar pt is able to complete all bathing in sitting except to stand and cleanse buttocks/aida area with min A for standing balance.) Bathing Location: L Arm, R Arm, L Upper Leg, R Upper Leg, L Lower Leg ( including foot), R Lower Leg (including foot), Chest, Abdomen, Buttocks, Perineal Area Shower/Bathe Self (QC): 3 (Using shower bench, hand held shower and grabbar pt is able to complete all bathing in sitting except to stand and cleanse buttocks/ aida area with min A for standing balance.) Upper Body (FIM): 5 (After set up, pt is able to complete donning/doffing shirt with one handed technique by self.) Upper Body Dressing (QC): 5 (After set up, pt is able to complete donning/ doffing shirt with one handed technique by self.) Lower Body Dressing (FIM): 4 (After set up, pt is able to don/doff pants/ underwear over feet and pull up legs. In standing, pt will stabilize self with grabbar while assist with hiking pants over hips. Pt doffs socks by self and assist to don socks. Doffs/dons shoes by self.) Lower Body Dressing (QC): 3 (After set up, pt is able to don/doff pants/ underwear over feet and pull up legs. In standing, pt will stabilize self with grabbar while assist with hiking pants over hips. Pt doffs socks by self and assist to don socks. Doffs/dons shoes by self.) On/Off Footwear (QC): 3 (Pt doffs socks by self and assist to don socks. Doffs /dons shoes by self.) Toileting (FIM): 4 (Assist to manipulate clothing over hips then in sitting is able to cleanse self.) Toileting Hygiene (QC): 3 (Assist to manipulate clothing over hips then in sitting is able to cleanse self.) Transfers (B, C, W/C) (FIM): 4 (Min A to CGA for transfers. Transfers are inconsistent due to balance. Stand pivot transfers have been completed with close SBA.) Toilet/Commode Transfer (FIM): 4 (Using grabbars, min A for transfers. Transfers are inconsistent due to balance. Stand pivot transfers have been completed with close SBA.) Toilet Transfer (QC): 3 (Using grabbars, min A for transfers. Transfers are inconsistent due to balance. Stand pivot transfers have been completed with close SBA.) Shower Transfer(FIM): 4 (Min A using grabbars, quadcane and shower bench for transfer.) After therapy, pt sitting in w/c with ice pack on L wrist. Call light/phone in reach. All needs met in room. present in room. OT Short Term Goals Short Term Goals Time Frame: Jul 30, 2016 Bathing(FIM): 5 Upper Body Dressing(FIM): 5 Lower Body Dressing(FIM): 5 Toilet/Commode Transfer(FIM): 4 Additional Short Term Goals: 2-Verbalize Understanding, 3-ImproveStrength/Pedro 1=Demonstrate adherence to instructed precautions during ADL tasks. 2=Patient will verbalize/demonstrate understanding of assistive devices/ modifications for ADL. 3=Patient will improve strength/tolerance for activity to enable patient to perform ADL's. OT [facility] Goals Chargeback Analyst Goals Time Frame: Aug 13, 2016 Eating (FIM): 6 (not met) Eating (QC): 6 (not met) Groomin (met-08/07/2016) Oral Hygiene (QC): 6 (met-08/07/2016) Bathing(FIM): 6 (not met) Shower/Bathe Self (QC): 6 (not met) Upper Body Dressing(FIM): 6 (not met) Upper Body Dressing (QC): 6 (not met) Lower Body Dressing(FIM): 6 (not met) Lower Body Dressing (QC): 6 (not met) On/Off Footwear (QC): 6 (not met) Toileting(FIM): 6 (not met) Toileting Hygiene (QC): 6 (not met) Toilet/Commode Transfer(FIM): 6 (not met) Toilet/Commode Transfer (QC): 6 (not met) Shower Transfer(FIM): 6 (not met) Comprehension(FIM): 5 (MET) Expression (FIM): 6 (MET) Social Interaction(FIM): 6 (MET) Problem Solving(FIM): 5 (MET) Memory(FIM): 5 (MET) Additional Goals: 2-Verbalize Understanding, 3-ImproveStrength/Pedro 1=Demonstrate adherence to instructed precautions during ADL tasks. 2=Patient will verbalize/demonstrate understanding of assistive devices/ modifications for ADL. 3=Patient will improve strength/tolerance for activity to enable patient to perform ADL's. OT Education/Plan Problem List/Assessment Pt would benefit from skilled OT to increase his independence in basic self care to allo whim to safely return home to love with his and to decrease caregiver burden. Discharge Recommendations Plan/Recommendations: Continue POC Treatment Plan/Plan of Care Patient would benefit from OT for education, treatment and training to promote independence in ADL's, mobility, safety and/or upper extremity function for ADL' s. Plan of Care: ADL Retraining, Functional Mobility, Group Exercise/Act as Ind ( education, exercise, activity tolerance, functional use UEs, funct activities), UE Funct Exercise/Act, UE Neuromus Re-Ed/Coord Treatment Duration: Aug 13, 2016 Visits Per Week: 10-12 Minutes/Day (M-F): 60-90 Minutes/Day (Sat/Etienne): PRN Agreement: Yes Rehab Potential: Good Time/GCodes Start Time: 08:00 Stop Time: 09:00 Total Time Billed (hr/min): 60 Billed Treatment Time 1 visit-ADL 4 (60 min) LIZA ATKINSON Aug 08, 2016 08:50
--- NOTE | 2016-08-08 09:19 | PM & R (SOAP) Progress Note ---
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 See orders, Review of Systems Musculoskeletal: other (hand pain) Neurological: Weakness Objective Exam Last Set of Vital Signs Vital Signs Date Time Temp Pulse Resp B/P (MAP) Pulse Ox O2 Delivery O2 Flow Rate FiO2 08/08/16 06:24 99.5 71 18 148/75 97 Room Air Capillary Refill : I&O Intake and Output 08/08/16 00:00 Intake Total 1290 ml Output Total 1300 ml Balance -10 ml Intake Oral 1290 ml Output Urine Total 1300 ml General: Alert, Oriented X3, Cooperative, No Acute Distress HEENT: Atraumatic, PERRLA, EOMI, Mucous Memb Moist/[place], Other (facial droop) Neck: Supple, No JVD Lungs: Clear to Auscultation Heart: Regular Rate Abdomen: Normal Bowel Sounds, Soft, No Tenderness Extremities: No Edema, Other ( Tender left hand and wrist) Neuro: Other ( left HP with flaccid Left upper limb) Assessment/Plan Assessment 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 Recheck Xray left wrist and consult ortho Check serum uric acid Increase frequency of pain medicine See orders. KHALIDA FUNEZ MD Aug 08, 2016 09:19
--- NOTE | 2016-08-08 09:57 | Physical Therapy Daily Note ---
PT Daily Note-Current Subjective Patient in wheelchair pre tx, agrees to PT, has slight pain in his left hand, has had some pain meds. Appearance Patient in recliner post tx with nurse call, phone, tray, in room. Mental Status Patient Orientation: Normal For Age Transfers Functional [place] Measure 0=Not Assessed/NA 4=Minimal Assistance 1=Total Assistance 5=Supervision or Setup 2=Maximal Assistance 6=Modified [place] 3=Moderate Assistance 7=Complete IndependenceIRFPAI Quality Coding Scale 6 Independent with activity with or without an assistive device 5 Patient requires set up or clean up by helper. Patient completes activity by themselves 4 Supervision or touching assist (CGA). [place] provide cues , steadying assist 3 The helper provides less than half the effort to complete the activity 2 The helper provides more than half the effort to complete the activity 1 Dependent. The helper does all the effort to complete an activity 7 Patient refused to complete or attempt activity 9 The patient did not perform the activity before the current illness or injury 88 Not attempted due to Medical conditions or safety concerns Transfers (B, C, W/C) (FIM): 4 Scootin Rollin Roll Left to Right (QC): 6 Supine to/from Sit: 6 Sit to/from Stand: 4 Sit to Lying (QC): 6 Sit to Stand (QC): 4 Patient performs bed mobility with mod I, he does have to put forth some effort but he can do it on his own. Patient performs sit to stand with CGA. Gait Training Gait (FIM): 4 Distance: 200'x2 Walk 10 feet (QC): 3 Walk 50 ft with 2 Turns(QC): 3 Walk 150 ft (QC): 3 Walking 10ft/uneven surface-QC: 3 Gait Level of Assist: 4 Gait Persons Needed: 1 Gait Assistive Device: Cane Large Base Quad Patient can ambulate 200' with a quad cane with min assist (including 50' with at least 2 turns of 90 degrees and 10' over an uneven surface). He is barely min assist but does need occasional slight assist with his balance. Wheelchair Training Does the Pt Use a Wheelchair?: No Stair Training Stair Training: Handrails/: 1 handrail Stairs (FIM): 4 #of Steps: 12 1 Step (curb) (QC): 3 4 Steps (QC): 3 12 Steps (QC): 3 Stairs: Pattern: Step to Level of Assist: 4 Patient can go up and down 12 steps using 1 handrail with min assist. Exercises Standin way Ex=Flex, Abd, Ext Standing Reps: 20 NuStep Minutes: 15 NuStep Workload: 5 Treatments bed mobility and transfers, ambulation, functional strengthening, stair training Assessment Current Status: Fair Progress Patient making slow progress with balance and mobility. He was very tired this morning and needed extra rest time and fatigued more quickly. PT Short Term Goals Short Term Goals Time Frame: Jul 23, 2016 Gait (FIM): 2 (met) Gait Distance Comment: 50' Gait Level of Assist: 4 Gait Assistive Device: Cane Large Base Quad Wheelchair Distance: 50' PT Longterm Goals Longterm Goals PT Longterm Goals Time Frame: Aug 06, 2016 Transfers (B,C,W/C) (FIM): 5 Sit to Lying (QC): 4 Lying-Sitting on Side/Bed(QC): 4 (met) Sit to Stand (QC): 4 (met) Rollin (met) Roll Left to Right (QC): 4 (met) Chair/Iqh-ih-Xplkm Xfer(QC): 4 Car Transfer (QC): 4 Gait (FIM): 4 Distance: 150' Walk 10 feet (QC): 4 Walk 10ft-Uneven Surface(QC): 4 Walk 50ft with 2 Turns (QC): 4 Walk 150 ft (QC): 4 Gait Level of Assist: 4 Gait Assistive Device: Cane Large Base Quad Stairs (FIM): 2 (met) # of Steps: 4 (met) 1 Step (curb) (QC): 4 (met) 4 Steps (QC): 4 (met) 12 Steps (QC): 88 Stairs Level Of Assist: 4 (met) Picking up an Object (QC): 88 PT Plan Problem List Problem List: Activity Tolerance, Functional Strength, Safety, Balance, Gait, Transfer Treatment/Plan Treatment Plan: Continue Plan of Care Treatment Plan: Bed Mobility, Education, Functional Activity Pedro, Functional Strength, Group Therapy, Gait, Safety, Therapeutic Exercise, Transfers Treatment Duration: Aug 06, 2016 Visits Per Week: 10-11 Minutes/Day (M-F): 60-90 Minutes/Day (Sat/Etienne): 15-30 Safety Risks/Education Patient Education: Gait Training, Transfer Techniques, Steps, Correct Positioning, Safety Issues Teaching Recipient: Patient Teaching Methods: Demonstration, Discussion Response to Teaching: Reinforcement Needed Time/GCodes Time In: 900 Time Out: 1000 Total Billed Treatment Time: 60 Total Billed Treatment 1 visit EX 25' GT 35' LATANYA FLYNN PT Aug 08, 2016 09:57
--- NOTE | 2016-08-08 11:32 | Diagnostic Imaging Report ---
EXAMINATION: Three views of the left wrist. INDICATION: Left posterior wrist pain. FINDINGS: Along the posterior aspect of the wrist, there are ossified fragments measuring up to 6 mm in size. This could be related to a triquetral fracture of uncertain age. There is widening of the scapholunate interval, compatible with ligament degeneration or injury. There are also prominent degenerative changes at the carpal radial joint, intercarpal joints, and at the carpal/metacarpal joint at the base of the thumb. There is soft tissue swelling around the wrist, more prominent along the ulnar and dorsal aspect. IMPRESSION: 1. Ossified fragments at the dorsal aspect of the carpal bones may relate to an age indeterminate triquetral fracture. 2. Scapholunate interval widening is suggestive of ligament degeneration or tear of uncertain age. Dictated by: Dictated on workstation # [id number]
[2016-08-08] MEDS ORDERED: HYDROcodone/APAP 5 MG/325 MG (LORTAB) TAB PO PRN (12:00)
--- NOTE | 2016-08-08 13:29 | Physical Therapy Daily Note ---
PT Daily Note-Current Subjective Patient in recliner pre tx, agrees to PT. Patient has no pain, although nursing states he has a left wrist fracture. Appearance Patient in recliner post tx with wound care nursing in the room. is in the room too. Mental Status Patient Orientation: Normal For Age Transfers Functional [place] Measure 0=Not Assessed/NA 4=Minimal Assistance 1=Total Assistance 5=Supervision or Setup 2=Maximal Assistance 6=Modified [place] 3=Moderate Assistance 7=Complete IndependenceIRFPAI Quality Coding Scale 6 Independent with activity with or without an assistive device 5 Patient requires set up or clean up by helper. Patient completes activity by themselves 4 Supervision or touching assist (CGA). [place] provide cues , steadying assist 3 The helper provides less than half the effort to complete the activity 2 The helper provides more than half the effort to complete the activity 1 Dependent. The helper does all the effort to complete an activity 7 Patient refused to complete or attempt activity 9 The patient did not perform the activity before the current illness or injury 88 Not attempted due to Medical conditions or safety concerns Transfers (B, C, W/C) (FIM): 4 Sit to/from Stand: 4 Gait Training Gait (FIM): 4 Distance: 150'x3 Gait Level of Assist: 4 Gait Persons Needed: 1 Gait Assistive Device: Cane Small Base Quad Patient has his own quad cane now, small base. He ambulated 150' x3 with min assist using a quad cane. Patient needs min assist for balance, he leans to the left. Rest breaks between. Treatments transfers, ambulation Assessment Current Status: Fair Progress PT Short Term Goals Short Term Goals Time Frame: Jul 23, 2016 Gait (FIM): 2 (met) Gait Distance Comment: 50' Gait Level of Assist: 4 Gait Assistive Device: Cane Large Base Quad Wheelchair Distance: 50' PT Half-Way Goals Half-Way Goals PT Half-Way Goals Time Frame: Aug 06, 2016 Transfers (B,C,W/C) (FIM): 5 Sit to Lying (QC): 4 Lying-Sitting on Side/Bed(QC): 4 (met) Sit to Stand (QC): 4 (met) Rollin (met) Roll Left to Right (QC): 4 (met) Chair/Mxu-of-Crpxa Xfer(QC): 4 Car Transfer (QC): 4 Gait (FIM): 4 Distance: 150' Walk 10 feet (QC): 4 Walk 10ft-Uneven Surface(QC): 4 Walk 50ft with 2 Turns (QC): 4 Walk 150 ft (QC): 4 Gait Level of Assist: 4 Gait Assistive Device: Cane Large Base Quad Stairs (FIM): 2 (met) # of Steps: 4 (met) 1 Step (curb) (QC): 4 (met) 4 Steps (QC): 4 (met) 12 Steps (QC): 88 Stairs Level Of Assist: 4 (met) Picking up an Object (QC): 88 PT Plan Problem List Problem List: Activity Tolerance, Functional Strength, Safety, Balance, Gait, Transfer, Bed Mobility Treatment/Plan Treatment Plan: Continue Plan of Care Treatment Plan: Bed Mobility, Education, Functional Activity Pedro, Functional Strength, Group Therapy, Gait, Safety, Therapeutic Exercise, Transfers Treatment Duration: Aug 06, 2016 Visits Per Week: 10-11 Minutes/Day (M-F): 60-90 Minutes/Day (Sat/Etienne): 15-30 Safety Risks/Education Patient Education: Gait Training, Transfer Techniques, Correct Positioning, Safety Issues Teaching Recipient: Patient Teaching Methods: Demonstration, Discussion Response to Teaching: Reinforcement Needed Time/GCodes Time In: 1300 Time Out: 1330 Total Billed Treatment Time: 30 Total Billed Treatment 1 visit GT 30' LATANYA FLYNN PT Aug 08, 2016 13:29
--- NOTE | 2016-08-08 15:21 | Occupational Ther Daily Note ---
OT Current Status-Daily Note Subjective Pt seen in room, up in recliner, agreeable to OT. present and participating in tx. No pain mentioned. Appearance Alert, cooperative Mental Status/Objective Functional [place] Measure 0=Not Assessed/NA 4=Minimal Assistance 1=Total Assistance 5=Supervision or Setup 2=Maximal Assistance 6=Modified [place] 3=Moderate Assistance 7=Complete [place] ADL-Treatment Pt and family education on how to get leg rests off and on w/c and importance of taking time to swing leg rests out of the way and foot plates up. Also showed them brake physician recruiter made from PVC pipe, with verbal understanding. Pt's transferred him safely with CGA into w/c (he lost his balance a little and she managed it), then transported him to shower room, where she safely got him out and back in w/c. He practiced getting in and out of bathtub and on/off shower chair, using grab bar, with his providing CGA. His indicated that they have a BSC and may use that over the weekend until home health therapy starts. Pt's took him back to his room per w/c, all needs met. Functional [place] Measure 0=Not Assessed/NA 4=Minimal Assistance 1=Total Assistance 5=Supervision or Setup 2=Maximal Assistance 6=Modified [place] 3=Moderate Assistance 7=Complete IndependenceIRFPAI Quality Coding Scale 6 Independent with activity with or without an assistive device 5 Patient requires set up or clean up by helper. Patient completes activity by themselves 4 Supervision or touching assist (CGA). [place] provide cues , steadying assist 3 The helper provides less than half the effort to complete the activity 2 The helper provides more than half the effort to complete the activity 1 Dependent. The helper does all the effort to complete an activity 7 Patient refused to complete or attempt activity 9 The patient did not perform the activity before the current illness or injury 88 Not attempted due to Medical conditions or safety concerns Education OT Patient Education: Modified ADL techniques, Purpose of tx/functional activities, Transfer techniques, Use of adapted equipment Teaching Recipient: Patient, Significant Other Teaching Methods: Demonstration Response to Teaching: Return Demonstration OT Short Term Goals Short Term Goals Time Frame: Jul 30, 2016 Bathing(FIM): 5 Upper Body Dressing(FIM): 5 Lower Body Dressing(FIM): 5 Toilet/Commode Transfer(FIM): 4 Additional Short Term Goals: 2-Verbalize Understanding, 3-ImproveStrength/Pedro 1=Demonstrate adherence to instructed precautions during ADL tasks. 2=Patient will verbalize/demonstrate understanding of assistive devices/ modifications for ADL. 3=Patient will improve strength/tolerance for activity to enable patient to perform ADL's. OT Care Home Goals Care Home Goals Time Frame: Aug 13, 2016 Eating (FIM): 6 Eating (QC): 6 Groomin (met-08/07/2016) Oral Hygiene (QC): 6 (met-08/07/2016) Bathing(FIM): 6 Shower/Bathe Self (QC): 6 Upper Body Dressing(FIM): 6 Upper Body Dressing (QC): 6 Lower Body Dressing(FIM): 6 Lower Body Dressing (QC): 6 On/Off Footwear (QC): 6 Toileting(FIM): 6 Toileting Hygiene (QC): 6 Toilet/Commode Transfer(FIM): 6 Toilet/Commode Transfer (QC): 6 Shower Transfer(FIM): 6 Comprehension(FIM): 5 (MET) Expression (FIM): 6 (MET) Social Interaction(FIM): 6 (MET) Problem Solving(FIM): 5 (MET) Memory(FIM): 5 (MET) Additional Goals: 2-Verbalize Understanding, 3-ImproveStrength/Pedro 1=Demonstrate adherence to instructed precautions during ADL tasks. 2=Patient will verbalize/demonstrate understanding of assistive devices/ modifications for ADL. 3=Patient will improve strength/tolerance for activity to enable patient to perform ADL's. OT Education/Plan Problem List/Assessment Pt would benefit from skilled OT to increase his independence in basic self care to allo whim to safely return home to [place] with his and to decrease caregiver burden. Discharge Recommendations Plan/Recommendations: Continue POC Treatment Plan/Plan of Care Patient would benefit from OT for education, treatment and training to promote independence in ADL's, mobility, safety and/or upper extremity function for ADL' s. Plan of Care: ADL Retraining, Functional Mobility, Group Exercise/Act as Ind ( education, exercise, activity tolerance, functional use UEs, funct activities), UE Funct Exercise/Act, UE Neuromus Re-Ed/Coord Treatment Duration: Aug 13, 2016 Visits Per Week: 10-12 Minutes/Day (M-F): 60-90 Minutes/Day (Sat/Etienne): PRN Agreement: Yes Rehab Potential: Good Time/GCodes Start Time: 14:00 Stop Time: 14:30 Total Time Billed (hr/min): 30 Billed Treatment Time visit, 30 minutes LIZA MEIER OT Aug 08, 2016 15:21
--- NOTE | 2016-08-08 15:21 | Consultation ---
History of Present Illness History of Present Illness Patient Consulted On(lima/time) 08/08/16 15:16 Date Seen by Provider: Aug 08, 2016 Time Seen by Provider: 15:16 Reason for Visit: left wrist pain History of Present Illness 81 year old male had a stroke and left hemiparesis and is in rehab. The left wrist started hurting last night and is swollen. He thinks he overdid it in PT Allergies and Home Medications Allergies Coded Allergies: Tetanus Vaccines and Toxoid (Verified Allergy, Unknown, 07/16/16) Home Medications Aspirin 81 Mg Tablet.dr, 81 MG PO DAILY, (Reported) Atorvastatin Calcium 20 Mg Tablet, 20 MG PO HS, (Reported) Benazepril HCl 20 Mg Tablet, 20 MG PO DAILY, (Reported) Docusate Sodium 100 Mg Capsule, 100 MG PO BID PRN for CONSTIPATION-1ST LINE, ( Reported) Multivitamin 1 Each Tablet, 1 TAB PO DAILY, (Reported) Nifedipine 60 Mg Tab.er.24, 60 MG PO DAILY, (Reported) Omeprazole Magnesium 20 Mg Tablet.dr, 20 MG PO DAILY, (Reported) Triamcinolone Acet 15 Gm Cr, TP BID, (Reported) Past Qfoifar-Ipgjdg-Trkzjs Hx Patient Social History Smoking Status: Former Smoker Type Used: Cigarettes Recent Foreign Travel: No Contact w/Someone Who Travel: No Recent Infectious Disease Expo: No Immunizations Up To Date Date of Pneumonia Vaccine: June 28, 2015 Genitourinary Genitourinary Disorders: Prostate Problems Gastrointestinal Gastrointestinal Disorders: Gastroesophageal Reflux, Chronic Diarrhea HEENT HEENT Disorders: Cataract Cancer Cancer: Skin Physical Exam-General Problems Physical Exam Vital Signs Vital Sign - Last 12Hours 08/02/16 06:30 Temp 98.7 Pulse 71 Resp 18 B/P (MAP) 133/61 Pulse Ox 95 O2 Delivery Room Air Capillary Refill : General Appearance: WD/WN, no apparent distress Extremities: normal range of motion, normal capillary refill, other (Left wrist swollen and tender dorsally. No redness. Has some extensor tenosynovitis present. 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 HE JUST NEEDS TO ICE IT, REST IT AND USE A WRIST SPLINT UNTIL IT IS BETTER. FOLLOW UP IN THE OFFICE IF NECESSARY. HE CAN GO HOME TOMORROW. Clinical Quality Measures DVT/VTE Risk/Contraindication: Risk Factor Score Per Nursin RFS Level Per Nursing on Admit: 4+=Very High SOCO YORK MD Aug 08, 2016 15:21
[2016-08-08 17:58] VITALS: BP 105/63
[2016-08-08] MEDS ORDERED: HYDR-3812 PO (19:38)
[2016-08-08] MEDS ORDERED: DICL100G18 TOP (19:38)
[2016-08-08] MEDS ORDERED: TRAZ-28 PO (19:38)
[2016-08-08] MEDS: traZODone 50 MG (DESYREL) TAB PO SCH (20:06)
[2016-08-08] MEDS: ATORVASTATIN 20 MG (LIPITOR) TABLET PO SCH (20:06)
[2016-08-09] MEDS: MULTIVIT W/MINERALS TAB (THERAGRAN M) PO SCH (06:29)
[2016-08-09] MEDS: PANTOPRAZOLE 40 MG (PROTONIX) TAB PO SCH (06:29)
[2016-08-09 06:30] VITALS: BP 158/74
--- NOTE | 2016-08-09 07:57 | PM & R (SOAP) Progress Note ---
Subjective Time Seen by Provider: 07:30 Subjective/Events-last exam Patient was seen in his room this AM Appreciate DR Guzmán note and orders Wrist splint provided Went over discharge meds with RN and Patients spouse. Objective Exam Last Set of Vital Signs Vital Signs Date Time Temp Pulse Resp B/P (MAP) Pulse Ox O2 Delivery O2 Flow Rate FiO2 08/09/16 06:30 97.6 83 16 158/74 92 Room Air Capillary Refill : I&O Intake and Output 08/09/16 00:00 Intake Total 1830 ml Output Total 550 ml Balance 1280 ml Intake Oral 1830 ml Output Urine Total 550 ml # Voids 3 General: Alert, Oriented X3, Cooperative, No Acute Distress HEENT: Atraumatic, PERRLA, EOMI, Mucous Memb Moist/[place], Other (facial droop) Neck: Supple, No JVD Lungs: Clear to Auscultation Heart: Regular Rate Abdomen: Normal Bowel Sounds, Soft, No Tenderness Extremities: No Edema, Other ( Tender left hand and wrist) Neuro: Other ( left HP with flaccid Left upper limb) Results Lab Laboratory Tests 08/08/16 09:54: Uric Acid 4.9 Assessment/Plan Assessment 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 Hard copy of pain med rx provided the remainder of new RXS transmitted to [facility] in [place] KHALIDA FUNEZ MD Aug 09, 2016 07:57
[2016-08-09] MEDS: NIFEdipine ER 60 MG (PROCARDIA XL) TAB PO SCH (08:07)
[2016-08-09] MEDS: ASPIRIN E.C. 81 MG (ECOTRIN) TAB PO SCH (08:07)
[2016-08-09] MEDS: BENAZEPRIL 20 MG (LOTENSIN) TAB PO SCH (08:07)
[2016-08-09] MEDS: GABAPENTIN 100 MG (NEURONTIN) CAP PO SCH (08:07)
[2016-08-09] MEDS: DICLOFENAC 1% GEL 100 GM (VOLTAREN) TUBE TOP SCH (08:08)
--- NOTE | 2016-08-09 08:13 | Progress Note (SOAP) ---
Subjective Time Seen by Provider: 08:07 Subjective/Events-last exam CVA. Left wrist feeling better. Pain due to arthritis and sleeping. On it. Splint helping much. Patient feeling good and be discharged today Objective Exam Vital Signs Date Time Temp Pulse Resp B/P (MAP) Pulse Ox O2 Delivery O2 Flow Rate FiO2 08/09/16 06:30 97.6 83 16 158/74 92 Room Air 08/08/16 20:33 Room Air 08/08/16 17:58 98.6 89 20 105/63 94 Room Air I & O 08/09/16 07:00 Intake Total 1830 ml Output Total 950 ml Balance 880 ml Capillary Refill : General Appearance: No Apparent Distress, Thin HEENT: Normal ENT Inspection Neck: Full Range of Motion, Normal Inspection Respiratory: Chest Non Tender, Lungs Clear, No Accessory Muscle Use, No Respiratory Distress, Decreased Breath Sounds Cardiovascular: Regular Rate, Rhythm, No Murmur Gastrointestinal: non tender, soft Neurologic/Psychiatric: Normal Mood/Affect Skin: No Mottled Results Lab Laboratory Tests 08/08/16 09:54: Uric Acid 4.9 Assessment/Plan Assessment/Plan Assess & Plan/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 Hypertension. GERD. TIA history. CHF history. 07/18/16. 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 Hypertension. TIA. Patient's left hand doing better. Patient doesn't know the President. . 07/19/16. CVA on left Hypertension. Patient walked a longer distance today. . 07/22/16. 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 Left leg doing better. Left arm work in progress. Melatonin unable to sleep. Give trazodone half the dose. . 07/23/16. 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 Patient getting around better. Patient improving. . 07/24/16. 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 Hypertension. TIA history. Patient working hard this morning area Patient has unsteady gait. . 07/25/16. CVA. Hypertension. GERD. TIA history. Patient improving. . 07/26/16. CVA. Hypertension. GERD. Patient using a cane today. Patient improving. . . CVA. Hypertension. Left lateral ankle pain. Patient work in progress. . 07/30/16. CVA. Hypertension Patient moving around better. . 07/31/16. 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 Hypertension. GERD. Patient improving. . 08/01/16. 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 Hypertension. TIA history. Patient work in progress and is improving. . 08/01/16. 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 Hypertension.. Patient is improving slowly with his gait. . 08/02/16. 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 Hypertension. Patient improving area Patient voicing no complaints. . 08/05/16. 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 Hypertension. Patient left hand hurt last night but now . Patient has more steady gait.. . 08/06/16. 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 Hypertension.. Patient improving. . 08/07/16. 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 Hypertension. GERD. Patient having pain in left hand. Could be the way he sleeps. Patient improving. Patient working progress . 08/08/16. 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 Hypertension. Patient still having pain in the left wrist to re-x-ray today.. . 08/09/16. 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 Hypertension. GERD. Patient to be discharged today. Patient doing good with the wrist with the splint Clinical Quality Measures DVT/VTE Risk/Contraindication: Risk Factor Score Per Nursin RFS Level Per Nursing on Admit: 4+=Very High DORA MOCK DO Aug 09, 2016 08:13
[2016-08-09] MEDS: TRIAMCINOLONE 0.1% CR (KENALOG) 15 GM TUBE TOP SCH (09:13)
[2016-08-09 10:28] VITALS: BP 158/74
--- NOTE | 2016-08-09 11:58 | Therapy Team Discharge Summary ---
Therapy Discharge Summary Discharge Recommendations Date of Discharge Aug 09, 2016 at 10:20 Therapy D/C Recommendations: Physical Therapy Home Care Physical Therapy Patient came to rehab following a CVA. Upon evaluation patient performed bed mobility with SBA except for supine <-> sit which he needed min assist, transfers with min assist, ambulated 20' with a hemiwalker with min assist, propelled a manual wheelchair 50' with SBA, and went up and down 1 step using a hemiwalker with mod A. Patient has been performing bed mobility and transfer training, balance and endurance training, functional strengthening, stair training, gait training, and education. Patient has made fair progress but has only met his long term care administrator goals for bed mobility and stairs. He continues to have balance issues, leans to the left. Now, patient performs bed mobility with mod I, sit to stand with CGA, ambulates 200' with a quad cane with min assist ( including 50' with at least 2 turns of 90 degrees and 10' over an uneven surface ), and can go up and down 12 steps using 1 handrail with min assist. Patient is discharging from this facility today and will be discharged from PT at this time. PT [place] Goals Shelter Goals PT Shelter Goals Time Frame: Aug 06, 2016 Transfers (B,C,W/C) (FIM): 5 Roll Left to Right (QC): 4 (met) Sit to Lying (QC): 4 Lying-Sitting on Side/Bed(QC): 4 (met) Sit to Stand (QC): 4 (met) Chair/Ggp-an[employer] Xfer(QC): 4 Car Transfer (QC): 4 Gait (FIM): 4 Distance: 150' Walk 10 feet (QC): 4 Walk 10ft-Uneven Surface(QC): 4 Walk 50ft with 2 Turns (QC): 4 Walk 150 ft (QC): 4 Gait Level of Assist: 4 Gait Assistive Device: Cane Large Base Quad Stairs (FIM): 2 (met) # of Steps: 4 (met) 1 Step (curb) (QC): 4 (met) 4 Steps (QC): 4 (met) 12 Steps (QC): 88 Stairs Level Of Assist: 4 (met) Picking up an Object (QC): 88 OT Shelter Goals Shelter Goals Time Frame: Aug 13, 2016 Eating (FIM): 6 (not met) Eating (QC): 6 (not met) Oral Hygiene (QC): 6 (met-08/07/2016) Grooming(FIM): 6 (met-08/07/2016) Bathing(FIM): 6 (not met) Shower/Bathe Self (QC): 6 (not met) Upper Body Dressing(FIM): 6 (not met) Upper Body Dressing (QC): 6 (not met) Lower Body Dressing(FIM): 6 (not met) Lower Body Dressing (QC): 6 (not met) On/Off Footwear (QC): 6 (not met) Toileting(FIM): 6 (not met) Toileting Hygiene (QC): 6 (not met) Toilet/Commode Transfer(FIM): 6 (not met) Toilet/Commode Transfer (QC): 6 (not met) Shower Transfer(FIM): 6 (not met) Comprehension(FIM): 5 (MET) Expression (FIM): 6 (MET) Social Interaction(FIM): 6 (MET) Problem Solving(FIM): 5 (MET) Memory(FIM): 5 (MET) Additional Goals: 2-Verbalize Understanding, 3-ImproveStrength/Pedro 1=Demonstrate adherence to instructed precautions during ADL tasks. 2=Patient will verbalize/demonstrate understanding of assistive devices/ modifications for ADL. 3=Patient will improve strength/tolerance for activity to enable patient to perform ADL's. Speech Shelter Goals Shelter Goals 1. The patient will tolerate the least restrictive diet without signs/symptoms of aspiration or laryngeal penetration. Time Frame: Two Weeks Comprehension: 5 (MET) Expression: 6 (MET) Social Interaction: 6 (MET) Problem Solvin (MET) Memory: 5 (MET) LATANYA FLYNN PT Aug 09, 2016 11:58
--- NOTE | 2016-08-09 13:41 | Therapy Team Discharge Summary ---
Therapy Discharge Summary Discharge Recommendations Date of Discharge Aug 09, 2016 at 10:20 Therapy D/C Recommendations: Occupational Therapy Home Care, Physical Therapy Home Care Occupational Therapy Pt seen for skilled OT to increase his independence after a stroke and L sided weakness to allow him to safely return home to live with his and decrease caregiver burden. On admission he needed max assist with lower body dressing, toileting; mod assistance for grooming, bathing, upper body dressing, toilet and shower transfers; setup for eating. By discharge he was able to groom modified independence; eat and dress upper body with setup; bathe, dress lower body, toilet and complete toilet and shower transfers with primarily contact guard assistance. Equipment used included suction cup denture brush, shower chair, BSC, grab bars, quad cane, hand held shower. See tx plan for goals met. DC OT, with home health OT. PT Halfway Goals Halfway Goals PT Halfway Goals Time Frame: Aug 06, 2016 Transfers (B,C,W/C) (FIM): 5 Roll Left to Right (QC): 4 (met) Sit to Lying (QC): 4 Lying-Sitting on Side/Bed(QC): 4 (met) Sit to Stand (QC): 4 (met) Chair/Bmw-dz-Lavhi Xfer(QC): 4 Car Transfer (QC): 4 Gait (FIM): 4 Distance: 150' Walk 10 feet (QC): 4 Walk 10ft-Uneven Surface(QC): 4 Walk 50ft with 2 Turns (QC): 4 Walk 150 ft (QC): 4 Gait Level of Assist: 4 Gait Assistive Device: Cane Large Base Quad Stairs (FIM): 2 (met) # of Steps: 4 (met) 1 Step (curb) (QC): 4 (met) 4 Steps (QC): 4 (met) 12 Steps (QC): 88 Stairs Level Of Assist: 4 (met) Picking up an Object (QC): 88 OT Student Admissions Clerk Goals Halfway Goals Time Frame: Aug 13, 2016 Eating (FIM): 6 (not met) Eating (QC): 6 (not met) Oral Hygiene (QC): 6 (met-08/07/2016) Grooming(FIM): 6 (met-08/07/2016) Bathing(FIM): 6 (not met) Shower/Bathe Self (QC): 6 (not met) Upper Body Dressing(FIM): 6 (not met) Upper Body Dressing (QC): 6 (not met) Lower Body Dressing(FIM): 6 (not met) Lower Body Dressing (QC): 6 (not met) On/Off Footwear (QC): 6 (not met) Toileting(FIM): 6 (not met) Toileting Hygiene (QC): 6 (not met) Toilet/Commode Transfer(FIM): 6 (not met) Toilet/Commode Transfer (QC): 6 (not met) Shower Transfer(FIM): 6 (not met) Comprehension(FIM): 5 (MET) Expression (FIM): 6 (MET) Social Interaction(FIM): 6 (MET) Problem Solving(FIM): 5 (MET) Memory(FIM): 5 (MET) Additional Goals: 2-Verbalize Understanding, 3-ImproveStrength/Pedro 1=Demonstrate adherence to instructed precautions during ADL tasks. 2=Patient will verbalize/demonstrate understanding of assistive devices/ modifications for ADL. 3=Patient will improve strength/tolerance for activity to enable patient to perform ADL's. Speech Halfway Goals Halfway Goals 1. The patient will tolerate the least restrictive diet without signs/symptoms of aspiration or laryngeal penetration. Time Frame: Two Weeks Comprehension: 5 (MET) Expression: 6 (MET) Social Interaction: 6 (MET) Problem Solvin (MET) Memory: 5 (MET) LIZA BARCLAY OT Aug 09, 2016 13:41
== END 2016-08-09 10:20 | disposition home or self-care (01) | DRG 57 ==
LOC: ENPENDDIS 08-09 12:00
PROVIDERS: ADMIT Physical Medicine & Rehabilitation; ATTEND Physical Medicine & Rehabilitation
DX: I69.354 Hemiplegia and hemiparesis following cerebral infarction affecting left non-dominant side (principal); I69.391 Dysphagia following cerebral infarction; I69.398 Other sequelae of cerebral infarction; M77.32 Calcaneal spur, left foot; R26.81 Unsteadiness on feet; M65.9 Synovitis and tenosynovitis, unspecified; I25.10 Atherosclerotic heart disease of native coronary artery without angina pectoris; K21.9 Gastro-esophageal reflux disease without esophagitis; I10 Essential (primary) hypertension; E78.5 Hyperlipidemia, unspecified; I73.9 Peripheral vascular disease, unspecified; F17.210 Nicotine dependence, cigarettes, uncomplicated; M19.042 Primary osteoarthritis, left hand; L30.9 Dermatitis, unspecified; G47.00 Insomnia, unspecified
CPT/HCPCS: 36415; 73110; 73130; 73610; 80053; 84550; 85025

== ENCOUNTER 2016-10-08 11:01 | Emergency (ER) | payer MEDICARE ==
[~2016-10-08] VITALS: Ht 177.8 cm; Wt 77.1 kg
[~2016-10-08 11:01] MED LIST: ASPI-983 PO; ATOR20TA66 PO; BENA20TA2 PO; DICL100G18 TOP; DOCU100C37 PO; HYDR-3812 PO; MULT1TAB69 PO; NIFE60TA64 PO; OMEP20TA33 PO; TR1C15 TP; TRAZ-28 PO
[2016-10-08 13:05] LABS: BASOPHILS % (AUTO) 0 % (0-10); EOSINOPHILS # (AUTO) 0.2 10^3/uL (0.0-0.3); EOSINOPHILS % (AUTO) 3 % (0-10); LYMPHOCYTES # (AUTO) 1.5 X 10^3 (1.0-4.0); LYMPHOCYTES % (AUTO) 19 % (12-44); MEAN CORPUSCULAR HEMOGLOBIN 35 PG (25-34); MEAN CORPUSCULAR HGB CONC 35 G/DL (32-36); MEAN CORPUSCULAR VOLUME 101 FL (80-99); MEAN PLATELET VOLUME 9.9 FL (7.4-10.4); MONOCYTES # (AUTO) 1.1 X 10^3 (0.0-1.0); MONOCYTES % (AUTO) 14 % (0-12); NEUTROPHILS % (AUTO) 64 % (42-75); PLATELET COUNT 219 10^3/uL (130-400); RED BLOOD COUNT 4.16 10^6/uL (4.35-5.85); RED CELL DISTRIBUTION WIDTH 12.8 % (10.0-14.5); WHITE BLOOD COUNT 7.8 10^3/uL (4.3-11.0)
[2016-10-08 13:23] LABS: ALANINE AMINOTRANSFERASE 15 U/L (0-55); ALBUMIN 3.5 GM/DL (3.2-4.5); ANION GAP 5 MMOL/L (5-14); ASPARTATE AMINO TRANSFERASE 19 U/L (5-34); BILIRUBIN,TOTAL 0.7 MG/DL (0.1-1.0); BLOOD UREA NITROGEN 9 MG/DL (7-18); BUN/CREATININE RATIO 12; CARBON DIOXIDE 25 MMOL/L (21-32); CHLORIDE 102 MMOL/L (98-107); CREATININE SERUM 0.75 MG/DL (0.60-1.30); GFR ESTIMATED > 60; GLUCOSE 194 MG/DL (70-105); MAGNESIUM 1.9 MG/DL (1.8-2.4); SODIUM 132 MMOL/L (135-145); TOTAL PROTEIN 6.4 GM/DL (6.4-8.2)
--- NOTE | 2016-10-08 14:10 | ED General ---
General Chief Complaint: Dizziness/Syncope Stated Complaint: DIZZY Nursing Triage Note: pt reports intermittent dizziness since friday. pt states it is worse when he changes position. 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 Nursing Sepsis Screen: No Definite Risk Source of Information: Patient Exam Limitations: No Limitations History of Present Illness Time Seen by Provider: 12:36 Initial Comments This 81-year-old gentleman presents to the emergency room with complaints of dizziness since Friday. Dizziness is especially worse with position changes. Patient had a stroke in July 11 and wonders if these symptoms may be related. Was admitted for inpatient rehabilitation until August 09. He has been functioning fairly well since then. He describes the dizziness as a spinning or vertigo sensation. He has no focal neurologic deficits. Allergies and Home Medications Allergies Coded Allergies: Tetanus Vaccines and Toxoid (Verified Allergy, Unknown, 07/16/16) Home Medications Aspirin 81 Mg Tablet.dr, 81 MG PO DAILY, (Reported) Atorvastatin Calcium 20 Mg Tablet, 20 MG PO HS, (Reported) Benazepril HCl 20 Mg Tablet, 20 MG PO DAILY, (Reported) Diclofenac Sodium 100 Gm Gel..gram., 0 GM TOP QID for 14 Days, #1 Prescribed by: KHALIDA FUNEZ on 08/08/161937 Docusate Sodium 100 Mg Capsule, 100 MG PO BID PRN for CONSTIPATION-1ST LINE, ( Reported) Hydrocodone/Acetaminophen 1 Each Tablet, 1 TAB PO Q4HR PRN for PAIN-MODERATE for 14 Days, #30 Prescribed by: KHALIDA FUNEZ on 08/08/16 193 Meclizine HCl 12.5 Mg Tablet, 12.5 MG PO TID PRN for DIZZINESS, #20 Prescribed by: ZENA BOO on 10/08/16 1413 Multivitamin 1 Each Tablet, 1 TAB PO DAILY, (Reported) Nifedipine 60 Mg Tab.er.24, 60 MG PO DAILY, (Reported) Omeprazole Magnesium 20 Mg Tablet.dr, 20 MG PO DAILY, (Reported) Trazodone HCl 50 Mg Tablet, 25 MG PO HS for 30 Days, #15 Prescribed by: KHALIDA FUNEZ on 08/08/161937 Triamcinolone Acet 15 Gm Cr, TP BID, (Reported) Constitutional: no symptoms reported EENTM: see HPI Respiratory: no symptoms reported Cardiovascular: no symptoms reported Gastrointestinal: no symptoms reported Genitourinary: no symptoms reported Musculoskeletal: no symptoms reported Skin: no symptoms reported Psychiatric/Neurological: See HPI Hematologic/Lymphatic: No Symptoms Reported Past Yjzyxox-Galwbn-Vqcrjj Hx Patient Social History Alcohol Use: Denies Use Recreational Drug Use: No Smoking Status: Former Smoker Type Used: Cigarettes Former Smoker, Quit: Jul 11, 2016 Recent Foreign Travel: No Contact w/Someone Who Travel: No Recent Infectious Disease Expo: No Physical Abuse: No Sexual Abuse: No Mistreated: No Fear: No Immunizations Up To Date Date of Pneumonia Vaccine: June 28, 2015 Surgeries History of Surgeries: Yes (Bilat cataract removal; Dental SX for dentures; Elbow SX; Femoral bipass) Respiratory History of Respiratory Disorde: No Cardiovascular History of Cardiac Disorders: Yes Cardiac Disorders: Coronary Artery Disease, Hypertension, Peripheral Vascular Neurological History of Neurological Disord: Yes Neurological Disorders: Stroke Genitourinary History of Genitourinary Disor: Yes Genitourinary Disorders: Prostate Problems Gastrointestinal History of Gastrointestinal Di: Yes Gastrointestinal Disorders: Gastroesophageal Reflux, Chronic Diarrhea Musculoskeletal History of Musculoskeletal Dis: No Endocrine History of Endocrine Disorders: No HEENT History of HEENT Disorders: Yes HEENT Disorders: Cataract Cancer History of Cancer: Yes Cancer: Skin Psychosocial History of Psychiatric Problem: No Suicide Risk Score: 0 Integumentary History of Skin or Integumenta: No Physical Exam Vital Signs Vital Sign - Last 12Hours 10/08/16 11:45 Temp 98.0 Pulse 77 Resp 20 B/P (MAP) 140/92 Pulse Ox 94 Capillary Refill : Less Than 3 Seconds General Appearance: No Apparent Distress, WD/WN HEENT: PERRL/EOMI, TMs Normal (Excessive cerumen), Normal ENT Inspection, Pharynx Normal Neck: Normal Inspection, No Carotid Bruit, No JVD Respiratory: Lungs Clear, Normal Breath Sounds, No Accessory Muscle Use, No Respiratory Distress Cardiovascular: Regular Rate, Rhythm, No Edema, No Gallop, No JVD, No Murmur Extremity: Normal Inspection, No Pedal Edema Neurologic/Psychiatric: Alert, Oriented x3, No Motor/Sensory Deficits, Normal Mood/Affect, reading aide II-XII Norm as Tested, Other (Cumberland-Hallpike positive to the right with both reproduction of symptoms and nystagmus) Skin: Normal Color, Warm/Dry Progress/Results/Core Measures Results/Orders Lab Results My Orders Vital Signs/I&O Blood Pressure Mean: 108 Progress Note : Progress Note Cumberland-Hallpike was positive to the right. The maneuver was converted into an Jt maneuver. This seemed to completely resolve his symptoms and he walked out of the emergency room asymptomatic. Please see discharge instructions. Departure Impression Impression: Primary Impression: Vertigo Disposition: 01 HOME, SELF-CARE Condition: Improved Departure-Patient Inst. Referrals: ATTILA MORENO MD (PCP/Family) Primary Care Physician Patient Instructions: Vertigo (a Type of Dizziness) (DC) Add. Discharge Instructions: If the dizziness returns, you may try meclizine as prescribed to help control the dizziness. Use meclizine with caution as it may cause drowsiness. You may also have someone help you perform the Jt maneuver again. Follow-up with your primary care provider if not improving with these measures. Return to the ER if symptoms become severe. All discharge instructions reviewed with patient and/or family. Voiced understanding. Scripts Meclizine HCl (Meclizine HCl) 12.5 Mg Tablet 12.5 MG PO TID Y for DIZZINESS, #20 TAB Prov: ZENA RICO MD 10/08/16 ZENA RICO MD Oct 08, 2016 14:10
[2016-10-08] MEDS ORDERED: MECL12.579 PO (14:13)
[2016-10-08 14:24] VITALS: BP 126/75
== END 2016-10-08 14:24 | disposition home or self-care (01) ==
LOC: EDUNIT# 11:01 → ER 11:03
DX: R42 Dizziness and giddiness (principal); I25.10 Atherosclerotic heart disease of native coronary artery without angina pectoris; I10 Essential (primary) hypertension; K21.9 Gastro-esophageal reflux disease without esophagitis; I73.9 Peripheral vascular disease, unspecified; Z86.73 Personal history of transient ischemic attack (TIA), and cerebral infarction without residual deficits; Z85.828 Personal history of other malignant neoplasm of skin; Z87.891 Personal history of nicotine dependence
CPT/HCPCS: 36415; 80053; 83735; 85025

== ENCOUNTER 2016-11-07 09:53 | Outpatient (RCR) | payer MEDICARE ==
[~2016-11-07 09:53] MED LIST changes: +MECL12.579 PO
== END 2016-11-09 | disposition home or self-care (01) ==
PROVIDERS: ATTEND Family Medicine
DX: I69.354 Hemiplegia and hemiparesis following cerebral infarction affecting left non-dominant side (principal); I69.391 Dysphagia following cerebral infarction; I69.398 Other sequelae of cerebral infarction

== ENCOUNTER → 2017-01-22 | Outpatient (CLI) | payer MEDICARE ==
--- NOTE | 2017-01-22 13:36 | Diagnostic Imaging Report ---
INDICATION: Neck pain EXAMINATION: Cervical spine AP, oblique and lateral and odontoid views of the cervical spine were obtained. There is a slight spondylolisthesis at C4-5. Alignment otherwise unremarkable. There is disc space narrowing at C5-6 and minimal narrowing at C6-7. Posterior elements are intact The odontoid is intact. There is some hypertrophic changes of the facet joints in the mid and lower cervical spine. The neural foramen are widely patent. 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 The slight spondylolisthesis at C4-5 is likely due to compensation because of the degenerative changes of C5-6 and C6-7. There is no acute abnormality seen. Dictated by: Dictated on workstation # [id number]
== END ==
LOC: RAD 12:16
DX: M47.812 Spondylosis without myelopathy or radiculopathy, cervical region (principal); M43.12 Spondylolisthesis, cervical region
CPT/HCPCS: 72050

== ENCOUNTER 2017-02-07 14:31 | Outpatient (RCR) | payer MEDICARE ==
[~2017-02-07 14:31] MED LIST changes: +ACHD5005 PO; -HYDR-3812 PO
== END 2017-02-10 | disposition home or self-care (01) ==
PROVIDERS: ATTEND Family Medicine
DX: I69.354 Hemiplegia and hemiparesis following cerebral infarction affecting left non-dominant side (principal); I69.391 Dysphagia following cerebral infarction; I69.398 Other sequelae of cerebral infarction

== ENCOUNTER 2017-07-30 13:11 | Outpatient (RCR) | payer MEDICARE ==
[~2017-07-30 13:11] MED LIST changes: -BENA20TA2 PO; +BENA20TA7 PO; +TRAZ-189 PO; -TRAZ-28 PO
== END 2017-09-09 13:23 | disposition home or self-care (01) ==
PROVIDERS: ATTEND Family Medicine
DX: I69.354 Hemiplegia and hemiparesis following cerebral infarction affecting left non-dominant side (principal)